=== PATIENT | male | born 1950 | race Caucasian/White ===

== ENCOUNTER 2020-03-23 15:43 | Inpatient (IN) | payer MEDICARE ==
[2020-03-23] MEDS ORDERED: DILTIAZEM DRIP BOLUS FROM BAG 1 MG SOLN IV ONE (16:07)
[2020-03-23] MEDS ORDERED: HEPARIN SODIUM,PORCINE 5,000 UNIT/ML 1 ML VIAL IV PRN (16:08)
[2020-03-23] MEDS ORDERED: HEPARIN SODIUM,PORCINE 5,000 UNIT/ML 1 ML VIAL IV ONE (16:08)
[2020-03-23] MEDS ORDERED: HEPARIN SOD,PORK IN 0.45% NACL 25,000 UNIT in 0.45% NACL 1 250ML.BAG IV SCH (16:15)
--- NOTE | 2020-03-23 16:15 | ED ---
General Adult HPI - General Chief complaint: Arrhythmia/Palpitations Stated complaint: Afib Time Seen by Provider: 03/23/20 15:49 Source: patient Mode of arrival: EMS Limitations: no limitations - History of Present Illness Initial comments: Dictation was produced using [employer] dictation software. please excuse any grammatical, word or spelling errors. This patient was cared for during a federal and state declared state of emergency secondary to Covid 19 Chief Complaint: 69-year-old malepast medical history presents with dysrhythmia. History of Present Illness: he is 69-year-old male he denies any past comorbidities. He was at his primary care physician's office for a routine annual checkup is found to have tachycardia. Patient at bedside denies any complaints at this time. He denies palpitations. He has no chest pain. P atient denies any history of A. fib or cardiac issues. Does not take any blood thinners. He denies any symptoms currently despite being very tachycardic. The ROS documented in this emergency department record has been reviewed and confirmed by me. Those systems with pertinent positive or negative responses have been documented in the HPI. All other systems are other negative and/or noncontributory. PHYSICAL EXAM: General Impression: Alert and oriented x3, not in acute distress HEENT: Normocephalic atraumatic, extra-ocular movements intact, pupils equal and reactive to light bilaterally, mucous membranes moist. Cardiovascular: Tachycardic, irregular Chest: Able to complete full sentences, no retractions, no tachypnea Abdomen: abdomen soft, non-tender, non-distended, no organomegaly Musculoskeletal: Pulses present and equal in all extremities, no peripheral edema Motor: no focal deficits noted Neurological: CN II-XII grossly intact, no focal motor or sensory deficits noted Skin: Intact with no visualized rashes Psych: Normal affect and mood ED course: 69-year-old male presents with dysrhythmia. Signs upon arrival shows heart rate of 135, rest of vital signs within acceptable limits. Patient's well-appearing at bedside. Monitor shows atrial fibrillation rapid ventricular rate. Sometimes his heart rate will go up into the 170s. EKG shows atrial fibrillation with RVR. Patient started on Cardizem and heparin.Laboratory evaluation obtained. CBC, coag panel unremarkable. Metabolic panel is within acceptable limits. No elevated troponin. Chest x-ray is nonacute. Patient reevaluated after being started on Cardizem and heparin. He is in stable medical condition. His heart rate is improved. Discussed patient case with . she does want to accept patients care. EKG interpretation: Ventricular rate 120, A. fib with RVR, QRS 92, QTC 475. No IA prolongation, no QTC prolongation, no ST or T-wave changes noted. s. Overall, this EKG is unremarkable - Related Data Home Medications Medication Instructions Recorded Confirmed Aspirin EC [Ecotrin Low Dose] 81 mg PO DAILY 03/23/20 03/23/20 Cholecalciferol [Vitamin D3 (25 2,000 unit PO DAILY 03/23/20 03/23/20 Mcg = 1000 Iu)] RX: Magnesium Oxide 400 mg PO DAILY 03/23/20 03/23/20 RX: Vitamin E 400 unit PO DAILY 03/23/20 03/23/20 Allergies Allergy/AdvReac Type Severity Reaction Status Date / Time No Known Allergies Allergy Unverified 03/23/20 16:42 Review of Systems ROS Statement: Those systems with pertinent positive or pertinent negative responses have been documented in the HPI. ROS Other: All systems not noted in ROS Statement are negative. 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 ] Respiratory 18 18 Rate Blood Pressure 145/114 105/84 Medical Decision Making - Lab Data Result diagrams: 03/23/20 16:00 03/23/20 16:00 Lab Results 03/23/20 03/23/20 03/23/20 Range/Units 16:00 16:00 16:00 WBC 8.7 (3.8-10.6) k/uL RBC 5.10 (4.30-5.90) m/uL Hgb 16.1 (13.0-17.5) gm/dL Hct 49.7 (39.0-53.0) % MCV 97.6 (80.0-100.0) fL MCH 31.6 (25.0-35.0) pg MCHC 32.4 (31.0-37.0) g/dL RDW 13.7 (11.5-15.5) % Plt Count 160 (150-450) k/uL Neutrophils % 70 % Lymphocytes % 17 % Monocytes % 8 % Eosinophils % 1 % Basophils % 1 % Neutrophils # 6.1 (1.3-7.7) k/uL Lymphocytes # 1.5 (1.0-4.8) k/uL Monocytes # 0.7 (0-1.0) k/uL Eosinophils # 0.1 (0-0.7) k/uL Basophils # 0.0 (0-0.2) k/uL PT 9.4 (9.0-12.0) sec INR 0.9 (<1.2) APTT 23.4 (22.0-30.0) sec Sodium 139 (137-145) mmol/L Potassium 4.5 (3.5-5.1) mmol/L Chloride 112 H (98-107) mmol/L Carbon Dioxide 21 L (22-30) mmol/L Anion Gap 6 mmol/L BUN 8 L (9-20) mg/dL Creatinine 0.68 (0.66-1.25) mg/dL Est GFR (CKD-EPI)AfAm >90 (>60 ml/min/1.73 sqM) Est GFR (CKD-EPI)NonAf >90 (>60 ml/min/1.73 sqM) Glucose 85 (74-99) mg/dL Calcium 9.1 (8.4-10.2) mg/dL Magnesium 2.0 (1.6-2.3) mg/dL Total Bilirubin 0.9 (0.2-1.3) mg/dL AST 42 (17-59) U/L ALT 23 (4-49) U/L Alkaline Phosphatase 58 (38-126) U/L Troponin I (0.000-0.034) ng/mL Total Protein 7.1 (6.3-8.2) g/dL Albumin 4.0 (3.5-5.0) g/dL TSH 1.990 (0.465-4.680) mIU/L 03/23/20 Range/Units 16:00 WBC (3.8-10.6) k/uL RBC (4.30-5.90) m/uL Hgb (13.0-17.5) gm/dL Hct (39.0-53.0) % MCV (80.0-100.0) fL MCH (25.0-35.0) pg MCHC (31.0-37.0) g/dL RDW (11.5-15.5) % Plt Count (150-450) k/uL Neutrophils % % Lymphocytes % % Monocytes % % Eosinophils % % Basophils % % Neutrophils # (1.3-7.7) k/uL Lymphocytes # (1.0-4.8) k/uL Monocytes # (0-1.0) k/uL Eosinophils # (0-0.7) k/uL Basophils # (0-0.2) k/uL PT (9.0-12.0) sec INR (<1.2) APTT (22.0-30.0) sec Sodium (137-145) mmol/L Potassium (3.5-5.1) mmol/L Chloride (98-107) mmol/L Carbon Dioxide (22-30) mmol/L Anion Gap mmol/L BUN (9-20) mg/dL Creatinine (0.66-1.25) mg/dL Est GFR (CKD-EPI)AfAm (>60 ml/min/1.73 sqM) Est GFR (CKD-EPI)NonAf (>60 ml/min/1.73 sqM) Glucose (74-99) mg/dL Calcium (8.4-10.2) mg/dL Magnesium (1.6-2.3) mg/dL Total Bilirubin (0.2-1.3) mg/dL AST (17-59) U/L ALT (4-49) U/L Alkaline Phosphatase (38-126) U/L Troponin I <0.012 (0.000-0.034) ng/mL Total Protein (6.3-8.2) g/dL Albumin (3.5-5.0) g/dL TSH (0.465-4.680) mIU/L Critical Care Time Critical Care Time: Yes Total Critical Care Time: 33 Disposition Clinical Impression: Atrial fibrillation Disposition: ADMITTED IP TO THIS HOSP Condition: Fair Referrals: Lyle Edward MD [Primary Care Provider] - 1-2 days Decision Time: 18:08
[2020-03-23 16:39] LABS: Basophils % (A) 1 %; Eosinophils # (A) 0.1 k/uL (0-0.7); Eosinophils % (A) 1 %; HCT 49.7 % (39.0-53.0); HGB 16.1 gm/dL (13.0-17.5); Lymphocytes # (A) 1.5 k/uL (1.0-4.8); Lymphocytes % (A) 17 %; MCH 31.6 pg (25.0-35.0); MCHC 32.4 g/dL (31.0-37.0); MCV 97.6 fL (80.0-100.0); Mean Platelet Volume 7.5; Monocytes # (A) 0.7 k/uL (0-1.0); Monocytes % (A) 8 %; Neutrophils # (A) 6.1 k/uL (1.3-7.7); Neutrophils % (A) 70 %; Platelet Count 160 k/uL (150-450); RDW 13.7 % (11.5-15.5); WBC 8.7 k/uL (3.8-10.6)
[2020-03-23 16:47] LABS: INR 0.9 (<1.2); Partial Thromboplastin Time 23.4 sec (22.0-30.0); Prothrombin Time 9.4 sec (9.0-12.0)
[2020-03-23] MEDS: DILTIAZEM 125 MG in SODIUM CHLORIDE 0.9% 100 ML IV SCH (16:58)
[2020-03-23 17:11] LABS: ALT 23 U/L (4-49); AST 42 U/L (17-59); African American GFR (CKD) >90 (>60 ml/min/1.73 sqM); Alkaline Phosphatase 58 U/L (38-126); Anion Gap 6 mmol/L; Blood Urea Nitrogen 8 mg/dL (9-20); Calcium 9.1 mg/dL (8.4-10.2); Carbon Dioxide 21 mmol/L (22-30); Chloride 112 mmol/L (98-107); Glucose 85 mg/dL (74-99); Non-African American GFR(CKD) >90 (>60 ml/min/1.73 sqM); Sodium 139 mmol/L (137-145); Total Bilirubin 0.9 mg/dL (0.2-1.3); Total Protein 7.1 g/dL (6.3-8.2)
[2020-03-23 17:19] LABS: Potassium 4.5 mmol/L (3.5-5.1)
--- NOTE | 2020-03-23 18:03 | XR ---
EXAMINATION TYPE: XR chest 1V portable DATE OF EXAM: 03/23/2020 COMPARISON: NONE HISTORY: Dysrhythmia TECHNIQUE: Single frontal view of the chest is obtained. FINDINGS: Heart appears borderline increased although rotation and technique may accentuate the appe arance. No evident airspace disease, pneumothorax, or pleural effusion. There are overlying cardiac l aldair. Bone mineralization is normal. There are prominent lung volumes. IMPRESSION: No acute process.
[2020-03-23] MEDS ORDERED: NALOXONE 0.4 MG/ML 1 ML VIAL IV PRN (18:08)
[2020-03-23] MEDS ORDERED: ACETAMINOPHEN TAB 325 MG TAB PO PRN (18:08)
[2020-03-23] MEDS ORDERED: ONDANSETRON 4 MG/2 ML VIAL IVP PRN (18:08)
[2020-03-23] MEDS ORDERED: SODIUM CHLORIDE 0.9% 1,000 ML IV SCH (18:15)
[2020-03-23 19:15] VITALS: RESP 16
[2020-03-24 00:27] VITALS: TEMP 98.4
[2020-03-24] MEDS: DILTIAZEM 125 MG in SODIUM CHLORIDE 0.9% 100 ML IV SCH (08:40)
[2020-03-24] MEDS ORDERED: CHOLECALCIFEROL 1,000 UNIT TAB PO SCH (09:00)
[2020-03-24] MEDS ORDERED: METOPROLOL TARTRATE 25 MG TAB PO SCH (09:00)
[2020-03-24] MEDS ORDERED: APIXABAN 5 MG TAB PO SCH (09:00)
[2020-03-24] MEDS ORDERED: ASPIRIN 81 MG PO SCH (09:00)
[2020-03-24] MEDS ORDERED: MAGNESIUM OXIDE 400 MG TAB PO SCH (09:00)
--- NOTE | 2020-03-24 11:24 | P.CRDCN ---
History of Present Illness Consult date: 03/24/20 Requesting physician: Kayce Johnson Consult reason: atrial fibrillation History of present illness: This is a pleasant 69-year-old gentleman with no prior documented history of hypertension, no diabetes, no hyperlipidemia, he is a smoker, also drinks at least 6 beers per day, drinks a significant amount of coffee, at least one pot of coffee in the morning. He states that he went to his primary care doctor's office for routine visit, was noticed there to have a rapid irregular heartbeat and was recommended to come to the emergency room for further evaluation and treatment. His EKG on arrival here showed atrial fibrillation with a rapid ventricular response, heart rate was 135, blood pressure at that time 145/114. Chest x-ray did not reveal any acute process. White blood cell count 8.7, hemoglobin 16.1, platelet count 160. Sodium 139, potassium 4.5, BUN 8, creatinine 0.6. Troponin 0.012. TSH level I.9. Patient was initiated on IV Cardizem on arrival here, this morning converted to normal sinus rhythm and remains in a normal sinus rhythm at this time. We will discontinue the IV Cardizem drip and start the patient on a beta una. We will also discontinue the IV heparin and initiate Eliquis. Patient has been educated regarding the importance of anticoagulation for stroke prevention. Past Medical History Past Medical History: No Reported History History of Any Multi-Drug Resistant Organisms: None Reported Past Surgical History: No Surgical Hx Reported Past Psychological History: No Psychological Hx Reported Smoking Status: Current every day smoker Past Alcohol Use History: None Reported Past Drug Use History: None Reported Medications and Allergies Home Medications Medication Instructions Recorded Confirmed Type Cholecalciferol [Vitamin D3 (25 2,000 unit PO DAILY 03/23/20 03/23/20 History Mcg = 1000 Iu)] Magnesium Oxide 400 mg PO DAILY 03/23/20 03/23/20 History Vitamin E 400 unit PO DAILY 03/23/20 03/23/20 History Apixaban [Eliquis] 5 mg PO BID #60 tab 03/24/20 Rx Metoprolol Tartrate [Lopressor] 25 mg PO BID #60 tab 03/24/20 Rx Allergies Allergy/AdvReac Type Severity Reaction Status Date / Time No Known Allergies Allergy Unverified 03/23/20 16:42 Physical Exam Vitals: Vital Signs Temp Pulse Pulse Resp BP BP Pulse Ox 03/24/20 08:00 98.4 F 73 16 113/73 97 03/24/20 04:00 98.4 F 97 16 127/87 95 03/24/20 00:00 98.4 F 91 16 114/77 99 03/23/20 20:10 97.9 F 107 H 16 149/65 97 03/23/20 20:00 97.9 F 107 H 16 149/65 97 03/23/20 19:14 98.2 F 128 H 16 123/90 97 03/23/20 19:13 128 H 16 123/90 03/23/20 19:00 128 H 123/90 03/23/20 18:30 79 103/47 03/23/20 18:00 109 H 122/78 03/23/20 17:39 130 H 03/23/20 17:30 89 39 H 105/84 03/23/20 17:00 120 H 32 H 105/84 03/23/20 16:54 105 H 18 105/84 03/23/20 16:30 106 H 20 145/114 03/23/20 16:00 147 H 14 145/114 03/23/20 15:50 98.2 F 135 H 18 145/114 03/23/20 15:48 142 H 15 Intake and Output 03/23/20 03/24/20 03/24/20 22:59 06:59 14:59 Intake Total 450 71.856 125 Balance 450 71.856 125 Intake: Intake, IV Titration 71.856 125 Amount Diltiazem 125 mg In 125 Sodium Chloride 0.9% 100 ml @ 10 MG/HR 10 mls/hr IV .[id number] [facility] Rx#: [id number] Heparin Sod,Pork in 0.45% 71.856 NaCl 25,000 unit In 0.45 % NaCl 1 250ml.bag @ 11.4 UNITS/KG/HR 9.98 mls/hr IV .Q24H [facility] Rx#: [id number] Oral 450 Other: Voiding Method Toilet Toilet # Voids 1 1 Weight 87.543 kg 86.6 kg PHYSICAL EXAMINATION: GENERAL: 69-year-old gentleman in no acute distress at the time of my examination HEENT: Head is atraumatic, normocephalic. Pupils equal, round. Sclera anicteric. Conjunctiva are clear. Mucous membranes of the mouth are moist. Neck is supple. There is no elevated jugular venous pressure. No carotid bruit is heard. HEART EXAMINATION: Heart S1, S2 normal. No murmur or gallop heard. CHEST EXAMINATION: Lungs reveal some rhonchi to the bases ABDOMEN: Soft, nontender. Bowel sounds are heard. No organomegaly noted. EXTREMITIES: 2+ peripheral pulses with trace evidence of peripheral edema and no calf tenderness noted. NEUROLOGIC patient is awake, alert and oriented 3 . . Results 03/23/20 16:00 03/23/20 16:00 Cardiac Enzymes 03/23/20 03/23/20 Range/Units 16:00 16:00 AST 42 (17-59) U/L Troponin I <0.012 (0.000-0.034) ng/mL Coagulation 03/23/20 03/23/20 03/24/20 Range/Units 16:00 23:52 06:23 PT 9.4 (9.0-12.0) sec APTT 23.4 35.7 H 40.6 H (22.0-30.0) sec CBC 03/23/20 Range/Units 16:00 WBC 8.7 (3.8-10.6) k/uL RBC 5.10 (4.30-5.90) m/uL Hgb 16.1 (13.0-17.5) gm/dL Hct 49.7 (39.0-53.0) % Plt Count 160 (150-450) k/uL Comprehensive Metabolic Panel 03/23/20 Range/Units 16:00 Sodium 139 (137-145) mmol/L Potassium 4.5 (3.5-5.1) mmol/L Chloride 112 H (98-107) mmol/L Carbon Dioxide 21 L (22-30) mmol/L BUN 8 L (9-20) mg/dL Creatinine 0.68 (0.66-1.25) mg/dL Glucose 85 (74-99) mg/dL Calcium 9.1 (8.4-10.2) mg/dL AST 42 (17-59) U/L ALT 23 (4-49) U/L Alkaline Phosphatase 58 (38-126) U/L Total Protein 7.1 (6.3-8.2) g/dL Albumin 4.0 (3.5-5.0) g/dL Current Medications Generic Name Dose Route Start Last Admin Trade Name Freq PRN Reason Stop Dose Admin Acetaminophen 650 mg 03/23/20 18:08 Tylenol Tab PO Q6HR PRN Mild Pain or Fever > 100.5 Apixaban 5 mg 03/24/20 09:00 03/24/20 08:38 Eliquis PO 5 mg BID [facility] Administration Cholecalciferol 2,000 unit 03/24/20 09:00 03/24/20 08:38 Vitamin D3 (25 Mcg = 1000 Iu) PO 2,000 unit DAILY [facility] Administration Sodium Chloride 1,000 mls @ 20 mls/hr 03/23/20 18:15 03/23/20 22:18 Saline 0.9% IV Not Given .Q24H [facility] Magnesium Oxide 400 mg 03/24/20 09:00 03/24/20 08:38 Mag-Ox PO 400 mg DAILY [facility] Administration Metoprolol Tartrate 25 mg 03/24/20 09:00 03/24/20 08:38 Lopressor PO 25 mg BID [facility] Administration Naloxone HCl 0.2 mg 03/23/20 18:08 Narcan IV Q2M PRN Opioid Reversal Ondansetron HCl 4 mg 03/23/20 18:08 Zofran IVP Q8HR PRN Nausea And Vomiting Intake and Output 03/23/20 03/24/20 03/24/20 22:59 06:59 14:59 Intake Total 450 71.856 125 Balance 450 71.856 125 Intake: Intake, IV Titration 71.856 125 Amount Diltiazem 125 mg In 125 Sodium Chloride 0.9% 100 ml @ 10 MG/HR 10 mls/hr IV .[id number] [facility] Rx#: [id number] Heparin Sod,Pork in 0.45% 71.856 NaCl 25,000 unit In 0.45 % NaCl 1 250ml.bag @ 11.4 UNITS/KG/HR 9.98 mls/hr IV .Q24H [facility] Rx#: [id number] Oral 450 Other: Voiding Method Toilet Toilet # Voids 1 1 Weight 87.543 kg 86.6 kg 03/23/20 16:00 03/23/20 16:00 EKG Interpretations (text) EKG on arrival here showed atrial fibrillation with a rapid ventricular response, this morning's EKG shows a normal sinus rhythm no acute changes. Assessment and Plan Plan: Assessment and plan #1 atrial fibrillation with rapid ventricular response, paroxysmal, patient currently in normal sinus rhythm #2 nicotine dependence #3 EtOH use, 6 beers per day #4 excessive caffeine intake Plan We will obtain an echocardiogram with Doppler study. Discontinue IV Cardizem and start the patient on a beta una. We will also discontinue the IV hepa rin and initiate Eliquis 5 mg one tablet by mouth twice a day. From cardiology's perspective, the patient may be able to be discharged home today after we review his echo, he can follow-up with Dr. Allen in the office 2 weeks post discharge. DNP note has been reviewed, I agree with a documented findings and plan of care. Patient was seen and examined.
--- NOTE | 2020-03-24 11:25 | P.HPIM ---
History of Present Illness patient is a pleasant 69-year-old admitted without any other significant problems was sent in from PCPs office as patient was tachycardic and patient follow found to be in atrial fibrillation patient was on Cardizem drip which is being weaned off at this time patient was started on metoprolol twice a day and patient is being started on Eliquis after echocardiogram patient will be discharged on Eliquis patient is presently sinus rhythm heart rate controlled. Patient denied any fever chills nausea vomiting patient doesn't have any signs of sepsis or dehydration, patient denied any chest pain, palpitations, lightheadedness. Review of Systems REVIEW OF SYSTEMS: CONSTITUTIONAL: No fever, no malaise, no fatigue. HEENT: No recent visual problems or hearing problems. Denied any sore throat. CARDIOVASCULAR: No chest pain, orthopnea, PND, no palpitations, no syncope. PULMONARY: No shortness of breath, no cough, no hemoptysis. GASTROINTESTINAL: No diarrhea, no nausea, no vomiting, no abdominal pain. NEUROLOGICAL: No headaches, no weakness, no numbness. HEMATOLOGICAL: Denies any bleeding or petechiae. GENITOURINARY: Denies any burning micturition, frequency, or urgency. MUSCULOSKELETAL/RHEUMATOLOGICAL: Denies any joint pain, swelling, or any muscle pain. ENDOCRINE: Denies any polyuria or polydipsia. The rest of the 14-point review of systems is negative. Past Medical History Past Medical History: No Reported History History of Any Multi-Drug Resistant Organisms: None Reported Past Surgical History: No Surgical Hx Reported Past Psychological History: No Psychological Hx Reported Smoking Status: Current every day smoker Past Alcohol Use History: None Reported Past Drug Use History: None Reported Medications and Allergies Home Medications Medication Instructions Recorded Confirmed Type Cholecalciferol [Vitamin D3 (25 2,000 unit PO DAILY 03/23/20 03/23/20 History Mcg = 1000 Iu)] Magnesium Oxide 400 mg PO DAILY 03/23/20 03/23/20 History Vitamin E 400 unit PO DAILY 03/23/20 03/23/20 History Apixaban [Eliquis] 5 mg PO BID #60 tab 03/24/20 Rx Metoprolol Tartrate [Lopressor] 25 mg PO BID #60 tab 03/24/20 Rx Allergies Allergy/AdvReac Type Severity Reaction Status Date / Time No Known Allergies Allergy Unverified 03/23/20 16:42 Physical Exam Vitals: Vital Signs Temp Pulse Pulse Resp BP BP Pulse Ox 03/24/20 08:00 98.4 F 73 16 113/73 97 03/24/20 04:00 98.4 F 97 16 127/87 95 03/24/20 00:00 98.4 F 91 16 114/77 99 03/23/20 20:10 97.9 F 107 H 16 149/65 97 03/23/20 20:00 97.9 F 107 H 16 149/65 97 03/23/20 19:14 98.2 F 128 H 16 123/90 97 03/23/20 19:13 128 H 16 123/90 03/23/20 19:00 128 H 123/90 03/23/20 18:30 79 103/47 03/23/20 18:00 109 H 122/78 03/23/20 17:39 130 H 03/23/20 17:30 89 39 H 105/84 03/23/20 17:00 120 H 32 H 105/84 03/23/20 16:54 105 H 18 105/84 03/23/20 16:30 106 H 20 145/114 03/23/20 16:00 147 H 14 145/114 03/23/20 15:50 98.2 F 135 H 18 145/114 03/23/20 15:48 142 H 15 Intake and Output 03/23/20 03/24/20 03/24/20 22:59 06:59 14:59 Intake Total 450 71.856 125 Balance 450 71.856 125 Intake: Intake, IV Titration 71.856 125 Amount Diltiazem 125 mg In 125 Sodium Chloride 0.9% 100 ml @ 10 MG/HR 10 mls/hr IV .[id number] [facility] Rx#: [id number] Heparin Sod,Pork in 0.45% 71.856 NaCl 25,000 unit In 0.45 % NaCl 1 250ml.bag @ 11.4 UNITS/KG/HR 9.98 mls/hr IV .Q24H [facility] Rx#: [id number] Oral 450 Other: Voiding Method Toilet Toilet # Voids 1 1 Weight 87.543 kg 86.6 kg PHYSICAL EXAMINATION: GENERAL: The patient is alert and oriented x3, not in any acute distress. Well developed, well nourished. HEENT: Pupils are round and equally reacting to light. EOMI. No scleral icterus. No conjunctival pallor. Normocephalic, atraumatic. No pharyngeal erythema. No thyromegaly. CARDIOVASCULAR: S1 and S2 present. No murmurs, rubs, or gallops. PULMONARY: Chest is clear to auscultation, no wheezing or crackles. ABDOMEN: Soft, nontender, nondistended, normoactive bowel sounds. No palpable organomegaly. MUSCULOSKELETAL: No joint swelling or deformity. EXTREMITIES: No cyanosis, clubbing, or pedal edema. NEUROLOGICAL: Gross neurological examination did not reveal any focal deficits. SKIN: No rashes. Results CBC & Chem 7: 03/23/20 16:00 03/23/20 16:00 Labs: Abnormal Lab Results - Last 24 Hours (Table) 03/23/20 03/23/20 03/24/20 Range/Units 16:00 23:52 06:23 APTT 35.7 H 40.6 H (22.0-30.0) sec Chloride 112 H (98-107) mmol/L Carbon Dioxide 21 L (22-30) mmol/L BUN 8 L (9-20) mg/dL Assessment and Plan Plan: -new-onset atrial flutter fibrillation with rapid and regular rate presently rate controlled sinus rhythm patient will be discharged on beta una and Eliquis and we're awaiting echocardiogram. -nicotine abuse: Counseling was provided
--- NOTE | 2020-03-24 11:26 | P.DS ---
Providers Date of admission: 03/23/20 18:08 Attending physician: Weston Frazier MD Consults: 03/23/20 16:08 Consult Physician Routine Consulting Provider: Gerard Allen Consult Reason/Comments: afib Do you want consulting provider notified?: Yes Primary care physician: Lyle Edward [facility] Course: please refer to my history of present illness for further details Patient Condition at Discharge: Fair Plan - Discharge Summary Discharge Rx Participant: Yes New Discharge Prescriptions: New Apixaban [Eliquis] 5 mg PO BID #60 tab Metoprolol Tartrate [Lopressor] 25 mg PO BID #60 tab Continue Vitamin E 400 unit PO DAILY Cholecalciferol [Vitamin D3 (25 Mcg = 1000 Iu)] 2,000 unit PO DAILY Magnesium Oxide 400 mg PO DAILY Discontinued Aspirin EC [Ecotrin Low Dose] 81 mg PO DAILY Discharge Medication List Cholecalciferol [Vitamin D3 (25 Mcg = 1000 Iu)] 2,000 unit PO DAILY 03/23/20 [History] Magnesium Oxide 400 mg PO DAILY 03/23/20 [History] Vitamin E 400 unit PO DAILY 03/23/20 [History] Apixaban [Eliquis] 5 mg PO BID #60 tab 03/24/20 [Rx] Metoprolol Tartrate [Lopressor] 25 mg PO BID #60 tab 03/24/20 [Rx] Follow up Appointment(s)/Referral(s): Gerard Allen MD [STAFF PHYSICIAN] - 04/08/20 10:30 am (Monday) Lyle Edward MD [Primary Care Provider] - 03/27/20 11:15 am (Monday) Patient Instructions/Handouts: A-fib (Atrial Fibrillation) (DC), Safe Use of Anticoagulants (DC) Activity/Diet/Wound Care/Special Instructions: Call [phone] to see if you qualify for patient assistance for Eliquis - may also get samples from cardiology office. Will get 30 days for free with coupon. Discharge Disposition: HOME SELF-CARE
[2020-03-24 13:18] VITALS: BP 128/75; PULSE 67
--- NOTE | 2020-03-25 10:32 | ECHOF ---
Referral Reason:afib MEASUREMENTS -------- HEIGHT: 180.3 cm WEIGHT: 86.2 kg BP: 127/87 RVIDd: 3.4 cm (< 3.3) IVSd: 1.5 cm (0.6 - 1.1) LVIDd: 5.2 cm (3.9 - 5.3) LVPWd: 1.1 cm (0.6 - 1.1) IVSs: 1.6 cm LVIDs: 4.1 cm LVPWs: 1.7 cm LAESV Index (A-L): 36.07 ml/m Ao Diam: 2.9 cm (2.0 - 3.7) AV Cusp: 2.3 cm (1.5 - 2.6) MV E Pipo: 0.70 m/s MV DecT: 142 ms MV A Pipo: 0.89 m/s MV E/A Ratio: 0.79 FINDINGS -------- Sinus rhythm. This was a technically adequate study. The left ventricular size is normal. There is mild concentric left ventricular hypertrophy. Overa ll left ventricular systolic function is mild-moderately impaired with, an EF between 40 - 45 %. Mi tral Doppler inflow pattern suggests diastolic filling abnormality 11.90. Mid anterior LV wall gemma on is hypokinetic. Apical anterior LV wall motion is hypokinetic. Apical septum LV wall motion is hypokinetic. The right ventricle is mildly enlarged. LA is moderately dilated 34-39 ml/m2 The right atrial size is normal. Interatrial and interventricular septum intact. There is no evidence of aortic regurgitation. There is no evidence of aortic stenosis. Mild mitral regurgitation is present. Mild tricuspid regurgitation present. There is no evidence of pulmonary hypertension. The right v entricular systolic pressure, as measured by Doppler, is {RVSP}. There is no pulmonic regurgitation present. The aortic root size is normal. Normal inferior vena cava with normal inspiratory collapse consistent with estimated right atrial pre ssure of 5 mmHg. There is no pericardial effusion. CONCLUSIONS -------- 1. Sinus rhythm. 2. This was a technically adequate study. 3. The left ventricular size is normal. 4. There is mild concentric left ventricular hypertrophy. 5. Overall left ventricular systolic function is mild-moderately impaired with, an EF between 40 - 45 %. 6. Mitral Doppler inflow pattern suggest diastolic filling abnormality 11.90. 7. Mid anterior LV wall motion is hypokinetic. 8. Apical anterior LV wall motion is hypokinetic. 9. Apical septum LV wall motion is hypokinetic. 10. The right ventricle is mildly enlarged. 11. LA is moderately dilated 34-39 ml/m2 12. The right atrial size is normal. 13. Interatrial and interventricular septum intact. 14. There is no evidence of aortic regurgitation. 15. There is no evidence of aortic stenosis. 16. Mild mitral regurgitation is present. 17. Mild tricuspid regurgitation present. 18. There is no evidence of pulmonary hypertension. 19. The right ventricular systolic pressure, as measured by Doppler, is {RVSP}. 20. There is no pulmonic regurgitation present. 21. The aortic root size is normal. 22. Normal inferior vena cava with normal inspiratory collapse consistent with estimated right atrial pressure of 5 mmHg. 23. There is no pericardial effusion. ELECTRICAL SYSTEMS DESIGNER: Maru Pierre RDCS
== END 2020-03-24 16:41 | disposition home or self-care (01) | DRG 309 ==
LOC: EC 15:43 → 3SCARD 18:08
PROVIDERS: ADMIT Internal Medicine; ATTEND Internal Medicine
DX: I48.0 Paroxysmal atrial fibrillation (principal); E87.2 Acidosis; I48.92 Unspecified atrial flutter; E87.8 Other disorders of electrolyte and fluid balance, not elsewhere classified; F17.200 Nicotine dependence, unspecified, uncomplicated; T50.3X5A Adverse effect of electrolytic, caloric and water-balance agents, initial encounter; Z72.89 Other problems related to lifestyle; F15.90 Other stimulant use, unspecified, uncomplicated; Z79.01 Long term (current) use of anticoagulants; Z79.82 Long term (current) use of aspirin; Z79.899 Other long term (current) drug therapy; Z11.59 Encounter for screening for other viral diseases
CPT/HCPCS: 36415; 71045; 80053; 83735; 84443; 84484; 85025; 85610; 85730; 93005; 93306; 96365; 96366; 96376; 99291

== ENCOUNTER 2021-01-28 10:20 | Day surgery (SDC) | payer MEDICARE ==
[2021-01-27 09:48] VITALS: BMI 27.9
[~2021-01-28 10:20] MED LIST: ALPRAZolam 0.25 MG TAB PO PRN; ALPRAZolam 0.5 MG TAB PO PRN; ASPIRIN 325 MG TAB PO STA; HEPARIN SODIUM,PORCINE 10,000 UNIT in SODIUM CHLORIDE 0.9% 1,000 ML IRRIGATION PRN; HEPARIN SODIUM,PORCINE 2,500 UNIT in SODIUM CHLORIDE 0.9% 250 ML IRRIGATION PRN; NITROGLYCERIN SL TABS 0.4 MG TAB SUBLINGUAL PRN; SODIUM CHLORIDE 0.9% 1,000 ML in EMPTY BAG 1 BAG IV ONE
[2021-01-28] MEDS ORDERED: SODIUM CHLORIDE 0.9% 1,000 ML IV ONE (10:26)
[2021-01-28 11:08] LABS: Basophils # (A) 0.1 k/uL (0-0.2); Basophils % (A) 1 %; Eosinophils # (A) 0.1 k/uL (0-0.7); Eosinophils % (A) 2 %; HCT 47.1 % (39.0-53.0); HGB 16.6 gm/dL (13.0-17.5); Lymphocytes # (A) 1.8 k/uL (1.0-4.8); Lymphocytes % (A) 22 %; MCH 32.1 pg (25.0-35.0); MCHC 35.2 g/dL (31.0-37.0); MCV 91.2 fL (80.0-100.0); Mean Platelet Volume 7.4; Monocytes # (A) 0.7 k/uL (0-1.0); Monocytes % (A) 8 %; Neutrophils # (A) 5.5 k/uL (1.3-7.7); Neutrophils % (A) 66 %; Platelet Count 207 k/uL (150-450); RBC 5.17 m/uL (4.30-5.90); RDW 12.9 % (11.5-15.5); WBC 8.3 k/uL (3.8-10.6)
[2021-01-28 11:50] LABS: African American GFR (CKD) >90 (>60 ml/min/1.73 sqM); Anion Gap 4 mmol/L; Blood Urea Nitrogen 15 mg/dL (9-20); Calcium 9.2 mg/dL (8.4-10.2); Carbon Dioxide 24 mmol/L (22-30); Chloride 109 mmol/L (98-107); Glucose 101 mg/dL (74-99); Non-African American GFR(CKD) 83 (>60 ml/min/1.73 sqM); Potassium 4.4 mmol/L (3.5-5.1); Sodium 137 mmol/L (137-145)
[2021-01-28] MEDS ORDERED: HEPARIN SODIUM 1,000 UN/ML (10ML VL) ONE (11:57)
[2021-01-28] MEDS ORDERED: LIDOCAINE 1% INJ 10MG/ML (20 ML MDV) ONE (11:57)
[2021-01-28] MEDS ORDERED: VERAPAMIL 2.5 MG/ML 2 ML AMP ONE (11:57)
[2021-01-28] MEDS ORDERED: fentaNYL (PF) 50 MCG/ML 2 ML AMP ONE (11:57)
[2021-01-28] MEDS ORDERED: fentaNYL (PF) 50 MCG/ML 2 ML AMP IV ONE (12:16)
[2021-01-28] MEDS ORDERED: LIDOCAINE 1% INJ 10MG/ML (20 ML MDV) SQ ONE (12:17)
[2021-01-28] MEDS ORDERED: VERAPAMIL SYRINGE (5 MG/10 ML) INTRAARTER ONE (12:19)
[2021-01-28] MEDS ORDERED: MIDAZOLAM 2 MG/2 ML VIAL IV ONE (12:19)
[2021-01-28] MEDS ORDERED: HEPARIN SODIUM 1,000 UN/ML (10ML VL) IV ONE (12:23)
[2021-01-28] MEDS ORDERED: IOPAMIDOL-370 125ML BTL INJ ONE (12:31)
[2021-01-28] MEDS ORDERED: RX INFO: IV CONTRAST WAS GIVEN 1 EACH MISC MISCELLANE PRN (12:46)
[2021-01-28] MEDS ORDERED: HEPARIN SODIUM 1,000 UN/ML (10ML VL) IV PRN (12:50)
[2021-01-28] MEDS ORDERED: SODIUM CHLORIDE 0.9% 1,000 ML IV SCH (13:00)
[2021-01-28] MEDS ORDERED: HEPARIN SOD,PORK IN 0.45% NACL 25,000 UNIT in 0.45% NACL 1 250ML.BAG IV SCH (15:00)
--- NOTE | 2021-01-28 15:00 | P.GSCN ---
History of Present Illness Consult date: 01/28/21 Reason for Consult: Coronary artery disease Requesting physician: Gerard Allen History of present illness: This is a 70-year-old gentleman who follows on an outpatient basis with nurse practitioner Aiyana Mckeon. He has a previous medical history of paroxysmal atrial fibrillation on Eliquis for anticoagulation, cardiomyopathy, tobacco and alcohol dependence, and family history of coronary artery disease. Apparently he has been experiencing exertional dyspnea and chest pain for the last couple of weeks. It is relieved with rest, and the patient denies any other symptomatology. He did have a Lexiscan stress test in May 2020 demonstrating EF 45%, dilation of the left ventricle with evidence of fixed apical and distal anterior wall defect of moderate size. He was evaluated by Dr. Allen and was recommended to undergo heart catheterization which was completed today and which demonstrated triple-vessel coronary artery disease with left main disease. Due to these findings consultation was placed to Dr. Allen from cardiothoracic surgery for surgical recommendations. Review of Systems Review of systems was completed and was negative except as noted - Cardiovascular Reports as per HPI, Reports chest pain, Reports dyspnea on exertion Past Medical History Past Medical History: Atrial Fibrillation, Coronary Artery Disease (CAD) Additional Past Medical History / Comment(s): back pain/knee pain. questionable heart attack vs. scar tissue about 20 years ago Last Myocardial Infarction Date:: approx 20 yrs ago History of Any Multi-Drug Resistant Organisms: None Reported Past Surgical History: No Surgical Hx Reported, Tonsillectomy Past Anesthesia/Blood Transfusion Reactions: No Reported Reaction Past Psychological History: No Psychological Hx Reported Smoking Status: Former smoker Past Alcohol Use History: None Reported Additional Past Alcohol Use History / Comment(s): Quit smoking 2 months ago; no alcohol since August 2020 Past Drug Use History: None Reported - Past Family History Father Family Medical History: Myocardial Infarction ([place]) Mother Family Medical History: Rheumatoid Arthritis ([place]) Brother(s) Family Medical History: CVA/TIA, Myocardial Infarction ([place]) Medications and Allergies Home Medications Medication Instructions Recorded Confirmed Type Apixaban [Eliquis] 5 mg PO BID #60 tab 03/24/20 01/28/21 Rx Metoprolol Tartrate [Lopressor] 25 mg PO TID 06/08/20 01/28/21 History Aspirin 81 mg PO ONCE 01/28/21 01/28/21 History Isosorbide Mononitrate ER [Imdur] 30 mg PO DAILY 01/28/21 01/28/21 History Allergies Allergy/AdvReac Type Severity Reaction Status Date / Time No Known Allergies Allergy Unverified 01/28/21 10:39 Surgical - Exam Vital Signs Temp Pulse Resp BP Pulse Ox 97.8 F 72 16 138/67 99 01/28/21 10:42 01/28/21 10:42 01/28/21 10:42 01/28/21 10:42 01/28/21 10:42 CONSTITUTIONAL: Awake and alert, appears comfortable, cooperative, well- developed, well-nourished, no pain, no acute distress EYES: Pupils equal, round, reactive to light, normal ocular movement ENT: Moist mucous membranes without oral lesions present NECK: No masses, no bruits, trachea midline RESPIRATORY: Lungs sounds diminished to auscultation bilaterally. Respirations even, nonlabored. Currently on room air with oxygen saturation 98%. Strong cou gh. No chest wall deformities. No clubbing or cyanosis present CARDIOVASCULAR: S1, S2 present. Regular rate and rhythm, sinus rhythm on telemetry. Palpable peripheral pulses bilaterally. No edema present. No calf pain or tenderness noted. No significant lower extremity varicosities noted. L eft radial José Manuel's test less than 8 seconds. Right radial heart catheterization site without redness or drainage, T band present GASTROINTESTINAL: Abdomen soft, nontender, nondistended without masses or organomegaly noted. There is no rebound or guarding present. Active bowel sounds present 4 quadrants. GENITOURINARY: Deferred INTEGUMENTARY: Skin is warm and dry. Toe nails appear to have onychomycosis NEUROLOGIC: Cranial nerves II through XII intact, normal coordination, no obvious motor or sensory deficits, speech is normal MUSKULOSKELETAL: Able to move all extremities, strength equal bilaterally, normal posture PSYCHIATRIC: Alert and oriented to person place and time, appropriate affect, intact judgment and insight Results - Labs 01/28/21 10:35 01/28/21 11:10 Abnormal Lab Results - Last 24 Hours (Table) 01/28/21 Range/Units 11:10 Chloride 109 H (98-107) mmol/L Glucose 101 H (74-99) mg/dL Diabetes panel 01/28/21 Range/Units 11:10 Sodium 137 (137-145) mmol/L Potassium 4.4 (3.5-5.1) mmol/L Chloride 109 H (98-107) mmol/L Carbon Dioxide 24 (22-30) mmol/L BUN 15 (9-20) mg/dL Creatinine 0.94 (0.66-1.25) mg/dL Glucose 101 H (74-99) mg/dL Calcium 9.2 (8.4-10.2) mg/dL Calcium panel 01/28/21 Range/Units 11:10 Calcium 9.2 (8.4-10.2) mg/dL Pituitary panel 01/28/21 Range/Units 11:10 Sodium 137 (137-145) mmol/L Potassium 4.4 (3.5-5.1) mmol/L Chloride 109 H (98-107) mmol/L Carbon Dioxide 24 (22-30) mmol/L BUN 15 (9-20) mg/dL Creatinine 0.94 (0.66-1.25) mg/dL Glucose 101 H (74-99) mg/dL Calcium 9.2 (8.4-10.2) mg/dL Adrenal panel 01/28/21 Range/Units 11:10 Sodium 137 (137-145) mmol/L Potassium 4.4 (3.5-5.1) mmol/L Chloride 109 H (98-107) mmol/L Carbon Dioxide 24 (22-30) mmol/L BUN 15 (9-20) mg/dL Creatinine 0.94 (0.66-1.25) mg/dL Glucose 101 H (74-99) mg/dL Calcium 9.2 (8.4-10.2) mg/dL - Imaging Additional studies: Heart catheterization films reviewed with Dr. Allen and Dr. Allen Assessment and Plan Assessment: 1. Triple-vessel coronary artery disease with left main disease 2. History of paroxysmal atrial fibrillation on Eliquis for anticoagulation, currently normal sinus rhythm, last dose Eliquis 01/25/2021 3. Previous tobacco dependence, FEV1 calculated to be 88% of predicted 4. Questionable history of prior myocardial infarction versus scar tissue over 20 years ago 5. Previous EtOH abuse 6. Family history of coronary artery disease Plan: The patient was seen and examined in the extended stay unit with Dr. Allen. Chart/diagnostics were reviewed. The usual perioperative course of coronary artery bypass surgery was discussed in detail with the patient and his , risks and benefits were reviewed, all questions were answered. The patient did consent to surgery. Preoperative testing has been initiated. Recommend continuing aspirin, statin, beta una therapy. Risk factor modification discussed, including continued smoking cessation. Will complete 5 m walk test. Once all testing has been completed will calculate STS risk score and discuss with the patient. Our plan is for coronary artery bypass surgery with left internal mammary artery, left radial artery and endoscopic vein harvest, pulmonary vein isolation and exclusion of the left atrial appendage 02/02/2021 assuming there are no major red flags in his preoperative testing. This is agreeable to the patient, his , and discussed with Dr. Allen. The patient expressed wishes to be able to go home and return next week for surgery, we will leave this decision to Dr. Allen. Thank you Dr. Allen for this consult. We look forward to working with you in the care of your patient. Time with Patient: Greater than 30
[2021-01-28 15:11] LABS: Basophils # (A) 0.1 k/uL (0-0.2); Basophils % (A) 1 %; Eosinophils # (A) 0.1 k/uL (0-0.7); Eosinophils % (A) 1 %; HCT 41.8 % (39.0-53.0); HGB 14.9 gm/dL (13.0-17.5); Lymphocytes # (A) 2.3 k/uL (1.0-4.8); Lymphocytes % (A) 31 %; MCH 32.6 pg (25.0-35.0); MCHC 35.6 g/dL (31.0-37.0); MCV 91.3 fL (80.0-100.0); Mean Platelet Volume 7.3; Monocytes # (A) 0.5 k/uL (0-1.0); Monocytes % (A) 7 %; Neutrophils # (A) 4.3 k/uL (1.3-7.7); Neutrophils % (A) 58 %; Platelet Count 183 k/uL (150-450); RBC 4.57 m/uL (4.30-5.90); RDW 13.5 % (11.5-15.5); WBC 7.3 k/uL (3.8-10.6)
[2021-01-28 15:27] LABS: INR 0.9 (<1.2); Partial Thromboplastin Time 29.5 sec (22.0-30.0); Prothrombin Time 10.2 sec (9.0-12.0)
--- NOTE | 2021-01-28 16:06 | XR ---
EXAMINATION TYPE: XR chest 2V DATE OF EXAM: 01/28/2021 COMPARISON: 03/23/20 HISTORY: Shortness of breath TECHNIQUE: Frontal and lateral views of the chest are obtained. FINDINGS: Scattered senescent parenchymal changes noted. Hyperinflation compatible with COPD. No evidence for infiltrate. No evidence for atelectasis. Heart size is stable. Mediastinal structures are stable and grossly unremarkable. No evidence for hilar prominence. Degenerative changes dorsal spine. IMPRESSION: 1. No evidence for acute pulmonary disease.
[2021-01-28] MEDS: METOPROLOL TARTRATE 25 MG TAB PO SCH ×2 (16:07→22:09)
[2021-01-28 16:17] LABS: Appearance,Urine Clear (Clear); Bilirubin,Urine Negative (Negative); Blood,Urine Negative (Negative); Color,Urine Yellow; Glucose,Urine (UA) Negative (Negative); Ketones,Urine Negative (Negative); Leukocyte Esterase,Urine Negative (Negative); Nitrite,Urine Negative (Negative); PH, Urine 6.5 (5.0-8.0); Protein,Urine Negative (Negative); Urobilinogen,Urine <2.0 mg/dL (<2.0)
[2021-01-28 16:26] LABS: Specific Gravity,Urine >1.050 (1.001-1.035)
--- NOTE | 2021-01-28 18:04 | CC ---
CARDIAC CATHETERIZATION REPORT Mr. Johnson is a 70-year-old male with a history of paroxysmal fibrillation, history of mild cardiomyopathy, who presented with symptoms of exertional chest discomfort, increasing in frequency recently. In view of that, recommendation was made regarding cardiac catheterization. The procedure as well as the risks and the complications were discussed with the patient who is in full understanding and agreement. PROCEDURE DETAILS: Patient was brought to the laborer/grade check in a fasting semi-sedated state after receiving fentanyl and Benadryl and achieving moderate conscious sedated state. Using Xylocaine anesthesia and a 6-[place] sheath was introduced in the right radial artery. Selective right and left coronary angiography performed using 5-[place] 3.5 bend, right and left Aleena catheter. Multiple views of the coronary artery including hemiaxial views were obtained. The right Aleena was used to cross the aortic valve. Left ventricular end- diastolic pressure was calculated. Following that, catheter and sheath were removed. Hemostasis was obtained with deployment of a TR band. There was no immediate complication. Patient is returned to his room in stable condition. FINDINGS: LEFT MAIN: This is a short size vessel, bifurcating into left circumflex, left anterior descending artery. The left main coronary artery has a 50% plaque distally. The rest of the vessel has no high-grade stenosis. LEFT ANTERIOR DESCENDING ARTERY: This is a large-sized vessel reaching toward the apex with a wraparound apex segment giving rise to a large diagonal branch proximally. The ostium of the left anterior descending artery has a 99% stenosis. The rest of the vessel has no high-grade stenosis. LEFT CIRCUMFLEX: This is a dominant vessel, large in caliber giving rise to a proximal large obtuse marginal branch. Following the takeoff of the obtuse marginal branch, there is a 99 eccentric plaque distally bifurcating into PDA and posterolateral segment and branches. The distal vessel has no evidence of high-grade stenosis. RIGHT CORONARY ARTERY: This is a small nondominant vessel that has no evidence of high- grade stenosis. LEFT VENTRICULOGRAM: Left ventriculogram was not performed. HEMODYNAMICS: There was no gradient across the aortic valve. The left ventricle end-diastolic pressure was 12-16 mmHg. CONCLUSION: 1. 50% distal left main disease. 2. Critical stenosis in the ostium of the LAD as well as the mid left circumflex. RECOMMENDATION: In view of findings and anatomy, I recommend proceeding with evaluation for coronary artery bypass grafting. The rationale behind that as well as the plans were discussed with the patient and his family who are in full understanding and agreement. Duration of sedation is 19 minutes. MMHEIKEL / PRAVINN: [id number] /
--- NOTE | 2021-01-28 21:29 | US ---
EXAMINATION TYPE: US carotid duplex BILAT DATE OF EXAM: 01/28/2021 COMPARISON: NONE CLINICAL HISTORY: preop cabg. EXAM MEASUREMENTS: RIGHT: Peak Systolic Velocity (PSV) cm/sec ----- Right CCA: 65.8 ----- Right ICA: 80.7 ----- Right ECA: 143.0 ICA/CCA ratio: 1.2 RIGHT: End Diastole cm/sec ----- Right CCA: 12.8 ----- Right ICA: 20.0 ----- Right ECA: 11.5 LEFT: Peak Systolic Velocity (PSV) cm/sec ----- Left CCA: 109.0 ----- Left ICA: 125.0 ----- Left ECA: 115.0 ICA/CCA ratio: 1.2 LEFT: End Diastole cm/sec ----- Left CCA: 25.8 ----- Left ICA: 37.0 ----- Left ECA: 0.0 VERTEBRALS (direction of flow): Right Vertebral: Antegrade Left Vertebral: Antegrade Rhythm: Normal Mild plaque bilateral bifurcations. No evidence of significant stenosis IMPRESSION: No evidence for hemodynamically significant stenosis. Criteria for Assigning % of Stenosis / Diameter reduction (Estimation based on the indirect measurements of the internal carotid artery velocities (ICA PSV). 1. Normal (no stenosis)=ICA PSV < 125 cm/s: ratio < 2.0: ICA EDV<40 cm/s. 2. Less than 50% stenosis=ICA PSV < 125 cm/s: ratio < 2.0: ICA EDV<40 cm/s. 3. 50 to 69% stenosis=ICA PSV of 125 to 230 cm/s: ration 2.0 ? 4.0: ICA EDV 40-100 cm/s. 4. Greater than 70% stenosis to near occlusion= ICA PSV > 230 cm/s: ratio > 4.0: ICA EDV > 100 cm/s. 5. Near occlusion= ICA PSV velocities may be low or undetectable: variable ratio and ICA EDV. 6. Total occlusion=unable to detect flow.
[2021-01-28] MEDS: MUPIROCIN 2% OINT 22 GM TUBE NASAL SCH (22:09)
[2021-01-29 05:57] LABS: Basophils # (A) 0.1 k/uL (0-0.2); Basophils % (A) 1 %; Eosinophils # (A) 0.2 k/uL (0-0.7); Eosinophils % (A) 3 %; HCT 42.7 % (39.0-53.0); HGB 14.6 gm/dL (13.0-17.5); Lymphocytes # (A) 2.3 k/uL (1.0-4.8); Lymphocytes % (A) 31 %; MCH 31.3 pg (25.0-35.0); MCHC 34.3 g/dL (31.0-37.0); MCV 91.3 fL (80.0-100.0); Mean Platelet Volume 7.3; Monocytes # (A) 0.5 k/uL (0-1.0); Monocytes % (A) 7 %; Neutrophils # (A) 4.4 k/uL (1.3-7.7); Neutrophils % (A) 57 %; Platelet Count 169 k/uL (150-450); RBC 4.68 m/uL (4.30-5.90); WBC 7.7 k/uL (3.8-10.6)
[2021-01-29 06:11] LABS: INR 0.9 (<1.2); Partial Thromboplastin Time 56.8 sec (22.0-30.0); Prothrombin Time 10.2 sec (9.0-12.0)
[2021-01-29 06:25] LABS: African American GFR (CKD) >90 (>60 ml/min/1.73 sqM); Anion Gap 6 mmol/L; Blood Urea Nitrogen 18 mg/dL (9-20); Calcium 8.9 mg/dL (8.4-10.2); Carbon Dioxide 22 mmol/L (22-30); Chloride 111 mmol/L (98-107); Glucose 91 mg/dL (74-99); Non-African American GFR(CKD) 86 (>60 ml/min/1.73 sqM); Potassium 3.9 mmol/L (3.5-5.1); Sodium 139 mmol/L (137-145)
--- NOTE | 2021-01-29 08:26 | PN ---
PROGRESS NOTE Mr. Johnson is a 70-year-old male who presented with symptoms of angina pectoris, underwent cardiac catheterization was found to have a 50% distal left main as well as ostial LAD and mid dominant circumflex severe disease. He was evaluated by Dr. Allen and scheduled to undergo surgical intervention on Monday. He is feeling well at this time. He is denying any chest pain. He denies any dizziness or palpitation. He denies any nausea. He continues to be on IV heparin. He continues to be at this time on aspirin once a day, Lipitor 40 mg daily, isosorbide mononitrate 30 mg daily, metoprolol tartrate 25 mg twice a day. PHYSICAL EXAMINATION: Blood pressure 140/60 with the heart rate in 70s. LUNGS: Clear. HEART: Regular rate and rhythm. S1, S2. No S3. No rub. ABDOMEN: Soft, nontender. EXTREMITIES: No edema. Right radial pulse intact. IMPRESSION: 1. Severe coronary artery disease, scheduled for surgical intervention. 2. Paroxysmal atrial fibrillation. 3. History of cardiomyopathy. 4. Hypertension. 5. Hyperlipidemia. 6. Prior history of smoking. RECOMMENDATION: I have discussed with the patient the findings. The patient would like to go home because of personal affairs that he needs to take care of. I have discussed with him the importance of avoiding heavy activity. He will be discharged home today and re- admitted on Monday to undergo surgical intervention. MMHEIKEL / PRAVINN: [id number] /
--- NOTE | 2021-01-29 08:54 | P.PN ---
Subjective Progress Note Date: 01/29/21 Principal diagnosis: Symptomatic coronary artery disease. Previous medical hiistory of paroxysmal atrial fibrillation on Eliquis for anticoagulation, previous tobacco dependence, questionable history of prior myocardial infarction versus scar tissue over 20 years ago, previous EtOH abuse, family history of coronary artery disease The patient is currently sitting up in bed in no acute distress on the cardiac step-down unit. He denies any chest pain or shortness of breath. Has been ambulatory without difficulty. Remains in sinus rhythm and hemodynamically stable. Preoperative testing has been completed, STS risk score calculated and discussed with the patient. 5 meter walk test completed, #1 4.53 sec, #2 4.42 sec, #3 4.57 sec. Preoperative teaching continues. All questions answered. Objective - Vital Signs Vital signs: Vital Signs Temp 98.0 F 01/29/21 08:04 Pulse 70 01/29/21 08:04 Resp 16 01/29/21 08:04 BP 140/63 01/29/21 08:04 Pulse Ox 96 01/29/21 04:00 Intake & Output 01/28/21 01/29/21 01/29/21 18:59 06:59 18:59 Intake Total 1110 173.953 Balance 1110 173.953 Weight 88.6 kg 87.5 kg Intake: IV 200 Intake, IV Titration 20 173.953 Amount Heparin Sod,Pork in 0.45% 20 173.953 NaCl 25,000 unit In 0.45 % NaCl 1 250ml.bag @ 11. 287 UNITS/KG/HR 10 mls/hr IV .Q24H OSEAS Rx#: [id number] Oral 890 Other: # Voids 1 - Exam CONSTITUTIONAL: Appears comfortable, cooperative, no acute distress RESPIRATORY: Lungs sounds diminished bilaterally. Respirations even, nonlabored. Currently on room air with oxygen saturation 96%. Able to achieve 2500 mL on incentive spirometry. Strong cough. CARDIOVASCULAR: S1, S2 present. Regular rate and rhythm, sinus rhythm on telemetry. Sternum stable. Palpable peripheral pulses bilaterally. No edema present. No calf pain or tenderness noted. GASTROINTESTINAL: Abdomen soft, nontender, nondistended. Active bowel sounds present 4 quadrants. Tolerating diet. GENITOURINARY: Continues to void clear, yellow urine INTEGUMENTARY: Skin is warm and dry with evidence of good perfusion. Right radial heart cath site well approximated without redness or drainage NEUROLOGIC: Cranial nerves II through XII intact MUSKULOSKELETAL: Able to move all extremities, strength equal bilaterally, gait normal PSYCHIATRIC: Alert and oriented to person place and time, appropriate affect, intact judgment and insight - Allied health notes Allied health notes reviewed: nursing - Labs CBC & Chem 7: 01/29/21 05:17 01/29/21 05:17 Labs: Abnormal Lab Results - Last 24 Hours (Table) 01/28/21 01/28/21 01/28/21 Range/Units 11:10 14:56 15:32 APTT (22.0-30.0) sec Chloride 109 H (98-107) mmol/L Glucose 101 H (74-99) mg/dL LDL Cholesterol, Calc 143 H (0-99) mg/dL HDL Cholesterol 35 L (40-60) mg/dL Ur Specific [place] >1.050 H (1.001-1.035) 01/28/21 01/29/21 01/29/21 Range/Units 21:21 05:17 05:17 APTT 35.2 H 56.8 H (22.0-30.0) sec Chloride 111 H (98-107) mmol/L Glucose (74-99) mg/dL LDL Cholesterol, Calc (0-99) mg/dL HDL Cholesterol (40-60) mg/dL Ur Specific [place] (1.001-1.035) Microbiology - Last 24 Hours (Table) 01/28/21 15:32 Nasal Screen MRSA/MSSA - Preliminary Nasal Swab - Imaging and Cardiology Chest x-ray: report reviewed, image reviewed All preoperative testing reviewed Assessment and Plan Assessment: 1. Symptomatic coronary artery disease 2. Hyperlipidemia, cholesterol 198, LDL 143 3. History of paroxysmal atrial fibrillation on Eliquis for anticoagulation, currently normal sinus rhythm, last dose Eliquis 01/25/2021 4. Previous tobacco dependence, FEV1 calculated to be 88% of predicted 5. Questionable history of prior myocardial infarction versus scar tissue over 20 years ago 6. Previous EtOH abuse 7. Not diabetic, hemoglobin A1c 5% 8. Family history of coronary artery disease Plan: 1. Continue aspirin, statin, beta una therapy. Continue to hold Eliquis 2. Continue preoperative teaching 3. Continue to reinforce smoking cessation 4. Our plan is for coronary artery bypass surgery with left internal mammary artery, left radial artery and endoscopic vein harvest, pulmonary vein isolation and exclusion of the left atrial appendage 02/02/2021 5. The patient may be discharged home from our standpoint to return as outpatient for elective surgery. The patient was counseled to continue his mupirocin, encouraged to continue incentive spirometry use. Our contact information was given to the patient should he have any questions between now and surgery Time with Patient: Greater than 30
[2021-01-29] MEDS ORDERED: METOPROLOL TARTRATE 50 MG TAB PO SCH (09:00)
[2021-01-29] MEDS ORDERED: ATORVASTATIN 40 MG TAB PO SCH (09:00)
[2021-01-29] MEDS ORDERED: ASPIRIN 81 MG PO SCH (09:00)
[2021-01-29] MEDS ORDERED: ISOSORBIDE MONONITRATE ER 30 MG TAB.ER.24H PO SCH (09:00)
--- NOTE | 2021-01-29 10:39 | ECHOF ---
Referral Reason:assess LV, valves MEASUREMENTS -------- HEIGHT: 180.3 cm WEIGHT: 88.5 kg BP: IVSd: 1.3 cm (0.6 - 1.1) LVIDd: 4.8 cm (3.9 - 5.3) LVPWd: 1.3 cm (0.6 - 1.1) IVSs: 1.5 cm LVIDs: 2.3 cm LVPWs: 1.8 cm LAESV Index (A-L): 26.90 ml/m Ao Diam: 3.3 cm (2.0 - 3.7) AV Cusp: 1.8 cm (1.5 - 2.6) LA Diam: 3.4 cm (2.7 - 3.8) MV EXCURSION: 22.560 mm (> 18.000) MV EF SLOPE: 84 mm/s (70 - 150) EPSS: 1.0 cm MV E Pipo: 0.64 m/s MV DecT: 217 ms MV A Pipo: 0.66 m/s MV E/A Ratio: 0.98 RAP: 5.00 mmHg RVSP: 15.39 mmHg FINDINGS -------- This was a technically difficult study with suboptimal views. The left ventricular size is normal. There is mild concentric left ventricular hypertrophy. Overa ll left ventricular systolic function is mildly impaired with, an EF between 45 - 50 %. CONCLUSIONS -------- 1. The left ventricular size is normal. 2. There is mild concentric left ventricular hypertrophy. 3. Overall left ventricular systolic function is mildly impaired with, an EF between 45 - 50 %. TRAVELING BUYER: Tete Darling RDCS
[2021-01-29] MEDS: MUPIROCIN 2% OINT 22 GM TUBE NASAL SCH (12:24)
[2021-01-29 12:35] VITALS: BP 127/66; PULSE 71; RESP 17; TEMP 97.9
[2021-01-29 13:21] LABS: Hepatitis A Antibody IgM Non-Reactive (Non-Reactive); Hepatitis B Core IgM Non-Reactive (Non-Reactive); Hepatitis B Surface Antigen Non-Reactive (Non-Reactive); Hepatitis C IgG Antibody Non-Reactive (Non-Reactive)
[2021-01-29 15:04] LABS: ALT 7 U/L (4-49); AST 21 U/L (17-59); Albumin 3.3 g/dL (3.5-5.0); Alkaline Phosphatase 69 U/L (38-126); Total Bilirubin 0.3 mg/dL (0.2-1.3)
--- NOTE | 2021-02-03 09:01 | P.ARTDOP ---
Arterial Doppler Bilateral radial artery ultrasound: Reason for study: Preop CABG Date of study: 01/28/2021 This is a limited study with only the dimensions under ultrasound. The right radial proximally is 4.6 x 3.6 mm, the mid 4.3 x 3.9 mm, the distal is 3.4 x 3.4 mm. The left radial is proximally 3.8 x 3.5 mm, mid 3.4 x 3 mm, distal 4 x 3.3 mm. Impression. The size of both radials are adequate for use as conduit. However, since no pressures or testing with radial artery compression is performed we can give no recommendations in regards to the adequacy of collateralization. Therefore, we cannot make a recommendation regarding the safety of utilizing either radial as a conduit. Clinical correlation recommended.
--- NOTE | 2021-02-03 09:35 | P.VSCSTY ---
Greater Saphenous Vein Mapping This is bilateral lower extremity greater saphenous vein mapping. Date of service: 01/28/2021 Vein quality and ultrasound appearance: We see no intraluminal thrombus or significant wall changes. Vein size groin right : 7.2 x 5.1 groin left: 6.6 x 6.4 High thigh right: 5.3 x 4.9 high thigh left: 4.9 x 5.0 Mid thigh right: 4.8 x 4.2 mid thigh left: 5.5 x 4.0 Above-knee right: 5.1 x 4.7 above-knee left: 5.1 x 3.2 Below knee right: 4.4 x 3.3 below-knee left: 4.7 x 3.0 Mid calf right: 4.1 x 2.9 mid calf left: 3.2 x 2.6 Ankle right: 44 4 x 2.6 ankle left: 4.3 x 2.8 Impression: Usable bilateral greater saphenous vein..
== END 2021-01-29 13:54 | disposition home or self-care (01) ==
LOC: CATHCVL 10:20 → 3SCARD 15:16 → CATHCVL 01-29 13:54
PROVIDERS: ATTEND Internal Medicine Interventional Cardiology
DX: I25.110 Atherosclerotic heart disease of native coronary artery with unstable angina pectoris (principal); I48.0 Paroxysmal atrial fibrillation; I42.9 Cardiomyopathy, unspecified; Z82.49 Family history of ischemic heart disease and other diseases of the circulatory system; Z79.899 Other long term (current) drug therapy; Z79.01 Long term (current) use of anticoagulants; Z87.891 Personal history of nicotine dependence
CPT/HCPCS: 94150; 93458; 80061; 80053; 80048; 80074; 84443; 83735; 85025 ×2; 85610 ×2; 85730 ×2; 81003; 87070; 83036; 87635; 71046; 93930; 93970; 93880; C8929; C1769; C1894; J2250; J2001; J3010; J1644 ×2; Q9950; Q9967; 93306

== ENCOUNTER 2021-02-02 05:28 | Inpatient (IN) | payer MEDICARE ==
[~2021-02-02 05:28] MED LIST changes: +ALBUMIN HUMAN 25% 50 ML IV ONE; +ALBUMIN HUMAN 5% 500 ML IVPB ONE; -ALPRAZolam 0.25 MG TAB PO PRN; -ALPRAZolam 0.5 MG TAB PO PRN; +ASPIRIN 325 MG TAB PO ONE; -ASPIRIN 325 MG TAB PO STA; +ATORVASTATIN 10 MG TAB PO ONE; +CALCIUM CHLORIDE 100 MG/ML 10 ML SYRINGE IV ONE; +CHLORHEXIDINE GLUCONATE 15 ML CUP MUCOUS MEM ONE; +CLEVIDIPINE BUTYRATE 25 MG in EMPTY BAG 1 BAG IV ONE; +DEXTROSE 5% IN WATER 1,000 ML with POTASSIUM CHLORIDE 110 MEQ, MAGNESIUM SULFATE 16 MEQ... IV ONE; +DEXTROSE 5% IN WATER 1,000 ML with POTASSIUM CHLORIDE 25 MEQ, SODIUM CHLORIDE 4MEQ/ML V... IRRIGATION ONE; +DILTIAZEM 125 MG in SODIUM CHLORIDE 0.9% 100 ML IV ONE; +HEPARIN SODIUM 1,000 UN/ML (10ML VL) IV ONE; -HEPARIN SODIUM,PORCINE 10,000 UNIT in SODIUM CHLORIDE 0.9% 1,000 ML IRRIGATION PRN; -HEPARIN SODIUM,PORCINE 2,500 UNIT in SODIUM CHLORIDE 0.9% 250 ML IRRIGATION PRN; +HEPARIN SODIUM,PORCINE 5,000 UNIT in SODIUM CHLORIDE 0.9% 500 ML 500 ML IV ONE; +INSULIN REGULAR 100 UNIT in SODIUM CHLORIDE 0.9% 100 ML IV ONE; +LACTATED RINGERS 1,000 ML IV ONE; +MAGNESIUM SULFATE MG 500 MG/ML IV ONE; +MANNITOL 25% 12.5 GM/50 ML VIAL IV ONE; +METOPROLOL TARTRATE 12.5 MG TAB PO ONE; +NITROGLYCERIN SL TABS 0.4 MG TAB SUBLINGUAL ONE; -NITROGLYCERIN SL TABS 0.4 MG TAB SUBLINGUAL PRN; +NITROGLYCERIN-D5W PMX 25 MG/250 ML BTL IV ONE; +NITROGLYCERIN-D5W PMX 50 MG in DEXTROSE/WATER 1 250ML.BAG IV ONE; +NOREPINEPHRINE 4 MG in SODIUM CHLORIDE 0.9% 250 ML IV ONE; +PAPAVERINE 360 MG in SODIUM CHLORIDE 0.9% 90 ML IV ONE; +PHENYLEPHRINE 10 MG/ML VIAL IV ONE; +PHENYLEPHRINE 40 MG in SODIUM CHLORIDE 0.9% 250 ML IV ONE; +PROTAMINE SULFATE 10 MG/ML 25 ML VIAL IV ONE; +PROTAMINE SULFATE 250 MG in EMPTY BAG 1 BAG IV ONE; +SODIUM BICARB 8.4% 50 ML SYR (1 MEQ/ML) IV ONE; +SODIUM CHLORIDE 0.9% 1,000 ML IV ONE; -SODIUM CHLORIDE 0.9% 1,000 ML in EMPTY BAG 1 BAG IV ONE; +TRANEXAMIC ACID 2,000 MG in SODIUM CHLORIDE 0.9% 80 ML IV ONE; +ceFAZolin 1,000 MG in SODIUM CHLORIDE 0.9% IRRIGATIO 1,000 ML IRRIGATION ONE; +propofoL 1,000 MG/100 ML VIAL IV ONE
[2021-02-02] MEDS ORDERED: LACTATED RINGERS 1,000 ML IV ONE (06:20)
[2021-02-02] MEDS ORDERED: SODIUM CHLORIDE 0.9% IRRIG 1,000 ML BTL IRRIGATION ONE (07:38)
[2021-02-02] MEDS ORDERED: ELECTROLYTE-R (PH 7.4) 1,000 ML IV.SOLN IV ONE (07:38)
[2021-02-02] MEDS ORDERED: fentaNYL (PF) 50 MCG/ML 50 ML VIAL ONE (07:48)
[2021-02-02] MEDS ORDERED: HEPARIN SODIUM,PORCINE 10,000 UNIT/ML 1 ML VIAL ONE (07:48)
[2021-02-02] MEDS ORDERED: LIDOCAINE 2% SYG (PF) 100 MG/5 ML ONE (07:48)
[2021-02-02] MEDS ORDERED: PROPOFOL 10 MG/ML 20 ML VIAL IV ONE (07:48)
[2021-02-02] MEDS ORDERED: VECURONIUM 10 MG VIAL IV ONE (07:48)
[2021-02-02] MEDS ORDERED: MAGNESIUM SULFATE 4 MEQ/ML 10ML VIAL ONE (07:48)
[2021-02-02] MEDS ORDERED: TRANEXAMIC ACID 1,000 MG/10 ML VIAL ONE (07:48)
[2021-02-02] MEDS ORDERED: PHENYLEPHRINE-0.9% NACL SYG 1,000 MCG/10 ML SYRINGE ONE (07:48)
[2021-02-02] MEDS ORDERED: ceFAZolin 1,000 MG VIAL ONE (07:48)
[2021-02-02] MEDS ORDERED: fentaNYL (PF) 50 MCG/ML 2 ML AMP ONE (07:48)
[2021-02-02] MEDS ORDERED: PROTAMINE SULFATE 10 MG/ML 25 ML VIAL IV ONE (07:48)
[2021-02-02] MEDS ORDERED: METOPROLOL TARTRATE 5 MG/5 ML VIAL IVP ONE (07:48)
[2021-02-02] MEDS ORDERED: SODIUM CHLORIDE 0.9% 100 ML BAG ONE ×2 (07:48)
[2021-02-02] MEDS ORDERED: MIDAZOLAM 2 MG/2 ML VIAL ONE (07:48)
[2021-02-02 08:18] LABS: Glucose,Whole Blood 107 mg/dL (75-99)
[2021-02-02 08:39] LABS: ABG Glucose Whole Blood 104 mg/dL (75-99); ABG HCO3 25 mmol/L (21-25); ABG Hematocrit 41 % (34.0-46.0); ABG Ionized Calcium 4.8 mg/dL (4.5-5.3); ABG Lactic Acid Whole Blood 0.8 mmol/L (0.5-1.6); ABG PCO2 44 mmHg (35-45); ABG PH 7.37 (7.35-7.45); ABG PO2 321 mmHg (83-108); ABG Potassium Whole Blood 4.1 mmol/L (3.4-4.5); ABG Sodium Whole Blood 142 mmol/L (135-146); ABG TCO2 27 mmol/L (19-24)
[2021-02-02 10:25] LABS: ABG Base Excess -1.6 mmol/L; ABG Glucose Whole Blood 137 mg/dL (75-99); ABG HCO3 25 mmol/L (21-25); ABG Hematocrit 40 % (34.0-46.0); ABG Ionized Calcium 4.8 mg/dL (4.5-5.3); ABG Lactic Acid Whole Blood 0.5 mmol/L (0.5-1.6); ABG Oxygen Saturation 99.4 % (94-97); ABG PCO2 48 mmHg (35-45); ABG PH 7.32 (7.35-7.45); ABG PO2 141 mmHg (83-108); ABG Potassium Whole Blood 4.2 mmol/L (3.4-4.5); ABG Sodium Whole Blood 142 mmol/L (135-146); ABG TCO2 26 mmol/L (19-24)
[2021-02-02] MEDS ORDERED: ceFAZolin 1,000 MG in SODIUM CHLORIDE 0.9% 1,000 ML IRRIGATION ONE (10:36)
[2021-02-02] MEDS ORDERED: PAPAVERINE 360 MG in SODIUM CHLORIDE 0.9% 90 ML IV ONE (10:36)
[2021-02-02] MEDS ORDERED: SODIUM CHLORIDE 0.9% 500 ML 500 ML with HEPARIN SODIUM,PORCINE 5,000 UNIT IV ONE ×2 (10:36)
[2021-02-02 11:14] LABS: ABG Base Excess -1.1 mmol/L; ABG Glucose Whole Blood 129 mg/dL (75-99); ABG HCO3 24 mmol/L (21-25); ABG Hematocrit 31 % (34.0-46.0); ABG Ionized Calcium 4.3 mg/dL (4.5-5.3); ABG Lactic Acid Whole Blood 0.5 mmol/L (0.5-1.6); ABG PCO2 40 mmHg (35-45); ABG PH 7.38 (7.35-7.45); ABG Potassium Whole Blood 4.2 mmol/L (3.4-4.5); ABG Sodium Whole Blood 137 mmol/L (135-146); ABG TCO2 25 mmol/L (19-24)
[2021-02-02 11:50] LABS: ABG Base Excess -1.2 mmol/L; ABG Glucose Whole Blood 192 mg/dL (75-99); ABG HCO3 24 mmol/L (21-25); ABG Hematocrit 30 % (34.0-46.0); ABG Ionized Calcium 4.4 mg/dL (4.5-5.3); ABG Lactic Acid Whole Blood 0.7 mmol/L (0.5-1.6); ABG PCO2 44 mmHg (35-45); ABG PH 7.35 (7.35-7.45); ABG PO2 273 mmHg (83-108); ABG Potassium Whole Blood 5.2 mmol/L (3.4-4.5); ABG Sodium Whole Blood 137 mmol/L (135-146); ABG TCO2 26 mmol/L (19-24)
[2021-02-02 12:19] LABS: ABG Base Excess -1.7 mmol/L; ABG Glucose Whole Blood 172 mg/dL (75-99); ABG HCO3 24 mmol/L (21-25); ABG Hematocrit 31 % (34.0-46.0); ABG Ionized Calcium 4.5 mg/dL (4.5-5.3); ABG PCO2 46 mmHg (35-45); ABG PH 7.33 (7.35-7.45); ABG PO2 371 mmHg (83-108); ABG Potassium Whole Blood 4.6 mmol/L (3.4-4.5); ABG Sodium Whole Blood 138 mmol/L (135-146); ABG TCO2 26 mmol/L (19-24)
--- NOTE | 2021-02-02 13:37 | P.ANPRN ---
Procedure Note - Anesthesia - Invasive Line Right Central Line Time Out Performed: Yes Date of Procedure: 02/02/21 Time of Procedure: 07:20 Location of Patient: Phase I Preparation: Sterile Prep, Sterile Dressing Ultrasound Used: Yes Purpose - Visualization and Identification of Vasculature: Yes Needle Guage: 18 Image Stored and Saved: Yes Narrative: Central line placement per sterile protocol utilized. Right Offerman Austyn Time Out Performed: Yes Date of Procedure: 02/02/21 Time of Procedure: 07:35 Location of Patient: Phase I Preparation: Sterile Prep, Sterile Dressing Narrative: Offerman placed with patient still prepped and draped. Secured at 43cm. Position confirmed on MAYLIN Right Arterial Line Time Out Performed: Yes Date of Procedure: 02/02/21 Location of Patient: Phase I Preparation: Sterile Prep, Sterile Dressing Arterial Line Location: Radial Ultrasound Used: No Needle Guage: 20 Narrative: placed by RENTAL AGENT under sterile conditions - MAYLIN Intraop Pre Bypass MAYLIN Intraop - Anesthesia Indication: CABG Date of Procedure: 02/02/21 Pre-operative Diagnosis: CAD Post-operative Diagnosis: Same Surgeon: Jay Allen Left Ventricle: EF 60 Ejection Fraction: Normal Regional Wall Motion Abnormalities: None Left Ventricle Hypertrophy: No R. Ventricle Function: Normal Anatomy: Trileaflet Aortic Stenosis: None Aortic Regurgitation: None Mitral Stenosis: None Mitral Regurgitation: None Tricuspid Stenosis: None Tricuspid Regurgitation: None Pulmonic Stenosis: None Pulmonic Regurgitation: None R. Atrial PFO: No Aortic Dissection: No Aortic Calcification: Moderate Plural Effusion: None - MAYLIN Intraop Post Bypass MAYLIN Intraop Post Bypass Procedure Performed: CABG Left Ventricle: 50 Ejection Fraction: Normal Regional Wall Motion Abnormalities: None R. Ventricle Function: Normal Aortic Valve: Unchanged Mitral Valve: Unchanged Tricuspid: Unchanged Pulmonic: Unchanged Aortic Dissection: No
[2021-02-02] MEDS ORDERED: Magnesium Replacement Protocol 1 EACH MISC MISCELLANE PRN (14:06)
[2021-02-02] MEDS ORDERED: ONDANSETRON 4 MG/2 ML VIAL IVP PRN (14:06)
[2021-02-02] MEDS ORDERED: BENZOCAINE/MENTHOL LOZENG 1 EACH LOZENGE MUCOUS MEM PRN (14:06)
[2021-02-02] MEDS ORDERED: Phosphorus Replacement Protoco 1 EACH MISC MISCELLANE PRN (14:06)
[2021-02-02] MEDS ORDERED: INSULIN REGULAR 100 UNIT in SODIUM CHLORIDE 0.9% 100 ML IV SCH (14:06)
[2021-02-02] MEDS ORDERED: CLEVIDIPINE BUTYRATE 25 MG in EMPTY BAG 1 BAG IV SCH (14:06)
[2021-02-02] MEDS ORDERED: AMIODARONE 360 MG in DEXTROSE 5% IN WATER 200 ML IV PRN ×2 (14:06)
[2021-02-02] MEDS ORDERED: DEXTROSE 5% IN WATER 100 ML with AMIODARONE 150 MG IV PRN (14:06)
[2021-02-02] MEDS ORDERED: MORPHINE SULFATE 2 MG/ML SYRINGE IVP PRN (14:06)
[2021-02-02] MEDS ORDERED: IPRATROPIUM-ALBUTEROL 3 ML NEB INHALATION PRN (14:06)
[2021-02-02] MEDS ORDERED: hydrALAZINE HCL 20 MG/ML 1 ML VIAL IVP PRN (14:06)
[2021-02-02] MEDS ORDERED: DEXMEDETOMIDINE/0.9% NACL(PMX) 400 MCG in EMPTY BAG 1 BAG IV SCH (14:06)
[2021-02-02] MEDS ORDERED: METOCLOPRAMIDE 5 MG/ML 2 ML VIAL IVP PRN (14:06)
[2021-02-02] MEDS ORDERED: NITROGLYCERIN-D5W PMX 50 MG in DEXTROSE/WATER 1 250ML.BAG IV SCH (14:06)
[2021-02-02] MEDS ORDERED: AMIODARONE 450 MG in DEXTROSE 5% IN WATER 250 ML IV PRN ×2 (14:06)
[2021-02-02] MEDS ORDERED: CALCIUM GLUCONATE 2 GM in SODIUM CHLORIDE 0.9% 100 ML IVPB PRN (14:06)
[2021-02-02] MEDS ORDERED: Potassium Replacement Protocol 1 EACH MISC MISCELLANE PRN (14:06)
[2021-02-02 14:16] LABS: ABG PO2 >420 mmHg (83-108)
[2021-02-02 14:29] LABS: Glucose,Whole Blood 109 mg/dL (75-99)
[2021-02-02] MEDS: SODIUM CHLORIDE 0.9% 1,000 ML IV SCH (14:46)
[2021-02-02 14:53] LABS: Ionized Calcium 5.3 mg/dL (4.5-5.3)
[2021-02-02 14:56] LABS: Basophils % (A) 0 %; Eosinophils # (A) 0.1 k/uL (0-0.7); Eosinophils % (A) 0 %; HCT 37.5 % (39.0-53.0); HGB 12.4 gm/dL (13.0-17.5); Lymphocytes # (A) 1.3 k/uL (1.0-4.8); Lymphocytes % (A) 12 %; MCH 30.5 pg (25.0-35.0); MCHC 33.1 g/dL (31.0-37.0); MCV 92.2 fL (80.0-100.0); Mean Platelet Volume 7.9; Monocytes # (A) 0.6 k/uL (0-1.0); Monocytes % (A) 6 %; Neutrophils # (A) 8.6 k/uL (1.3-7.7); Neutrophils % (A) 80 %; Platelet Count 120 k/uL (150-450); RBC 4.06 m/uL (4.30-5.90); RDW 13.6 % (11.5-15.5); WBC 10.8 k/uL (3.8-10.6)
[2021-02-02 15:02] LABS: Prothrombin Time 10.8 sec (9.0-12.0)
[2021-02-02 15:04] LABS: Glucose,Whole Blood 106 mg/dL (75-99)
--- NOTE | 2021-02-02 15:05 | XR ---
EXAMINATION TYPE: XR chest 1V portable DATE OF EXAM: 02/02/2021 HISTORY: Post Op CABG COMPARISON: 01/28/2021 TECHNIQUE: Single view of the chest is submitted. FINDINGS: Endotracheal tube, NG tube, SG catheter, mediastianal drains and chest tubes are appropriately placed . Post operative changes of CABG. No sizeable pneumothorax. Scattered Pleural-parenchymal opacities may reflect atelectasis. The heart is not enlarged. IMPRESSION: 1. Post operative changes of CABG.
--- NOTE | 2021-02-02 15:06 | P.CNPUL ---
History of Present Illness Consult date: 02/02/21 Requesting physician: Jay Allen Reason for consult: dyspnea Chief complaint: Exertinal dyspnea, chest pain History of present illness: This is a 60-year-old white male patient of JOSE JUAN Morillo, who had been complaining of exertional dyspnea and chest pain, patient underwent cardiac catheterization on 01/28/[address] Allen showed a 50% distal left main disease, critical stenosis in the ostium of the LAD in the mid left circumflex. LVEDP was in the order of 12-16 mmHg. Transthoracic echocardiogram showed EF between 45-50%. Past medical history is significant for paroxysmal A. fib on Eliquis, family history of coronary artery disease, ischemic cardiomyopathy, previous history of tobacco and alcohol dependence. Preop FEV1 was 2.91 over 88% of predicted. We are seeing the patient in the postoperative period after three-vessel coronary artery bypass grafting today on 02/02/[address] Allen. Patient had CHANEL to the LAD, SVG to the circumflex, and right radial graft to the PDA, Left atrial appendage exclusion. Patient is currently intubated on mechanical ventilator with the assist control mode of ventilation with a rate of 12, tidal M is 520, FiO2 of 100% and PEEP of 5, postoperative blood gases are pending. Patient is currently on 0.9 normal saline at a rate of 50 ML per hour, nitroglycerin at 5 mics per kilo per minute, and improving and is at 25 mics per kilo per minute. Insulin drip is off. Patient is in sinus mechanism with a first-degree AV block, PA pressures 20 overnight, CVP is 4, cardiac output is 4.6 and cardiac index is 2.2. Right, left knee still chest tubes in place with small amount of sanguinous output, postoperative blood work is pending. Hemodynamically patient is stable, not requiring any vasopressor support. Review of Systems All systems: negative Constitutional: Denies chills, Denies fever Eyes: denies blurred vision, denies pain Ears, nose, mouth and throat: Denies headache, Denies sore throat Cardiovascular: Reports chest pain, Reports dyspnea on exertion, Denies shortness of breath Respiratory: Reports dyspnea, Denies cough Gastrointestinal: Denies abdominal pain, Denies diarrhea, Denies nausea, Denies vomiting Musculoskeletal: Denies myalgias Integumentary: Denies pruritus, Denies rash Neurological: Denies numbness, Denies weakness Psychiatric: Denies anxiety, Denies depression Endocrine: Denies fatigue, Denies weight change Past Medical History Past Medical History: Atrial Fibrillation, Coronary Artery Disease (CAD), Musculoskeletal Disorder Additional Past Medical History / Comment(s): back pain/knee pain, fully vaccinated for covid,. questionable heart attack vs. scar tissue about 20 years ago Last Myocardial Infarction Date:: approx 20 yrs ago History of Any Multi-Drug Resistant Organisms: None Reported Past Surgical History: Adenoidectomy, Heart Catheterization, Tonsillectomy Additional Past Surgical History / Comment(s): recent cardiac cath. Past Anesthesia/Blood Transfusion Reactions: No Reported Reaction Past Psychological History: No Psychological Hx Reported Smoking Status: Former smoker Past Alcohol Use History: None Reported Additional Past Alcohol Use History / Comment(s): Quit smoking 2 months ago; smoked on & off since age of 26, <ppd, no alcohol since August 2020 Past Drug Use History: None Reported - Past Family History Father Family Medical History: Myocardial Infarction ([place]) Mother Family Medical History: Rheumatoid Arthritis ([place]) Brother(s) Family Medical History: CVA/TIA, Myocardial Infarction ([place]) Medications and Allergies Home Medications Medication Instructions Recorded Confirmed Type Isosorbide Mononitrate ER [Imdur] 30 mg PO DAILY 01/28/21 02/01/21 History Atorvastatin [Lipitor] 40 mg PO DAILY #90 tab 01/29/21 02/01/21 Rx Apixaban [Eliquis] 5 mg PO BID 02/01/21 02/01/21 History Metoprolol Tartrate [Lopressor] 25 mg PO TID 02/01/21 02/01/21 History Mupirocin 2% Oint [Bactroban 2% 1 applic NASAL BID 02/01/21 02/01/21 History Oint] Aspirin [Children's Aspirin] 4 tab PO DIRECTED 02/02/21 02/02/21 History Allergies Allergy/AdvReac Type Severity Reaction Status Date / Time No Known Allergies Allergy Unverified 01/28/21 10:39 Physical Exam Vitals: Vital Signs Temp Pulse Resp BP BP Pulse Ox 02/02/21 06:07 97 F L 76 20 141/71 136/69 98 Intake and Output 02/01/21 02/02/21 02/02/21 22:59 06:59 14:59 Intake Total 100 7 Output Total 1999 Balance Intake: IV 100 7 Output: Urine 500 Estimated Blood Loss 1500 Other: Weight 88 kg GENERAL EXAM: Sedated, intubated, 70-year-old white male, on assist control mode of ventilation, with FiO2 of 100% and PEEP of 5, comfortable in no apparent distress. HEAD: Normocephalic/atraumatic. EYES: Normal reaction of pupils, equal size. Conjunctiva pink, sclera white. NOSE: Clear with pink turbinates. THROAT: No erythema or exudates. NECK: No masses, no JVD, no thyroid enlargement, no adenopathy. CHEST: No chest wall deformity. Symmetrical expansion. Midsternal incision clean dry and intact, right left and mediastinal chest tubes in place connected to Pleur-evac's, to wall suction, with small to moderate amount of sanguinous output, no air leak noted LUNGS: Equal air entry with no crackles, wheeze, rhonchi or dullness. CVS: Regular rate and rhythm, normal S1 and S2, no gallops, no murmurs, no rubs ABDOMEN: Soft, nontender. No hepatosplenomegaly, normal bowel sounds, no guarding or rigidity. EXTREMITIES: No clubbing, no edema, no cyanosis, 2+ pulses and upper and lower extremities. Left radial graft site is Sanjeev wrap, left lower extremity is Sanjeev wrapped, SCDs on both lower extremities MUSCULOSKELETAL: Muscle strength and tone normal. SPINE: No scoliosis or deformity SKIN: No rashes CENTRAL NERVOUS SYSTEM: intubated, sedated No focal deficits, tone is normal in all 4 extremities. Results - Laboratory Findings ABG ABG pH 7.33 (7.35-7.45) L 02/02/21 12:20 ABG pCO2 46 mmHg (35-45) H 02/02/21 12:20 ABG pO2 371 mmHg (83-108) H 02/02/21 12:20 ABG O2 Saturation 100.0 % (94-97) H 02/02/21 12:20 Abnormal lab findings: Abnormal Labs 01/29/21 02/02/21 02/02/21 09:13 06:22 08:41 ABG pH ABG pCO2 ABG pO2 321 H ABG Total CO2 27 H ABG O2 Saturation 100.0 H ABG Hematocrit ABG Potassium ABG Ionized Calcium ABG Glucose 104 H Hemoglobin POC Glucose (mg/dL) 107 H Arterial Blood Potassium Arterial Blood Glucose 104 H Crossmatch See Detail 02/02/21 02/02/21 02/02/21 10:26 11:15 11:51 ABG pH 7.32 L ABG pCO2 48 H ABG pO2 141 H >420 H 273 H ABG Total CO2 26 H 25 H 26 H ABG O2 Saturation 99.4 H 100.0 H 100.0 H ABG Hematocrit 31 L 30 L ABG Potassium 5.2 H ABG Ionized Calcium 4.3 L 4.4 L ABG Glucose 137 H 129 H 192 H Hemoglobin 10.1 L 9.9 L POC Glucose (mg/dL) Arterial Blood Potassium 5.2 H Arterial Blood Glucose 137 H 129 H 192 H Crossmatch 02/02/21 02/02/21 12:20 14:28 ABG pH 7.33 L ABG pCO2 46 H ABG pO2 371 H ABG Total CO2 26 H ABG O2 Saturation 100.0 H ABG Hematocrit 31 L ABG Potassium 4.6 H ABG Ionized Calcium ABG Glucose 172 H Hemoglobin 10.2 L POC Glucose (mg/dL) 109 H Arterial Blood Potassium 4.6 H Arterial Blood Glucose 172 H Crossmatch - Diagnostic Findings Chest x-ray: report reviewed, image reviewed Assessment and Plan Plan: Assessment: #1. Coronary artery disease, symptomatic, status post three-vessel coronary artery bypass grafting with CHANEL to the LAD, SVG to the circumflex, and left radial artery graft to the PDA, and left atrial appendage exclusion, postoperative day #0 #2. Postoperative ventilator management #4. History of ischemic cardiomyopathy #5. Paroxysmal atrial fibrillation on Eliquis which is currently on hold for surgery #6. History of coronary artery disease #7. Family history of coronary artery disease #8. Former smoker Plan: Postoperative blood gases pending Postoperative labs reviewed Chest x-ray reviewed Hemodynamically stable We'll proceed with sedation interruption and spontaneous breathing trials once the patient is awake Breathing treatments every 4 hours while intubated, 2 4 times a day was extubated Incentive spirometer to the bedside GI and DVT prophylaxis per CT surgery Daily chest x-ray follow-up lab work I performed a history & physical examination of the patient and discussed their management with my nurse practitioner, Kim Stern. I reviewed the nurse practitioner's note and agree with the documented findings and plan of care. Lung sounds are positive for diminished breath sounds. The findings and the impression was discussed with the patient. I attest to the documentation by the nurse practitioner. Time with Patient: Greater than 30
[2021-02-02 15:07] LABS: ALT 10 U/L (4-49); AST 43 U/L (17-59); African American GFR (CKD) >90 (>60 ml/min/1.73 sqM); Albumin 2.5 g/dL (3.5-5.0); Alkaline Phosphatase 41 U/L (38-126); Anion Gap 2 mmol/L; Blood Urea Nitrogen 13 mg/dL (9-20); Calcium 8.4 mg/dL (8.4-10.2); Carbon Dioxide 24 mmol/L (22-30); Chloride 112 mmol/L (98-107); Glucose 105 mg/dL (74-99); Magnesium 2.6 mg/dL (1.6-2.3); Non-African American GFR(CKD) >90 (>60 ml/min/1.73 sqM); Sodium 138 mmol/L (137-145); Total Bilirubin 0.6 mg/dL (0.2-1.3); Total Protein 4.8 g/dL (6.3-8.2)
[2021-02-02 15:08] LABS: Potassium 4.2 mmol/L (3.5-5.1)
[2021-02-02 15:16] LABS: ABG Base Excess -1.3 mmol/L; ABG HCO3 24 mmol/L (21-25); ABG Oxygen Saturation 99.3 % (94-97); ABG PCO2 40 mmHg (35-45); ABG PH 7.38 (7.35-7.45); ABG PO2 150 mmHg (83-108); ABG TCO2 25 mmol/L (19-24); Allen Test Performed? Yes
[2021-02-02] MEDS ORDERED: IPRATROPIUM-ALBUTEROL 3 ML NEB INHALATION SCH (16:00)
[2021-02-02 16:02] LABS: Glucose,Whole Blood 124 mg/dL (75-99)
[2021-02-02] MEDS: HEPARIN SODIUM,PORCINE/PF 5,000 UNIT/0.5 ML SYRINGE SQ SCH ×2 (17:01→23:53)
[2021-02-02 17:05] LABS: Glucose,Whole Blood 137 mg/dL (75-99)
[2021-02-02] MEDS: KETOROLAC 15 MG/ML 1 ML VIAL IVP SCH ×2 (17:13→23:53)
[2021-02-02] MEDS: ALBUMIN HUMAN 5% 250 ML in EMPTY BAG 1 BAG IVPB PRN ×3 (17:16→18:48)
[2021-02-02 17:55] LABS: Basophils % (A) 0 %; Eosinophils % (A) 0 %; HCT 38.2 % (39.0-53.0); HGB 13.6 gm/dL (13.0-17.5); Lymphocytes # (A) 0.8 k/uL (1.0-4.8); Lymphocytes % (A) 7 %; MCH 32.4 pg (25.0-35.0); MCHC 35.5 g/dL (31.0-37.0); MCV 91.3 fL (80.0-100.0); Mean Platelet Volume 7.7; Monocytes # (A) 0.8 k/uL (0-1.0); Monocytes % (A) 7 %; Neutrophils # (A) 9.9 k/uL (1.3-7.7); Neutrophils % (A) 85 %; Platelet Count 126 k/uL (150-450); RBC 4.18 m/uL (4.30-5.90); RDW 13.1 % (11.5-15.5); WBC 11.6 k/uL (3.8-10.6)
[2021-02-02] MEDS: ACETAMINOPHEN IV (For NPO) 1,000 MG in EMPTY BAG 1 BAG IVPB SCH ×2 (17:58→23:54)
[2021-02-02 18:09] LABS: Glucose,Whole Blood 125 mg/dL (75-99)
[2021-02-02 18:58] LABS: ABG Base Excess -1.7 mmol/L; ABG HCO3 23 mmol/L (21-25); ABG Oxygen Saturation 98.9 % (94-97); ABG PCO2 38 mmHg (35-45); ABG PO2 121 mmHg (83-108); ABG TCO2 24 mmol/L (19-24); Allen Test Performed? Yes
[2021-02-02 19:00] LABS: Glucose,Whole Blood 114 mg/dL (75-99)
[2021-02-02] MEDS: IPRATROPIUM-ALBUTEROL 3 ML NEB INHALATION SCH (19:17)
[2021-02-02] MEDS ORDERED: MUPIROCIN 2% OINT 22 GM TUBE NASAL ONE (19:45)
[2021-02-02 19:49] LABS: Glucose,Whole Blood 124 mg/dL (75-99)
[2021-02-02] MEDS: ASPIRIN 325 MG TAB PO SCH (20:12)
[2021-02-02] MEDS: CLOPIDOGREL 75 MG TAB PO SCH (20:13)
[2021-02-02 20:26] LABS: Basophils % (A) 0 %; Eosinophils % (A) 0 %; HCT 32.6 % (39.0-53.0); HGB 11.6 gm/dL (13.0-17.5); Lymphocytes # (A) 0.5 k/uL (1.0-4.8); Lymphocytes % (A) 6 %; MCH 32.1 pg (25.0-35.0); MCHC 35.6 g/dL (31.0-37.0); MCV 90.4 fL (80.0-100.0); Monocytes # (A) 0.6 k/uL (0-1.0); Monocytes % (A) 8 %; Neutrophils % (A) 85 %; Platelet Count 115 k/uL (150-450); RBC 3.61 m/uL (4.30-5.90); WBC 8.2 k/uL (3.8-10.6)
[2021-02-02] MEDS ORDERED: METOPROLOL TARTRATE 12.5 MG TAB PO SCH (21:00)
[2021-02-02 21:04] LABS: Glucose,Whole Blood 132 mg/dL (75-99)
[2021-02-02 22:37] LABS: Glucose,Whole Blood 130 mg/dL (75-99)
--- NOTE | 2021-02-02 23:18 | OP ---
OPERATIVE REPORT DATE OF SURGERY: 02/02/2021. SURGEON: Dr. Jay Allen. ASSISTANTS: 1. Jolie Brown. 2. CORNELIA Wayne. 3. CORNELIA Still. PREOPERATIVE DIAGNOSES: 1. Triple-vessel coronary artery disease. 2. Moderate left ventricular dysfunction. 3. Hypertension. 4. Hyperlipidemia. 5. Tobacco abuse. 6. Remote alcohol abuse. 7. Paroxysmal atrial fibrillation, on anticoagulation. POSTOPERATIVE DIAGNOSES: 1. Triple-vessel coronary artery disease. 2. Moderate left ventricular dysfunction. 3. Hypertension. 4. Hyperlipidemia. 5. Tobacco abuse. 6. Remote alcohol abuse. 7. Paroxysmal atrial fibrillation, on anticoagulation. PROCEDURES: 1. Triple-vessel coronary artery bypass grafting using the left internal mammary artery to the left anterior descending artery, the left radial artery from the aorta to the posterior descending artery coming from the circumflex artery, reverse saphenous vein graft from the aorta to the obtuse marginal artery. 2. Bilateral pulmonary vein isolation using bipolar radiofrequency clamp from [employer]. 3. Exclusion of the left atrial appendage using a 35 mm AtriClip. 4. Endoscopic harvesting of the left radial artery. 5. Endoscopic harvesting of the left greater saphenous vein. 6. Intraoperative graft flow measurements using the [employer] system. 7. Intraoperative transesophageal echocardiogram and epiaortic scanning. INDICATION FOR SURGERY: The patient is a 70-year-old gentleman with complaints of epigastric pain. He had a stress test that showed what seemed to be a fixed defect in the distal anteroapical wall. Cardiac catheterization followed, and that showed evidence of left main disease with left dominance. Ejection fraction was estimated at around 45%. The patient was brought in today for elective coronary artery bypass grafting. The STS risk was discussed with him and his . The patient has a history of paroxysmal atrial fibrillation and is on Eliquis. We will be performing bilateral pulmonary vein isolation in the same setting as well as excluding his left atrial appendage. DESCRIPTION OF THE PROCEDURE: With the patient in supine position in the preoperative holding area, a right internal jugular Alleene-Austyn catheter and a right radial arterial line were placed. His cardiac index was 4.6 and his PA pressure was 29/15. Subsequently he was brought to the operating room, where general endotracheal anesthesia was induced uneventfully. Guzman catheter was inserted. The patient received 2 grams of cefazolin intravenously. The chest, abdomen, both lower extremities and the left upper extremity were prepped and draped using ChloraPrep. Ioban was used to cover the skin. Transesophageal echocardiogram confirmed the appropriate finding of mild to moderate left ventricular dysfunction. It was kind of global, with no significant valvular abnormalities. Median sternotomy was performed and the bone was mildly osteoporotic. The left hemisternum was elevated. The left internal mammary artery was harvested in a somewhat skeletonized fashion. The left pleura was intentionally opened in this process and was drained with a 19-Australian Jamal drain. I made a small breach in the right pleura intentionally at the end to decompress the pneumothorax and the right pleura was not drained. The patient was given 5000 units of heparin and the mammary artery was clipped distally before it bifurcated and had an excellent pulsatile flow in it and was around 1.7 mm in diameter. In the same setting, the left radial artery was initially exposed at the wrist, and a clamping trial revealed preserved signal in the left index saturation probe. The rest of the harvesting proceeded endoscopically without using a tourniquet. Forearm incision was closed over a drain. The radial artery was prepared by incising the fascia all along its volar aspect and clipping all the branches. It was of excellent quality, around 3 mm in diameter. Also in the same setting, the left greater saphenous vein was harvested endoscopically. The leg incisions were closed over a drain. The vein was prepared and the thigh part was around 4 mm in diameter and the below-knee part was very small. The patient was given 2500 units of heparin before the vein branches were addressed. Mediastinal fat was transected between 2 ties and epiaortic scanning revealed some posterior wall disease, but no protruding atheroma in the mid ascending aorta. Pericardium was opened in an inverted T-fashion and a pericardial cradle was created. Findings included a short aorta and a normal-sized heart. After systemic heparinization and after placement of respective pledgeted pursestrings, aortic cannulation in the proximal arch with a 21-Australian soft flow cannula and venous cannulation via the right atrial appendage with a 3-stage 29-Australian cannula were performed. Antegrade as well as retrograde cardioplegia catheters were placed. Cardiopulmonary bypass was initiated, and with the heart empty and beating and warm, we initially proceeded at encircling the right-sided pulmonary vein. Then subsequently a radiofrequency bipolar clamp from [employer]ri[employer] was passed around them and we proceeded with 3 ablations in the antrum of the veins. On the left side the ligament of Seferino was incised with cautery and the same maneuver was done. The left-sided pulmonary veins were encircled with a red rubber that was used to guide a bipolar radiofrequency clamp on the level of the antrum of the left-sided pulmonary vein that were ablated 3 times. Subsequently the left atrial appendage was excluded using a 35 mm AtriClip deployed at its base. Subsequently aorta was clamped and myocardial protection was achieved with initial dose of 1 L of antegrade cold blood cardioplegia, and the plan was to also give retrograde cardioplegia. However, the catheter had dislodged and we had difficulty inserting it initially, so we decided to stick to antegrade cardioplegia protection. All subsequent doses were given antegrade at 15-minute intervals. The first distal anastomosis was between a segment of vein and the first obtuse marginal artery. That artery did not have severe disease proximal to it, and we were feeling competitive flow and had to use the radial artery for it. So a vein was used and the artery was opened. It was around 1.75 mm in diameter and the anastomosis was completed using Prolene 7-0 in continuous fashion. The second distal anastomosis was between the proximal aspect of the posterior descending artery that emanated from the circumflex system and the radial artery. The posterior descending artery was around 1.5 mm in diameter and thin-walled, and the anastomosis was completed using Prolene 7-0 in continuous fashion. The radial artery would just reach the aorta without tension. The third and last distal anastomosis was between the left internal mammary artery that passed in a deep groove in the left pleuropericardial fat and anastomosed to the mid LAD which was around 1.5 mm in diameter and thin-walled using Prolene 7-0 in continuous fashion. The mammary veins were affixed to the epicardium on either side of the artery using Prolene 6-0 sutures. Rewarming was started at this point, as we punched out 2 buttons of the ascending aorta and performed the proximal anastomosis of the radial artery and the vein separately using running Prolene. The patient was given lidocaine and magnesium. De- airing maneuvers were done before unclamping the aorta. The patient required one single defibrillation to regain spontaneous sinus rhythm. Preliminary graft flow measurements revealed excellent signals. After around 15 minutes of reperfusion, we were able to wean off cardiopulmonary bypass without the need of any inotropic or vasopressor support. MAYLIN showed excellent heart function, much improved. At this point, we proceeded with graft flow measurements using a 4 mm probe. The flow into the radial artery to the posterior descending artery was 64 mL/minute, pulsatility index of 1.5, diastolic filling of 60%, showing excellent functioning graft. The flow into the vein to the obtuse marginal artery was 32 mL/minute, pulsatility index of 1.5, diastolic filling of 58%, showing excellent functioning graft. The flow into the CHANEL to the LAD was 55 mL/minute, pulsatility index of 2.5, diastolic filling of 61% with mild competitive flow using an excellent functioning graft. With that, all pump suckers were stopped than test-dose and full-dose protamine were given. Decannulation followed. The aortic cannulation site required reinforcement with a pledgeted Prolene 3-0. Two monopolar atrial pacing wires were affixed to the respective pursestrings of the right atrium. No bipolar ventricular pacing wire was placed. Two 19-Australian Jamal drains were left substernally. Pericardial fat was loosely approximated over the aorta and the heart. After ensuring adequate hemostasis and hemodynamics and after correct sponge, instrument and needle count, the sternum was closed using 5 [id number] pineal cables after interposing Fibrillar between the sternal edges. Thorough irrigation with cefazolin followed. The rest of the closure proceeded in layers. Skin glue was applied. Patient did not receive any blood bank product but received 500 mL of Cell [employer]ver blood. He was transferred to the ICU with excellent hemodynamics on low-dose nitroglycerin. MMODL / IJN: [id number] / RAHUL
[2021-02-02 23:53] LABS: Glucose,Whole Blood 125 mg/dL (75-99)
[2021-02-03 00:56] LABS: Glucose,Whole Blood 124 mg/dL (75-99)
[2021-02-03] MEDS ORDERED: HYDROcodone/APAP 5-325MG 1 EACH TAB PO PRN (01:27)
[2021-02-03] MEDS: HYDROcodone/APAP 5-325MG 1 EACH TAB PO PRN ×3 (02:10→22:25)
[2021-02-03 02:16] LABS: Glucose,Whole Blood 117 mg/dL (75-99)
[2021-02-03 04:02] LABS: Glucose,Whole Blood 122 mg/dL (75-99)
[2021-02-03 04:39] LABS: Basophils % (A) 0 %; Eosinophils % (A) 0 %; HCT 32.9 % (39.0-53.0); HGB 11.6 gm/dL (13.0-17.5); Lymphocytes # (A) 0.7 k/uL (1.0-4.8); Lymphocytes % (A) 8 %; MCH 31.7 pg (25.0-35.0); MCHC 35.2 g/dL (31.0-37.0); MCV 90.3 fL (80.0-100.0); Mean Platelet Volume 7.9; Monocytes # (A) 0.6 k/uL (0-1.0); Monocytes % (A) 6 %; Neutrophils # (A) 8.3 k/uL (1.3-7.7); Neutrophils % (A) 85 %; Platelet Count 115 k/uL (150-450); RBC 3.64 m/uL (4.30-5.90); RDW 13.1 % (11.5-15.5); WBC 9.7 k/uL (3.8-10.6)
[2021-02-03 04:58] LABS: Ionized Calcium 4.6 mg/dL (4.5-5.3)
[2021-02-03 05:12] LABS: ALT 9 U/L (4-49); AST 44 U/L (17-59); African American GFR (CKD) >90 (>60 ml/min/1.73 sqM); Albumin 2.8 g/dL (3.5-5.0); Alkaline Phosphatase 44 U/L (38-126); Anion Gap 4 mmol/L; Blood Urea Nitrogen 14 mg/dL (9-20); Calcium 8.1 mg/dL (8.4-10.2); Carbon Dioxide 24 mmol/L (22-30); Chloride 109 mmol/L (98-107); Glucose 112 mg/dL (74-99); Magnesium 1.9 mg/dL (1.6-2.3); Non-African American GFR(CKD) >90 (>60 ml/min/1.73 sqM); Potassium 4.2 mmol/L (3.5-5.1); Sodium 137 mmol/L (137-145); Total Bilirubin 0.8 mg/dL (0.2-1.3); Total Protein 4.9 g/dL (6.3-8.2)
[2021-02-03 05:56] LABS: Glucose,Whole Blood 121 mg/dL (75-99)
[2021-02-03] MEDS: KETOROLAC 15 MG/ML 1 ML VIAL IVP SCH ×4 (06:14→23:44)
[2021-02-03] MEDS: MAGNESIUM SULFATE-D5W PMX 1 GM in DEXTROSE/WATER 1 100ML.BAG IVPB SCH ×2 (06:16→09:47)
[2021-02-03] MEDS ORDERED: ACETAMINOPHEN TAB 325 MG TAB PO PRN (06:44)
[2021-02-03] MEDS: ALBUMIN HUMAN 5% 250 ML in EMPTY BAG 1 BAG IVPB PRN (06:45)
[2021-02-03] MEDS: DILTIAZEM ORAL 30 MG TAB PO SCH ×4 (06:49→23:44)
[2021-02-03] MEDS ORDERED: AMIODARONE 200 MG TAB PO STA (06:57)
[2021-02-03 07:01] LABS: Glucose,Whole Blood 139 mg/dL (75-99)
--- NOTE | 2021-02-03 07:32 | XR ---
"EXAMINATION TYPE: XR chest 1V portable DATE OF EXAM: 02/03/2021 CLINICAL HISTORY: Difficulty breathing progress study. Postopen cardiac surgery. TECHNIQUE: Single AP portable semiupright view of the chest is obtained. COMPARISON: Chest x-ray from yesterday. FINDINGS: Interval extubation with removal of endotracheal and orogastric tubes. Stable right paralegal internship al jugular Lynwood-Austyn catheter. There are 2 mediastinal drainage catheters redemonstrated. There is le ft basilar chest tube redemonstrated.Post-CABG changes with mediastinal clips and sternal wire along with left atrial appendage are all redemonstrated. Overlying left-sided subcutaneous emphysema redemonstrated. Background chronic emphysematous change. Stable cardiomegaly with bilateral hilar prominence suggesting underlying pulmonary artery hypertensi on. New Small to moderate size right pneumothorax estimated near 30% with lateral component. New righ t basilar opacity consistent with atelectasis and/or developing infiltrate. Prominent left basilar op acity noted. Underlying scoliotic curvature or positioning noted. IMPRESSION: 1. Interval extubation. 2. New small to moderate right-sided pneumothorax estimated near 30%. There is associated right basil ar atelectasis and/or pleural thickening infiltrate. 3. Background chronic emphysematous change and cardiomegaly with worsening left basilar atelectasis a nd/or developing acute infiltrate. No left-sided pneumothorax with left basilar chest tube in place. Results of new right-sided pneumothorax called to patient's ICU nurse via telephone at time of dictat ion. A Document Only message has been documented for Tete Erickson in the [employer] | Critical Result s ystem on 02/03/2021 7:29 AM, Message ID [id number]."
[2021-02-03] MEDS: IPRATROPIUM-ALBUTEROL 3 ML NEB INHALATION SCH ×4 (07:43→20:46)
--- NOTE | 2021-02-03 07:45 | P.PN ---
Subjective Progress Note Date: 02/03/21 Principal diagnosis: Triple-vessel coronary artery disease, moderate left ventricular dysfunction with EF 45%. Previous medical history of hypertension, hyperlipidemia, paroxysmal atrial fibrillation on Eliquis for anticoagulation, ischemic cardiomyopathy, former chronic tobacco dependence with preoperative FEV1 88% of predicted, remote alcohol abuse. POD #1 triple vessel coronary artery bypass grafting using the left internal mammary artery to the left anterior descending artery, left radial artery from the aorta to the posterior descending artery coming from the circumflex artery, reverse saphenous vein graft from the aorta to the obtuse marginal artery, bilateral pulmonary vein isolation using bipolar radiofrequency clamp from [employer], exclusion of the left atrial appendage using a 35 mm AtriClip, endoscopic harvesting of the left radial artery, endoscopic harvesting of the left greater saphenous vein, intraoperative graft flow measurements using the [employer]-Change system, intraoperative transesophageal echocardiogram and epi-aortic scanning. Postoperative acute blood loss anemia and thrombocytopenia, expected given cardiopulmonary bypass pump and hemodilution Patient's currently sitting up in a recliner in the intensive care unit in no acute distress. He was successfully extubated last night at 19:02 pm and he had an uneventful night. He does complain of some post surgical pain which is controlled on current medication regimen, denies shortness of breath. Remains in sinus rhythm to sinus tach, hemodynamically stable on no inotropes or pressors. Mediastinal/left pleural chest tubes, right internal jugular Bowman/Cordis, right radial arterial line all present. No other new concerns. Objective - Vital Signs Vital signs: Vital Signs Temp 99.7 F H 02/03/21 04:00 Pulse 93 02/03/21 07:00 Resp 20 02/03/21 07:00 BP 101/59 02/03/21 06:30 Pulse Ox 93 L 02/03/21 07:00 Intake & Output 02/02/21 02/03/21 02/03/21 18:59 06:59 18:59 Intake Total 6235.203 9043.134 24.45 Output Total 3175 967 Balance -2163.422 395.134 24.45 Weight 90.9 kg Intake: IV 7 1058 300 mmhg pressure saline 108 Albumin Human 5% 250 ml 250 In Empty Bag 1 bag @ 250 mls/hr IVPB Q1HR PRN Rx#: [id number] Magnesium Sulfate-D5w Pmx 100 1 gm In Dextrose/Water 1 100ml.bag @ 100 mls/hr IVPB Q1H [facility] Rx#: [id number] Sodium Chloride 0.9% 1, 600 000 ml @ 20 mls/hr IV . Q24H [facility] Rx#:[id number] Intake, IV Titration 1004.578 304.134 24.45 Amount ACETAMINOPHEN IV (For NPO 100 ) 1,000 mg In Empty Bag 1 bag @ 400 mls/hr IVPB Q6HR [facility] Rx#:[id number] Albumin Human 25% 50 ml @ 500 250 Per Protocol IV ONCE ONE Rx#:[id number] Clevidipine Butyrate 25 20.834 mg In Empty Bag 1 bag @ 1 MG/HR 2 mls/hr IV .Q24H [facility] Rx#:[id number] Dexmedetomidine/0.9% NaCl 27.500 (Pmx) 400 mcg In Empty Bag 1 bag @ Titrate IV . Q0M [facility] Rx#:[id number] Insulin Regular 100 unit 2.764 2.634 0 In Sodium Chloride 0.9% 100 ml @ Per Protocol IV .Q0M [facility] Rx#:[id number] Nitroglycerin-D5w Pmx 50 7.5 1.5 24.45 mg In Dextrose/Water 1 250ml.bag @ 5 MCG/MIN 1.5 mls/hr IV .Q24H [facility] Rx#: [id number] Sodium Chloride 0.9% 1, 250 50 000 ml @ 20 mls/hr IV . Q24H [facility] Rx#:[id number] ceFAZolin 2 gm In Sodium 50 Chloride 0.9% 50 ml @ 100 mls/hr IVPB Q8HR [facility] Rx# :[id number] propofoL 1,000 mg In 45.980 Empty Bag 1 bag @ Titrate IV .Q0M [facility] Rx#: [id number] Output: Chest Tube Drainage 390 510 Chest Tube Mediastinal 170 290 Lt pleural 220 220 Urine 1285 457 Estimated Blood Loss 1500 Other: Voiding Method Indwelling Catheter Indwelling Catheter ABP, PAP, CO, CI - Last Documented Arterial Blood Pressure 117/46 Pulmonary Artery Pressure 22/7 Cardiac Output 7.2 Cardiac Index 3.5 - Exam CONSTITUTIONAL: Appears comfortable, cooperative, no acute distress RESPIRATORY: Lungs sounds diminished bilaterally. Respirations even, nonlabored. Currently on 5 liters nasal cannula with oxygen saturation 94%. Able to achieve 1000 mL on incentive spirometry. Strong productive cough. CARDIOVASCULAR: S1, S2 present. Regular rate and rhythm, sinus rhythm to sinus tach on telemetry with heart rate in the high 90s to 100s. Sternum stable. Palpable peripheral pulses bilaterally. No edema present. No calf pain or tenderness noted. Heart hugger in place with patient demonstrating appropriate use. Antiembolism stockings, SCDs present. GASTROINTESTINAL: Abdomen soft, nontender, nondistended. Hypoactive bowel sounds present 4 quadrants. Tolerating clear liquid diet. Negative flatus GENITOURINARY: Guzman present draining clear, yellow urine. Output overnight 30-40 mL per hour, 1742 mL in the last 24 hours INTEGUMENTARY: Skin is warm and dry with evidence of good perfusion. Anterior chest incision well approximated and covered with dry intact dressing. EVH site well approximated without redness or drainage. Left radial artery harvest site well approximated with PAM drain present, minimal drainage, patient able to wiggle all fingers in curer acid drum appropriately, good cap refill NEUROLOGIC: Cranial nerves II through XII intact MUSKULOSKELETAL: Able to move all extremities, strength equal bilaterally PSYCHIATRIC: Alert and oriented to person place and time, appropriate affect, intact judgment and insight INVASIVE LINES AND TUBES: Mediastinal/left pleural chest tubes present and connected to wall suction, positive air leak in the mediastinal chest tube, no air leak in the left pleural chest tube present. Mediastinal tube with 190 mL serosanguineous drainage overnight, 450 mL since surgery. Left pleural chest tube with 110 mL serosanguineous drainage overnight, 400 mL since surgery. Atrial epicardial pacemaker wire present, connected to generator, AAI mode with backup rate 50 bpm. Right internal jugular Bowman/Cordis, right radial arterial line present. Last CO/CI 7.2/3.5, PA 29/05, CVP 3. - Allied health notes Allied health notes reviewed: nursing - Labs CBC & Chem 7: 02/03/21 04:00 02/03/21 04:00 Labs: Abnormal Lab Results - Last 24 Hours (Table) 01/29/21 02/02/21 02/02/21 Range/Units 09:13 06:22 08:41 WBC (3.8-10.6) k/uL RBC (4.30-5.90) m/uL Hgb (13.0-17.5) gm/dL Hct (39.0-53.0) % Plt Count (150-450) k/uL Neutrophils # (1.3-7.7) k/uL Lymphocytes # (1.0-4.8) k/uL ABG pH (7.35-7.45) ABG pCO2 (35-45) mmHg ABG pO2 321 H (83-108) mmHg ABG Total CO2 27 H (19-24) mmol/L ABG O2 Saturation 100.0 H (94-97) % ABG Hematocrit (34.0-46.0) % ABG Potassium (3.4-4.5) mmol/L ABG Ionized Calcium (4.5-5.3) mg/dL ABG Glucose 104 H (75-99) mg/dL Hemoglobin (13.0-17.5) gm/dL Chloride (98-107) mmol/L Glucose (74-99) mg/dL POC Glucose (mg/dL) 107 H (75-99) mg/dL Calcium (8.4-10.2) mg/dL Magnesium (1.6-2.3) mg/dL Total Protein (6.3-8.2) g/dL Albumin (3.5-5.0) g/dL Arterial Blood Potassium (3.4-4.5) mmol/L Arterial Blood Glucose 104 H (75-99) mg/dL Crossmatch See Detail 02/02/21 02/02/21 02/02/21 Range/Units 10:26 11:15 11:51 WBC (3.8-10.6) k/uL RBC (4.30-5.90) m/uL Hgb (13.0-17.5) gm/dL Hct (39.0-53.0) % Plt Count (150-450) k/uL Neutrophils # (1.3-7.7) k/uL Lymphocytes # (1.0-4.8) k/uL ABG pH 7.32 L (7.35-7.45) ABG pCO2 48 H (35-45) mmHg ABG pO2 141 H >420 H 273 H (83-108) mmHg ABG Total CO2 26 H 25 H 26 H (19-24) mmol/L ABG O2 Saturation 99.4 H 100.0 H 100.0 H (94-97) % ABG Hematocrit 31 L 30 L (34.0-46.0) % ABG Potassium 5.2 H (3.4-4.5) mmol/L ABG Ionized Calcium 4.3 L 4.4 L (4.5-5.3) mg/dL ABG Glucose 137 H 129 H 192 H (75-99) mg/dL Hemoglobin 10.1 L 9.9 L (13.0-17.5) gm/dL Chloride (98-107) mmol/L Glucose (74-99) mg/dL POC Glucose (mg/dL) (75-99) mg/dL Calcium (8.4-10.2) mg/dL Magnesium (1.6-2.3) mg/dL Total Protein (6.3-8.2) g/dL Albumin (3.5-5.0) g/dL Arterial Blood Potassium 5.2 H (3.4-4.5) mmol/L Arterial Blood Glucose 137 H 129 H 192 H (75-99) mg/dL Crossmatch 02/02/21 02/02/21 02/02/21 Range/Units 12:20 14:28 14:30 WBC 10.8 H (3.8-10.6) k/uL RBC 4.06 L (4.30-5.90) m/uL Hgb 12.4 L (13.0-17.5) gm/dL Hct 37.5 L (39.0-53.0) % Plt Count 120 L (150-450) k/uL Neutrophils # 8.6 H (1.3-7.7) k/uL Lymphocytes # (1.0-4.8) k/uL ABG pH 7.33 L (7.35-7.45) ABG pCO2 46 H (35-45) mmHg ABG pO2 371 H (83-108) mmHg ABG Total CO2 26 H (19-24) mmol/L ABG O2 Saturation 100.0 H (94-97) % ABG Hematocrit 31 L (34.0-46.0) % ABG Potassium 4.6 H (3.4-4.5) mmol/L ABG Ionized Calcium (4.5-5.3) mg/dL ABG Glucose 172 H (75-99) mg/dL Hemoglobin 10.2 L (13.0-17.5) gm/dL Chloride (98-107) mmol/L Glucose (74-99) mg/dL POC Glucose (mg/dL) 109 H (75-99) mg/dL Calcium (8.4-10.2) mg/dL Magnesium (1.6-2.3) mg/dL Total Protein (6.3-8.2) g/dL Albumin (3.5-5.0) g/dL Arterial Blood Potassium 4.6 H (3.4-4.5) mmol/L Arterial Blood Glucose 172 H (75-99) mg/dL Crossmatch 02/02/21 02/02/21 02/02/21 Range/Units 14:30 15:02 15:12 WBC (3.8-10.6) k/uL RBC (4.30-5.90) m/uL Hgb (13.0-17.5) gm/dL Hct (39.0-53.0) % Plt Count (150-450) k/uL Neutrophils # (1.3-7.7) k/uL Lymphocytes # (1.0-4.8) k/uL ABG pH (7.35-7.45) ABG pCO2 (35-45) mmHg ABG pO2 150 H (83-108) mmHg ABG Total CO2 25 H (19-24) mmol/L ABG O2 Saturation 99.3 H (94-97) % ABG Hematocrit (34.0-46.0) % ABG Potassium (3.4-4.5) mmol/L ABG Ionized Calcium (4.5-5.3) mg/dL ABG Glucose (75-99) mg/dL Hemoglobin (13.0-17.5) gm/dL Chloride 112 H (98-107) mmol/L Glucose 105 H (74-99) mg/dL POC Glucose (mg/dL) 106 H (75-99) mg/dL Calcium (8.4-10.2) mg/dL Magnesium 2.6 H (1.6-2.3) mg/dL Total Protein 4.8 L (6.3-8.2) g/dL Albumin 2.5 L (3.5-5.0) g/dL Arterial Blood Potassium (3.4-4.5) mmol/L Arterial Blood Glucose (75-99) mg/dL Crossmatch 02/02/21 02/02/21 02/02/21 Range/Units 16:01 17:03 17:52 WBC 11.6 H (3.8-10.6) k/uL RBC 4.18 L (4.30-5.90) m/uL Hgb (13.0-17.5) gm/dL Hct 38.2 L (39.0-53.0) % Plt Count 126 L (150-450) k/uL Neutrophils # 9.9 H (1.3-7.7) k/uL Lymphocytes # 0.8 L (1.0-4.8) k/uL ABG pH (7.35-7.45) ABG pCO2 (35-45) mmHg ABG pO2 (83-108) mmHg ABG Total CO2 (19-24) mmol/L ABG O2 Saturation (94-97) % ABG Hematocrit (34.0-46.0) % ABG Potassium (3.4-4.5) mmol/L ABG Ionized Calcium (4.5-5.3) mg/dL ABG Glucose (75-99) mg/dL Hemoglobin (13.0-17.5) gm/dL Chloride (98-107) mmol/L Glucose (74-99) mg/dL POC Glucose (mg/dL) 124 H 137 H (75-99) mg/dL Calcium (8.4-10.2) mg/dL Magnesium (1.6-2.3) mg/dL Total Protein (6.3-8.2) g/dL Albumin (3.5-5.0) g/dL Arterial Blood Potassium (3.4-4.5) mmol/L Arterial Blood Glucose (75-99) mg/dL Crossmatch 02/02/21 02/02/21 02/02/21 Range/Units 18:08 18:54 18:58 WBC (3.8-10.6) k/uL RBC (4.30-5.90) m/uL Hgb (13.0-17.5) gm/dL Hct (39.0-53.0) % Plt Count (150-450) k/uL Neutrophils # (1.3-7.7) k/uL Lymphocytes # (1.0-4.8) k/uL ABG pH (7.35-7.45) ABG pCO2 (35-45) mmHg ABG pO2 121 H (83-108) mmHg ABG Total CO2 (19-24) mmol/L ABG O2 Saturation 98.9 H (94-97) % ABG Hematocrit (34.0-46.0) % ABG Potassium (3.4-4.5) mmol/L ABG Ionized Calcium (4.5-5.3) mg/dL ABG Glucose (75-99) mg/dL Hemoglobin (13.0-17.5) gm/dL Chloride (98-107) mmol/L Glucose (74-99) mg/dL POC Glucose (mg/dL) 125 H 114 H (75-99) mg/dL Calcium (8.4-10.2) mg/dL Magnesium (1.6-2.3) mg/dL Total Protein (6.3-8.2) g/dL Albumin (3.5-5.0) g/dL Arterial Blood Potassium (3.4-4.5) mmol/L Arterial Blood Glucose (75-99) mg/dL Crossmatch 02/02/21 02/02/21 02/02/21 Range/Units 19:48 19:50 21:03 WBC (3.8-10.6) k/uL RBC 3.61 L (4.30-5.90) m/uL Hgb 11.6 L (13.0-17.5) gm/dL Hct 32.6 L (39.0-53.0) % Plt Count 115 L (150-450) k/uL Neutrophils # (1.3-7.7) k/uL Lymphocytes # 0.5 L (1.0-4.8) k/uL ABG pH (7.35-7.45) ABG pCO2 (35-45) mmHg ABG pO2 (83-108) mmHg ABG Total CO2 (19-24) mmol/L ABG O2 Saturation (94-97) % ABG Hematocrit (34.0-46.0) % ABG Potassium (3.4-4.5) mmol/L ABG Ionized Calcium (4.5-5.3) mg/dL ABG Glucose (75-99) mg/dL Hemoglobin (13.0-17.5) gm/dL Chloride (98-107) mmol/L Glucose (74-99) mg/dL POC Glucose (mg/dL) 124 H 132 H (75-99) mg/dL Calcium (8.4-10.2) mg/dL Magnesium (1.6-2.3) mg/dL Total Protein (6.3-8.2) g/dL Albumin (3.5-5.0) g/dL Arterial Blood Potassium (3.4-4.5) mmol/L Arterial Blood Glucose (75-99) mg/dL Crossmatch 02/02/21 02/02/21 02/03/21 Range/Units 22:36 23:52 00:54 WBC (3.8-10.6) k/uL RBC (4.30-5.90) m/uL Hgb (13.0-17.5) gm/dL Hct (39.0-53.0) % Plt Count (150-450) k/uL Neutrophils # (1.3-7.7) k/uL Lymphocytes # (1.0-4.8) k/uL ABG pH (7.35-7.45) ABG pCO2 (35-45) mmHg ABG pO2 (83-108) mmHg ABG Total CO2 (19-24) mmol/L ABG O2 Saturation (94-97) % ABG Hematocrit (34.0-46.0) % ABG Potassium (3.4-4.5) mmol/L ABG Ionized Calcium (4.5-5.3) mg/dL ABG Glucose (75-99) mg/dL Hemoglobin (13.0-17.5) gm/dL Chloride (98-107) mmol/L Glucose (74-99) mg/dL POC Glucose (mg/dL) 130 H 125 H 124 H (75-99) mg/dL Calcium (8.4-10.2) mg/dL Magnesium (1.6-2.3) mg/dL Total Protein (6.3-8.2) g/dL Albumin (3.5-5.0) g/dL Arterial Blood Potassium (3.4-4.5) mmol/L Arterial Blood Glucose (75-99) mg/dL Crossmatch 02/03/21 02/03/21 02/03/21 Range/Units 02:14 03:59 04:00 WBC (3.8-10.6) k/uL RBC 3.64 L (4.30-5.90) m/uL Hgb 11.6 L (13.0-17.5) gm/dL Hct 32.9 L (39.0-53.0) % Plt Count 115 L (150-450) k/uL Neutrophils # 8.3 H (1.3-7.7) k/uL Lymphocytes # 0.7 L (1.0-4.8) k/uL ABG pH (7.35-7.45) ABG pCO2 (35-45) mmHg ABG pO2 (83-108) mmHg ABG Total CO2 (19-24) mmol/L ABG O2 Saturation (94-97) % ABG Hematocrit (34.0-46.0) % ABG Potassium (3.4-4.5) mmol/L ABG Ionized Calcium (4.5-5.3) mg/dL ABG Glucose (75-99) mg/dL Hemoglobin (13.0-17.5) gm/dL Chloride (98-107) mmol/L Glucose (74-99) mg/dL POC Glucose (mg/dL) 117 H 122 H (75-99) mg/dL Calcium (8.4-10.2) mg/dL Magnesium (1.6-2.3) mg/dL Total Protein (6.3-8.2) g/dL Albumin (3.5-5.0) g/dL Arterial Blood Potassium (3.4-4.5) mmol/L Arterial Blood Glucose (75-99) mg/dL Crossmatch 02/03/21 02/03/21 02/03/21 Range/Units 04:00 05:54 07:00 WBC (3.8-10.6) k/uL RBC (4.30-5.90) m/uL Hgb (13.0-17.5) gm/dL Hct (39.0-53.0) % Plt Count (150-450) k/uL Neutrophils # (1.3-7.7) k/uL Lymphocytes # (1.0-4.8) k/uL ABG pH (7.35-7.45) ABG pCO2 (35-45) mmHg ABG pO2 (83-108) mmHg ABG Total CO2 (19-24) mmol/L ABG O2 Saturation (94-97) % ABG Hematocrit (34.0-46.0) % ABG Potassium (3.4-4.5) mmol/L ABG Ionized Calcium (4.5-5.3) mg/dL ABG Glucose (75-99) mg/dL Hemoglobin (13.0-17.5) gm/dL Chloride 109 H (98-107) mmol/L Glucose 112 H (74-99) mg/dL POC Glucose (mg/dL) 121 H 139 H (75-99) mg/dL Calcium 8.1 L (8.4-10.2) mg/dL Magnesium (1.6-2.3) mg/dL Total Protein 4.9 L (6.3-8.2) g/dL Albumin 2.8 L (3.5-5.0) g/dL Arterial Blood Potassium (3.4-4.5) mmol/L Arterial Blood Glucose (75-99) mg/dL Crossmatch - Imaging and Cardiology Chest x-ray: image reviewed Assessment and Plan Assessment: 1. Triple-vessel coronary artery disease, status post three-vessel CABG 2. Moderate left ventricular dysfunction with EF 45% and history of ischemic cardiomyopathy 3. Hypertension 4. Hyperlipidemia, cholesterol 198, LDL 143 5. Paroxysmal atrial fibrillation on Eliquis for anticoagulation, currently sinus rhythm, status post pulmonary vein isolation and exclusion of the left atrial appendage 6. Former chronic tobacco dependence with preoperative FEV1 88% of predicted 7. Remote alcohol abuse 8. Family history of coronary artery disease 9. Postoperative acute blood loss anemia and thrombocytopenia, expected Plan: 1. Continue aspirin, statin, Plavix, beta una therapy. Will increase beta una as tolerated, increased to 25 mg twice a day today 2. Discontinue IV nitro, start oral Cardizem for radial artery spasm prophylaxis. Do not discontinue CCB without discussing with cardiac surgery 3. Will start prophylactic oral amiodarone for prevention of atrial fibrillation. Will restart oral anticoagulation prior to discharge 4. Wean O2 as tolerated. Encourage incentive spirometry use 10 times every hour while awake. Bronchodilators per pulmonology 5. Will monitor daily labs and x-rays. Electrolyte replacement per protocol. 6. GI/DVT prophylaxis 7. Insulin management per internal medicine service. Patient is not diabetic, preoperative hemoglobin A1c 5% 8. Pain control with current medication regimen. 9. Discontinue Bowman. Connect Cordis to continuous CVP monitoring 10. Discontinue PAM drain. Keep mediastinal, left pleural chest tubes for another 24 hours 11. Keep Guzman catheter for another 24 hours for strict accurate intake and output. Daily weights with standup scale 12. Encourage continued smoking cessation 13. More recommendations to follow based on patient's progress Time with Patient: Greater than 30
[2021-02-03 08:26] LABS: Glucose,Whole Blood 216 mg/dL (75-99)
[2021-02-03] MEDS ORDERED: PANTOPRAZOLE 40 MG/10 ML VIAL IVP SCH (09:00)
[2021-02-03] MEDS ORDERED: bisacodyL 10 MG SUPP RECTAL PRN (09:00)
[2021-02-03] MEDS ORDERED: MAGNESIUM HYDROXIDE 2,400 MG/10 ML CUP PO PRN (09:00)
[2021-02-03] MEDS ORDERED: METOPROLOL TARTRATE 12.5 MG TAB PO SCH (09:00)
[2021-02-03] MEDS ORDERED: CLOPIDOGREL 75 MG TAB PO SCH (09:00)
[2021-02-03] MEDS ORDERED: ASPIRIN 325 MG TAB PO SCH (09:00)
[2021-02-03] MEDS ORDERED: METOPROLOL TARTRATE 25 MG TAB PO SCH (09:00)
[2021-02-03 09:38] LABS: Glucose,Whole Blood 170 mg/dL (75-99)
[2021-02-03] MEDS: SODIUM CHLORIDE 0.9% 1,000 ML IV SCH (09:47)
[2021-02-03] MEDS: HEPARIN SODIUM,PORCINE/PF 5,000 UNIT/0.5 ML SYRINGE SQ SCH ×3 (09:48→23:44)
[2021-02-03] MEDS: ASPIRIN 325 MG TAB PO SCH (09:48)
[2021-02-03] MEDS: ATORVASTATIN 40 MG TAB PO SCH (09:48)
[2021-02-03] MEDS: CLOPIDOGREL 75 MG TAB PO SCH (09:48)
--- NOTE | 2021-02-03 09:48 | P.PN ---
Subjective Progress Note Date: 02/03/21 Principal diagnosis: Symptomatic coronary artery disease, status post three-vessel coronary artery bypass grafting This is a 60-year-old white male patient of JOSE JUAN Morillo, who had been complaining of exertional dyspnea and chest pain, patient underwent cardiac catheterization on 01/28/[address] Allen showed a 50% distal left main disease, critical stenosis in the ostium of the LAD in the mid left circumflex. LVEDP was in the order of 12-16 mmHg. Transthoracic echocardiogram showed EF between 45-50%. Past medical history is significant for paroxysmal A. fib on E liquis, family history of coronary artery disease, ischemic cardiomyopathy, previous history of tobacco and alcohol dependence. Preop FEV1 was 2.91 over 88% of predicted. We are seeing the patient in the postoperative period after three-vessel coronary artery bypass grafting today on 02/02/[address] Allen. Patient had CHANEL to the LAD, SVG to the circumflex, and right radial graft to the PDA, Left atrial appendage exclusion. Patient is currently intubated on mechanical ventilator with the assist control mode of ventilation with a rate of 12, tidal M is 520, FiO2 of 100% and PEEP of 5, postoperative blood gases are pending. Patient is currently on 0.9 normal saline at a rate of 50 ML per hour, nitroglycerin at 5 mics per kilo per minute, and improving and is at 25 mics per kilo per minute. Insulin drip is off. Patient is in sinus mechanism with a first-degree AV block, PA pressures 20 overnight, CVP is 4, cardiac output is 4.6 and cardiac index is 2.2. Right, left knee still chest tubes in place with small amount of sanguinous output, postoperative blood work is pending. Hemodynamically patient is stable, not requiring any vasopressor support. On 01/26/2021 patient seen in follow-up in the intensive care unit, he was successfully weaned and extubated last night, tolerating extubation well, his chronic hepatitis liters of oxygen pulse ox is 90-93%, he is having low-grade fevers with a temp of 99.9F, hemodynamically patient is stable. No vasoactive drips, he is just some 0.9 normal saline at 50 ML per hour, insulin is on hold, nitroglycerin drip glycerin has been discontinued. Sitting up in a chair, breathing comfortably, is working on his incentive spirometer, lung sounds are positive for a few scattered rhonchi, diminished breath sounds, today's chest x- ray has been reviewed showing new small to moderate right-sided pneumothorax estimated to be near 30% associated with right basilar atelectasis. There is background of chronic emphysematous changes and cardiomegaly with worsening left basilar atelectasis. Patient is sinus mechanism, and the rate is controlled. Today's blood work has been reviewed showing white blood cell count of 9.7, hemoglobin of 11.6, sodium of 137, potassium is 4.2, chloride is 109, BUN 14 creatinine 0.75, LFTs are within normal limits. he had [address], left pleural and 2 mediastinal chest tubes, there has been 210 mL of servicing this output out of the mediastinal chest tubes, and left pleural handout 190 of serosanguineous thin output in the last 24 hours, Guzman catheter is in place patient is producing 30-65 ML of urine output. Objective - Vital Signs Vital signs: Vital Signs Temp 99.9 F H 02/03/21 08:00 Pulse 111 H 02/03/21 08:00 Resp 19 02/03/21 08:00 BP 101/59 02/03/21 08:00 Pulse Ox 90 L 02/03/21 08:00 Intake & Output 02/02/21 02/03/21 02/03/21 18:59 06:59 18:59 Intake Total 3563.705 0363.134 83.45 Output Total 3175 967 55 Balance -2163.422 395.134 28.45 Weight 90.9 kg Intake: IV 7 1058 59 300 mmhg pressure saline 108 9 Albumin Human 5% 250 ml 250 In Empty Bag 1 bag @ 250 mls/hr IVPB Q1HR PRN Rx#: [id number] Magnesium Sulfate-D5w Pmx 100 1 gm In Dextrose/Water 1 100ml.bag @ 100 mls/hr IVPB Q1H [facility] Rx#: [id number] Sodium Chloride 0.9% 1, 600 50 000 ml @ 20 mls/hr IV . Q24H [facility] Rx#:[id number] Intake, IV Titration 1004.578 304.134 24.45 Amount ACETAMINOPHEN IV (For NPO 100 ) 1,000 mg In Empty Bag 1 bag @ 400 mls/hr IVPB Q6HR [facility] Rx#:[id number] Albumin Human 25% 50 ml @ 500 250 Per Protocol IV ONCE ONE Rx#:[id number] Clevidipine Butyrate 25 20.834 mg In Empty Bag 1 bag @ 1 MG/HR 2 mls/hr IV .Q24H [facility] Rx#:[id number] Dexmedetomidine/0.9% NaCl 27.500 (Pmx) 400 mcg In Empty Bag 1 bag @ Titrate IV . Q0M [facility] Rx#:[id number] Insulin Regular 100 unit 2.764 2.634 0 In Sodium Chloride 0.9% 100 ml @ Per Protocol IV .Q0M [facility] Rx#:[id number] Nitroglycerin-D5w Pmx 50 7.5 1.5 24.45 mg In Dextrose/Water 1 250ml.bag @ 5 MCG/MIN 1.5 mls/hr IV .Q24H [facility] Rx#: [id number] Sodium Chloride 0.9% 1, 250 50 000 ml @ 20 mls/hr IV . Q24H [facility] Rx#:[id number] ceFAZolin 2 gm In Sodium 50 Chloride 0.9% 50 ml @ 100 mls/hr IVPB Q8HR [facility] Rx# :[id number] propofoL 1,000 mg In 45.980 Empty Bag 1 bag @ Titrate IV .Q0M [facility] Rx#: [id number] Output: Chest Tube Drainage 390 510 20 Chest Tube Mediastinal 170 290 10 Lt pleural 220 220 10 Urine 1285 457 35 Estimated Blood Loss 1500 Other: Voiding Method Indwelling Catheter Indwelling Catheter ABP, PAP, CO, CI - Last Documented Arterial Blood Pressure 116/51 Pulmonary Artery Pressure 29/8 Cardiac Output 7.5 Cardiac Index 3.6 - Exam GENERAL EXAM: Awake and alert, very pleasant 70-year-old white male, 5 L of oxygen with a pulse ox of 90-93% comfortable in no apparent distress. HEAD: Normocephalic/atraumatic. EYES: Normal reaction of pupils, equal size. Conjunctiva pink, sclera white. NOSE: Clear with pink turbinates. THROAT: No erythema or exudates. NECK: No masses, no JVD, no thyroid enlargement, no adenopathy. CHEST: No chest wall deformity. Symmetrical expansion. Midsternal incision clean dry and intact,left and 2 mediastinal chest tubes in place connected to Pleur-evac's, to wall suction, with small to moderate amount of sanguinous output, occasional air leak in the mediastinal chest tube Pleur-evac LUNGS: Equal air entry with no crackles, wheeze, rhonchi or dullness. CVS: Regular rate and rhythm, normal S1 and S2, no gallops, no murmurs, no rubs ABDOMEN: Soft, nontender. No hepatosplenomegaly, normal bowel sounds, no guarding or rigidity. EXTREMITIES: No clubbing, no edema, no cyanosis, 2+ pulses and upper and lower extremities. Left radial graft site is Sanjeev wrap, left lower extremity is Sanjeev wrapped, SCDs on both lower extremities MUSCULOSKELETAL: Muscle strength and tone normal. SPINE: No scoliosis or deformity SKIN: No rashes CENTRAL NERVOUS SYSTEM: Awake and alert, 70-year-old white male with no focal deficits, tone is normal in all 4 extremities. - Labs CBC & Chem 7: 02/03/21 04:00 02/03/21 04:00 Labs: Abnormal Lab Results - Last 24 Hours (Table) 01/29/21 02/02/21 02/02/21 Range/Units 09:13 08:41 10:26 WBC (3.8-10.6) k/uL RBC (4.30-5.90) m/uL Hgb (13.0-17.5) gm/dL Hct (39.0-53.0) % Plt Count (150-450) k/uL Neutrophils # (1.3-7.7) k/uL Lymphocytes # (1.0-4.8) k/uL ABG pH 7.32 L (7.35-7.45) ABG pCO2 48 H (35-45) mmHg ABG pO2 321 H 141 H (83-108) mmHg ABG Total CO2 27 H 26 H (19-24) mmol/L ABG O2 Saturation 100.0 H 99.4 H (94-97) % ABG Hematocrit (34.0-46.0) % ABG Potassium (3.4-4.5) mmol/L ABG Ionized Calcium (4.5-5.3) mg/dL ABG Glucose 104 H 137 H (75-99) mg/dL Hemoglobin (13.0-17.5) gm/dL Chloride (98-107) mmol/L Glucose (74-99) mg/dL POC Glucose (mg/dL) (75-99) mg/dL Calcium (8.4-10.2) mg/dL Magnesium (1.6-2.3) mg/dL Total Protein (6.3-8.2) g/dL Albumin (3.5-5.0) g/dL Arterial Blood Potassium (3.4-4.5) mmol/L Arterial Blood Glucose 104 H 137 H (75-99) mg/dL Crossmatch See Detail 02/02/21 02/02/21 02/02/21 Range/Units 11:15 11:51 12:20 WBC (3.8-10.6) k/uL RBC (4.30-5.90) m/uL Hgb (13.0-17.5) gm/dL Hct (39.0-53.0) % Plt Count (150-450) k/uL Neutrophils # (1.3-7.7) k/uL Lymphocytes # (1.0-4.8) k/uL ABG pH 7.33 L (7.35-7.45) ABG pCO2 46 H (35-45) mmHg ABG pO2 >420 H 273 H 371 H (83-108) mmHg ABG Total CO2 25 H 26 H 26 H (19-24) mmol/L ABG O2 Saturation 100.0 H 100.0 H 100.0 H (94-97) % ABG Hematocrit 31 L 30 L 31 L (34.0-46.0) % ABG Potassium 5.2 H 4.6 H (3.4-4.5) mmol/L ABG Ionized Calcium 4.3 L 4.4 L (4.5-5.3) mg/dL ABG Glucose 129 H 192 H 172 H (75-99) mg/dL Hemoglobin 10.1 L 9.9 L 10.2 L (13.0-17.5) gm/dL Chloride (98-107) mmol/L Glucose (74-99) mg/dL POC Glucose (mg/dL) (75-99) mg/dL Calcium (8.4-10.2) mg/dL Magnesium (1.6-2.3) mg/dL Total Protein (6.3-8.2) g/dL Albumin (3.5-5.0) g/dL Arterial Blood Potassium 5.2 H 4.6 H (3.4-4.5) mmol/L Arterial Blood Glucose 129 H 192 H 172 H (75-99) mg/dL Crossmatch 02/02/21 02/02/21 02/02/21 Range/Units 14:28 14:30 14:30 WBC 10.8 H (3.8-10.6) k/uL RBC 4.06 L (4.30-5.90) m/uL Hgb 12.4 L (13.0-17.5) gm/dL Hct 37.5 L (39.0-53.0) % Plt Count 120 L (150-450) k/uL Neutrophils # 8.6 H (1.3-7.7) k/uL Lymphocytes # (1.0-4.8) k/uL ABG pH (7.35-7.45) ABG pCO2 (35-45) mmHg ABG pO2 (83-108) mmHg ABG Total CO2 (19-24) mmol/L ABG O2 Saturation (94-97) % ABG Hematocrit (34.0-46.0) % ABG Potassium (3.4-4.5) mmol/L ABG Ionized Calcium (4.5-5.3) mg/dL ABG Glucose (75-99) mg/dL Hemoglobin (13.0-17.5) gm/dL Chloride 112 H (98-107) mmol/L Glucose 105 H (74-99) mg/dL POC Glucose (mg/dL) 109 H (75-99) mg/dL Calcium (8.4-10.2) mg/dL Magnesium 2.6 H (1.6-2.3) mg/dL Total Protein 4.8 L (6.3-8.2) g/dL Albumin 2.5 L (3.5-5.0) g/dL Arterial Blood Potassium (3.4-4.5) mmol/L Arterial Blood Glucose (75-99) mg/dL Crossmatch 02/02/21 02/02/21 02/02/21 Range/Units 15:02 15:12 16:01 WBC (3.8-10.6) k/uL RBC (4.30-5.90) m/uL Hgb (13.0-17.5) gm/dL Hct (39.0-53.0) % Plt Count (150-450) k/uL Neutrophils # (1.3-7.7) k/uL Lymphocytes # (1.0-4.8) k/uL ABG pH (7.35-7.45) ABG pCO2 (35-45) mmHg ABG pO2 150 H (83-108) mmHg ABG Total CO2 25 H (19-24) mmol/L ABG O2 Saturation 99.3 H (94-97) % ABG Hematocrit (34.0-46.0) % ABG Potassium (3.4-4.5) mmol/L ABG Ionized Calcium (4.5-5.3) mg/dL ABG Glucose (75-99) mg/dL Hemoglobin (13.0-17.5) gm/dL Chloride (98-107) mmol/L Glucose (74-99) mg/dL POC Glucose (mg/dL) 106 H 124 H (75-99) mg/dL Calcium (8.4-10.2) mg/dL Magnesium (1.6-2.3) mg/dL Total Protein (6.3-8.2) g/dL Albumin (3.5-5.0) g/dL Arterial Blood Potassium (3.4-4.5) mmol/L Arterial Blood Glucose (75-99) mg/dL Crossmatch 02/02/21 02/02/21 02/02/21 Range/Units 17:03 17:52 18:08 WBC 11.6 H (3.8-10.6) k/uL RBC 4.18 L (4.30-5.90) m/uL Hgb (13.0-17.5) gm/dL Hct 38.2 L (39.0-53.0) % Plt Count 126 L (150-450) k/uL Neutrophils # 9.9 H (1.3-7.7) k/uL Lymphocytes # 0.8 L (1.0-4.8) k/uL ABG pH (7.35-7.45) ABG pCO2 (35-45) mmHg ABG pO2 (83-108) mmHg ABG Total CO2 (19-24) mmol/L ABG O2 Saturation (94-97) % ABG Hematocrit (34.0-46.0) % ABG Potassium (3.4-4.5) mmol/L ABG Ionized Calcium (4.5-5.3) mg/dL ABG Glucose (75-99) mg/dL Hemoglobin (13.0-17.5) gm/dL Chloride (98-107) mmol/L Glucose (74-99) mg/dL POC Glucose (mg/dL) 137 H 125 H (75-99) mg/dL Calcium (8.4-10.2) mg/dL Magnesium (1.6-2.3) mg/dL Total Protein (6.3-8.2) g/dL Albumin (3.5-5.0) g/dL Arterial Blood Potassium (3.4-4.5) mmol/L Arterial Blood Glucose (75-99) mg/dL Crossmatch 02/02/21 02/02/21 02/02/21 Range/Units 18:54 18:58 19:48 WBC (3.8-10.6) k/uL RBC (4.30-5.90) m/uL Hgb (13.0-17.5) gm/dL Hct (39.0-53.0) % Plt Count (150-450) k/uL Neutrophils # (1.3-7.7) k/uL Lymphocytes # (1.0-4.8) k/uL ABG pH (7.35-7.45) ABG pCO2 (35-45) mmHg ABG pO2 121 H (83-108) mmHg ABG Total CO2 (19-24) mmol/L ABG O2 Saturation 98.9 H (94-97) % ABG Hematocrit (34.0-46.0) % ABG Potassium (3.4-4.5) mmol/L ABG Ionized Calcium (4.5-5.3) mg/dL ABG Glucose (75-99) mg/dL Hemoglobin (13.0-17.5) gm/dL Chloride (98-107) mmol/L Glucose (74-99) mg/dL POC Glucose (mg/dL) 114 H 124 H (75-99) mg/dL Calcium (8.4-10.2) mg/dL Magnesium (1.6-2.3) mg/dL Total Protein (6.3-8.2) g/dL Albumin (3.5-5.0) g/dL Arterial Blood Potassium (3.4-4.5) mmol/L Arterial Blood Glucose (75-99) mg/dL Crossmatch 02/02/21 02/02/21 02/02/21 Range/Units 19:50 21:03 22:36 WBC (3.8-10.6) k/uL RBC 3.61 L (4.30-5.90) m/uL Hgb 11.6 L (13.0-17.5) gm/dL Hct 32.6 L (39.0-53.0) % Plt Count 115 L (150-450) k/uL Neutrophils # (1.3-7.7) k/uL Lymphocytes # 0.5 L (1.0-4.8) k/uL ABG pH (7.35-7.45) ABG pCO2 (35-45) mmHg ABG pO2 (83-108) mmHg ABG Total CO2 (19-24) mmol/L ABG O2 Saturation (94-97) % ABG Hematocrit (34.0-46.0) % ABG Potassium (3.4-4.5) mmol/L ABG Ionized Calcium (4.5-5.3) mg/dL ABG Glucose (75-99) mg/dL Hemoglobin (13.0-17.5) gm/dL Chloride (98-107) mmol/L Glucose (74-99) mg/dL POC Glucose (mg/dL) 132 H 130 H (75-99) mg/dL Calcium (8.4-10.2) mg/dL Magnesium (1.6-2.3) mg/dL Total Protein (6.3-8.2) g/dL Albumin (3.5-5.0) g/dL Arterial Blood Potassium (3.4-4.5) mmol/L Arterial Blood Glucose (75-99) mg/dL Crossmatch 02/02/21 02/03/21 02/03/21 Range/Units 23:52 00:54 02:14 WBC (3.8-10.6) k/uL RBC (4.30-5.90) m/uL Hgb (13.0-17.5) gm/dL Hct (39.0-53.0) % Plt Count (150-450) k/uL Neutrophils # (1.3-7.7) k/uL Lymphocytes # (1.0-4.8) k/uL ABG pH (7.35-7.45) ABG pCO2 (35-45) mmHg ABG pO2 (83-108) mmHg ABG Total CO2 (19-24) mmol/L ABG O2 Saturation (94-97) % ABG Hematocrit (34.0-46.0) % ABG Potassium (3.4-4.5) mmol/L ABG Ionized Calcium (4.5-5.3) mg/dL ABG Glucose (75-99) mg/dL Hemoglobin (13.0-17.5) gm/dL Chloride (98-107) mmol/L Glucose (74-99) mg/dL POC Glucose (mg/dL) 125 H 124 H 117 H (75-99) mg/dL Calcium (8.4-10.2) mg/dL Magnesium (1.6-2.3) mg/dL Total Protein (6.3-8.2) g/dL Albumin (3.5-5.0) g/dL Arterial Blood Potassium (3.4-4.5) mmol/L Arterial Blood Glucose (75-99) mg/dL Crossmatch 02/03/21 02/03/21 02/03/21 Range/Units 03:59 04:00 04:00 WBC (3.8-10.6) k/uL RBC 3.64 L (4.30-5.90) m/uL Hgb 11.6 L (13.0-17.5) gm/dL Hct 32.9 L (39.0-53.0) % Plt Count 115 L (150-450) k/uL Neutrophils # 8.3 H (1.3-7.7) k/uL Lymphocytes # 0.7 L (1.0-4.8) k/uL ABG pH (7.35-7.45) ABG pCO2 (35-45) mmHg ABG pO2 (83-108) mmHg ABG Total CO2 (19-24) mmol/L ABG O2 Saturation (94-97) % ABG Hematocrit (34.0-46.0) % ABG Potassium (3.4-4.5) mmol/L ABG Ionized Calcium (4.5-5.3) mg/dL ABG Glucose (75-99) mg/dL Hemoglobin (13.0-17.5) gm/dL Chloride 109 H (98-107) mmol/L Glucose 112 H (74-99) mg/dL POC Glucose (mg/dL) 122 H (75-99) mg/dL Calcium 8.1 L (8.4-10.2) mg/dL Magnesium (1.6-2.3) mg/dL Total Protein 4.9 L (6.3-8.2) g/dL Albumin 2.8 L (3.5-5.0) g/dL Arterial Blood Potassium (3.4-4.5) mmol/L Arterial Blood Glucose (75-99) mg/dL Crossmatch 02/03/21 02/03/21 02/03/21 Range/Units 05:54 07:00 08:24 WBC (3.8-10.6) k/uL RBC (4.30-5.90) m/uL Hgb (13.0-17.5) gm/dL Hct (39.0-53.0) % Plt Count (150-450) k/uL Neutrophils # (1.3-7.7) k/uL Lymphocytes # (1.0-4.8) k/uL ABG pH (7.35-7.45) ABG pCO2 (35-45) mmHg ABG pO2 (83-108) mmHg ABG Total CO2 (19-24) mmol/L ABG O2 Saturation (94-97) % ABG Hematocrit (34.0-46.0) % ABG Potassium (3.4-4.5) mmol/L ABG Ionized Calcium (4.5-5.3) mg/dL ABG Glucose (75-99) mg/dL Hemoglobin (13.0-17.5) gm/dL Chloride (98-107) mmol/L Glucose (74-99) mg/dL POC Glucose (mg/dL) 121 H 139 H 216 H (75-99) mg/dL Calcium (8.4-10.2) mg/dL Magnesium (1.6-2.3) mg/dL Total Protein (6.3-8.2) g/dL Albumin (3.5-5.0) g/dL Arterial Blood Potassium (3.4-4.5) mmol/L Arterial Blood Glucose (75-99) mg/dL Crossmatch Assessment and Plan Plan: Assessment: #1. Coronary artery disease, symptomatic, status post three-vessel coronary artery bypass grafting with CHANEL to the LAD, SVG to the circumflex, and left radial artery graft to the PDA, and left atrial appendage exclusion, postoperative day #1 #2. Postoperative ventilator management, patient extubated on postop day #0 on 02/02/2021 #3. Small to moderate right-sided pneumothorax estimated at 30%, cardiothoracic surgery is following #4. History of ischemic cardiomyopathy #5. Paroxysmal atrial fibrillation on Eliquis which is currently on hold for surgery #6. History of coronary artery disease #7. Family history of coronary artery disease #8. Former smoker Plan: Patient is tolerating extubation well, Chest x-ray reviewed showing new small to moderate right-sided pneumothorax estimated at 30%, CT surgery will comment Hemodynamically stable Continue pain control Incentive spirometer use Breathing treatments 4 times daily Daily chest x-rays Follow-up labs Increase activity and ambulation GI and DVT prophylaxis per CT surgery I performed a history & physical examination of the patient and discussed their management with my nurse practitioner, Kim Stern. I reviewed the nurse practitioner's note and agree with the documented findings and plan of care. Lung sounds are positive for diminished breath sounds. The findings and the im pression was discussed with the patient. I attest to the documentation by the nurse practitioner. Time with Patient: Greater than 30
[2021-02-03 10:12] LABS: Glucose,Whole Blood 133 mg/dL (75-99)
[2021-02-03 10:29] VITALS: BMI 28.7
[2021-02-03 11:28] LABS: Glucose,Whole Blood 137 mg/dL (75-99)
[2021-02-03] MEDS ORDERED: FUROSEMIDE 10 MG/ML 2 ML VIAL IV ONE ×2 (11:50→14:39)
[2021-02-03 12:10] LABS: Glucose,Whole Blood 135 mg/dL (75-99)
[2021-02-03 12:55] LABS: Glucose,Whole Blood 137 mg/dL (75-99)
[2021-02-03] MEDS ORDERED: METOPROLOL TARTRATE 25 MG TAB PO STA (14:39)
[2021-02-03 14:40] LABS: Glucose,Whole Blood 182 mg/dL (75-99)
[2021-02-03 15:19] LABS: Glucose,Whole Blood 170 mg/dL (75-99)
[2021-02-03 16:15] LABS: Glucose,Whole Blood 109 mg/dL (75-99)
[2021-02-03 17:06] LABS: Glucose,Whole Blood 102 mg/dL (75-99)
--- NOTE | 2021-02-03 17:27 | P.CONS ---
History of Present Illness - Reason for Consult Consult date: 02/03/21 Medical management Requesting physician: Jay Allen - Chief Complaint CABG - History of Present Illness Consultation: This is a 70-year-old patient, who had been complaining of shortness of breath with exertion and chest pain and underwent cardiac catheterization on . Patient is found to have left main disease 50% distal critical stenosis in the ostium of the LAD and mid left circumflex. 2-D echocardiogram showed EF of 45-50%. Patient's eliquis for a prior history of atrial fibrillation. Patient underwent coronary bypass on January [address] Mcdonald. Today patient sitting up on a chair. is visiting. Some shortness of breath. Chest tubes in place. Has a Guzman catheter. Some pain at the operative site. Review of systems: GEN.: Tired EYES: None HEENT: None NECK: None RESPIRATORY: Short of breath CARDIOVASCULAR: Pain at the operative site GASTROINTESTINAL: None GENITOURINARY: Guzman catheter MUSCULOSKELETAL: None LYMPHATICS: None HEMATOLOGICAL: None PSYCHIATRY: None NEUROLOGICAL: None Past medical history to include: Atrial fibrillation, coronary artery disease, osteoarthritis, Social history: Patient smoked on and off for close to 45 years no alcohol since August 2020. Physical examination: VITAL SIGNS: 99.9, 103, 18, 101/59, 93% on nasal cannula GENERAL: BMI 28.8, sitting up in a chair, awake. EYES: Pupils equal. Conjunctiva normal. HEENT: External appearance of nose and ears normal, oral cavity grossly normal. NECK: JVD not raised; masses not palpable. HEART: First and second heart sounds are normal; no edema. LUNGS: Respiratory rate increased; decreased breath sounds or wheezing. ABDOMEN: Soft, nontender, liver spleen not palpable, no masses palpable. PSYCH: Alert and oriented x3; mood and affect normal. MUSCULAR skeletal: Evidence of OA NEUROLOGICAL: Cranial nerves grossly intact; no facial asymmetry, power and sensation grossly intact. LYMPHATICS: No lymph nodes palpable in the axilla and neck INVESTIGATIONS, reviewed in the clinical context: WBC 9.7 hemoglobin 11.6 platelets 115 potassium 4.2 creatinine 0.75 albumin 2.8 Chest x-ray film personally reviewed by [id number] pneumothorax about 30% reported. Emphysema changes. Previous testing: Labs from: 01/29/2021 Hemoglobin 14.6 platelets 169 TSH 1.5 LDL 143 Assessment and plan: -Coronary bypass, 3 vessel done on February 02 -Coronary artery disease. Currently on aspirin, Lipitor, Plavix, Lopressor -Essential hypertension. Continue Lopressor -Acute postprocedure blood loss anemia as expected from surgery. Follow H&H -Acute COPD exacerbation, and a previous smoker. DuoNeb. Add inhaled steroids -Hyperlipidemia. On Lipitor -Primary osteoarthritis. Use Tylenol when necessary -Hypoalbuminemia. Acute phase reactant -Right-sided pneumothorax. Chest tube per cardiothoracic surgery -Thrombocytopenia, acute. Dilutional. Follow labs Care was discussed with the patient and at the bedside. Patient is also on insulin drip. Follow Accu-Cheks. Patient use incentive spirometry. Advance diet as tolerated. To use incentive spirometry. Continue current medications Thank you Dr. Allen Past Medical History Past Medical History: Atrial Fibrillation, Coronary Artery Disease (CAD), Musculoskeletal Disorder Additional Past Medical History / Comment(s): back pain/knee pain, fully vaccinated for covid,. questionable heart attack vs. scar tissue about 20 years ago Last Myocardial Infarction Date:: approx 20 yrs ago History of Any Multi-Drug Resistant Organisms: None Reported Past Surgical History: Adenoidectomy, Heart Catheterization, Tonsillectomy Additional Past Surgical History / Comment(s): recent cardiac cath. Past Anesthesia/Blood Transfusion Reactions: No Reported Reaction Past Psychological History: No Psychological Hx Reported Smoking Status: Former smoker Past Alcohol Use History: None Reported Additional Past Alcohol Use History / Comment(s): Quit smoking 2 months ago; smoked on & off since age of 26, <ppd, no alcohol since August 2020 Past Drug Use History: None Reported - Past Family History Father Family Medical History: Myocardial Infarction ([place]) Mother Family Medical History: Rheumatoid Arthritis ([place]) Brother(s) Family Medical History: CVA/TIA, Myocardial Infarction ([place]) Medications and Allergies Home Medications Medication Instructions Recorded Confirmed Type Isosorbide Mononitrate ER [Imdur] 30 mg PO DAILY 01/28/21 02/01/21 History Atorvastatin [Lipitor] 40 mg PO DAILY #90 tab 01/29/21 02/01/21 Rx Apixaban [Eliquis] 5 mg PO BID 02/01/21 02/01/21 History Metoprolol Tartrate [Lopressor] 25 mg PO TID 02/01/21 02/01/21 History Mupirocin 2% Oint [Bactroban 2% 1 applic NASAL BID 02/01/21 02/01/21 History Oint] Aspirin [Children's Aspirin] 4 tab PO DIRECTED 02/02/21 02/02/21 History Allergies Allergy/AdvReac Type Severity Reaction Status Date / Time No Known Allergies Allergy Unverified 01/28/21 10:39 Physical Exam Vitals: Vital Signs Temp Pulse Pulse Resp BP Pulse Ox 02/03/21 08:00 99.9 F H 111 H 19 101/59 90 L 02/03/21 07:58 99 02/03/21 07:44 89 02/03/21 07:00 93 20 93 L 02/03/21 06:30 98 16 101/59 93 L 02/03/21 06:00 98 26 H 91 L 02/03/21 05:30 105 H 35 H 92 L 02/03/21 05:00 98 27 H 92 L 02/03/21 04:30 90 21 93 L 02/03/21 04:00 99.7 F H 93 92 17 93 L 02/03/21 03:30 90 18 93 L 02/03/21 03:00 97 25 H 93 L 02/03/21 02:30 88 14 93 L 02/03/21 02:00 93 19 93 L 02/03/21 01:30 96 14 94 L 02/03/21 01:00 96 16 94 L 02/03/21 00:45 94 16 94 L 02/03/21 00:30 93 14 94 L 02/03/21 00:15 92 15 94 L 02/03/21 00:06 93 19 94 L 02/03/21 00:00 99.7 F H 94 88 19 94 L 02/02/21 23:45 96 17 95 02/02/21 23:30 94 17 95 02/02/21 23:15 96 16 95 02/02/21 23:00 94 14 95 02/02/21 22:45 92 17 95 02/02/21 22:30 96 19 94 L 02/02/21 22:15 90 13 102/60 94 L 02/02/21 22:00 92 16 95 02/02/21 21:45 94 14 95 02/02/21 21:30 90 10 L 94 L 02/02/21 21:15 92 14 107/61 94 L 02/02/21 21:00 90 13 100/65 94 L 02/02/21 20:45 89 14 93 L 02/02/21 20:30 89 14 94 L 02/02/21 20:15 94 28 H 92/68 92 L 02/02/21 20:00 98.6 F 90 90 13 94 L 02/02/21 19:45 91 12 93 L 02/02/21 19:34 94 95 02/02/21 19:30 89 13 96 02/02/21 19:18 89 02/02/21 19:00 91 12 98 02/02/21 18:45 92 14 93/58 99 02/02/21 18:30 91 13 02/02/21 18:15 92 15 98 02/02/21 18:00 95 15 100/60 97 02/02/21 17:45 95 16 99 02/02/21 17:30 92 20 98 02/02/21 17:15 92 19 98 02/02/21 17:00 98.2 F 90 22 106/71 96 02/02/21 16:45 92 22 98 02/02/21 16:30 93 21 98 02/02/21 16:15 93 22 99 02/02/21 16:00 97.5 F L 88 22 121/69 100 02/02/21 15:45 88 20 99 02/02/21 15:30 93 20 99 02/02/21 15:26 89 02/02/21 15:15 87 21 100 02/02/21 15:00 87 20 100 02/02/21 14:45 84 18 100 02/02/21 14:30 99 25 H 100 02/02/21 14:15 97.3 F L 89 18 100 Intake and Output 02/02/21 02/03/21 02/03/21 22:59 06:59 14:59 Intake Total 1428.307 883.634 83.45 Output Total 1095 687 55 Balance 333.307 196.634 28.45 Intake: IV 177 881 59 300 mmhg pressure saline 27 81 9 Albumin Human 5% 250 ml 250 In Empty Bag 1 bag @ 250 mls/hr IVPB Q1HR PRN Rx#: [id number] Magnesium Sulfate-D5w Pmx 100 1 gm In Dextrose/Water 1 100ml.bag @ 100 mls/hr IVPB Q1H [facility] Rx#: [id number] Sodium Chloride 0.9% 1, 150 450 50 000 ml @ 20 mls/hr IV . Q24H [facility] Rx#:[id number] Intake, IV Titration 1251.307 2.634 24.45 Amount ACETAMINOPHEN IV (For NPO 100 ) 1,000 mg In Empty Bag 1 bag @ 400 mls/hr IVPB Q6HR [facility] Rx#:[id number] Albumin Human 25% 50 ml @ 750 Per Protocol IV ONCE ONE Rx#:[id number] Clevidipine Butyrate 25 20.467 mg In Empty Bag 1 bag @ 1 MG/HR 2 mls/hr IV .Q24H [facility] Rx#:[id number] Dexmedetomidine/0.9% NaCl 27.500 (Pmx) 400 mcg In Empty Bag 1 bag @ Titrate IV . Q0M [facility] Rx#:[id number] Insulin Regular 100 unit 2.764 2.634 0 In Sodium Chloride 0.9% 100 ml @ Per Protocol IV .Q0M [facility] Rx#:[id number] Nitroglycerin-D5w Pmx 50 7.5 24.45 mg In Dextrose/Water 1 250ml.bag @ 5 MCG/MIN 1.5 mls/hr IV .Q24H [facility] Rx#: [id number] Sodium Chloride 0.9% 1, 250 000 ml @ 20 mls/hr IV . Q24H [facility] Rx#:[id number] ceFAZolin 2 gm In Sodium 50 Chloride 0.9% 50 ml @ 100 mls/hr IVPB Q8HR [facility] Rx# :[id number] propofoL 1,000 mg In 43.076 Empty Bag 1 bag @ Titrate IV .Q0M [facility] Rx#: [id number] Output: Chest Tube Drainage 260 400 20 Chest Tube Mediastinal 170 210 10 Lt pleural 90 190 10 Urine 835 287 35 Other: Voiding Method Indwelling Catheter Indwelling Catheter Weight 90.9 kg ABP, PAP, CO, CI - Last 8 Hours Arterial Blood Pressure 116/51 Arterial Blood Pressure 117/46 Arterial Blood Pressure 121/47 Arterial Blood Pressure 122/50 Arterial Blood Pressure 145/57 Arterial Blood Pressure 130/52 Arterial Blood Pressure 124/50 Arterial Blood Pressure 123/49 Arterial Blood Pressure 129/51 Arterial Blood Pressure 133/52 Arterial Blood Pressure 122/48 Arterial Blood Pressure 125/49 Arterial Blood Pressure 129/50 Pulmonary Artery Pressure 29/8 Pulmonary Artery Pressure 22/7 Pulmonary Artery Pressure 25/3 Pulmonary Artery Pressure 21/6 Pulmonary Artery Pressure 41/19 Pulmonary Artery Pressure 30/14 Pulmonary Artery Pressure 30/11 Pulmonary Artery Pressure 31/11 Pulmonary Artery Pressure 30/14 Pulmonary Artery Pressure 29/16 Pulmonary Artery Pressure 29/12 Pulmonary Artery Pressure 27/16 Pulmonary Artery Pressure 29/10 Cardiac Output 7.5 Cardiac Output 7.2 Cardiac Output 6.2 Cardiac Index 3.6 Cardiac Index 3.5 Cardiac Index 3 Results CBC & Chem 7: 02/03/21 04:00 02/03/21 04:00 Labs: Abnormal Lab Results - Last 24 Hours (Table) 01/29/21 02/02/21 02/02/21 Range/Units 09:13 08:41 10:26 WBC (3.8-10.6) k/uL RBC (4.30-5.90) m/uL Hgb (13.0-17.5) gm/dL Hct (39.0-53.0) % Plt Count (150-450) k/uL Neutrophils # (1.3-7.7) k/uL Lymphocytes # (1.0-4.8) k/uL ABG pH 7.32 L (7.35-7.45) ABG pCO2 48 H (35-45) mmHg ABG pO2 321 H 141 H (83-108) mmHg ABG Total CO2 27 H 26 H (19-24) mmol/L ABG O2 Saturation 100.0 H 99.4 H (94-97) % ABG Hematocrit (34.0-46.0) % ABG Potassium (3.4-4.5) mmol/L ABG Ionized Calcium (4.5-5.3) mg/dL ABG Glucose 104 H 137 H (75-99) mg/dL Hemoglobin (13.0-17.5) gm/dL Chloride (98-107) mmol/L Glucose (74-99) mg/dL POC Glucose (mg/dL) (75-99) mg/dL Calcium (8.4-10.2) mg/dL Magnesium (1.6-2.3) mg/dL Total Protein (6.3-8.2) g/dL Albumin (3.5-5.0) g/dL Arterial Blood Potassium (3.4-4.5) mmol/L Arterial Blood Glucose 104 H 137 H (75-99) mg/dL Crossmatch See Detail 02/02/21 02/02/21 02/02/21 Range/Units 11:15 11:51 12:20 WBC (3.8-10.6) k/uL RBC (4.30-5.90) m/uL Hgb (13.0-17.5) gm/dL Hct (39.0-53.0) % Plt Count (150-450) k/uL Neutrophils # (1.3-7.7) k/uL Lymphocytes # (1.0-4.8) k/uL ABG pH 7.33 L (7.35-7.45) ABG pCO2 46 H (35-45) mmHg ABG pO2 >420 H 273 H 371 H (83-108) mmHg ABG Total CO2 25 H 26 H 26 H (19-24) mmol/L ABG O2 Saturation 100.0 H 100.0 H 100.0 H (94-97) % ABG Hematocrit 31 L 30 L 31 L (34.0-46.0) % ABG Potassium 5.2 H 4.6 H (3.4-4.5) mmol/L ABG Ionized Calcium 4.3 L 4.4 L (4.5-5.3) mg/dL ABG Glucose 129 H 192 H 172 H (75-99) mg/dL Hemoglobin 10.1 L 9.9 L 10.2 L (13.0-17.5) gm/dL Chloride (98-107) mmol/L Glucose (74-99) mg/dL POC Glucose (mg/dL) (75-99) mg/dL Calcium (8.4-10.2) mg/dL Magnesium (1.6-2.3) mg/dL Total Protein (6.3-8.2) g/dL Albumin (3.5-5.0) g/dL Arterial Blood Potassium 5.2 H 4.6 H (3.4-4.5) mmol/L Arterial Blood Glucose 129 H 192 H 172 H (75-99) mg/dL Crossmatch 02/02/21 02/02/21 02/02/21 Range/Units 14:28 14:30 14:30 WBC 10.8 H (3.8-10.6) k/uL RBC 4.06 L (4.30-5.90) m/uL Hgb 12.4 L (13.0-17.5) gm/dL Hct 37.5 L (39.0-53.0) % Plt Count 120 L (150-450) k/uL Neutrophils # 8.6 H (1.3-7.7) k/uL Lymphocytes # (1.0-4.8) k/uL ABG pH (7.35-7.45) ABG pCO2 (35-45) mmHg ABG pO2 (83-108) mmHg ABG Total CO2 (19-24) mmol/L ABG O2 Saturation (94-97) % ABG Hematocrit (34.0-46.0) % ABG Potassium (3.4-4.5) mmol/L ABG Ionized Calcium (4.5-5.3) mg/dL ABG Glucose (75-99) mg/dL Hemoglobin (13.0-17.5) gm/dL Chloride 112 H (98-107) mmol/L Glucose 105 H (74-99) mg/dL POC Glucose (mg/dL) 109 H (75-99) mg/dL Calcium (8.4-10.2) mg/dL Magnesium 2.6 H (1.6-2.3) mg/dL Total Protein 4.8 L (6.3-8.2) g/dL Albumin 2.5 L (3.5-5.0) g/dL Arterial Blood Potassium (3.4-4.5) mmol/L Arterial Blood Glucose (75-99) mg/dL Crossmatch 02/02/21 02/02/21 02/02/21 Range/Units 15:02 15:12 16:01 WBC (3.8-10.6) k/uL RBC (4.30-5.90) m/uL Hgb (13.0-17.5) gm/dL Hct (39.0-53.0) % Plt Count (150-450) k/uL Neutrophils # (1.3-7.7) k/uL Lymphocytes # (1.0-4.8) k/uL ABG pH (7.35-7.45) ABG pCO2 (35-45) mmHg ABG pO2 150 H (83-108) mmHg ABG Total CO2 25 H (19-24) mmol/L ABG O2 Saturation 99.3 H (94-97) % ABG Hematocrit (34.0-46.0) % ABG Potassium (3.4-4.5) mmol/L ABG Ionized Calcium (4.5-5.3) mg/dL ABG Glucose (75-99) mg/dL Hemoglobin (13.0-17.5) gm/dL Chloride (98-107) mmol/L Glucose (74-99) mg/dL POC Glucose (mg/dL) 106 H 124 H (75-99) mg/dL Calcium (8.4-10.2) mg/dL Magnesium (1.6-2.3) mg/dL Total Protein (6.3-8.2) g/dL Albumin (3.5-5.0) g/dL Arterial Blood Potassium (3.4-4.5) mmol/L Arterial Blood Glucose (75-99) mg/dL Crossmatch 02/02/21 02/02/21 02/02/21 Range/Units 17:03 17:52 18:08 WBC 11.6 H (3.8-10.6) k/uL RBC 4.18 L (4.30-5.90) m/uL Hgb (13.0-17.5) gm/dL Hct 38.2 L (39.0-53.0) % Plt Count 126 L (150-450) k/uL Neutrophils # 9.9 H (1.3-7.7) k/uL Lymphocytes # 0.8 L (1.0-4.8) k/uL ABG pH (7.35-7.45) ABG pCO2 (35-45) mmHg ABG pO2 (83-108) mmHg ABG Total CO2 (19-24) mmol/L ABG O2 Saturation (94-97) % ABG Hematocrit (34.0-46.0) % ABG Potassium (3.4-4.5) mmol/L ABG Ionized Calcium (4.5-5.3) mg/dL ABG Glucose (75-99) mg/dL Hemoglobin (13.0-17.5) gm/dL Chloride (98-107) mmol/L Glucose (74-99) mg/dL POC Glucose (mg/dL) 137 H 125 H (75-99) mg/dL Calcium (8.4-10.2) mg/dL Magnesium (1.6-2.3) mg/dL Total Protein (6.3-8.2) g/dL Albumin (3.5-5.0) g/dL Arterial Blood Potassium (3.4-4.5) mmol/L Arterial Blood Glucose (75-99) mg/dL Crossmatch 02/02/21 02/02/21 02/02/21 Range/Units 18:54 18:58 19:48 WBC (3.8-10.6) k/uL RBC (4.30-5.90) m/uL Hgb (13.0-17.5) gm/dL Hct (39.0-53.0) % Plt Count (150-450) k/uL Neutrophils # (1.3-7.7) k/uL Lymphocytes # (1.0-4.8) k/uL ABG pH (7.35-7.45) ABG pCO2 (35-45) mmHg ABG pO2 121 H (83-108) mmHg ABG Total CO2 (19-24) mmol/L ABG O2 Saturation 98.9 H (94-97) % ABG Hematocrit (34.0-46.0) % ABG Potassium (3.4-4.5) mmol/L ABG Ionized Calcium (4.5-5.3) mg/dL ABG Glucose (75-99) mg/dL Hemoglobin (13.0-17.5) gm/dL Chloride (98-107) mmol/L Glucose (74-99) mg/dL POC Glucose (mg/dL) 114 H 124 H (75-99) mg/dL Calcium (8.4-10.2) mg/dL Magnesium (1.6-2.3) mg/dL Total Protein (6.3-8.2) g/dL Albumin (3.5-5.0) g/dL Arterial Blood Potassium (3.4-4.5) mmol/L Arterial Blood Glucose (75-99) mg/dL Crossmatch 02/02/21 02/02/21 02/02/21 Range/Units 19:50 21:03 22:36 WBC (3.8-10.6) k/uL RBC 3.61 L (4.30-5.90) m/uL Hgb 11.6 L (13.0-17.5) gm/dL Hct 32.6 L (39.0-53.0) % Plt Count 115 L (150-450) k/uL Neutrophils # (1.3-7.7) k/uL Lymphocytes # 0.5 L (1.0-4.8) k/uL ABG pH (7.35-7.45) ABG pCO2 (35-45) mmHg ABG pO2 (83-108) mmHg ABG Total CO2 (19-24) mmol/L ABG O2 Saturation (94-97) % ABG Hematocrit (34.0-46.0) % ABG Potassium (3.4-4.5) mmol/L ABG Ionized Calcium (4.5-5.3) mg/dL ABG Glucose (75-99) mg/dL Hemoglobin (13.0-17.5) gm/dL Chloride (98-107) mmol/L Glucose (74-99) mg/dL POC Glucose (mg/dL) 132 H 130 H (75-99) mg/dL Calcium (8.4-10.2) mg/dL Magnesium (1.6-2.3) mg/dL Total Protein (6.3-8.2) g/dL Albumin (3.5-5.0) g/dL Arterial Blood Potassium (3.4-4.5) mmol/L Arterial Blood Glucose (75-99) mg/dL Crossmatch 02/02/21 02/03/21 02/03/21 Range/Units 23:52 00:54 02:14 WBC (3.8-10.6) k/uL RBC (4.30-5.90) m/uL Hgb (13.0-17.5) gm/dL Hct (39.0-53.0) % Plt Count (150-450) k/uL Neutrophils # (1.3-7.7) k/uL Lymphocytes # (1.0-4.8) k/uL ABG pH (7.35-7.45) ABG pCO2 (35-45) mmHg ABG pO2 (83-108) mmHg ABG Total CO2 (19-24) mmol/L ABG O2 Saturation (94-97) % ABG Hematocrit (34.0-46.0) % ABG Potassium (3.4-4.5) mmol/L ABG Ionized Calcium (4.5-5.3) mg/dL ABG Glucose (75-99) mg/dL Hemoglobin (13.0-17.5) gm/dL Chloride (98-107) mmol/L Glucose (74-99) mg/dL POC Glucose (mg/dL) 125 H 124 H 117 H (75-99) mg/dL Calcium (8.4-10.2) mg/dL Magnesium (1.6-2.3) mg/dL Total Protein (6.3-8.2) g/dL Albumin (3.5-5.0) g/dL Arterial Blood Potassium (3.4-4.5) mmol/L Arterial Blood Glucose (75-99) mg/dL Crossmatch 02/03/21 02/03/21 02/03/21 Range/Units 03:59 04:00 04:00 WBC (3.8-10.6) k/uL RBC 3.64 L (4.30-5.90) m/uL Hgb 11.6 L (13.0-17.5) gm/dL Hct 32.9 L (39.0-53.0) % Plt Count 115 L (150-450) k/uL Neutrophils # 8.3 H (1.3-7.7) k/uL Lymphocytes # 0.7 L (1.0-4.8) k/uL ABG pH (7.35-7.45) ABG pCO2 (35-45) mmHg ABG pO2 (83-108) mmHg ABG Total CO2 (19-24) mmol/L ABG O2 Saturation (94-97) % ABG Hematocrit (34.0-46.0) % ABG Potassium (3.4-4.5) mmol/L ABG Ionized Calcium (4.5-5.3) mg/dL ABG Glucose (75-99) mg/dL Hemoglobin (13.0-17.5) gm/dL Chloride 109 H (98-107) mmol/L Glucose 112 H (74-99) mg/dL POC Glucose (mg/dL) 122 H (75-99) mg/dL Calcium 8.1 L (8.4-10.2) mg/dL Magnesium (1.6-2.3) mg/dL Total Protein 4.9 L (6.3-8.2) g/dL Albumin 2.8 L (3.5-5.0) g/dL Arterial Blood Potassium (3.4-4.5) mmol/L Arterial Blood Glucose (75-99) mg/dL Crossmatch 02/03/21 02/03/21 02/03/21 Range/Units 05:54 07:00 08:24 WBC (3.8-10.6) k/uL RBC (4.30-5.90) m/uL Hgb (13.0-17.5) gm/dL Hct (39.0-53.0) % Plt Count (150-450) k/uL Neutrophils # (1.3-7.7) k/uL Lymphocytes # (1.0-4.8) k/uL ABG pH (7.35-7.45) ABG pCO2 (35-45) mmHg ABG pO2 (83-108) mmHg ABG Total CO2 (19-24) mmol/L ABG O2 Saturation (94-97) % ABG Hematocrit (34.0-46.0) % ABG Potassium (3.4-4.5) mmol/L ABG Ionized Calcium (4.5-5.3) mg/dL ABG Glucose (75-99) mg/dL Hemoglobin (13.0-17.5) gm/dL Chloride (98-107) mmol/L Glucose (74-99) mg/dL POC Glucose (mg/dL) 121 H 139 H 216 H (75-99) mg/dL Calcium (8.4-10.2) mg/dL Magnesium (1.6-2.3) mg/dL Total Protein (6.3-8.2) g/dL Albumin (3.5-5.0) g/dL Arterial Blood Potassium (3.4-4.5) mmol/L Arterial Blood Glucose (75-99) mg/dL Crossmatch
[2021-02-03 18:06] LABS: Glucose,Whole Blood 200 mg/dL (75-99)
[2021-02-03] MEDS ORDERED: Potassium Replacement Protocol 1 EACH MISC MISCELLANE PRN (18:45)
[2021-02-03] MEDS ORDERED: POTASSIUM CHLORIDE ER 20 MEQ TAB.ER PO SCH ×2 (19:00→23:30)
[2021-02-03 19:03] LABS: Glucose,Whole Blood 153 mg/dL (75-99)
[2021-02-03 20:10] LABS: Glucose,Whole Blood 147 mg/dL (75-99)
[2021-02-03 20:18] LABS: Glucose,Whole Blood 163 mg/dL (75-99)
[2021-02-03 20:53] LABS: Glucose,Whole Blood 116 mg/dL (75-99)
[2021-02-03] MEDS: SENNOSIDES-DOCUSATE SODIUM 1 EACH TAB PO SCH (21:02)
[2021-02-03] MEDS: METOPROLOL TARTRATE 25 MG TAB PO SCH (21:02)
[2021-02-03] MEDS: AMIODARONE 200 MG TAB PO SCH (21:02)
[2021-02-03 21:55] LABS: Glucose,Whole Blood 109 mg/dL (75-99)
[2021-02-03 22:46] LABS: African American GFR (CKD) >90 (>60 ml/min/1.73 sqM); Anion Gap 3 mmol/L; Blood Urea Nitrogen 16 mg/dL (9-20); Calcium 8.3 mg/dL (8.4-10.2); Carbon Dioxide 24 mmol/L (22-30); Chloride 106 mmol/L (98-107); Glucose 101 mg/dL (74-99); Magnesium 2.2 mg/dL (1.6-2.3); Non-African American GFR(CKD) >90 (>60 ml/min/1.73 sqM); Potassium 3.8 mmol/L (3.5-5.1); Sodium 133 mmol/L (137-145)
[2021-02-03 23:51] LABS: Glucose,Whole Blood 119 mg/dL (75-99)
[2021-02-04 01:55] LABS: Glucose,Whole Blood 118 mg/dL (75-99)
[2021-02-04 04:35] LABS: Glucose,Whole Blood 108 mg/dL (75-99)
[2021-02-04 04:58] LABS: Basophils % (A) 0 %; Eosinophils % (A) 0 %; HCT 32.8 % (39.0-53.0); HGB 11.1 gm/dL (13.0-17.5); Lymphocytes # (A) 1.4 k/uL (1.0-4.8); Lymphocytes % (A) 14 %; MCH 30.7 pg (25.0-35.0); MCHC 33.8 g/dL (31.0-37.0); MCV 90.7 fL (80.0-100.0); Mean Platelet Volume 8.4; Monocytes # (A) 0.5 k/uL (0-1.0); Monocytes % (A) 4 %; Neutrophils # (A) 8.5 k/uL (1.3-7.7); Neutrophils % (A) 80 %; Platelet Count 101 k/uL (150-450); RBC 3.62 m/uL (4.30-5.90); RDW 13.7 % (11.5-15.5); WBC 10.6 k/uL (3.8-10.6)
[2021-02-04] MEDS: HYDROcodone/APAP 5-325MG 1 EACH TAB PO PRN ×2 (05:15→20:25)
[2021-02-04 05:18] LABS: Ionized Calcium 4.9 mg/dL (4.5-5.3)
[2021-02-04 05:32] LABS: ALT 8 U/L (4-49); AST 32 U/L (17-59); African American GFR (CKD) >90 (>60 ml/min/1.73 sqM); Albumin 2.8 g/dL (3.5-5.0); Alkaline Phosphatase 53 U/L (38-126); Anion Gap 4 mmol/L; Blood Urea Nitrogen 16 mg/dL (9-20); Calcium 8.2 mg/dL (8.4-10.2); Carbon Dioxide 25 mmol/L (22-30); Chloride 105 mmol/L (98-107); Glucose 100 mg/dL (74-99); Non-African American GFR(CKD) >90 (>60 ml/min/1.73 sqM); Potassium 4.1 mmol/L (3.5-5.1); Sodium 134 mmol/L (137-145); Total Bilirubin 0.6 mg/dL (0.2-1.3); Total Protein 4.9 g/dL (6.3-8.2)
[2021-02-04] MEDS: DILTIAZEM ORAL 30 MG TAB PO SCH ×3 (05:46→18:24)
[2021-02-04] MEDS: METOPROLOL TARTRATE 25 MG TAB PO SCH ×2 (05:47→16:53)
[2021-02-04] MEDS: KETOROLAC 15 MG/ML 1 ML VIAL IVP SCH ×3 (05:47→18:24)
[2021-02-04 06:36] LABS: Glucose,Whole Blood 114 mg/dL (75-99)
[2021-02-04] MEDS ORDERED: LIDOCAINE 1% INJ 10MG/ML (20 ML MDV) SQ ONE (07:05)
--- NOTE | 2021-02-04 07:10 | XR ---
EXAMINATION TYPE: XR chest 1V portable DATE OF EXAM: 02/04/2021 CLINICAL HISTORY: Difficulty breathing progress study. Postoperative cardiac surgery. TECHNIQUE: Single AP portable semiupright view of the chest is obtained. COMPARISON: Chest x-ray from one day earlier and older studies FINDINGS: Interval removal of right internal jugular Kinnear-Austyn catheter. A Cordis sheath at this lev el is now present. There are 2 mediastinal drainage catheters redemonstrated. There is left sided molly st tube redemonstrated.Post-CABG changes with mediastinal clips and sternal wire along with left atri al appendage are all redemonstrated. Overlying left-sided subcutaneous emphysema and is nearly completely resolved. Background chronic emp hysematous change. Persistent cardiomegaly with bilateral hilar prominence suggesting underlying pulm onary artery hypertension. Moderate to borderline large size right pneumothorax estimated approaching 50% with increased right basilar lateral component. More dense right basilar opacity consistent with significant atelectatic change noted. Persistent left lower lung opacity . Underlying scoliotic curv ature or positioning noted. No new mediastinal shift. IMPRESSION: 1. Moderate to borderline large right-sided pneumothorax estimated approaching 50%, increased in size from one day earlier. There is worsening right basilar atelectasis change or lobar collapse. 2. Background chronic emphysematous change and cardiomegaly with persistent left basilar atelectasis and/or infiltrate. No left-sided pneumothorax with left basilar chest tube in place. A Yellow level critical message alert has been initiated for Tete Erickson via the [employer] tical Results System on 02/04/2021 7:07 AM. This message alert has been sent to Tete Erickson via the pr eferences provided by the clinician for the receipt of Radiology Critical Findings. Message ID [id number].
[2021-02-04] MEDS: IPRATROPIUM-ALBUTEROL 3 ML NEB INHALATION SCH ×4 (07:25→20:28)
[2021-02-04] MEDS: HEPARIN SODIUM,PORCINE/PF 5,000 UNIT/0.5 ML SYRINGE SQ SCH ×2 (08:31→16:54)
[2021-02-04] MEDS: ASPIRIN 325 MG TAB PO SCH (08:31)
[2021-02-04] MEDS: PANTOPRAZOLE 40 MG TABLET PO SCH (08:31)
[2021-02-04] MEDS: CLOPIDOGREL 75 MG TAB PO SCH (08:31)
[2021-02-04] MEDS: ATORVASTATIN 40 MG TAB PO SCH (08:31)
[2021-02-04] MEDS: AMIODARONE 200 MG TAB PO SCH ×2 (08:33→21:15)
--- NOTE | 2021-02-04 08:33 | P.CRDCN ---
History of Present Illness Consult date: 02/03/21 History of present illness: This is a 60-year-old gentleman who underwent cardiac catheterization by Dr. Allen on January 28. This showed 50% left main disease and critical lesion of the ostium of the LAD and also in the midcircumflex. Echo Cardigan showed an ejection fraction of about 45-50%. In addition, patient had a history of paroxysmal atrial fibrillation, history of smoking and alcohol dependence. Patient underwent I to coronary bypass surgery on 02/02/2021 with the CHANEL graft to the LAD, vein graft to circumflex and radial radial graft to the PDA. Left atrial appendage exclusion was also performed. Patient is sitting in the chair at the time of my examination. Complaining of mild chest discomfort. Doesn't appear to be in acute respiratory distress. Patient is maintaining what looks like sinus rhythm. His cardiac indices have been satisfactory. Overall patient critical status seemed to be stable. In fact, patient was able to walk with assistance . Complains of being tired. No arrhythmias noted Review of Systems As per the chart Past Medical History Past Medical History: Atrial Fibrillation, Coronary Artery Disease (CAD), Musculoskeletal Disorder Additional Past Medical History / Comment(s): back pain/knee pain, fully vaccinated for covid,. questionable heart attack vs. scar tissue about 20 years ago Last Myocardial Infarction Date:: approx 20 yrs ago History of Any Multi-Drug Resistant Organisms: None Reported Past Surgical History: Adenoidectomy, Heart Catheterization, Tonsillectomy Additional Past Surgical History / Comment(s): recent cardiac cath. Past Anesthesia/Blood Transfusion Reactions: No Reported Reaction Past Psychological History: No Psychological Hx Reported Smoking Status: Former smoker Past Alcohol Use History: None Reported Additional Past Alcohol Use History / Comment(s): Quit smoking 2 months ago; smoked on & off since age of 26, <ppd, no alcohol since August 2020 Past Drug Use History: None Reported - Past Family History Father Family Medical History: Myocardial Infarction (AR) Mother Family Medical History: Rheumatoid Arthritis (RA) Brother(s) Family Medical History: CVA/TIA, Myocardial Infarction (AR) Medications and Allergies Home Medications Medication Instructions Recorded Confirmed Type Isosorbide Mononitrate ER [Imdur] 30 mg PO DAILY 01/28/21 02/01/21 History Atorvastatin [Lipitor] 40 mg PO DAILY #90 tab 01/29/21 02/01/21 Rx Apixaban [Eliquis] 5 mg PO BID 02/01/21 02/01/21 History Metoprolol Tartrate [Lopressor] 25 mg PO TID 02/01/21 02/01/21 History Mupirocin 2% Oint [Bactroban 2% 1 applic NASAL BID 02/01/21 02/01/21 History Oint] Aspirin [Children's Aspirin] 4 tab PO DIRECTED 02/02/21 02/02/21 History Allergies Allergy/AdvReac Type Severity Reaction Status Date / Time No Known Allergies Allergy Unverified 01/28/21 10:39 Physical Exam Vitals: Vital Signs Temp Pulse Pulse Resp BP Pulse Ox 02/04/21 07:35 84 02/04/21 07:25 82 99 02/04/21 07:00 103 H 27 H 02/04/21 06:00 82 20 91 L 02/04/21 05:00 95 26 H 92 L 02/04/21 04:00 98.1 F 96 92 18 92 L 02/04/21 03:00 86 23 92 L 02/04/21 02:00 81 15 91 L 02/04/21 01:00 87 19 92 L 02/04/21 00:00 98.3 F 89 92 22 90 L 02/03/21 23:12 91 02/03/21 23:06 96 02/03/21 23:00 93 29 H 91 L 02/03/21 22:00 105 H 21 87 L 02/03/21 21:04 115 H 02/03/21 21:00 92 28 H 87 L 02/03/21 20:48 97 90 L 02/03/21 20:00 98.3 F 91 92 20 90 L 02/03/21 19:00 97 20 91 L 02/03/21 18:00 96 18 90 L 02/03/21 17:00 87 19 90 L 02/03/21 16:00 98.7 F 93 92 18 90 L 02/03/21 15:00 92 19 90 L 02/03/21 14:00 96 19 91 L 02/03/21 13:00 99 19 92 L 02/03/21 12:00 99 92 23 91 L 02/03/21 11:35 103 H 90 L 02/03/21 11:25 100 02/03/21 11:00 104 H 22 88 L 02/03/21 10:00 86 18 92 L 02/03/21 09:00 103 H 18 101/59 93 L Intake and Output 02/03/21 02/04/21 02/04/21 22:59 06:59 14:59 Intake Total 161.033 111 23 Output Total 1095 425 150 Balance -933.967 -314 -127 Intake: IV 156 111 23 300 mmhg pressure saline 36 21 3 Albumin Human 5% 250 ml 20 In Empty Bag 1 bag @ 250 mls/hr IVPB Q1HR PRN Rx#: [id number] Sodium Chloride 0.9% 1, 120 70 20 000 ml @ 20 mls/hr IV . Q24H [facility] Rx#:[id number] Intake, IV Titration 5.033 Amount Insulin Regular 100 unit 5.033 In Sodium Chloride 0.9% 100 ml @ Per Protocol IV .Q0M [facility] Rx#:[id number] Output: Chest Tube Drainage 115 170 110 Chest Tube Mediastinal 45 50 20 Lt pleural 70 120 90 Urine 980 255 40 Other: Voiding Method Indwelling Catheter Indwelling Catheter Weight 90.7 kg ABP, PAP, CO, CI - Last 8 Hours Arterial Blood Pressure 101/55 Arterial Blood Pressure 139/56 Arterial Blood Pressure 131/54 Arterial Blood Pressure 136/56 Arterial Blood Pressure 125/52 Arterial Blood Pressure 119/49 Arterial Blood Pressure 114/48 GENERAL EXAM: Patient is alert and oriented and doesn't appear to be in any acute distress HEENT: Normocephalic. Normal reaction of pupils, equal size, normal range of extraocular motion. No erythema or exudates in the throat. NECK: No masses, no nuchal rigidity. CHEST: No chest wall deformity. LUNGS: Diminished breath sounds at bases HEART: S1 and S2 normal with no audible mumurs or gallops. Regular rhythm, ABDOMEN: No hepatosplenomegaly, normal bowel sounds, no guarding or rigidity. SKIN: No rashes CENTRAL NERVOUS SYSTEM: No focal deficits. EXTREMITIES: No cyanosis, clubbing or edema. Results 02/04/21 04:30 02/04/21 04:30 Cardiac Enzymes 02/04/21 Range/Units 04:30 AST 32 (17-59) U/L CBC 02/04/21 Range/Units 04:30 WBC 10.6 (3.8-10.6) k/uL RBC 3.62 L (4.30-5.90) m/uL Hgb 11.1 L (13.0-17.5) gm/dL Hct 32.8 L (39.0-53.0) % Plt Count 101 L (150-450) k/uL Comprehensive Metabolic Panel 02/03/21 02/03/21 02/04/21 Range/Units 18:00 21:53 04:30 Sodium 133 L 134 L (137-145) mmol/L Potassium 3.8 3.8 4.1 (3.5-5.1) mmol/L Chloride 106 105 (98-107) mmol/L Carbon Dioxide 24 25 (22-30) mmol/L BUN 16 16 (9-20) mg/dL Creatinine 0.74 0.68 (0.66-1.25) mg/dL Glucose 101 H 100 H (74-99) mg/dL Calcium 8.3 L 8.2 L (8.4-10.2) mg/dL AST 32 (17-59) U/L ALT 8 (4-49) U/L Alkaline Phosphatase 53 (38-126) U/L Total Protein 4.9 L (6.3-8.2) g/dL Albumin 2.8 L (3.5-5.0) g/dL Current Medications Generic Name Dose Route Start Last Admin Trade Name Freq PRN Reason Stop Dose Admin Acetaminophen 650 mg 02/03/21 06:44 Acetaminophen Tab 325 Mg Tab PO Q4HR PRN Fever and/ or Pain Hydrocodone Bitart/Acetaminophen 2 each 02/03/21 01:26 02/04/21 05:15 Hydrocodone/Apap 5-325mg 1 Each Tab PO 2 each Q4HR PRN Administration Severe Pain Hydrocodone Bitart/Acetaminophen 1 each 02/03/21 01:27 Hydrocodone/Apap 5-325mg 1 Each Tab PO Q4HR PRN Moderate Pain Albuterol/Ipratropium 3 ml 02/02/21 14:06 02/03/21 23:05 Ipratropium-Albuterol 3 Ml Neb INHALATION 3 ml RT-Q2H PRN Administration Shortness Of Breath Or Wheezing Albuterol/Ipratropium 3 ml 02/02/21 20:00 02/04/21 07:25 Ipratropium-Albuterol 3 Ml Neb INHALATION 3 ml RT-QID [facility] Administration Amiodarone HCl 200 mg 02/03/21 21:00 02/03/21 21:02 Amiodarone 200 Mg Tab PO 200 mg BID OSEAS Administration Aspirin 325 mg 02/02/21 21:00 02/03/21 09:48 Aspirin 325 Mg Tab PO 325 mg DAILY OSEAS Administration Atorvastatin Calcium 40 mg 02/03/21 09:00 02/03/21 09:48 Atorvastatin 40 Mg Tab PO 40 mg DAILY OSEAS Administration Benzocaine/Menthol 1 each 02/02/21 14:06 Benzocaine/Menthol Lozeng 1 Each Lozenge MUCOUS MEM Q2H PRN Sore Throat Bisacodyl 10 mg 02/03/21 09:00 Bisacodyl 10 Mg Supp RECTAL DAILY PRN Constipation Clopidogrel Bisulfate 75 mg 02/02/21 21:00 02/03/21 09:48 Clopidogrel 75 Mg Tab PO 75 mg DAILY OSE[facility] Administration Diltiazem HCl 30 mg 02/03/21 06:45 02/04/21 05:46 Diltiazem Oral 30 Mg Tab PO 30 mg Q6HR [facility]SE[facility] Administration Heparin Sodium (Porcine) 5,000 unit 02/02/21 16:00 02/03/21 23:44 Heparin Sodium,Porcine/Pf 5,000 Unit/0.5 Ml Syringe SQ 5,000 unit Q8HR [facility]SE[facility] Administration Albumin Human 250 ml/ IV 250 mls @ 250 mls/hr 02/02/21 14:06 02/03/21 06:45 Solution IVPB 02/04/21 14:07 250 mls/hr Q1HR PRN Administration For Volume Insulin Human Regular 100 unit 101 mls @ 0 mls/hr 02/02/21 14:06 02/03/21 20:58 / Sodium Chloride IV 0 unit/hr .Q0M [facility] 0 mls/hr Titration Protocol Per Protocol Sodium Chloride 1,000 mls @ 20 mls/hr 02/02/21 14:06 02/03/21 09:47 Saline 0.9% IV Not Given .Q24H [facility] Ketorolac Tromethamine 15 mg 02/02/21 18:00 02/04/21 05:47 Ketorolac 15 Mg/Ml 1 Ml Vial IVP 02/05/21 15:28 15 mg Q6HR OSE[facility] Administration Magnesium Hydroxide 2,400 mg 02/03/21 09:00 Magnesium Hydroxide 2,400 Mg/10 Ml Cup PO BID PRN Constipation Metoclopramide HCl 10 mg 02/02/21 14:06 Metoclopramide 5 Mg/Ml 2 Ml Vial IVP Q4H PRN Nausea And Vomiting Metoprolol Tartrate 25 mg 02/03/21 22:00 02/04/21 05:47 Metoprolol Tartrate 25 Mg Tab PO 25 mg Q8H OSE[facility] Administration Miscellaneous Information 1 each 02/02/21 14:06 Magnesium Replacement Protocol 1 Each [facility] [place] DAILY PRN Per Protocol Protocol Miscellaneous Information 1 each 02/02/21 14:06 Phosphorus Replacement Protoco 1 Each [facility] [place] DAILY PRN Per Protocol Protocol Miscellaneous Information 1 each 02/03/21 18:45 Potassium Replacement Protocol 1 Each [facility] [place] DAILY PRN Per Protocol Protocol Ondansetron HCl 4 mg 02/02/21 14:06 Ondansetron 4 Mg/2 Ml Vial IVP Q6HR PRN Nausea And Vomiting Pantoprazole Sodium 40 mg 02/04/21 07:30 Pantoprazole 40 Mg Tablet PO AC-[id number] [facility]SE[facility] Senna/Docusate Sodium 2 each 02/03/21 21:00 02/03/21 21:02 Sennosides-Docusate Sodium 1 Each Tab PO 2 each HS OSEAS Administration Sodium Chloride 10 ml 02/02/21 21:00 02/03/21 21:03 Sodium Chloride 0.9% Flush 10 Ml Syringe IV 10 ml BID OSEAS Administration Intake and Output 02/03/21 02/04/21 02/04/21 22:59 06:59 14:59 Intake Total 161.033 111 23 Output Total 1095 425 150 Balance -933.967 -314 -127 Intake: IV 156 111 23 300 mmhg pressure saline 36 21 3 Albumin Human 5% 250 ml 20 In Empty Bag 1 bag @ 250 mls/hr IVPB Q1HR PRN Rx#: [id number] Sodium Chloride 0.9% 1, 120 70 20 000 ml @ 20 mls/hr IV . Q24H [facility] Rx#:[id number] Intake, IV Titration 5.033 Amount Insulin Regular 100 unit 5.033 In Sodium Chloride 0.9% 100 ml @ Per Protocol IV .Q0M [facility] Rx#:[id number] Output: Chest Tube Drainage 115 170 110 Chest Tube Mediastinal 45 50 20 Lt pleural 70 120 90 Urine 980 255 40 Other: Voiding Method Indwelling Catheter Indwelling Catheter Weight 90.7 kg 02/04/21 04:30 02/04/21 04:30 Assessment and Plan (1) CAD (coronary artery disease) Current Visit: Yes Status: Acute Code(s): I25.10 - ATHSCL HEART DISEASE OF [place] CORONARY ARTERY W/O ANG PCTRS SNOMED Code(s): 08331640 (2) CAD (coronary artery disease) of artery bypass graft Current Visit: Yes Status: Acute Code(s): I25.810 - ATHEROSCLEROSIS OF CABG W/O ANGINA PECTORIS SNOMED Code(s): 739625703 (3) Cardiomyopathy Current Visit: Yes Status: Acute Code(s): I42.9 - CARDIOMYOPATHY, UNSPECIFIED SNOMED Code(s): 87972711 Plan: Continue current management. Patient is also initiated on anti-cognition therapy. Continue with lipid-lowering agent and beta blockers along with KAREL inhibitor. Increase activity as tolerated. We will follow
--- NOTE | 2021-02-04 09:18 | P.PN ---
Subjective Progress Note Date: 02/04/21 Principal diagnosis: Triple-vessel coronary artery disease, moderate left ventricular dysfunction with EF 45%. Past medical history significant for hypertension, hyperlipidemia, paroxysmal atrial fibrillation on Eliquis for anticoagulation, ischemic cardiomyopathy, former chronic tobacco dependence with preoperative FEV1 88% of predicted, remote alcohol abuse. POD #2 triple vessel coronary artery bypass grafting using the left internal mammary artery to the left anterior descending coronary artery, left radial artery from the aorta to the posterior descending coronary artery coming from the circumflex artery, a reverse greater saphenous vein graft from the aorta to the obtuse marginal coronary artery, bilateral pulmonary vein isolation using bipolar radiofrequency clamp from [employer], exclusion of the left atrial appendage using a 35 mm AtriClip, endoscopic harvesting of the left radial artery, endoscopic harvesting of the left greater saphenous vein, intraoperative graft flow measurements using the [employer]weet[employer] system, intraoperative transesophageal echocardiogram and epi-aortic scanning. Postoperative acute blood loss anemia and thrombocytopenia, expected given cardiopulmonary bypass pump and hemodilution. Right-sided pneumothorax, related to surgery. Patient is currently sitting up to the bedside chair in the intensive care unit. He is awake, alert and oriented 3. He is in no acute distress. Oxygen saturations are 91% on 15 L high flow nasal cannula. He is achieving 1000 mL on his incentive spirometry. Chest x-ray this morning demonstrates a moderate to borderline large right-sided pneumothorax estimated approaching 50%, increased in size from one day earlier. Remains hemodynamically stable and is currently on no inotropic or pressor support. The patient denies any complaints of pain and states that he gets somewhat short of breath with activity. He states that he feels better today than he did yesterday. Mediastinal and left pleural chest tubes remain in place to low continuous wall suction -20 cm H2O. No air leak is present. Draining thin serosanguineous drainage with his mediastinal chest tubes draining 50 mL output in the last 8 hours and 215 mL output in the last 24 hours. Left pleural chest tube draining 120 mL output in the last 8 hours and 280 mL output in the last 24 hours. Bedside telemetry showing normal sinus rhythm heart rate 85 BPM. Right IJ cordis remains in place with continuous CVP monitoring, current CVP pressure 11 mmHg. Objective - Vital Signs Vital signs: Vital Signs Temp 98.1 F 02/04/21 04:00 Pulse 84 02/04/21 07:35 Resp 20 02/04/21 06:00 BP 101/59 02/03/21 09:00 Pulse Ox 99 02/04/21 07:25 Intake & Output 02/03/21 02/04/21 02/04/21 18:59 06:59 18:59 Intake Total 500.730 165.222 Output Total 1870 665 Balance -1369.270 -499.778 Weight 90.9 kg 90.7 kg Intake: IV 319 163 300 mmhg pressure saline 69 33 Albumin Human 5% 250 ml 20 In Empty Bag 1 bag @ 250 mls/hr IVPB Q1HR PRN Rx#: [id number] Sodium Chloride 0.9% 1, 250 110 000 ml @ 20 mls/hr IV . Q24H [facility] Rx#:[id number] Intake, IV Titration 181.730 2.222 Amount Insulin Regular 100 unit 7.280 2.222 In Sodium Chloride 0.9% 100 ml @ Per Protocol IV .Q0M [facility] Rx#:[id number] Magnesium Sulfate-D5w Pmx 100 1 gm In Dextrose/Water 1 100ml.bag @ 100 mls/hr IVPB Q1H [facility] Rx#: [id number] Nitroglycerin-D5w Pmx 50 24.45 mg In Dextrose/Water 1 250ml.bag @ 5 MCG/MIN 1.5 mls/hr IV .Q24H [facility] Rx#: [id number] ceFAZolin 2 gm In Sodium 50 Chloride 0.9% 50 ml @ 100 mls/hr IVPB Q8HR [facility] Rx# :[id number] propofoL 1,000 mg In 0 Empty Bag 1 bag @ Titrate IV .Q0M O[facility] Rx#: [id number] Output: Chest Tube Drainage 265 230 Chest Tube Mediastinal 145 70 Lt pleural 120 160 Urine 1605 435 Other: Voiding Method Indwelling Catheter Indwelling Catheter ABP, PAP, CO, CI - Last Documented Arterial Blood Pressure 139/56 Pulmonary Artery Pressure 29/8 Cardiac Output 7.5 Cardiac Index 3.6 - Constitutional General appearance: Present: cooperative, no acute distress, obese - EENT Eyes: Present: normal appearance. Absent: scleral icterus ENT: Present: hearing grossly normal - Neck Details: Neck is supple, no JVD. - Respiratory Details: Lungs with scattered expiratory wheezes, diminished to his bilateral bases right greater than left. No crackles or rhonchi. Respirations are symmetrical and nonlabored. Oxygen saturation are 91% on 15 L high flow nasal cannula. Achieving 1000 mL on his incentive spirometry. Mediastinal and left pleural molly st tubes in place to low continuous wall suction -20 cm H2O. No air leak is present. Draining thin serosanguineous drainage. - Cardiovascular Details: Regular rhythm and rate. S1 and S2 present, negative for S3, gallop or murmur. Sternum is stable. Bedside telemetry showing normal sinus rhythm heart rate 85 BPM. No edema present. Heart hugger is in place and he is demonstrating appropriate use. Knee-high ROSA ELENA hose and sequential compression devices in place to his bilateral lower extremities. Right IJ Cordis in place with continuous CVP monitoring. - Gastrointestinal Gastrointestinal Comment(s): Abdomen soft, nontender and nondistended. Active bowel sounds present all 4 abdominal quadrants. No guarding or rigidity. Tolerating oral intake. Passing flatus. - Genitourinary Genitourinary Comment(s): Guzman catheter for accurate I&O. Draining clear yellow urine with 255 mL output in the last 8 hours. - Integumentary Integumentary Comment(s): Skin is warm and dry. No clubbing or cyanosis is present. Midline sternal incision is clean, dry and approximated. No drainage or redness is present. Left lower extremity EVH site is clean, dry and approximated. No drainage or redness is present. Left arm radial artery harvest site clean, dry and approximated. No drainage or redness is present. - Neurologic Neurologic: Present: CNII-XII intact. Absent: focal deficits - Musculoskeletal Musculoskeletal: Present: gait normal, generalized weakness, strength equal bilaterally - Psychiatric Psychiatric: Present: A&O x's 3, appropriate affect, intact judgment & insight - Allied health notes Allied health notes reviewed: nursing - Labs CBC & Chem 7: 02/04/21 04:30 02/04/21 04:30 Labs: Abnormal Lab Results - Last 24 Hours (Table) 02/03/21 02/03/21 02/03/21 Range/Units 08:24 09:36 10:11 RBC (4.30-5.90) m/uL Hgb (13.0-17.5) gm/dL Hct (39.0-53.0) % Plt Count (150-450) k/uL Neutrophils # (1.3-7.7) k/uL Sodium (137-145) mmol/L Glucose (74-99) mg/dL POC Glucose (mg/dL) 216 H 170 H 133 H (75-99) mg/dL Calcium (8.4-10.2) mg/dL Total Protein (6.3-8.2) g/dL Albumin (3.5-5.0) g/dL 02/03/21 02/03/21 02/03/21 Range/Units 11:23 12:08 12:53 RBC (4.30-5.90) m/uL Hgb (13.0-17.5) gm/dL Hct (39.0-53.0) % Plt Count (150-450) k/uL Neutrophils # (1.3-7.7) k/uL Sodium (137-145) mmol/L Glucose (74-99) mg/dL POC Glucose (mg/dL) 137 H 135 H 137 H (75-99) mg/dL Calcium (8.4-10.2) mg/dL Total Protein (6.3-8.2) g/dL Albumin (3.5-5.0) g/dL 02/03/21 02/03/21 02/03/21 Range/Units 14:39 15:17 16:14 RBC (4.30-5.90) m/uL Hgb (13.0-17.5) gm/dL Hct (39.0-53.0) % Plt Count (150-450) k/uL Neutrophils # (1.3-7.7) k/uL Sodium (137-145) mmol/L Glucose (74-99) mg/dL POC Glucose (mg/dL) 182 H 170 H 109 H (75-99) mg/dL Calcium (8.4-10.2) mg/dL Total Protein (6.3-8.2) g/dL Albumin (3.5-5.0) g/dL 02/03/21 02/03/21 02/03/21 Range/Units 17:05 18:02 19:01 RBC (4.30-5.90) m/uL Hgb (13.0-17.5) gm/dL Hct (39.0-53.0) % Plt Count (150-450) k/uL Neutrophils # (1.3-7.7) k/uL Sodium (137-145) mmol/L Glucose (74-99) mg/dL POC Glucose (mg/dL) 102 H 200 H 153 H (75-99) mg/dL Calcium (8.4-10.2) mg/dL Total Protein (6.3-8.2) g/dL Albumin (3.5-5.0) g/dL 02/03/21 02/03/21 02/03/21 Range/Units 19:58 20:15 20:51 RBC (4.30-5.90) m/uL Hgb (13.0-17.5) gm/dL Hct (39.0-53.0) % Plt Count (150-450) k/uL Neutrophils # (1.3-7.7) k/uL Sodium (137-145) mmol/L Glucose (74-99) mg/dL POC Glucose (mg/dL) 147 H 163 H 116 H (75-99) mg/dL Calcium (8.4-10.2) mg/dL Total Protein (6.3-8.2) g/dL Albumin (3.5-5.0) g/dL 02/03/21 02/03/21 02/03/21 Range/Units 21:53 21:53 23:49 RBC (4.30-5.90) m/uL Hgb (13.0-17.5) gm/dL Hct (39.0-53.0) % Plt Count (150-450) k/uL Neutrophils # (1.3-7.7) k/uL Sodium 133 L (137-145) mmol/L Glucose 101 H (74-99) mg/dL POC Glucose (mg/dL) 109 H 119 H (75-99) mg/dL Calcium 8.3 L (8.4-10.2) mg/dL Total Protein (6.3-8.2) g/dL Albumin (3.5-5.0) g/dL 02/04/21 02/04/21 02/04/21 Range/Units 01:53 04:30 04:30 RBC 3.62 L (4.30-5.90) m/uL Hgb 11.1 L (13.0-17.5) gm/dL Hct 32.8 L (39.0-53.0) % Plt Count 101 L (150-450) k/uL Neutrophils # 8.5 H (1.3-7.7) k/uL Sodium 134 L (137-145) mmol/L Glucose 100 H (74-99) mg/dL POC Glucose (mg/dL) 118 H (75-99) mg/dL Calcium 8.2 L (8.4-10.2) mg/dL Total Protein 4.9 L (6.3-8.2) g/dL Albumin 2.8 L (3.5-5.0) g/dL 02/04/21 02/04/21 Range/Units 04:32 06:33 RBC (4.30-5.90) m/uL Hgb (13.0-17.5) gm/dL Hct (39.0-53.0) % Plt Count (150-450) k/uL Neutrophils # (1.3-7.7) k/uL Sodium (137-145) mmol/L Glucose (74-99) mg/dL POC Glucose (mg/dL) 108 H 114 H (75-99) mg/dL Calcium (8.4-10.2) mg/dL Total Protein (6.3-8.2) g/dL Albumin (3.5-5.0) g/dL - Imaging and Cardiology Chest x-ray: report reviewed, image reviewed Assessment and Plan Assessment: 1. Triple-vessel coronary artery disease, status post three-vessel CABG 2. Moderate left ventricular dysfunction with EF 45% and history of ischemic cardiomyopathy 3. Hypertension 4. Hyperlipidemia, cholesterol 198, LDL 143 5. Paroxysmal atrial fibrillation on Eliquis for anticoagulationon an outpatient, currently sinus rhythm, status post pulmonary vein isolation and exclusion of the left atrial appendage 6. Former chronic tobacco dependence with preoperative FEV1 88% of predicted 7. Remote history of alcohol abuse 8. Family history of coronary artery disease 9. Postoperative acute blood loss anemia and thrombocytopenia, expected Plan: 1. Continue aspirin, statin, Plavix, beta una. Will increase beta una as tolerated, increase metoprolol tartrate to 50 mg by mouth twice a day. 2. Continue Cardizem for radial artery spasm prophylaxis. Do not discontinue Cardizem without discussing with cardiac surgery please. 3. Continue oral amiodarone for prevention of atrial fibrillation. Will restart oral anticoagulation prior to discharge. 4. Wean O2 as tolerated. Encourage incentive spirometry use 10 times every hour while awake. Bronchodilators per pulmonology. 5. Will monitor daily labs and chest x-rays. Electrolyte replacement per protocol. 6. GI/DVT prophylaxis. 7. Insulin management per internal medicine service. Patient is not diabetic, preoperative hemoglobin A1c 5%. 8. Pain control with current medication regimen. 9. Discontinue right IJ Cordis. 10. Discontinue mediastinal chest tubes, and keep left pleural chest tubes for another 24 hours total low continuous wall suction -20 cm H2O. 11. Discontinue Guzman catheter, continue to record strict accurate intake and output. Daily weights with standup scale. 12. Discussed the importance of risk modification with the patient including discussion on continued smoking cessation. 13. Dr. Allen will place a right chest Thoravent due to the right-sided pneumothorax. 14. Lasix 20 mg IV 1 now. 15. Mucomyst inhalation 200 mg 3 times a day. 16. Send sputum for Gram stain and culture. 17. More recommendations to follow based on patient's clinical course. Time with Patient: Greater than 30
[2021-02-04] MEDS ORDERED: FUROSEMIDE 10 MG/ML 2 ML VIAL IV ONE (09:30)
--- NOTE | 2021-02-04 09:31 | XR ---
EXAMINATION TYPE: XR chest 1V portable DATE OF EXAM: 02/04/2021 COMPARISON: 02/04/2021 HISTORY: Chest tube placement TECHNIQUE: Single frontal view of the chest is obtained. FINDINGS: Right-sided chest tube is seen and there is near complete resolution of right-sided pneumo thorax. Postoperative changes are seen. There is a changes suggestive COPD with cardiomegaly and bila teral infiltrate and small left effusion. Mild central venous congestion not excluded. Suggestion of a left-sided chest tube. Suggestion of mediastinal drain. IMPRESSION: 1. Chest tube placement with near complete resolution of right-sided pneumothorax. 2. Bilateral infiltrate stable.
--- NOTE | 2021-02-04 10:30 | P.PN ---
Subjective Progress Note Date: 02/04/21 Principal diagnosis: Symptomatic coronary artery disease, status post three-vessel coronary artery bypass grafting This is a 60-year-old white male patient of JOSE JUAN Morillo, who had been complaining of exertional dyspnea and chest pain, patient underwent cardiac catheterization on 01/28/[address] Allen showed a 50% distal left main disease, critical stenosis in the ostium of the LAD in the mid left circumflex. LVEDP was in the order of 12-16 mmHg. Transthoracic echocardiogram showed EF between 45-50%. Past medical history is significant for paroxysmal A. fib on E liquis, family history of coronary artery disease, ischemic cardiomyopathy, previous history of tobacco and alcohol dependence. Preop FEV1 was 2.91 over 88% of predicted. We are seeing the patient in the postoperative period after three-vessel coronary artery bypass grafting today on 02/02/[address] Allen. Patient had CHANEL to the LAD, SVG to the circumflex, and right radial graft to the PDA, Left atrial appendage exclusion. Patient is currently intubated on mechanical ventilator with the assist control mode of ventilation with a rate of 12, tidal M is 520, FiO2 of 100% and PEEP of 5, postoperative blood gases are pending. Patient is currently on 0.9 normal saline at a rate of 50 ML per hour, nitroglycerin at 5 mics per kilo per minute, and improving and is at 25 mics per kilo per minute. Insulin drip is off. Patient is in sinus mechanism with a first-degree AV block, PA pressures 20 overnight, CVP is 4, cardiac output is 4.6 and cardiac index is 2.2. Right, left knee still chest tubes in place with small amount of sanguinous output, postoperative blood work is pending. Hemodynamically patient is stable, not requiring any vasopressor support. On 02/03/2021 patient seen in follow-up in the intensive care unit, he was successfully weaned and extubated last night, tolerating extubation well, his chronic hepatitis liters of oxygen pulse ox is 90-93%, he is having low-grade fevers with a temp of 99.9F, hemodynamically patient is stable. No vasoactive drips, he is just some 0.9 normal saline at 50 ML per hour, insulin is on hold, nitroglycerin drip glycerin has been discontinued. Sitting up in a chair, breathing comfortably, is working on his incentive spirometer, lung sounds are positive for a few scattered rhonchi, diminished breath sounds, today's chest x- ray has been reviewed showing new small to moderate right-sided pneumothorax estimated to be near 30% associated with right basilar atelectasis. There is background of chronic emphysematous changes and cardiomegaly with worsening left basilar atelectasis. Patient is sinus mechanism, and the rate is controlled. Today's blood work has been reviewed showing white blood cell count of 9.7, hemoglobin of 11.6, sodium of 137, potassium is 4.2, chloride is 109, BUN 14 creatinine 0.75, LFTs are within normal limits. he had [address], left pleural and 2 mediastinal chest tubes, there has been 210 mL of servicing this output out of the mediastinal chest tubes, and left pleural handout 190 of serosanguineous thin output in the last 24 hours, Guzman catheter is in place patient is producing 30-65 ML of urine output. On 02/04/2021 patient seen in follow-up in the intensive care unit, today is postoperative day #2, status post three-vessel coronary artery bypass grafting. His oriented 3, she is resting in bed, FiO2 currently at 10 L per high flow nasal cannula his pulse ox is 92-94%, today's chest x-ray shows moderate to borderline large right-sided pneumothorax estimated approaching 50%, increased in size from one day earlier, and there is worsening right basilar atelectasis or lobar collapse. Thora-Vent was placed in his right upper chest, and follow- up chest x-ray showed chest tube placement with near complete resolution of the right-sided pneumothorax. Hemodynamically patient has been stable, he is just some 0.9 normal saline at a rate of 10 ML per hour, his [place]-Austyn catheter has been discontinued, he is in sinus mechanism, he still has one mediastinal and left pleural chest tube in place., Left pleural chest tube put out 180 mL over last 24 hours, and mediastinal chest tube put out 40 ML of thin serosanguineous output. Patient also got a dose of Lasix yesterday 2, he is in -1.8 L over the last 24 hours. His labs have been reviewed, showing white blood cell count of 10.6, hemoglobin of 11.1, sodium is 134, MRSA electrolytes and renal profile were unremarkable, LFTs were within normal limits. He sounds congested on today's exam, with diffuse rhonchi, his incentive spirometer effort is a 750. He has a congested loose cough, but not bringing up much sputum. No fever or chills, his incisions are clean dry and intact. Is tolerating oral intake. Objective - Vital Signs Vital signs: Vital Signs Temp 98.9 F 02/04/21 08:00 Pulse 97 02/04/21 10:00 Resp 25 H 02/04/21 10:00 BP 122/76 02/04/21 10:00 Pulse Ox 85 L 02/04/21 10:00 Intake & Output 02/03/21 02/04/21 02/04/21 18:59 06:59 18:59 Intake Total 500.730 165.222 92 Output Total 1870 665 290 Balance -1369.270 -499.778 -198 Weight 90.9 kg 90.7 kg Intake: IV 319 163 92 300 mmhg pressure saline 69 33 12 Albumin Human 5% 250 ml 20 In Empty Bag 1 bag @ 250 mls/hr IVPB Q1HR PRN Rx#: [id number] Sodium Chloride 0.9% 1, 250 110 80 000 ml @ 20 mls/hr IV . Q24H [facility] Rx#:[id number] Intake, IV Titration 181.730 2.222 Amount Insulin Regular 100 unit 7.280 2.222 In Sodium Chloride 0.9% 100 ml @ Per Protocol IV .Q0M [facility] Rx#:[id number] Magnesium Sulfate-D5w Pmx 100 1 gm In Dextrose/Water 1 100ml.bag @ 100 mls/hr IVPB Q1H [facility] Rx#: [id number] Nitroglycerin-D5w Pmx 50 24.45 mg In Dextrose/Water 1 250ml.bag @ 5 MCG/MIN 1.5 mls/hr IV .Q24H [facility] Rx#: [id number] ceFAZolin 2 gm In Sodium 50 Chloride 0.9% 50 ml @ 100 mls/hr IVPB Q8HR [facility] Rx# :[id number] propofoL 1,000 mg In 0 Empty Bag 1 bag @ Titrate IV .Q0M [facility] Rx#: [id number] Output: Chest Tube Drainage 265 230 220 Chest Tube Mediastinal 145 70 40 Lt pleural 120 160 180 Urine 1605 435 70 Other: Voiding Method Indwelling Catheter Indwelling Catheter Indwelling Catheter ABP, PAP, CO, CI - Last Documented Arterial Blood Pressure 130/56 Pulmonary Artery Pressure 29/8 Cardiac Output 7.5 Cardiac Index 3.6 - Exam GENERAL EXAM: Awake and alert, very pleasant 70-year-old white male, 10 L of oxygen with a pulse ox of 94% comfortable in no apparent distress. HEAD: Normocephalic/atraumatic. EYES: Normal reaction of pupils, equal size. Conjunctiva pink, sclera white. NOSE: Clear with pink turbinates. THROAT: No erythema or exudates. NECK: No masses, no JVD, no thyroid enlargement, no adenopathy. CHEST: No chest wall deformity. Symmetrical expansion. Midsternal incision clean dry and intact,left and 1 mediastinal chest tubes in place connected to Pleur-evac's, to wall suction, with small to moderate amount of sanguinous output, occasional air leak in the mediastinal chest tube Pleur-evac LUNGS: Equal air entry with diffuse rhonchi CVS: Regular rate and rhythm, normal S1 and S2, no gallops, no murmurs, no rubs ABDOMEN: Soft, nontender. No hepatosplenomegaly, normal bowel sounds, no guard ing or rigidity. EXTREMITIES: No clubbing, no edema, no cyanosis, 2+ pulses and upper and lower extremities. Left radial graft site is Sanjeev wrap, left lower extremity is Sanjeev wrapped, SCDs on both lower extremities MUSCULOSKELETAL: Muscle strength and tone normal. SPINE: No scoliosis or deformity SKIN: No rashes CENTRAL NERVOUS SYSTEM: Awake and alert, 70-year-old white male with no focal deficits, tone is normal in all 4 extremities. - Labs CBC & Chem 7: 02/04/21 04:30 02/04/21 04:30 Labs: Abnormal Lab Results - Last 24 Hours (Table) 02/03/21 02/03/21 02/03/21 Range/Units 11:23 12:08 12:53 RBC (4.30-5.90) m/uL Hgb (13.0-17.5) gm/dL Hct (39.0-53.0) % Plt Count (150-450) k/uL Neutrophils # (1.3-7.7) k/uL Sodium (137-145) mmol/L Glucose (74-99) mg/dL POC Glucose (mg/dL) 137 H 135 H 137 H (75-99) mg/dL Calcium (8.4-10.2) mg/dL Total Protein (6.3-8.2) g/dL Albumin (3.5-5.0) g/dL 02/03/21 02/03/21 02/03/21 Range/Units 14:39 15:17 16:14 RBC (4.30-5.90) m/uL Hgb (13.0-17.5) gm/dL Hct (39.0-53.0) % Plt Count (150-450) k/uL Neutrophils # (1.3-7.7) k/uL Sodium (137-145) mmol/L Glucose (74-99) mg/dL POC Glucose (mg/dL) 182 H 170 H 109 H (75-99) mg/dL Calcium (8.4-10.2) mg/dL Total Protein (6.3-8.2) g/dL Albumin (3.5-5.0) g/dL 02/03/21 02/03/21 02/03/21 Range/Units 17:05 18:02 19:01 RBC (4.30-5.90) m/uL Hgb (13.0-17.5) gm/dL Hct (39.0-53.0) % Plt Count (150-450) k/uL Neutrophils # (1.3-7.7) k/uL Sodium (137-145) mmol/L Glucose (74-99) mg/dL POC Glucose (mg/dL) 102 H 200 H 153 H (75-99) mg/dL Calcium (8.4-10.2) mg/dL Total Protein (6.3-8.2) g/dL Albumin (3.5-5.0) g/dL 02/03/21 02/03/21 02/03/21 Range/Units 19:58 20:15 20:51 RBC (4.30-5.90) m/uL Hgb (13.0-17.5) gm/dL Hct (39.0-53.0) % Plt Count (150-450) k/uL Neutrophils # (1.3-7.7) k/uL Sodium (137-145) mmol/L Glucose (74-99) mg/dL POC Glucose (mg/dL) 147 H 163 H 116 H (75-99) mg/dL Calcium (8.4-10.2) mg/dL Total Protein (6.3-8.2) g/dL Albumin (3.5-5.0) g/dL 02/03/21 02/03/21 02/03/21 Range/Units 21:53 21:53 23:49 RBC (4.30-5.90) m/uL Hgb (13.0-17.5) gm/dL Hct (39.0-53.0) % Plt Count (150-450) k/uL Neutrophils # (1.3-7.7) k/uL Sodium 133 L (137-145) mmol/L Glucose 101 H (74-99) mg/dL POC Glucose (mg/dL) 109 H 119 H (75-99) mg/dL Calcium 8.3 L (8.4-10.2) mg/dL Total Protein (6.3-8.2) g/dL Albumin (3.5-5.0) g/dL 02/04/21 02/04/21 02/04/21 Range/Units 01:53 04:30 04:30 RBC 3.62 L (4.30-5.90) m/uL Hgb 11.1 L (13.0-17.5) gm/dL Hct 32.8 L (39.0-53.0) % Plt Count 101 L (150-450) k/uL Neutrophils # 8.5 H (1.3-7.7) k/uL Sodium 134 L (137-145) mmol/L Glucose 100 H (74-99) mg/dL POC Glucose (mg/dL) 118 H (75-99) mg/dL Calcium 8.2 L (8.4-10.2) mg/dL Total Protein 4.9 L (6.3-8.2) g/dL Albumin 2.8 L (3.5-5.0) g/dL 02/04/21 02/04/21 Range/Units 04:32 06:33 RBC (4.30-5.90) m/uL Hgb (13.0-17.5) gm/dL Hct (39.0-53.0) % Plt Count (150-450) k/uL Neutrophils # (1.3-7.7) k/uL Sodium (137-145) mmol/L Glucose (74-99) mg/dL POC Glucose (mg/dL) 108 H 114 H (75-99) mg/dL Calcium (8.4-10.2) mg/dL Total Protein (6.3-8.2) g/dL Albumin (3.5-5.0) g/dL Assessment and Plan Plan: Assessment: #1. Coronary artery disease, symptomatic, status post three-vessel coronary artery bypass grafting with CHANEL to the LAD, SVG to the circumflex, and left radial artery graft to the PDA, and left atrial appendage exclusion, postoperative day #2 #2. Postoperative ventilator management, patient extubated on postop day #0 on 02/02/2021 #3. Right-sided pneumothorax estimated to be approaching 50% on today's chest x-ray, status post Thoravent placement #4. History of ischemic cardiomyopathy #5. Paroxysmal atrial fibrillation on Eliquis which is currently on hold for surgery #6. History of coronary artery disease #7. Family history of coronary artery disease #8. Former smoker Plan: Right Thoravent has been placed by CT surgery for increasing right-sided pneumothorax, follow-up chest x-ray reviewed showing near complete resolution of right-sided pneumothorax Encourage deep breathing and coughing Continue nebulized treatments 4 times a day and when necessary Incentive spirometry use Maintain pain control Increase ambulation Today's labs have been reviewed Patient will receive another dose of Lasix today per CT surgery GI and DVT prophylaxis per CT surgery We'll continue monitoring the intensive care unit Follow-up chest x-ray and labs in the morning I performed a history & physical examination of the patient and discussed their management with my nurse practitioner, Kim Stern. I reviewed the nurse pr actitioner's note and agree with the documented findings and plan of care. Lung sounds are positive for diminished breath sounds. The findings and the impression was discussed with the patient. I attest to the documentation by the nurse practitioner. Time with Patient: Greater than 30
[2021-02-04] MEDS: SODIUM CHLORIDE 0.9% 1,000 ML IV SCH (11:08)
--- NOTE | 2021-02-04 11:53 | P.PN ---
Subjective Progress Note Date: 02/04/21 This is a 70-year-old gentleman status post bypass surgery with CHANEL to the LAD, vein graft. Circumflex and is free radial graft to PDA. Today's x-ray showed evidence of pneumothorax on the right side which increased in size compared to yesterday. Patient had chest tube placed with full expansion of the lung. Patient seemed to be feeling okay. And, denies any significant chest pain. Patient has been nothing by mouth because of the procedure. Still maintaining sinus rhythm. No arrhythmias noted. Patient still has chest tubes. We'll continue current management. We'll follow Objective - Vital Signs Vital signs: Vital Signs Temp 98.9 F 02/04/21 08:00 Pulse 100 02/04/21 11:13 Resp 22 02/04/21 11:00 BP 115/67 02/04/21 11:00 Pulse Ox 94 L 02/04/21 11:00 Intake & Output 02/03/21 02/04/21 02/04/21 18:59 06:59 18:59 Intake Total 500.730 165.222 115 Output Total 1870 665 425 Balance -1369.270 -499.778 -310 Weight 90.9 kg 90.7 kg Intake: IV 319 163 115 300 mmhg pressure saline 69 33 15 Albumin Human 5% 250 ml 20 In Empty Bag 1 bag @ 250 mls/hr IVPB Q1HR PRN Rx#: [id number] Sodium Chloride 0.9% 1, 250 110 100 000 ml @ 20 mls/hr IV . Q24H [facility] Rx#:[id number] Intake, IV Titration 181.730 2.222 Amount Insulin Regular 100 unit 7.280 2.222 In Sodium Chloride 0.9% 100 ml @ Per Protocol IV .Q0M [facility] Rx#:[id number] Magnesium Sulfate-D5w Pmx 100 1 gm In Dextrose/Water 1 100ml.bag @ 100 mls/hr IVPB Q1H [facility] Rx#: [id number] Nitroglycerin-D5w Pmx 50 24.45 mg In Dextrose/Water 1 250ml.bag @ 5 MCG/MIN 1.5 mls/hr IV .Q24H [facility] Rx#: [id number] ceFAZolin 2 gm In Sodium 50 Chloride 0.9% 50 ml @ 100 mls/hr IVPB Q8HR [facility] Rx# :[id number] propofoL 1,000 mg In 0 Empty Bag 1 bag @ Titrate IV .Q0M [facility] Rx#: [id number] Output: Chest Tube Drainage 265 230 330 Chest Tube Mediastinal 145 70 60 Lt pleural 120 160 270 Urine 1605 435 95 Other: Voiding Method Indwelling Catheter Indwelling Catheter Indwelling Catheter ABP, PAP, CO, CI - Last Documented Arterial Blood Pressure 135/49 Pulmonary Artery Pressure 29/8 Cardiac Output 7.5 Cardiac Index 3.6 - Exam GENERAL EXAM: Patient is alert and oriented and doesn't appear to be in any acute distress HEENT: Normocephalic. Normal reaction of pupils, equal size, normal range of extraocular motion. No erythema or exudates in the throat. NECK: No masses, no nuchal rigidity. CHEST: No chest wall deformity. LUNGS: Mild diffuse rhonchi and wheezing HEART: S1 and S2 normal ABDOMEN: No hepatosplenomegaly, normal bowel sounds, no guarding or rigidity. SKIN: No rashes CENTRAL NERVOUS SYSTEM: No focal deficits. EXTREMITIES: No cyanosis, clubbing or edema. - Labs CBC & Chem 7: 02/04/21 04:30 02/04/21 04:30 Labs: Abnormal Lab Results - Last 24 Hours (Table) 02/03/21 02/03/21 02/03/21 Range/Units 12:08 12:53 14:39 RBC (4.30-5.90) m/uL Hgb (13.0-17.5) gm/dL Hct (39.0-53.0) % Plt Count (150-450) k/uL Neutrophils # (1.3-7.7) k/uL Sodium (137-145) mmol/L Glucose (74-99) mg/dL POC Glucose (mg/dL) 135 H 137 H 182 H (75-99) mg/dL Calcium (8.4-10.2) mg/dL Total Protein (6.3-8.2) g/dL Albumin (3.5-5.0) g/dL 02/03/21 02/03/21 02/03/21 Range/Units 15:17 16:14 17:05 RBC (4.30-5.90) m/uL Hgb (13.0-17.5) gm/dL Hct (39.0-53.0) % Plt Count (150-450) k/uL Neutrophils # (1.3-7.7) k/uL Sodium (137-145) mmol/L Glucose (74-99) mg/dL POC Glucose (mg/dL) 170 H 109 H 102 H (75-99) mg/dL Calcium (8.4-10.2) mg/dL Total Protein (6.3-8.2) g/dL Albumin (3.5-5.0) g/dL 02/03/21 02/03/21 02/03/21 Range/Units 18:02 19:01 19:58 RBC (4.30-5.90) m/uL Hgb (13.0-17.5) gm/dL Hct (39.0-53.0) % Plt Count (150-450) k/uL Neutrophils # (1.3-7.7) k/uL Sodium (137-145) mmol/L Glucose (74-99) mg/dL POC Glucose (mg/dL) 200 H 153 H 147 H (75-99) mg/dL Calcium (8.4-10.2) mg/dL Total Protein (6.3-8.2) g/dL Albumin (3.5-5.0) g/dL 02/03/21 02/03/21 02/03/21 Range/Units 20:15 20:51 21:53 RBC (4.30-5.90) m/uL Hgb (13.0-17.5) gm/dL Hct (39.0-53.0) % Plt Count (150-450) k/uL Neutrophils # (1.3-7.7) k/uL Sodium 133 L (137-145) mmol/L Glucose 101 H (74-99) mg/dL POC Glucose (mg/dL) 163 H 116 H (75-99) mg/dL Calcium 8.3 L (8.4-10.2) mg/dL Total Protein (6.3-8.2) g/dL Albumin (3.5-5.0) g/dL 02/03/21 02/03/21 02/04/21 Range/Units 21:53 23:49 01:53 RBC (4.30-5.90) m/uL Hgb (13.0-17.5) gm/dL Hct (39.0-53.0) % Plt Count (150-450) k/uL Neutrophils # (1.3-7.7) k/uL Sodium (137-145) mmol/L Glucose (74-99) mg/dL POC Glucose (mg/dL) 109 H 119 H 118 H (75-99) mg/dL Calcium (8.4-10.2) mg/dL Total Protein (6.3-8.2) g/dL Albumin (3.5-5.0) g/dL 02/04/21 02/04/21 02/04/21 Range/Units 04:30 04:30 04:32 RBC 3.62 L (4.30-5.90) m/uL Hgb 11.1 L (13.0-17.5) gm/dL Hct 32.8 L (39.0-53.0) % Plt Count 101 L (150-450) k/uL Neutrophils # 8.5 H (1.3-7.7) k/uL Sodium 134 L (137-145) mmol/L Glucose 100 H (74-99) mg/dL POC Glucose (mg/dL) 108 H (75-99) mg/dL Calcium 8.2 L (8.4-10.2) mg/dL Total Protein 4.9 L (6.3-8.2) g/dL Albumin 2.8 L (3.5-5.0) g/dL 02/04/21 Range/Units 06:33 RBC (4.30-5.90) m/uL Hgb (13.0-17.5) gm/dL Hct (39.0-53.0) % Plt Count (150-450) k/uL Neutrophils # (1.3-7.7) k/uL Sodium (137-145) mmol/L Glucose (74-99) mg/dL POC Glucose (mg/dL) 114 H (75-99) mg/dL Calcium (8.4-10.2) mg/dL Total Protein (6.3-8.2) g/dL Albumin (3.5-5.0) g/dL Assessment and Plan (1) CAD (coronary artery disease) Current Visit: Yes Status: Acute Code(s): I25.10 - ATHSCL HEART DISEASE OF [place] CORONARY ARTERY W/O ANG PCTRS SNOMED Code(s): 30151461 (2) CAD (coronary artery disease) of artery bypass graft Current Visit: Yes Status: Acute Code(s): I25.810 - ATHEROSCLEROSIS OF CABG W/O ANGINA PECTORIS SNOMED Code(s): 858780328 (3) Cardiomyopathy Current Visit: Yes Status: Acute Code(s): I42.9 - CARDIOMYOPATHY, UNSPECIFIED SNOMED Code(s): 27876157 (4) Pneumothorax Current Visit: Yes Status: Acute Code(s): J93.9 - PNEUMOTHORAX, UNSPECIFIED SNOMED Code(s): 24498270 Plan: Status post chest tube placement for pneumothorax on the right side. Otherwise seemed to be hemodynamically stable. Has some wheezing in the lungs . continue current management. No arrhythmias noted. We'll follow
[2021-02-04 12:01] LABS: Glucose,Whole Blood 102 mg/dL (75-99)
[2021-02-04] MEDS ORDERED: DEXTROSE 5% IN WATER 100 ML with AMIODARONE 150 MG IV ONE ×2 (12:30→15:40)
[2021-02-04] MEDS: ACETYLCYSTEINE 800 MG/4 ML VIAL INHALATION SCH ×2 (15:22→20:29)
--- NOTE | 2021-02-04 16:15 | P.PN ---
Progress Note - Text Progress Note Date: 02/04/21 - Chief Complaint CABG - History of Present Illness Consultation: This is a 70-year-old patient, who had been complaining of shortness of breath with exertion and chest pain and underwent cardiac catheterization on 01/28/2021. Patient is found to have left main disease 50% distal critical stenosis in the ostium of the LAD and mid left circumflex. 2-D echocardiogram showed EF of 45-50%. Patient's eliquis for a prior history of atrial fibr illation. Patient underwent coronary bypass on January [address] Mcdonald. Also developed a pneumothorax. Today: Reclining in bed. Breathing slightly better. Oral intake fair. Has about a 50% pneumothorax. Chest tubes remain in place. Review of systems: Was done for constitutional, cardiovascular, GI, pulmonary. relevant finding as above Active Medications Acetaminophen (Acetaminophen Tab 325 Mg Tab) 650 mg PO Q4HR PRN PRN Reason: Fever and/ or Pain Hydrocodone Bitart/Acetaminophen (Hydrocodone/Apap 5-325mg 1 Each Tab) 2 each PO Q4HR PRN PRN Reason: Severe Pain Last Admin: 02/04/21 05:15 Dose: 2 each Documented by: Hydrocodone Bitart/Acetaminophen (Hydrocodone/Apap 5-325mg 1 Each Tab) 1 each PO Q4HR PRN PRN Reason: Moderate Pain Acetylcysteine (Acetylcysteine 800 Mg/4 Ml Vial) 200 mg INHALATION RT-TID [facility] Last Admin: 02/04/21 15:22 Dose: 200 mg Documented by: Albuterol/Ipratropium (Ipratropium-Albuterol 3 Ml Neb) 3 ml INHALATION RT-Q2H PRN PRN Reason: Shortness Of Breath Or Wheezing Last Admin: 02/03/21 23:05 Dose: 3 ml Documented by: Albuterol/Ipratropium (Ipratropium-Albuterol 3 Ml Neb) 3 ml INHALATION RT-QID [facility] Last Admin: 02/04/21 15:22 Dose: 3 ml Documented by: Amiodarone HCl (Amiodarone 200 Mg Tab) 200 mg PO BID [facility] Last Admin: 02/04/21 08:33 Dose: 200 mg Documented by: Aspirin (Aspirin 325 Mg Tab) 325 mg PO DAILY [facility] Last Admin: 02/04/21 08:31 Dose: 325 mg Documented by: Atorvastatin Calcium (Atorvastatin 40 Mg Tab) 40 mg PO DAILY [facility] Last Admin: 02/04/21 08:31 Dose: 40 mg Documented by: Benzocaine/Menthol (Benzocaine/Menthol Lozeng 1 Each Lozenge) 1 each MUCOUS MEM Q2H PRN PRN Reason: Sore Throat Bisacodyl (Bisacodyl 10 Mg Supp) 10 mg RECTAL DAILY PRN PRN Reason: Constipation Clopidogrel Bisulfate (Clopidogrel 75 Mg Tab) 75 mg PO DAILY [facility] Last Admin: 02/04/21 08:31 Dose: 75 mg Documented by: Diltiazem HCl (Diltiazem Oral 30 Mg Tab) 30 mg PO Q6HR [facility] Last Admin: 02/04/21 12:27 Dose: 30 mg Documented by: Heparin Sodium (Porcine) (Heparin Sodium,Porcine/Pf 5,000 Unit/0.5 Ml Syringe) 5,000 unit SQ Q8HR [facility] Last Admin: 02/04/21 08:31 Dose: 5,000 unit Documented by: Insulin Human Regular 100 unit (/ Sodium Chloride) 101 mls @ 0 mls/hr IV .Q0M [facility]; Protocol Last Titration: 02/03/21 20:58 Dose: 0 unit/hr, 0 mls/hr Documented by: Sodium Chloride (Saline 0.9%) 1,000 mls @ 20 mls/hr IV .Q24H [facility] Last Admin: 02/04/21 11:08 Dose: Not Given Documented by: Ketorolac Tromethamine (Ketorolac 15 Mg/Ml 1 Ml Vial) 15 mg IVP Q6HR [facility] Stop: 02/05/21 15:28 Last Admin: 02/04/21 12:26 Dose: 15 mg Documented by: Magnesium Hydroxide (Magnesium Hydroxide 2,400 Mg/10 Ml Cup) 2,400 mg PO BID PRN PRN Reason: Constipation Metoclopramide HCl (Metoclopramide 5 Mg/Ml 2 Ml Vial) 10 mg IVP Q4H PRN PRN Reason: Nausea And Vomiting Last Admin: 02/04/21 10:17 Dose: 10 mg Documented by: Metoprolol Tartrate (Metoprolol Tartrate 25 Mg Tab) 25 mg PO Q8H [facility] Last Admin: 02/04/21 05:47 Dose: 25 mg Documented by: Miscellaneous Information (Magnesium Replacement Protocol 1 Each Misc) 1 each MISCELLANE DAILY PRN; Protocol PRN Reason: Per Protocol Miscellaneous Information (Phosphorus Replacement Protoco 1 Each Misc) 1 each MISCELLANE DAILY PRN; Protocol PRN Reason: Per Protocol Miscellaneous Information (Potassium Replacement Protocol 1 Each Misc) 1 each MISCELLANE DAILY PRN; Protocol PRN Reason: Per Protocol Ondansetron HCl (Ondansetron 4 Mg/2 Ml Vial) 4 mg IVP Q6HR PRN PRN Reason: Nausea And Vomiting Pantoprazole Sodium (Pantoprazole 40 Mg Tablet) 40 mg PO AC-BRKFST [facility] Last Admin: 02/04/21 08:31 Dose: 40 mg Documented by: Senna/Docusate Sodium (Sennosides-Docusate Sodium 1 Each Tab) 2 each PO HS [facility] Last Admin: 02/03/21 21:02 Dose: 2 each Documented by: Sodium Chloride (Sodium Chloride 0.9% Flush 10 Ml Syringe) 10 ml IV BID [facility] Last Admin: 02/04/21 08:31 Dose: 10 ml Documented by: Past medical history to include: Atrial fibrillation, coronary artery disease, osteoarthritis, Social history: Patient smoked on and off for close to 45 years no alcohol since August 2020. Physical examination: VITAL SIGNS: 98.4, 120, 21, 1 20 x 56, 93% on 2 L GENERAL: Reclining in bed, some shortness of breath EYES: Pupils equal. Conjunctiva normal. HEENT: External appearance of nose and ears normal, oral cavity grossly normal. NECK: JVD not raised; masses not palpable. HEART: First and second heart sounds are normal; no edema. LUNGS: Respiratory rate increased; decreased breath sounds or wheezing. Chest tubes in place ABDOMEN: Soft, nontender, liver spleen not palpable, no masses palpable. PSYCH: Alert and oriented x3; mood and affect normal. MUSCULAR skeletal: Evidence of OA INVESTIGATIONS, reviewed in the clinical context: Able to relate: Obese id. hemoglobin 11.1 and platelets 101 potassium 4.1 creatinine 0.68 WBC 9.7 hemoglobin 11.6 platelets 115 potassium 4.2 creatinine 0.75 albumin 2.8 Chest x-ray film personally reviewed by [id number] pneumothorax about 30% reported. Emphysema changes. Previous testing: Labs from: 01/29/2021 Hemoglobin 14.6 platelets 169 TSH 1.5 LDL 143 Assessment and plan: -Coronary bypass, 3 vessel done on February 02 -Coronary artery disease. Currently on aspirin, Lipitor, Plavix, Lopressor -Essential hypertension. Continue Lopressor -Acute postprocedure blood loss anemia as expected from surgery. Follow H&H -Acute COPD exacerbation, and a previous smoker. DuoNeb. Add inhaled steroids -Hyperlipidemia. On Lipitor -Primary osteoarthritis. Use Tylenol when necessary -Hypoalbuminemia. Acute phase reactant -Right-sided pneumothorax/. Chest tube per cardiothoracic surgery -Thrombocytopenia, acute. Dilutional. Follow labs Continue current medication treatment plan. Follow Thank you Dr. Allen
[2021-02-04 16:59] LABS: Glucose,Whole Blood 127 mg/dL (75-99)
[2021-02-04] MEDS ORDERED: ALBUMIN HUMAN 5% 250 ML in EMPTY BAG 1 BAG IVPB ONE (19:53)
[2021-02-04] MEDS: SENNOSIDES-DOCUSATE SODIUM 1 EACH TAB PO SCH (21:15)
[2021-02-04] MEDS: ALBUMIN HUMAN 5% 250 ML in EMPTY BAG 1 BAG IVPB PRN (21:32)
[2021-02-04 21:44] LABS: Glucose,Whole Blood 146 mg/dL (75-99)
[2021-02-04] MEDS: INSULIN ASPART (NovoLOG) 100 UNIT/ML VIAL SQ SCH (21:59)
[2021-02-04] MEDS: METOPROLOL TARTRATE 50 MG TAB PO SCH (22:25)
[2021-02-05] MEDS: KETOROLAC 15 MG/ML 1 ML VIAL IVP SCH ×3 (00:44→12:49)
[2021-02-05] MEDS: DILTIAZEM ORAL 30 MG TAB PO SCH ×4 (00:45→18:22)
[2021-02-05] MEDS: HEPARIN SODIUM,PORCINE/PF 5,000 UNIT/0.5 ML SYRINGE SQ SCH ×3 (00:45→18:15)
[2021-02-05 05:46] LABS: Basophils % (A) 0 %; Eosinophils # (A) 0.1 k/uL (0-0.7); Eosinophils % (A) 1 %; HCT 30.6 % (39.0-53.0); HGB 10.6 gm/dL (13.0-17.5); Lymphocytes % (A) 9 %; MCH 31.3 pg (25.0-35.0); MCHC 34.7 g/dL (31.0-37.0); Mean Platelet Volume 8.4; Monocytes # (A) 0.5 k/uL (0-1.0); Monocytes % (A) 5 %; Neutrophils # (A) 8.5 k/uL (1.3-7.7); Neutrophils % (A) 84 %; Platelet Count 107 k/uL (150-450); RDW 12.9 % (11.5-15.5); WBC 10.1 k/uL (3.8-10.6)
[2021-02-05 05:56] LABS: ALT 6 U/L (4-49); AST 24 U/L (17-59); African American GFR (CKD) >90 (>60 ml/min/1.73 sqM); Albumin 2.7 g/dL (3.5-5.0); Alkaline Phosphatase 50 U/L (38-126); Anion Gap 4 mmol/L; Blood Urea Nitrogen 27 mg/dL (9-20); Calcium 8.3 mg/dL (8.4-10.2); Carbon Dioxide 23 mmol/L (22-30); Chloride 105 mmol/L (98-107); Glucose 97 mg/dL (74-99); Non-African American GFR(CKD) 82 (>60 ml/min/1.73 sqM); Potassium 3.7 mmol/L (3.5-5.1); Sodium 132 mmol/L (137-145); Total Protein 4.8 g/dL (6.3-8.2)
[2021-02-05] MEDS: PANTOPRAZOLE 40 MG TABLET PO SCH (06:42)
[2021-02-05] MEDS ORDERED: POTASSIUM CHLORIDE ER 20 MEQ TAB.ER PO SCH (07:00)
[2021-02-05 07:02] LABS: Glucose,Whole Blood 105 mg/dL (75-99)
[2021-02-05] MEDS: INSULIN ASPART (NovoLOG) 100 UNIT/ML VIAL SQ SCH ×4 (07:04→20:46)
[2021-02-05] MEDS: ATORVASTATIN 40 MG TAB PO SCH (08:15)
[2021-02-05] MEDS: ASPIRIN 325 MG TAB PO SCH (08:15)
[2021-02-05] MEDS: METOPROLOL TARTRATE 50 MG TAB PO SCH ×2 (08:15→22:07)
[2021-02-05] MEDS: CLOPIDOGREL 75 MG TAB PO SCH (08:15)
[2021-02-05] MEDS: AMIODARONE 200 MG TAB PO SCH ×3 (08:15→22:07)
--- NOTE | 2021-02-05 08:58 | XR ---
EXAMINATION TYPE: XR chest 1V portable DATE OF EXAM: 02/05/2021 COMPARISON: 02/04/2021 HISTORY: Chest tube TECHNIQUE: Single frontal view of the chest is obtained. FINDINGS: Right-sided chest tube is seen and there is no evidence of pneumothorax. Postoperative clovis nges are seen. There is a changes suggestive COPD with cardiomegaly and bilateral infiltrate and smal l left effusion. Mild central venous congestion not excluded. Suggestion of a left- sided chest tube. IMPRESSION: 1. Bilateral airspace disease with mild progression on the right. No sizable pneumothorax. Correlate for pneumonia versus pulmonary edema. 2. Small bilateral effusions.
[2021-02-05] MEDS: IPRATROPIUM-ALBUTEROL 3 ML NEB INHALATION SCH ×4 (09:15→20:36)
[2021-02-05] MEDS: ACETYLCYSTEINE 800 MG/4 ML VIAL INHALATION SCH ×3 (09:15→20:35)
--- NOTE | 2021-02-05 09:21 | P.PN ---
Subjective Progress Note Date: 02/05/21 Principal diagnosis: Triple-vessel coronary artery disease, moderate left ventricular dysfunction with EF 45%. Past medical history significant for hypertension, hyperlipidemia, paroxysmal atrial fibrillation on Eliquis for anticoagulation, ischemic cardiomyopathy, former chronic tobacco dependence with preoperative FEV1 88% of predicted, remote alcohol abuse. POD #3 triple vessel coronary artery bypass grafting using the left internal mammary artery to the left anterior descending coronary artery, left radial artery from the aorta to the posterior descending coronary artery coming from the circumflex artery, a reverse greater saphenous vein graft from the aorta to the obtuse marginal coronary artery, bilateral pulmonary vein isolation using bipolar radiofrequency clamp from [employer]ri[employer], exclusion of the left atrial appendage using a 35 mm AtriClip, endoscopic harvesting of the left radial artery, endoscopic harvesting of the left greater saphenous vein, intraoperative graft flow measurements using the [employer] system, intraoperative transesophageal echocardiogram and epi-aortic scanning. Postoperative acute blood loss anemia and thrombocytopenia, expected given cardiopulmonary bypass pump and hemodilution. Right-sided pneumothorax, related to surgery, status post day #1 right Thoravent chest tube placement. The patient is seen in follow-up today 02/05/2021 at his bedside in the intensive care unit. Currently he is sitting up to the bedside chair, is awake, alert and oriented 3 and is in no acute apparent distress. Denies any complaints of pain or shortness of breath at this time. Bedside telemetry is showing atrial fibrillation/atrial flutter heart rate 97 BPM. He continues on metoprolol 50 mg by mouth twice a day, amiodarone 200 mg by mouth twice a day and Cardizem 30 mg by mouth every 6 hours. He remains hemodynamically stable and is currently on no inotropic pressor support. Oxygen saturation are 96% on 2 L nasal cannula. Achieving 1000 mL on his incentive spirometry. Left pleural chest tube remains in place to low continuous wall suction -20 cm H2O. No air leak is present. Draining thin serosanguineous drainage with 90 mL output in the last 8 hours and 210 mL output in the last 24 hours. Right Thoravent was placed yesterday by Dr. Allen for a right-sided pneumothorax. No air leak is present. Thoravent remains to low continuous wall suction -20 cm H2O. No drainage noted. Chest x-ray this morning shows no sizable pneumothorax. Laboratory results show a WBC count 10.1, hemoglobin 10.6, hematocrit 30.6, platelets 107, sodium 132, potassium 3.7, BUN 27, and creatinine 0.95. The patient remained afebrile in the last 24 hours. Sputum culture pending. Objective - Vital Signs Vital signs: Vital Signs Temp 98.8 F 02/05/21 04:00 Pulse 99 02/05/21 07:00 Resp 32 H 02/05/21 07:00 BP 104/72 02/05/21 07:00 Pulse Ox 97 02/05/21 07:00 Intake & Output 02/04/21 02/05/21 02/05/21 18:59 06:59 18:59 Intake Total 273 873 23 Output Total 1485 540 Balance -1212 333 23 Weight 90.1 kg Intake: IV 273 633 23 300 mmhg pressure saline 33 33 3 Albumin Human 5% 250 ml 500 In Empty Bag 1 bag @ 250 mls/hr IVPB Q1HR PRN Rx#: [id number] Sodium Chloride 0.9% 1, 240 100 20 000 ml @ 20 mls/hr IV . Q24H [facility] Rx#:[id number] Oral 240 Output: Chest Tube Drainage 330 190 Chest Tube Mediastinal 60 Lt pleural 270 190 Thora-Vent Right Upper 0 Urine 1155 350 Other: Voiding Method Indwelling Catheter Urinal # Voids 0 0 ABP, PAP, CO, CI - Last Documented Arterial Blood Pressure 90/37 Pulmonary Artery Pressure 29/8 Cardiac Output 7.5 Cardiac Index 3.6 - Exam CONSTITUTIONAL: Appears comfortable, cooperative, no acute distress sitting up to the bedside chair. RESPIRATORY: Lungs sounds diminished bilaterally. Respirations are symmetrical and nonlabored. Currently on room 2 L nasal cannula with oxygen saturation 96%. Able to achieve 1000 mL on incentive spirometry. Strong cough. CARDIOVASCULAR: S1, S2 present, negative for S3, gallop or murmur. Controlled rate and irregular rhythm, atrial fibrillation/atrial flutter per bedside telemetry heart rate 96 BPM. Sternum stable. Palpable peripheral pulses bilaterally. No edema present. No calf pain or tenderness noted. Heart hugger in place with patient demonstrating appropriate use. Antiembolism stockings, SCDs present. GASTROINTESTINAL: Abdomen soft, nontender, nondistended. Active bowel sounds present 4 quadrants. Tolerating diet. Positive flatus. GENITOURINARY: Continues to void, 250 mL output of urine in the last 8 hours. INTEGUMENTARY: Skin is warm and dry with evidence of good perfusion. Midline sternal incision clean, dry and well approximated and covered with dry intact dressing. Left lower extremity EVH site well approximated without redness or drainage. Left arm radial artery harvest site clean, dry and intact. NEUROLOGIC: Cranial nerves II through XII intact. MUSKULOSKELETAL: Able to move all extremities, strength equal bilaterally, gait normal. PSYCHIATRIC: Alert and oriented to person place and time, appropriate affect, intact judgment and insight. INVASIVE LINES AND TUBES: Left pleural chest tube present and connected to low continuous wall suction, no air leaks present. Left pleural chest tube with 90 mL serosanguineous drainage in the last 8 hours, 210 mL in the last 24 hours. Right chest Thoravent tube with connected to Pleur-evac and to low continuous wall suction -20 cm H2O. No air leak is present. No drainage in the last 24 hours. Atrial epicardial pacemaker wires in place and grounded. Right radial arterial line in place and functioning. - Labs CBC & Chem 7: 02/05/21 04:35 02/05/21 04:35 Labs: Abnormal Lab Results - Last 24 Hours (Table) 02/04/21 02/04/21 02/04/21 Range/Units 12:00 16:57 21:42 RBC (4.30-5.90) m/uL Hgb (13.0-17.5) gm/dL Hct (39.0-53.0) % Plt Count (150-450) k/uL Neutrophils # (1.3-7.7) k/uL Sodium (137-145) mmol/L BUN (9-20) mg/dL POC Glucose (mg/dL) 102 H 127 H 146 H (75-99) mg/dL Calcium (8.4-10.2) mg/dL Total Protein (6.3-8.2) g/dL Albumin (3.5-5.0) g/dL 02/05/21 02/05/21 02/05/21 Range/Units 04:35 04:35 07:00 RBC 3.40 L (4.30-5.90) m/uL Hgb 10.6 L (13.0-17.5) gm/dL Hct 30.6 L (39.0-53.0) % Plt Count 107 L (150-450) k/uL Neutrophils # 8.5 H (1.3-7.7) k/uL Sodium 132 L (137-145) mmol/L BUN 27 H (9-20) mg/dL POC Glucose (mg/dL) 105 H (75-99) mg/dL Calcium 8.3 L (8.4-10.2) mg/dL Total Protein 4.8 L (6.3-8.2) g/dL Albumin 2.7 L (3.5-5.0) g/dL Assessment and Plan Assessment: 1. Triple-vessel coronary artery disease, status post three-vessel CABG 2. Moderate left ventricular dysfunction with EF 45% and history of ischemic cardiomyopathy 3. Hypertension 4. Hyperlipidemia, cholesterol 198, LDL 143 5. Paroxysmal atrial fibrillation on Eliquis for anticoagulationon an outpatient, currently sinus rhythm, status post pulmonary vein isolation and exclusion of the left atrial appendage 6. Former chronic tobacco dependence with preoperative FEV1 88% of predicted 7. Remote history of alcohol abuse 8. Family history of coronary artery disease 9. Postoperative acute blood loss anemia and thrombocytopenia, expected 10. Right sided pneumothorax, status post placement of right Thoravent Plan: 1. Continue aspirin, statin, Plavix, beta una. Will increase beta una as tolerated, metoprolol tartrate currently at 50 mg by mouth twice a day. 2. Continue Cardizem for radial artery spasm prophylaxis. Please do not discontinue Cardizem without discussing with cardiac surgery. 3. Continue oral amiodarone for prevention of atrial fibrillation. Increase amiodarone to 400 mg by mouth twice a day. Will restart oral anticoagulation tomorrow 02/06/2021. 4. Wean O2 as tolerated. Encourage incentive spirometry use 10 times every hour while awake. Bronchodilators per pulmonology. 5. Will monitor daily labs and chest x-rays. Electrolyte replacement per protocol. Potassium replaced per protocol this morning. 6. GI/DVT prophylaxis. 7. Insulin management per internal medicine service. Patient is not diabetic, preoperative hemoglobin A1c 5%. 8. Pain control with current medication regimen. 9. Discontinue right radial arterial line. 10. Keep left pleural chest tube for another 24 hours to low continuous wall s uction -20 cm H2O. Clamp right chest Thoravent. 11. Continue to record strict accurate intake and output. Daily weights with standup scale. 12. Discussed the importance of risk modification with the patient including discussion on continued smoking cessation. 13. Send sputum for Gram stain and culture. Uncollected at this time. 14. Remove atrial epicardial pacemaker wires. Bed rest for 1 hour post pacemaker wire removal. 15. Continue Mucomyst inhalation 200 mg 3 times a day. 16. More recommendations to follow based on patient's clinical course.
--- NOTE | 2021-02-05 09:57 | P.PN ---
Subjective Progress Note Date: 02/05/21 Principal diagnosis: Symptomatic coronary artery disease, status post three-vessel coronary artery bypass grafting This is a 60-year-old white male patient of JOSE JUAN Morillo, who had been complaining of exertional dyspnea and chest pain, patient underwent cardiac catheterization on 01/28/[address] Allen showed a 50% distal left main disease, critical stenosis in the ostium of the LAD in the mid left circumflex. LVEDP was in the order of 12-16 mmHg. Transthoracic echocardiogram showed EF between 45-50%. Past medical history is significant for paroxysmal A. fib on E liquis, family history of coronary artery disease, ischemic cardiomyopathy, previous history of tobacco and alcohol dependence. Preop FEV1 was 2.91 over 88% of predicted. We are seeing the patient in the postoperative period after three-vessel coronary artery bypass grafting today on 02/02/[address] Allen. Patient had CHANEL to the LAD, SVG to the circumflex, and right radial graft to the PDA, Left atrial appendage exclusion. Patient is currently intubated on mechanical ventilator with the assist control mode of ventilation with a rate of 12, tidal M is 520, FiO2 of 100% and PEEP of 5, postoperative blood gases are pending. Patient is currently on 0.9 normal saline at a rate of 50 ML per hour, nitroglycerin at 5 mics per kilo per minute, and improving and is at 25 mics per kilo per minute. Insulin drip is off. Patient is in sinus mechanism with a first-degree AV block, PA pressures 20 overnight, CVP is 4, cardiac output is 4.6 and cardiac index is 2.2. Right, left knee still chest tubes in place with small amount of sanguinous output, postoperative blood work is pending. Hemodynamically patient is stable, not requiring any vasopressor support. On 02/03/2021 patient seen in follow-up in the intensive care unit, he was successfully weaned and extubated last night, tolerating extubation well, his chronic hepatitis liters of oxygen pulse ox is 90-93%, he is having low-grade fevers with a temp of 99.9F, hemodynamically patient is stable. No vasoactive drips, he is just some 0.9 normal saline at 50 ML per hour, insulin is on hold, nitroglycerin drip glycerin has been discontinued. Sitting up in a chair, breathing comfortably, is working on his incentive spirometer, lung sounds are positive for a few scattered rhonchi, diminished breath sounds, today's chest x- ray has been reviewed showing new small to moderate right-sided pneumothorax estimated to be near 30% associated with right basilar atelectasis. There is background of chronic emphysematous changes and cardiomegaly with worsening left basilar atelectasis. Patient is sinus mechanism, and the rate is controlled. Today's blood work has been reviewed showing white blood cell count of 9.7, hemoglobin of 11.6, sodium of 137, potassium is 4.2, chloride is 109, BUN 14 creatinine 0.75, LFTs are within normal limits. he had [address], left pleural and 2 mediastinal chest tubes, there has been 210 mL of servicing this output out of the mediastinal chest tubes, and left pleural handout 190 of serosanguineous thin output in the last 24 hours, Guzman catheter is in place patient is producing 30-65 ML of urine output. On 02/04/2021 patient seen in follow-up in the intensive care unit, today is postoperative day #2, status post three-vessel coronary artery bypass grafting. His oriented 3, she is resting in bed, FiO2 currently at 10 L per high flow nasal cannula his pulse ox is 92-94%, today's chest x-ray shows moderate to borderline large right-sided pneumothorax estimated approaching 50%, increased in size from one day earlier, and there is worsening right basilar atelectasis or lobar collapse. Thora-Vent was placed in his right upper chest, and follow- up chest x-ray showed chest tube placement with near complete resolution of the right-sided pneumothorax. Hemodynamically patient has been stable, he is just some 0.9 normal saline at a rate of 10 ML per hour, his [place] catheter has been discontinued, he is in sinus mechanism, he still has one mediastinal and left pleural chest tube in place., Left pleural chest tube put out 180 mL over last 24 hours, and mediastinal chest tube put out 40 ML of thin serosanguineous output. Patient also got a dose of Lasix yesterday 2, he is in -1.8 L over the last 24 hours. His labs have been reviewed, showing white blood cell count of 10.6, hemoglobin of 11.1, sodium is 134, MRSA electrolytes and renal profile were unremarkable, LFTs were within normal limits. He sounds congested on today's exam, with diffuse rhonchi, his incentive spirometer effort is a 750. He has a congested loose cough, but not bringing up much sputum. No fever or chills, his incisions are clean dry and intact. Is tolerating oral intake. On 02/05/2021 patient seen in follow-up in the intensive care unit, today's postoperative day #3, status post three-vessel coronary artery bypass grafting, patient is awake and alert, oriented 3, he is sitting up in the recliner, looks comfortable, breathing comfortably, he is currently on 4 L of oxygen and his pulse ox is 97%, early this morning patient had a run of atrial flutter, he received amiodarone IV boluses, and he is currently on oral amiodarone per CT surgery, he is back in sinus mechanism, sinus tach with a rate of 101 BPM with a first-degree AV block. He is on 0.9 normal saline at a rate of 20 ML per hour, no other drips. Afebrile. Today's chest x-ray shows bilateral airspace disease with mild progression on the right, no sizable pneumothorax, right-sided thoravent in place, small bilateral effusions. Today's labs have been reviewed, white blood cell count of 10.1, hemoglobin of 10.6, serum sodium was 132, Afua S are within normal limits, BUN is 27, creatinine 0.95, LFTs are within normal limits. Mediastinal and left pleural chest tubes remain in place, there is no evidence of sizable pneumothorax on the chest x-ray, and there is no air leak. There is 60 ML of thin serosanguineous output out of the mediastinal chest tube in the last 24 hours, and for 60 out of the left pleural. Patient is working on incentive spirometer, he is achieving 1 L on the today, he is been ambulating, tolerating activity well. He has had no other acute events overnight, overall he is doing well, tolerating oral intake Objective - Vital Signs Vital signs: Vital Signs Temp 98.8 F 02/05/21 04:00 Pulse 99 02/05/21 07:00 Resp 32 H 02/05/21 07:00 BP 104/72 02/05/21 07:00 Pulse Ox 97 02/05/21 07:00 Intake & Output 02/04/21 02/05/21 02/05/21 18:59 06:59 18:59 Intake Total 273 873 23 Output Total 1485 540 Balance -1212 333 23 Weight 90.1 kg Intake: IV 273 633 23 300 mmhg pressure saline 33 33 3 Albumin Human 5% 250 ml 500 In Empty Bag 1 bag @ 250 mls/hr IVPB Q1HR PRN Rx#: [id number] Sodium Chloride 0.9% 1, 240 100 20 000 ml @ 20 mls/hr IV . Q24H OSEAS Rx#:[id number] Oral 240 Output: Chest Tube Drainage 330 190 Chest Tube Mediastinal 60 Lt pleural 270 190 Thora-Vent Right Upper 0 Urine 1155 350 Other: Voiding Method Indwelling Catheter Urinal # Voids 0 0 ABP, PAP, CO, CI - Last Documented Arterial Blood Pressure 90/37 Pulmonary Artery Pressure 29/8 Cardiac Output 7.5 Cardiac Index 3.6 - Exam GENERAL EXAM: Awake and alert, very pleasant 70-year-old white male, 4 L of o xygen with a pulse ox of 97% comfortable in no apparent distress. HEAD: Normocephalic/atraumatic. EYES: Normal reaction of pupils, equal size. Conjunctiva pink, sclera white. NOSE: Clear with pink turbinates. THROAT: No erythema or exudates. NECK: No masses, no JVD, no thyroid enlargement, no adenopathy. CHEST: No chest wall deformity. Symmetrical expansion. Midsternal incision clean dry and intact,left and 1 mediastinal chest tubes in place connected to Pleur-evac's, to wall suction, with small to moderate amount of sanguinous output, occasional air leak in the mediastinal chest tube Pleur-evac. Right upper chest Thoravent in place LUNGS: Equal air entry with diffuse rhonchi CVS: Regular rate and rhythm, normal S1 and S2, no gallops, no murmurs, no rubs ABDOMEN: Soft, nontender. No hepatosplenomegaly, normal bowel sounds, no guarding or rigidity. EXTREMITIES: No clubbing, no edema, no cyanosis, 2+ pulses and upper and lower extremities. Left radial graft site is Sanjeev wrap, left lower extremity is Sanjeev wrapped, SCDs on both lower extremities MUSCULOSKELETAL: Muscle strength and tone normal. SPINE: No scoliosis or deformity SKIN: No rashes CENTRAL NERVOUS SYSTEM: Awake and alert, 70-year-old white male with no focal deficits, tone is normal in all 4 extremities. - Labs CBC & Chem 7: 02/05/21 04:35 02/05/21 04:35 Labs: Abnormal Lab Results - Last 24 Hours (Table) 02/04/21 02/04/21 02/04/21 Range/Units 12:00 16:57 21:42 RBC (4.30-5.90) m/uL Hgb (13.0-17.5) gm/dL Hct (39.0-53.0) % Plt Count (150-450) k/uL Neutrophils # (1.3-7.7) k/uL Sodium (137-145) mmol/L BUN (9-20) mg/dL POC Glucose (mg/dL) 102 H 127 H 146 H (75-99) mg/dL Calcium (8.4-10.2) mg/dL Total Protein (6.3-8.2) g/dL Albumin (3.5-5.0) g/dL 02/05/21 02/05/21 02/05/21 Range/Units 04:35 04:35 07:00 RBC 3.40 L (4.30-5.90) m/uL Hgb 10.6 L (13.0-17.5) gm/dL Hct 30.6 L (39.0-53.0) % Plt Count 107 L (150-450) k/uL Neutrophils # 8.5 H (1.3-7.7) k/uL Sodium 132 L (137-145) mmol/L BUN 27 H (9-20) mg/dL POC Glucose (mg/dL) 105 H (75-99) mg/dL Calcium 8.3 L (8.4-10.2) mg/dL Total Protein 4.8 L (6.3-8.2) g/dL Albumin 2.7 L (3.5-5.0) g/dL Assessment and Plan Plan: Assessment: #1. Coronary artery disease, symptomatic, status post three-vessel coronary artery bypass grafting with CHANEL to the LAD, SVG to the circumflex, and left radial artery graft to the PDA, and left atrial appendage exclusion, postoperative day #3 #2. Postoperative ventilator management, patient extubated on postop day #0 on 02/02/2021 #3. Right-sided pneumothorax estimated to be approaching 50% on today's chest x-ray, status post Thoravent placement #4. Postoperative atrial flutter, status post amiodarone loading, currently back in sinus rhythm #5. History of ischemic cardiomyopathy #6. Paroxysmal atrial fibrillation on Eliquis which is currently on hold for surgery #7. History of coronary artery disease #8. Family history of coronary artery disease #9. Former smoker Plan: Continue weaning FiO2 to keep O2 sats at or above 90% Encourage deep breathing and coughing Continue nebulized treatments 4 times a day and when necessary Incentive spirometry use Maintain pain control Increase ambulation Today's labs have been reviewed Today's chest x-ray has been reviewed showing no sizable pneumothorax, likely increased atelectatic changes on the right GI and DVT prophylaxis per CT surgery We'll continue monitoring the intensive care unit I performed a history & physical examination of the patient and discussed their management with my nurse practitioner, Kim Stern. I reviewed the nurse practitioner's note and agree with the documented findings and plan of care. Lung sounds are positive for diminished breath sounds. The findings and the impression was discussed with the patient. I attest to the documentation by the nurse practitioner. Time with Patient: Greater than 30
[2021-02-05] MEDS ORDERED: AMIODARONE 200 MG TAB PO STA (10:20)
[2021-02-05] MEDS: SODIUM CHLORIDE 0.9% 1,000 ML IV SCH (12:29)
--- NOTE | 2021-02-05 14:12 | CDI ---
Documentation Clarification Form Date: 02/05/2021 01:45:43 PM From: Sonya Chun RN CCDS Admit Date: 02/02/2021 05:28:00 AM Patient Name: Alo Johnson Visit Number: [id number] Discharge Date: ATTENTION: The Clinical Documentation Specialists (CDI) and [facility] Coding Staff appreciate your assistance in clarifying documentation. Please respond to the clarification below the line at the bottom and electronically sign. The CDI & [facility] Coding staff will review the response and follow-up if needed. Please note: Queries are made part of the Legal Health Record. If you have any questions, please contact the author of this message via ITS. Dr. Jay Allen, Right-sided pneumothorax related to surgery is documented 02/05 Cardio Thoracic Surgery and patient had Triple-vessel coronary artery bypass grafting 02/02. Additional clarification is requested regarding the relationship, if any, that exists between the diagnosis and the procedure. Patients Admitting Diagnosis: Triple vessel coronary artery disease. Post-Operative Diagnosis: Triple vessel coronary artery disease. Procedure performed: Triple vessel coronary artery bypass grafting using the left internal mammary artery to the left anterior descending artery, the left radial artery from the aorta to the posterior descending artery coming from the circumflex artery, reverse saphenous vein graft from the aorta to the obtuse marginal artery. History/Risk Factors: 70-year-old male presents to [facility] for an elective Three vessel CABG. Medical History: Atrial fibrillation, CAD, Cardiomyopathy, Tobacco and Alcohol dependence. Clinical Indicators: CXR 02/03: New small to moderate right sided pneumothorax estimated near 30%. CXR 02/04: Moderate to borderline large right sided pneumothorax estimated approaching 50%, increased in size from one day earlier. 02/04 Cardio Thoracic progress note: Dr Allen will place a right chest Thora vent due to the right sided pneumothorax. Treatment: 02/04 Right chest Thora vent due to right sided pneumothorax to wall suction. 02/05 Thora-vent clamped. What relationship, if any, exists between the diagnosis of pneumothorax and the procedure: [ ] pneumothorax is a complication of surgical procedure [ ] pneumothorax is an expected outcome of the surgical procedure [ ] Other please specify ____ [ x ] Unable to determine (Template Last Revised: December 2020) RAHUL
--- NOTE | 2021-02-05 14:26 | CDI ---
Documentation Clarification Form Date: 02/05/2021 02:13:17 PM From: Sonya Chun Admit Date: 02/02/2021 05:28:00 AM Patient Name: Alo Johnson Visit Number: [id number] Discharge Date: ATTENTION: The Clinical Documentation Specialists (CDI) and [facility] Coding Staff appreciate your assistance in clarifying documentation. Please respond to the clarification below the line at the bottom and electronically sign. The CDI & [facility] Coding staff will review the response and follow-up if needed. Please note: Queries are made part of the Legal Health Record. If you have any questions, please contact the author of this message via ITS. Dr. Jay Allen, Postoperative atrial flutter is documented 02/05 Inspector Technician progress note and patient had Triple-vessel coronary artery bypass grafting 02/02. Additional clarification is requested regarding the relationship, if any, that exists between the diagnosis and the procedure. Patients Admitting Diagnosis: Triple vessel coronary artery disease. Post-Operative Diagnosis: Triple vessel coronary artery disease. Procedure performed: Triple vessel coronary artery bypass grafting using the left internal mammary artery to the left anterior descending artery, the left radial artery from the aorta to the posterior descending artery coming from the circumflex artery, reverse saphenous vein graft from the aorta to the obtuse marginal artery. History/Risk Factors: 70-year-old male presents to [facility] for an elective Three vessel CABG. Medical History: Atrial fibrillation, CAD, Cardiomyopathy, Tobacco and Alcohol dependence. Clinical Indicators: Cardio Thoracic Sx: Bedside telemetry is showing atrial fibrillation / atrial flutter heart rate 97bpm. Inspector Technician 02/05: early this morning patient had a run of atrial flutter. Inspector Technician 02/05. Postoperative atrial flutter, Status post amiodarone loading, currently back in sinus rhythm. Treatment: 02/03 Amiodarone 400mg PO x1; 02/03 Amiodarone 200mg PO BID; 200mg PO x1. What relationship, if any, exists between the diagnosis of Atrial Flutter and the procedure: [ ] Atrial Flutter is a complication of surgical procedure [ x ] Atrial Flutter is an expected outcome of the surgical procedure [ ] Other please specify ____ [ ] Unable to determine (Template Last Revised: December 2020) MTDD
--- NOTE | 2021-02-05 16:03 | P.PN ---
Subjective Progress Note Date: 02/05/21 This is a 70-year-old gentleman status post bypass surgery with CHANEL to the LAD, vein graft. Circumflex and is free radial graft to PDA. Today's x-ray showed evidence of pneumothorax on the right side which increased in size compared to yesterday. Patient had chest tube placed with full expansion of the lung. Patient seemed to be feeling okay. And, denies any significant chest pain. Patient has been nothing by mouth because of the procedure. Still maintaining sinus rhythm. No arrhythmias noted. Patient still has chest tubes. We'll continue current management. We'll follow. 02/05/2021: This is the third postoperative day. Patient is status post right coronary bypass surgery. Patient is still in intensive care unit, alert and oriented. Patient went back into atrial flutter fibrillation and was initiated on IV amiodarone. He is already on anticoagulation. Recent is on by mouth ami odarone now. Left-sided chest tube is still present. Mediastinal chest tube is also present. Right-sided thoravent is still present. Blood pressure about 110/70. Heart rate is in the 70s and 80s. It appears to be regular. Lungs show diminished air exchange. We'll continue his current medical therapy including by mouth amiodarone. We'll follow Objective - Vital Signs Vital signs: Vital Signs Temp 98.4 F 02/05/21 08:00 Pulse 88 02/05/21 15:16 Resp 32 H 02/05/21 11:00 BP 114/67 02/05/21 11:00 Pulse Ox 95 02/05/21 11:00 Intake & Output 02/04/21 02/05/21 02/05/21 18:59 06:59 18:59 Intake Total 273 873 115 Output Total 1485 540 Balance -1212 333 115 Weight 90.1 kg Intake: IV 273 633 115 300 mmhg pressure saline 33 33 15 Albumin Human 5% 250 ml 500 In Empty Bag 1 bag @ 250 mls/hr IVPB Q1HR PRN Rx#: [id number] Sodium Chloride 0.9% 1, 240 100 100 000 ml @ 20 mls/hr IV . Q24H OSEAS Rx#:[id number] Oral 240 Output: Chest Tube Drainage 330 190 Chest Tube Mediastinal 60 Lt pleural 270 190 Thora-Vent Right Upper 0 Urine 1155 350 Other: Voiding Method Indwelling Catheter Urinal Urinal # Voids 0 0 ABP, PAP, CO, CI - Last Documented Arterial Blood Pressure 107/56 Pulmonary Artery Pressure 29/8 Cardiac Output 7.5 Cardiac Index 3.6 - Exam GENERAL EXAM: Patient is alert and oriented and doesn't appear to be in any acute distress HEENT: Normocephalic. Normal reaction of pupils, equal size, normal range of extraocular motion. No erythema or exudates in the throat. NECK: No masses, no nuchal rigidity. CHEST: No chest wall deformity. LUNGS: Mild diffuse rhonchi and wheezing HEART: S1 and S2 normal ABDOMEN: No hepatosplenomegaly, normal bowel sounds, no guarding or rigidity. SKIN: No rashes CENTRAL NERVOUS SYSTEM: No focal deficits. EXTREMITIES: No cyanosis, clubbing or edema. - Labs CBC & Chem 7: 02/05/21 04:35 02/05/21 04:35 Labs: Abnormal Lab Results - Last 24 Hours (Table) 02/04/21 02/04/21 02/05/21 Range/Units 16:57 21:42 04:35 RBC 3.40 L (4.30-5.90) m/uL Hgb 10.6 L (13.0-17.5) gm/dL Hct 30.6 L (39.0-53.0) % Plt Count 107 L (150-450) k/uL Neutrophils # 8.5 H (1.3-7.7) k/uL Sodium (137-145) mmol/L BUN (9-20) mg/dL POC Glucose (mg/dL) 127 H 146 H (75-99) mg/dL Calcium (8.4-10.2) mg/dL Total Protein (6.3-8.2) g/dL Albumin (3.5-5.0) g/dL 02/05/21 02/05/21 Range/Units 04:35 07:00 RBC (4.30-5.90) m/uL Hgb (13.0-17.5) gm/dL Hct (39.0-53.0) % Plt Count (150-450) k/uL Neutrophils # (1.3-7.7) k/uL Sodium 132 L (137-145) mmol/L BUN 27 H (9-20) mg/dL POC Glucose (mg/dL) 105 H (75-99) mg/dL Calcium 8.3 L (8.4-10.2) mg/dL Total Protein 4.8 L (6.3-8.2) g/dL Albumin 2.7 L (3.5-5.0) g/dL Microbiology - Last 24 Hours (Table) 02/05/21 11:15 Sputum Culture - Preliminary Sputum Assessment and Plan (1) CAD (coronary artery disease) Current Visit: Yes Status: Acute Code(s): I25.10 - ATHSCL HEART DISEASE OF [place] CORONARY ARTERY W/O ANG PCTRS SNOMED Code(s): 98732738 (2) CAD (coronary artery disease) of artery bypass graft Current Visit: Yes Status: Acute Code(s): I25.810 - ATHEROSCLEROSIS OF CABG W/O ANGINA PECTORIS SNOMED Code(s): 730019311 (3) Cardiomyopathy Current Visit: Yes Status: Acute Code(s): I42.9 - CARDIOMYOPATHY, UNSPECIFIED SNOMED Code(s): 03719511 (4) Pneumothorax Current Visit: Yes Status: Acute Code(s): J93.9 - PNEUMOTHORAX, UNSPECIFIED SNOMED Code(s): 72222952 Plan: Patient went into atrial fibrillation. Currently on by mouth amiodarone. Heart rate is controlled. Patient is on anti-cognition therapy. Chest tubes and mediastinal structures still present. Continue with incentive spirometry. Increase activity as tolerated. We'll follow
--- NOTE | 2021-02-05 16:50 | P.PN ---
Progress Note - Text Progress Note Date: 02/05/21 - Chief Complaint CABG Consultation: This is a 70-year-old patient, who had been complaining of shortness of breath with exertion and chest pain and underwent cardiac catheterization on 01/28/2021. Patient is found to have left main disease 50% distal critical stenosis in the ostium of the LAD and mid left circumflex. 2-D echocardiogram showed EF of 45-50%. Patient's eliquis for a prior history of atrial fibrillation. Patient underwent coronary bypass on January [address] Mcdonald. Also developed a pneumothorax. Today: Oral intake fair. Making good urine. Breathing better. Left pleural chest tube in place. Awake. Sinus rhythm Review of systems: Was done for constitutional, cardiovascular, GI, pulmonary. relevant finding as above Active Medications Acetaminophen (Acetaminophen Tab 500 Mg Tab) 1,000 mg PO Q6HR PRN PRN Reason: Fever and/ or Pain Acetylcysteine (Acetylcysteine 800 Mg/4 Ml Vial) 200 mg INHALATION RT-TID [facility] Last Admin: 02/05/21 11:00 Dose: Not Given Documented by: Albuterol/Ipratropium (Ipratropium-Albuterol 3 Ml Neb) 3 ml INHALATION RT-Q2H PRN PRN Reason: Shortness Of Breath Or Wheezing Last Admin: 02/03/21 23:05 Dose: 3 ml Documented by: Albuterol/Ipratropium (Ipratropium-Albuterol 3 Ml Neb) 3 ml INHALATION RT-QID [facility] Last Admin: 02/05/21 14:59 Dose: 3 ml Documented by: Amiodarone HCl (Amiodarone 200 Mg Tab) 400 mg PO BID [facility] Last Admin: 02/05/21 10:19 Dose: Not Given Documented by: Aspirin (Aspirin 325 Mg Tab) 325 mg PO DAILY [facility] Last Admin: 02/05/21 08:15 Dose: 325 mg Documented by: Atorvastatin Calcium (Atorvastatin 40 Mg Tab) 40 mg PO DAILY [facility] Last Admin: 02/05/21 08:15 Dose: 40 mg Documented by: Benzocaine/Menthol (Benzocaine/Menthol Lozeng 1 Each Lozenge) 1 each MUCOUS MEM Q2H PRN PRN Reason: Sore Throat Bisacodyl (Bisacodyl 10 Mg Supp) 10 mg RECTAL DAILY PRN PRN Reason: Constipation Last Admin: 02/05/21 12:50 Dose: 10 mg Documented by: Clopidogrel Bisulfate (Clopidogrel 75 Mg Tab) 75 mg PO DAILY [facility] Last Admin: 02/05/21 08:15 Dose: 75 mg Documented by: Diltiazem HCl (Diltiazem Oral 30 Mg Tab) 30 mg PO Q6HR [facility] Last Admin: 02/05/21 12:47 Dose: 30 mg Documented by: Heparin Sodium (Porcine) (Heparin Sodium,Porcine/Pf 5,000 Unit/0.5 Ml Syringe) 5,000 unit SQ Q8HR [facility] Last Admin: 02/05/21 08:15 Dose: 5,000 unit Documented by: Insulin Human Regular 100 unit (/ Sodium Chloride) 101 mls @ 0 mls/hr IV .Q0M [facility]; Protocol Last Titration: 02/03/21 20:58 Dose: 0 unit/hr, 0 mls/hr Documented by: Sodium Chloride (Saline 0.9%) 1,000 mls @ 20 mls/hr IV .Q24H [facility] Last Admin: 02/05/21 12:29 Dose: Not Given Documented by: Insulin Aspart (Insulin Aspart (Novolog) 100 Unit/Ml Vial) 0 unit SQ ACHS [facility]; Protocol Last Admin: 02/05/21 12:50 Dose: Not Given Documented by: Magnesium Hydroxide (Magnesium Hydroxide 2,400 Mg/10 Ml Cup) 2,400 mg PO BID PRN PRN Reason: Constipation Metoclopramide HCl (Metoclopramide 5 Mg/Ml 2 Ml Vial) 10 mg IVP Q4H PRN PRN Reason: Nausea And Vomiting Last Admin: 02/04/21 10:17 Dose: 10 mg Documented by: Metoprolol Tartrate (Metoprolol Tartrate 50 Mg Tab) 50 mg PO BID [facility] Last Admin: 02/05/21 08:15 Dose: 50 mg Documented by: Miscellaneous Information (Magnesium Replacement Protocol 1 Each Misc) 1 each MISCELLANE DAILY PRN; Protocol PRN Reason: Per Protocol Miscellaneous Information (Phosphorus Replacement Protoco 1 Each Misc) 1 each MISCELLANE DAILY PRN; Protocol PRN Reason: Per Protocol Miscellaneous Information (Potassium Replacement Protocol 1 Each Misc) 1 each MISCELLANE DAILY PRN; Protocol PRN Reason: Per Protocol Ondansetron HCl (Ondansetron 4 Mg/2 Ml Vial) 4 mg IVP Q6HR PRN PRN Reason: Nausea And Vomiting Pantoprazole Sodium (Pantoprazole 40 Mg Tablet) 40 mg PO AC-BRKFST [facility] Last Admin: 02/05/21 06:42 Dose: 40 mg Documented by: Senna/Docusate Sodium (Sennosides-Docusate Sodium 1 Each Tab) 2 each PO HS [facility] Last Admin: 02/04/21 21:15 Dose: 2 each Documented by: Sodium Chloride (Sodium Chloride 0.9% Flush 10 Ml Syringe) 10 ml IV BID [facility] Last Admin: 02/05/21 08:15 Dose: 10 ml Documented by: Past medical history to include: Atrial fibrillation, coronary artery disease, osteoarthritis, Social history: Patient smoked on and off for close to 45 years no alcohol since August 2020. Physical examination: VITAL SIGNS: 98.4, 104, 26, 95/59, 81% on 4 L GENERAL: Reclining in bed, some shortness of breath EYES: Pupils equal. Conjunctiva normal. HEENT: External appearance of nose and ears normal, oral cavity grossly normal. NECK: JVD not raised; masses not palpable. HEART: First and second heart sounds are normal; no edema. LUNGS: Respiratory rate increased; decreased breath sounds or wheezing. Left chest tube in place ABDOMEN: Soft, nontender, liver spleen not palpable, no masses palpable. PSYCH: Alert and oriented x3; mood and affect normal. MUSCULAR skeletal: Evidence of OA INVESTIGATIONS, reviewed in the clinical context: February 05: WBC 10.1 hemoglobin 10.6 platelets 107 potassium 3.7 creatinine 0.95 WBC 9.7 hemoglobin 11.6 platelets 115 potassium 4.2 creatinine 0.75 albumin 2.8 Chest x-ray film personally reviewed by [id number] pneumothorax about 30% reported. Emphysema changes. Previous testing: Labs from: 01/29/2021 Hemoglobin 14.6 platelets 169 TSH 1.5 LDL 143 Assessment and plan: -Coronary bypass, 3 vessel done on February 02 -Coronary artery disease. on aspirin, Lipitor, Plavix, Lopressor -Essential hypertension. Continue Lopressor -Acute postprocedure blood loss anemia as expected from surgery. Follow H&H -Acute COPD exacerbation, in a previous smoker. DuoNeb. inhaled steroids -Hyperlipidemia. On Lipitor -Primary osteoarthritis. Use Tylenol when necessary -Hypoalbuminemia. Acute phase reactant -Right-sided pneumothorax/. Chest tube per cardiothoracic surgery -Thrombocytopenia, acute. Dilutional. Follow labs Discussed with the patient. Continue current medication treatment plan. Thank you Dr. Allen
[2021-02-05 16:57] LABS: Glucose,Whole Blood 108 mg/dL (75-99)
[2021-02-05 20:38] LABS: Glucose,Whole Blood 122 mg/dL (75-99)
[2021-02-05] MEDS: ACETAMINOPHEN TAB 500 MG TAB PO PRN (22:06)
[2021-02-05] MEDS: SENNOSIDES-DOCUSATE SODIUM 1 EACH TAB PO SCH (22:07)
[2021-02-06] MEDS: HEPARIN SODIUM,PORCINE/PF 5,000 UNIT/0.5 ML SYRINGE SQ SCH ×3 (01:16→23:07)
[2021-02-06] MEDS: DILTIAZEM ORAL 30 MG TAB PO SCH ×5 (01:16→23:07)
[2021-02-06 04:26] LABS: Basophils % (A) 0 %; Eosinophils # (A) 0.2 k/uL (0-0.7); Eosinophils % (A) 2 %; HCT 32.9 % (39.0-53.0); HGB 10.8 gm/dL (13.0-17.5); Lymphocytes # (A) 1.1 k/uL (1.0-4.8); Lymphocytes % (A) 14 %; MCH 30.2 pg (25.0-35.0); MCHC 32.9 g/dL (31.0-37.0); MCV 91.8 fL (80.0-100.0); Monocytes # (A) 0.5 k/uL (0-1.0); Monocytes % (A) 6 %; Neutrophils # (A) 6.2 k/uL (1.3-7.7); Neutrophils % (A) 77 %; Platelet Count 152 k/uL (150-450); RBC 3.58 m/uL (4.30-5.90); RDW 13.7 % (11.5-15.5); WBC 8.1 k/uL (3.8-10.6)
[2021-02-06 04:53] LABS: ALT 8 U/L (4-49); AST 24 U/L (17-59); African American GFR (CKD) >90 (>60 ml/min/1.73 sqM); Albumin 2.7 g/dL (3.5-5.0); Alkaline Phosphatase 60 U/L (38-126); Anion Gap 7 mmol/L; Blood Urea Nitrogen 25 mg/dL (9-20); Calcium 8.2 mg/dL (8.4-10.2); Carbon Dioxide 22 mmol/L (22-30); Chloride 106 mmol/L (98-107); Glucose 98 mg/dL (74-99); Non-African American GFR(CKD) 89 (>60 ml/min/1.73 sqM); Sodium 135 mmol/L (137-145); Total Bilirubin 0.8 mg/dL (0.2-1.3); Total Protein 4.8 g/dL (6.3-8.2)
[2021-02-06] MEDS: ACETAMINOPHEN TAB 500 MG TAB PO PRN ×2 (05:31→16:24)
[2021-02-06] MEDS: PANTOPRAZOLE 40 MG TABLET PO SCH (05:53)
--- NOTE | 2021-02-06 06:52 | XR ---
EXAMINATION TYPE: XR chest 1V portable DATE OF EXAM: 02/06/2021 COMPARISON: 02/05/2021 HISTORY: Post CABG TECHNIQUE: Single frontal view of the chest is obtained. FINDINGS: There are persistent scattered interstitial and partially consolidative opacities in both lungs right greater than left which may be slightly improved in the interval. There are postsurgical changes consistent with CABG surgery. There is no pleural effusion or pneumothorax. There is a left-sided chest tube unchanged in position. Heart size is normal. IMPRESSION: Bilateral lung infiltrates right greater than left slightly improved in the interval. No change in the position of the left chest tube. No pneumothorax.
[2021-02-06 07:24] LABS: Glucose,Whole Blood 107 mg/dL (75-99)
[2021-02-06] MEDS: INSULIN ASPART (NovoLOG) 100 UNIT/ML VIAL SQ SCH ×4 (07:32→20:42)
--- NOTE | 2021-02-06 08:09 | P.PN ---
Subjective Progress Note Date: 02/06/21 Principal diagnosis: Triple-vessel coronary artery disease, moderate left ventricular dysfunction with EF 45%. Past medical history significant for hypertension, hyperlipidemia, paroxysmal atrial fibrillation on Eliquis for anticoagulation, ischemic cardiomyopathy, former chronic tobacco dependence with preoperative FEV1 88% of predicted, remote alcohol abuse. POD #4 triple vessel coronary artery bypass grafting using the left internal mammary artery to the left anterior descending coronary artery, left radial artery from the aorta to the posterior descending coronary artery coming from the circumflex artery, a reverse greater saphenous vein graft from the aorta to the obtuse marginal coronary artery, bilateral pulmonary vein isolation using bipolar radiofrequency clamp from [employer]ri[employer], exclusion of the left atrial appendage using a 35 mm AtriClip, endoscopic harvesting of the left radial artery, endoscopic harvesting of the left greater saphenous vein, intraoperative graft flow measurements using the [employer] system, intraoperative transesophageal echocardiogram and epi-aortic scanning. Postoperative acute blood loss anemia and thrombocytopenia, expected given cardiopulmonary bypass pump and hemodilution. Right-sided pneumothorax, related to surgery, status post day #1 right Thoravent chest tube placement. The patient is seen in follow-up today 02/06/2021 at his bedside in the intensive care unit. Currently he is sitting up to the bedside chair, is awake, alert and oriented 3 and is in no acute distress. He denies any complaints of pain or shortness of breath at this time. He does report that he did have some pain to his chest tube insertion site last night which was relieved by some acetaminophen. Oxygen saturations are 92% on room air and he is achieving 1000 mL on his incentive spirometry with encouragement. Left pleural chest tube rem ains in place to low continuous wall suction -20 cm H2O. No air leak is present. Draining thin serosanguineous drainage with 30 mL output in the last 8 hours and 170 mL output in the last 24 hours. His right chest Thoravent was discontinued yesterday without incident. A repeat chest x-ray was completed this morning and they report shows bilateral lung infiltrates right greater than left which is slightly improved and no sizable pneumothorax seen. Atrial epicardial pacemaker wires were removed yesterday without incident. He remains hemodynamically stable and is currently on no inotropic or pressor support. Sputum culture Gram stain shows rare polymorphonuclear leukocytes, few epithelia l cells, many gram-positive cocci, many gram-positive bacilli, moderate gram- negative bacilli and few budding yeast. He remains afebrile the last 24 hours. Lab results this morning show a WBC count of 8.1, hemoglobin 10.8, hematocrit 32.9, platelets 152, BUN 25 and creatinine 0.84. He reports he ambulated 3 times in the intensive care unit all way yesterday with minimal assistance from nursing and physical/occupational therapy staff and he tolerated it well. Objective - Vital Signs Vital signs: Vital Signs Temp 97.6 F 02/06/21 04:00 Pulse 92 02/06/21 07:00 Resp 27 H 02/06/21 07:00 BP 93/74 02/06/21 07:00 Pulse Ox 90 L 02/06/21 07:00 Intake & Output 02/05/21 02/06/21 02/06/21 18:59 06:59 18:59 Intake Total 267 260 Output Total 1160 0 Balance 267 -900 0 Weight 89.7 kg Intake: IV 267 20 300 mmhg pressure saline 27 Sodium Chloride 0.9% 1, 240 20 000 ml @ 20 mls/hr IV . Q24H [facility] Rx#:[id number] Oral 240 Output: Chest Tube Drainage 160 Lt pleural 160 Urine 1000 0 Other: Voiding Method Urinal Urinal # Voids 0 # Bowel Movements 1 ABP, PAP, CO, CI - Last Documented Arterial Blood Pressure 100/52 Pulmonary Artery Pressure 29/8 Cardiac Output 7.5 Cardiac Index 3.6 - Exam CONSTITUTIONAL: Appears comfortable, cooperative, no acute distress sitting up to the bedside chair. RESPIRATORY: Lungs sounds diminished bilaterally, with few scattered rhonchi throughout. Respirations are symmetrical and nonlabored. Currently on room air with oxygen saturation 92%. Able to achieve 1000 mL on incentive spirometry. Strong cough. CARDIOVASCULAR: S1, S2 present, negative for S3, gallop or murmur. Regular rate and regular rhythm, normal sinus rhythm with occasional PACs per bedside telemetry heart rate 96 BPM. Sternum stable. Palpable peripheral pulses bilaterally. Trace edema to his bilateral lower extremities. No calf pain or tenderness noted. Heart hugger in place with patient demonstrating appropriate use. Antiembolism stockings, SCDs present. GASTROINTESTINAL: Abdomen soft, nontender, nondistended. Active bowel sounds present 4 quadrants. Tolerating diet. Bowel movement yesterday 02/05/2021. GENITOURINARY: Continues to void, 300 mL output of urine in the last 8 hours. INTEGUMENTARY: Skin is warm and dry with evidence of good perfusion. Midline sternal incision clean, dry and well approximated and covered with dry intact dressing. Left lower extremity EVH site well approximated without redness or drainage. Left arm radial artery harvest site clean, dry and intact. NEUROLOGIC: Cranial nerves II through XII intact. No focal deficits. MUSKULOSKELETAL: Able to move all extremities, strength equal bilaterally, gait normal. PSYCHIATRIC: Alert and oriented to person place and time, appropriate affect, intact judgment and insight. INVASIVE LINES AND TUBES: Left pleural chest tube present and connected to low continuous wall suction, no air leaks present. Left pleural chest tube with 30 mL serosanguineous drainage in the last 8 hours, 170 mL in the last 24 hours. - Labs CBC & Chem 7: 02/06/21 04:13 02/06/21 04:13 Labs: Abnormal Lab Results - Last 24 Hours (Table) 02/05/21 02/05/21 02/06/21 Range/Units 16:55 20:37 04:13 RBC 3.58 L (4.30-5.90) m/uL Hgb 10.8 L (13.0-17.5) gm/dL Hct 32.9 L (39.0-53.0) % Sodium (137-145) mmol/L BUN (9-20) mg/dL POC Glucose (mg/dL) 108 H 122 H (75-99) mg/dL Calcium (8.4-10.2) mg/dL Total Protein (6.3-8.2) g/dL Albumin (3.5-5.0) g/dL 02/06/21 02/06/21 Range/Units 04:13 07:23 RBC (4.30-5.90) m/uL Hgb (13.0-17.5) gm/dL Hct (39.0-53.0) % Sodium 135 L (137-145) mmol/L BUN 25 H (9-20) mg/dL POC Glucose (mg/dL) 107 H (75-99) mg/dL Calcium 8.2 L (8.4-10.2) mg/dL Total Protein 4.8 L (6.3-8.2) g/dL Albumin 2.7 L (3.5-5.0) g/dL Microbiology - Last 24 Hours (Table) 02/05/21 11:15 Gram Stain - Preliminary Sputum Sputum Culture - Preliminary Assessment and Plan Assessment: 1. Triple-vessel coronary artery disease, status post three-vessel CABG 2. Moderate left ventricular dysfunction with EF 45% and history of ischemic cardiomyopathy 3. Hypertension 4. Hyperlipidemia, cholesterol 198, LDL 143 5. Paroxysmal atrial fibrillation on Eliquis for anticoagulationon an outpatient, currently sinus rhythm, status post pulmonary vein isolation and exclusion of the left atrial appendage 6. Former chronic tobacco dependence with preoperative FEV1 88% of predicted 7. Remote history of alcohol abuse 8. Family history of coronary artery disease 9. Postoperative acute blood loss anemia and thrombocytopenia, expected 10. Right sided pneumothorax, status post placement of right Thoravent, resolved Plan: 1. Continue aspirin, statin, Plavix, beta una. Will increase beta una as tolerated, metoprolol tartrate currently at 50 mg by mouth twice a day. 2. Continue Cardizem for radial artery spasm prophylaxis. Please do not discontinue Cardizem without discussing with cardiac surgery. 3. Continue oral amiodarone for prevention of atrial fibrillation. 4. Encourage incentive spirometry use 10 times every hour while awake. Bronchodilators per pulmonology. 5. Will monitor daily labs and chest x-rays. Electrolyte replacement per protocol. Potassium replaced per protocol this morning. 6. GI/DVT prophylaxis. 7. Insulin management per internal medicine service. Patient is not diabetic, preoperative hemoglobin A1c 5%. 8. Pain control with current medication regimen. Randolph has been discontinued. 9. We will remove his left pleural chest tube today. 10. We will change his aspirin to 81 mg by mouth daily starting tomorrow 02/07/2021. Discontinue his Plavix after today's dose. Discontinue the heparin subcu after today's 2 doses. We will start him back on his home dose of Eliquis 5 mg by mouth twice a day starting tomorrow 02/07/2021. 11. Continue to record strict accurate intake and output. Daily weights with standup scale. 12. Discussed the importance of risk modification with the patient including discussion on continued smoking cessation. 13. Continue to follow sputum culture results. He remains afebrile and his WBC count is trending down. 14. We will place transfer orders to the cardiac stepdown unit today. 15. Discharge planning is in place, anticipate discharge home with home health care in the next 48 hours. 16. More recommendations to follow based on patient's clinical course. Time with Patient: Greater than 30
[2021-02-06] MEDS ORDERED: CLOPIDOGREL 75 MG TAB PO ONE (09:00)
[2021-02-06] MEDS ORDERED: ASPIRIN 325 MG TAB PO ONE (09:00)
[2021-02-06] MEDS: AMIODARONE 200 MG TAB PO SCH ×2 (09:34→19:41)
[2021-02-06] MEDS: METOPROLOL TARTRATE 50 MG TAB PO SCH ×2 (09:34→19:41)
[2021-02-06] MEDS: ATORVASTATIN 40 MG TAB PO SCH (09:35)
[2021-02-06] MEDS: ACETYLCYSTEINE 800 MG/4 ML VIAL INHALATION SCH ×3 (10:10→20:55)
[2021-02-06] MEDS: IPRATROPIUM-ALBUTEROL 3 ML NEB INHALATION SCH ×4 (10:11→20:55)
--- NOTE | 2021-02-06 10:12 | P.PN ---
Subjective Progress Note Date: 02/06/21 Principal diagnosis: Symptomatic coronary artery disease, status post three-vessel coronary artery bypass grafting This is a 60-year-old white male patient of JOSE JUAN Morillo, who had been complaining of exertional dyspnea and chest pain, patient underwent cardiac catheterization on 01/28/[address] Allen showed a 50% distal left main disease, critical stenosis in the ostium of the LAD in the mid left circumflex. LVEDP was in the order of 12-16 mmHg. Transthoracic echocardiogram showed EF between 45-50%. Past medical history is significant for paroxysmal A. fib on E liquis, family history of coronary artery disease, ischemic cardiomyopathy, previous history of tobacco and alcohol dependence. Preop FEV1 was 2.91 over 88% of predicted. We are seeing the patient in the postoperative period after three-vessel coronary artery bypass grafting today on 02/02/[address] Allen. Patient had CHANEL to the LAD, SVG to the circumflex, and right radial graft to the PDA, Left atrial appendage exclusion. Patient is currently intubated on mechanical ventilator with the assist control mode of ventilation with a rate of 12, tidal M is 520, FiO2 of 100% and PEEP of 5, postoperative blood gases are pending. Patient is currently on 0.9 normal saline at a rate of 50 ML per hour, nitroglycerin at 5 mics per kilo per minute, and improving and is at 25 mics per kilo per minute. Insulin drip is off. Patient is in sinus mechanism with a first-degree AV block, PA pressures 20 overnight, CVP is 4, cardiac output is 4.6 and cardiac index is 2.2. Right, left knee still chest tubes in place with small amount of sanguinous output, postoperative blood work is pending. Hemodynamically patient is stable, not requiring any vasopressor support. On 02/03/2021 patient seen in follow-up in the intensive care unit, he was successfully weaned and extubated last night, tolerating extubation well, his chronic hepatitis liters of oxygen pulse ox is 90-93%, he is having low-grade fevers with a temp of 99.9F, hemodynamically patient is stable. No vasoactive drips, he is just some 0.9 normal saline at 50 ML per hour, insulin is on hold, nitroglycerin drip glycerin has been discontinued. Sitting up in a chair, breathing comfortably, is working on his incentive spirometer, lung sounds are positive for a few scattered rhonchi, diminished breath sounds, today's chest x- ray has been reviewed showing new small to moderate right-sided pneumothorax estimated to be near 30% associated with right basilar atelectasis. There is background of chronic emphysematous changes and cardiomegaly with worsening left basilar atelectasis. Patient is sinus mechanism, and the rate is controlled. Today's blood work has been reviewed showing white blood cell count of 9.7, hemoglobin of 11.6, sodium of 137, potassium is 4.2, chloride is 109, BUN 14 creatinine 0.75, LFTs are within normal limits. he had [address], left pleural and 2 mediastinal chest tubes, there has been 210 mL of servicing this output out of the mediastinal chest tubes, and left pleural handout 190 of serosanguineous thin output in the last 24 hours, Guzman catheter is in place patient is producing 30-65 ML of urine output. On 02/04/2021 patient seen in follow-up in the intensive care unit, today is postoperative day #2, status post three-vessel coronary artery bypass grafting. His oriented 3, she is resting in bed, FiO2 currently at 10 L per high flow nasal cannula his pulse ox is 92-94%, today's chest x-ray shows moderate to borderline large right-sided pneumothorax estimated approaching 50%, increased in size from one day earlier, and there is worsening right basilar atelectasis or lobar collapse. Thora-Vent was placed in his right upper chest, and follow- up chest x-ray showed chest tube placement with near complete resolution of the right-sided pneumothorax. Hemodynamically patient has been stable, he is just some 0.9 normal saline at a rate of 10 ML per hour, his [place] catheter has been discontinued, he is in sinus mechanism, he still has one mediastinal and left pleural chest tube in place., Left pleural chest tube put out 180 mL over last 24 hours, and mediastinal chest tube put out 40 ML of thin serosanguineous output. Patient also got a dose of Lasix yesterday 2, he is in -1.8 L over the last 24 hours. His labs have been reviewed, showing white blood cell count of 10.6, hemoglobin of 11.1, sodium is 134, MRSA electrolytes and renal profile were unremarkable, LFTs were within normal limits. He sounds congested on today's exam, with diffuse rhonchi, his incentive spirometer effort is a 750. He has a congested loose cough, but not bringing up much sputum. No fever or chills, his incisions are clean dry and intact. Is tolerating oral intake. On 02/05/2021 patient seen in follow-up in the intensive care unit, today's postoperative day #3, status post three-vessel coronary artery bypass grafting, patient is awake and alert, oriented 3, he is sitting up in the recliner, looks comfortable, breathing comfortably, he is currently on 4 L of oxygen and his pulse ox is 97%, early this morning patient had a run of atrial flutter, he received amiodarone IV boluses, and he is currently on oral amiodarone per CT surgery, he is back in sinus mechanism, sinus tach with a rate of 101 BPM with a first-degree AV block. He is on 0.9 normal saline at a rate of 20 ML per hour, no other drips. Afebrile. Today's chest x-ray shows bilateral airspace disease with mild progression on the right, no sizable pneumothorax, right-sided thoravent in place, small bilateral effusions. Today's labs have been reviewed, white blood cell count of 10.1, hemoglobin of 10.6, serum sodium was 132, Afua S are within normal limits, BUN is 27, creatinine 0.95, LFTs are within normal limits. Mediastinal and left pleural chest tubes remain in place, there is no evidence of sizable pneumothorax on the chest x-ray, and there is no air leak. There is 60 ML of thin serosanguineous output out of the mediastinal chest tube in the last 24 hours, and for 60 out of the left pleural. Patient is working on incentive spirometer, he is achieving 1 L on the today, he is been ambulating, tolerating activity well. He has had no other acute events overnight, overall he is doing well, tolerating oral intake On 02/06/2021 patient seen in follow-up in the intensive care unit, he is awake and alert, oriented 3, he is currently off oxygen, his room air pulse ox is 93%, he is afebrile, hemodynamically he is stable, sounds less congested on today's exam, some minimal crackles at bilateral bases, no complaints of worsening dyspnea, cough or congestion, all of his chest tubes have been removed, and his IVs have been hep-locked, he is achieving 2000 on his incentive spirometer today, today's chest x-ray shows bilateral lung infiltrates right greater than left slightly improved in the interval. No evidence of pneumothorax. Today's labs have been reviewed, white blood cell count is 8.1, hemoglobin is 10.8, sodium is 135, the rest of the electrolytes were unremarkable, B1 is 25, creatinine 0.84, LFTs were within normal limits. Patient has had no further episodes of arrhythmias, or A. fib, remains on oral amiodarone at 400 mg twice daily, Eliquis will be started tomorrow per CT surgery, in addition he is also on oral Cardizem 30 mg every 6 hours, he is on subcutaneous heparin 5000 units every 8 hours for DVT prophylaxis. He has had no acute events overnight, tolerating ambulation, tolerating oral intake, no nausea vomiting or diarrhea. Objective - Vital Signs Vital signs: Vital Signs Temp 98.2 F 02/06/21 08:00 Pulse 87 02/06/21 09:00 Resp 18 02/06/21 09:00 BP 99/66 02/06/21 09:00 Pulse Ox 93 L 02/06/21 09:00 Intake & Output 02/05/21 02/06/21 02/06/21 18:59 06:59 18:59 Intake Total 267 260 100 Output Total 1160 0 Balance 267 -900 100 Weight 89.7 kg Intake: IV 267 20 300 mmhg pressure saline 27 Sodium Chloride 0.9% 1, 240 20 000 ml @ 20 mls/hr IV . Q24H [facility] Rx#:[id number] Oral 240 100 Output: Chest Tube Drainage 160 Lt pleural 160 Urine 1000 0 Other: Voiding Method Urinal Urinal # Voids 0 # Bowel Movements 1 ABP, PAP, CO, CI - Last Documented Arterial Blood Pressure 100/52 Pulmonary Artery Pressure 29/8 Cardiac Output 7.5 Cardiac Index 3.6 - Exam GENERAL EXAM: Awake and alert, very pleasant 70-year-old white male, room air pulse ox is 93%, comfortable in no apparent distress. HEAD: Normocephalic/atraumatic. EYES: Normal reaction of pupils, equal size. Conjunctiva pink, sclera white. NOSE: Clear with pink turbinates. THROAT: No erythema or exudates. NECK: No masses, no JVD, no thyroid enlargement, no adenopathy. CHEST: No chest wall deformity. Symmetrical expansion. Midsternal incision clean dry and intact, 2 mediastinal and left pleural chest tubes have been removed LUNGS: Equal air entry with diffuse rhonchi CVS: Regular rate and rhythm, normal S1 and S2, no gallops, no murmurs, no rubs ABDOMEN: Soft, nontender. No hepatosplenomegaly, normal bowel sounds, no guarding or rigidity. EXTREMITIES: No clubbing, no edema, no cyanosis, 2+ pulses and upper and lower extremities. Left radial graft site is Sanjeev wrap, left lower extremity is Sanjeev wrapped, SCDs on both lower extremities MUSCULOSKELETAL: Muscle strength and tone normal. SPINE: No scoliosis or deformity SKIN: No rashes CENTRAL NERVOUS SYSTEM: Awake and alert, 70-year-old white male with no focal deficits, tone is normal in all 4 extremities. - Labs CBC & Chem 7: 02/06/21 04:13 02/06/21 04:13 Labs: Abnormal Lab Results - Last 24 Hours (Table) 02/05/21 02/05/21 02/06/21 Range/Units 16:55 20:37 04:13 RBC 3.58 L (4.30-5.90) m/uL Hgb 10.8 L (13.0-17.5) gm/dL Hct 32.9 L (39.0-53.0) % Sodium (137-145) mmol/L BUN (9-20) mg/dL POC Glucose (mg/dL) 108 H 122 H (75-99) mg/dL Calcium (8.4-10.2) mg/dL Total Protein (6.3-8.2) g/dL Albumin (3.5-5.0) g/dL 02/06/21 02/06/21 Range/Units 04:13 07:23 RBC (4.30-5.90) m/uL Hgb (13.0-17.5) gm/dL Hct (39.0-53.0) % Sodium 135 L (137-145) mmol/L BUN 25 H (9-20) mg/dL POC Glucose (mg/dL) 107 H (75-99) mg/dL Calcium 8.2 L (8.4-10.2) mg/dL Total Protein 4.8 L (6.3-8.2) g/dL Albumin 2.7 L (3.5-5.0) g/dL Microbiology - Last 24 Hours (Table) 02/05/21 11:15 Gram Stain - Preliminary Sputum Sputum Culture - Preliminary Assessment and Plan Plan: Assessment: #1. Coronary artery disease, symptomatic, status post three-vessel coronary artery bypass grafting with CHANEL to the LAD, SVG to the circumflex, and left radial artery graft to the PDA, and left atrial appendage exclusion, postoperative day #4 #2. Postoperative ventilator management, patient extubated on postop day #0 on 02/02/2021 #3. Right-sided pneumothorax estimated to be approaching 50% on today's chest x-ray, status post Thoravent placement, and subsequently Thoravent was removed #4. Postoperative atrial flutter, status post amiodarone loading, currently back in sinus rhythm #5. History of ischemic cardiomyopathy #6. Paroxysmal atrial fibrillation on Eliquis which is currently on hold for s bryanna, patient is currently in sinus rhythm and Eliquis will be restarted tomorrow on 02/07/2021 #7. History of coronary artery disease #8. Family history of coronary artery disease #9. Former smoker Plan: Continue encouraging deep breathing and coughing Patient is on room air, doing well All chest tubes including thoravent are out No arrhythmias overnight currently in sinus mechanism Anticoagulation per CT surgery, Eliquis will be restarted tomorrow Transfer orders are in for transfer to a stepdown unit today I performed a history & physical examination of the patient and discussed their management with my nurse practitioner, Kim Stern. I reviewed the nurse practitioner's note and agree with the documented findings and plan of care. Lung sounds are positive for diminished breath sounds. The findings and the impression was discussed with the patient. I attest to the documentation by the nurse practitioner. Time with Patient: Less than 30
[2021-02-06 11:14] LABS: Glucose,Whole Blood 82 mg/dL (75-99)
--- NOTE | 2021-02-06 15:26 | P.PN ---
Subjective Progress Note Date: 02/06/21 This is a 70-year-old gentleman status post bypass surgery with CHANEL to the LAD, vein graft. Circumflex and is free radial graft to PDA. Today's x-ray showed evidence of pneumothorax on the right side which increased in size compared to yesterday. Patient had chest tube placed with full expansion of the lung. Patient seemed to be feeling okay. And, denies any significant chest pain. Patient has been nothing by mouth because of the procedure. Still maintaining sinus rhythm. No arrhythmias noted. Patient still has chest tubes. We'll continue current management. We'll follow. 02/05/2021: This is the third postoperative day. Patient is status post right coronary bypass surgery. Patient is still in intensive care unit, alert and oriented. Patient went back into atrial flutter fibrillation and was initiated on IV amiodarone. He is already on anticoagulation. Recent is on by mouth ami odarone now. Left-sided chest tube is still present. Mediastinal chest tube is also present. Right-sided thoravent is still present. Blood pressure about 110/70. Heart rate is in the 70s and 80s. It appears to be regular. Lungs show diminished air exchange. We'll continue his current medical therapy including by mouth amiodarone. We'll follow 02/06/2021: This patient appears to be much more stable. His back in sinus rhythm. All the chest tubes are removed. Is not having any pain. Apparently has low-grade fever. Otherwise hemodynamically stable. Chest x-ray showed small to moderate right-sided pneumothorax. His hemoglobin is 9.7. So overall patient critical status is much more stable. He is being transferred to telemetry unit. Patient continue current medical therapy including incentive spirometry Objective - Vital Signs Vital signs: Vital Signs Temp 98.3 F 02/06/21 12:55 Pulse 85 02/06/21 12:55 Resp 20 02/06/21 12:55 BP 105/54 02/06/21 12:55 Pulse Ox 96 02/06/21 12:55 Intake & Output 02/05/21 02/06/21 02/06/21 18:59 06:59 18:59 Intake Total 267 260 100 Output Total 1160 350 Balance 267 -900 -250 Weight 89.7 kg Intake: IV 267 20 300 mmhg pressure saline 27 Sodium Chloride 0.9% 1, 240 20 000 ml @ 20 mls/hr IV . Q24H [facility] Rx#:[id number] Oral 240 100 Output: Chest Tube Drainage 160 Lt pleural 160 Urine 1000 350 Other: Voiding Method Urinal Urinal Urinal # Voids 0 1 # Bowel Movements 1 ABP, PAP, CO, CI - Last Documented Arterial Blood Pressure 100/52 Pulmonary Artery Pressure 29/8 Cardiac Output 7.5 Cardiac Index 3.6 - Exam GENERAL EXAM: Patient is alert and oriented and doesn't appear to be in any acute distress HEENT: Normocephalic. Normal reaction of pupils, equal size, normal range of extraocular motion. No erythema or exudates in the throat. NECK: No masses, no nuchal rigidity. CHEST: No chest wall deformity. LUNGS: Mild diffuse rhonchi and wheezing HEART: S1 and S2 normal ABDOMEN: No hepatosplenomegaly, normal bowel sounds, no guarding or rigidity. SKIN: No rashes CENTRAL NERVOUS SYSTEM: No focal deficits. EXTREMITIES: No cyanosis, clubbing or edema. - Labs CBC & Chem 7: 02/06/21 04:13 02/06/21 04:13 Labs: Abnormal Lab Results - Last 24 Hours (Table) 02/05/21 02/05/21 02/06/21 Range/Units 16:55 20:37 04:13 RBC 3.58 L (4.30-5.90) m/uL Hgb 10.8 L (13.0-17.5) gm/dL Hct 32.9 L (39.0-53.0) % Sodium (137-145) mmol/L BUN (9-20) mg/dL POC Glucose (mg/dL) 108 H 122 H (75-99) mg/dL Calcium (8.4-10.2) mg/dL Total Protein (6.3-8.2) g/dL Albumin (3.5-5.0) g/dL 02/06/21 02/06/21 Range/Units 04:13 07:23 RBC (4.30-5.90) m/uL Hgb (13.0-17.5) gm/dL Hct (39.0-53.0) % Sodium 135 L (137-145) mmol/L BUN 25 H (9-20) mg/dL POC Glucose (mg/dL) 107 H (75-99) mg/dL Calcium 8.2 L (8.4-10.2) mg/dL Total Protein 4.8 L (6.3-8.2) g/dL Albumin 2.7 L (3.5-5.0) g/dL Microbiology - Last 24 Hours (Table) 02/05/21 11:15 Gram Stain - Preliminary Sputum Sputum Culture - Preliminary Assessment and Plan (1) CAD (coronary artery disease) Current Visit: Yes Status: Acute Code(s): I25.10 - ATHSCL HEART DISEASE OF [place] CORONARY ARTERY W/O ANG PCTRS SNOMED Code(s): 72966421 (2) CAD (coronary artery disease) of artery bypass graft Current Visit: Yes Status: Acute Code(s): I25.810 - ATHEROSCLEROSIS OF CABG W/O ANGINA PECTORIS SNOMED Code(s): 709051311 (3) Cardiomyopathy Current Visit: Yes Status: Acute Code(s): I42.9 - CARDIOMYOPATHY, UNSPECIFIED SNOMED Code(s): 99332603 (4) Pneumothorax Current Visit: Yes Status: Acute Code(s): J93.9 - PNEUMOTHORAX, UNSPECIFIED SNOMED Code(s): 48083902 Plan: Stable. Maintaining sinus rhythm. Chest x-ray shows small to moderate pneumothorax. Patient is being transferred to telemetry unit. Increase activity as tolerated
--- NOTE | 2021-02-06 15:47 | P.PN ---
Progress Note - Text Progress Note Date: 02/06/21 - Chief Complaint CABG Consultation: This is a 70-year-old patient, who had been complaining of shortness of breath with exertion and chest pain and underwent cardiac catheterization on 01/28/2021. Patient is found to have left main disease 50% distal critical stenosis in the ostium of the LAD and mid left circumflex. 2-D echocardiogram showed EF of 45-50%. Patient's eliquis for a prior history of atrial fibrillation. Patient underwent coronary bypass on January [address] Mcdonald. Also developed a pneumothorax. Had paroxysmal atrial fibrillation. Back in sinus rhythm. Today: Patient will go to the medical floor. Oral intake is good. Some shortness of breath and wheezing. Otherwise feeling better. Remaining chest tube came out this morning. Review of systems: Was done for constitutional, cardiovascular, GI, pulmonary. relevant finding as above Active Medications Acetaminophen (Acetaminophen Tab 500 Mg Tab) 1,000 mg PO Q6HR PRN PRN Reason: Fever and/ or Pain Last Admin: 02/06/21 05:31 Dose: 1,000 mg Documented by: Acetylcysteine (Acetylcysteine 800 Mg/4 Ml Vial) 200 mg INHALATION RT-TID [facility] Last Admin: 02/06/21 10:16 Dose: Not Given Documented by: Albuterol/Ipratropium (Ipratropium-Albuterol 3 Ml Neb) 3 ml INHALATION RT-Q2H PRN PRN Reason: Shortness Of Breath Or Wheezing Last Admin: 02/03/21 23:05 Dose: 3 ml Documented by: Albuterol/Ipratropium (Ipratropium-Albuterol 3 Ml Neb) 3 ml INHALATION RT-QID [facility] Last Admin: 02/06/21 10:16 Dose: Not Given Documented by: Amiodarone HCl (Amiodarone 200 Mg Tab) 400 mg PO BID [facility] Last Admin: 02/06/21 09:34 Dose: 400 mg Documented by: Apixaban (Apixaban 5 Mg Tab) 5 mg PO BID [facility] Aspirin (Aspirin 81 Mg) 81 mg PO DAILY [facility] Atorvastatin Calcium (Atorvastatin 40 Mg Tab) 40 mg PO DAILY [facility] Last Admin: 02/06/21 09:35 Dose: 40 mg Documented by: Bisacodyl (Bisacodyl 10 Mg Supp) 10 mg RECTAL DAILY PRN PRN Reason: Constipation Last Admin: 02/05/21 12:50 Dose: 10 mg Documented by: Diltiazem HCl (Diltiazem Oral 30 Mg Tab) 30 mg PO Q6HR [facility] Last Admin: 02/06/21 12:11 Dose: 30 mg Documented by: Heparin Sodium (Porcine) (Heparin Sodium,Porcine/Pf 5,000 Unit/0.5 Ml Syringe) 5,000 unit SQ Q8HR [facility] Stop: 02/07/21 00:01 Insulin Aspart (Insulin Aspart (Novolog) 100 Unit/Ml Vial) 0 unit SQ [facility]; Protocol Last Admin: 02/06/21 12:09 Dose: Not Given Documented by: Magnesium Hydroxide (Magnesium Hydroxide 2,400 Mg/10 Ml Cup) 2,400 mg PO BID PRN PRN Reason: Constipation Metoclopramide HCl (Metoclopramide 5 Mg/Ml 2 Ml Vial) 10 mg IVP Q4H PRN PRN Reason: Nausea And Vomiting Last Admin: 02/04/21 10:17 Dose: 10 mg Documented by: Metoprolol Tartrate (Metoprolol Tartrate 50 Mg Tab) 50 mg PO BID [facility] Last Admin: 02/06/21 09:34 Dose: 50 mg Documented by: Miscellaneous Information (Magnesium Replacement Protocol 1 Each Misc) 1 each MISCELLANE DAILY PRN; Protocol PRN Reason: Per Protocol Miscellaneous Information (Phosphorus Replacement Protoco 1 Each Misc) 1 each MISCELLANE DAILY PRN; Protocol PRN Reason: Per Protocol Miscellaneous Information (Potassium Replacement Protocol 1 Each Misc) 1 each MISCELLANE DAILY PRN; Protocol PRN Reason: Per Protocol Ondansetron HCl (Ondansetron 4 Mg/2 Ml Vial) 4 mg IVP Q6HR PRN PRN Reason: Nausea And Vomiting Pantoprazole Sodium (Pantoprazole 40 Mg Tablet) 40 mg PO AC-BRKFST [facility] Last Admin: 02/06/21 05:53 Dose: 40 mg Documented by: Senna/Docusate Sodium (Sennosides-Docusate Sodium 1 Each Tab) 2 each PO HS [facility] Last Admin: 02/05/21 22:07 Dose: Not Given Documented by: Sodium Chloride (Sodium Chloride 0.9% Flush 10 Ml Syringe) 10 ml IV BID [facility] Last Admin: 02/06/21 09:35 Dose: Not Given Documented by: Past medical history to include: Atrial fibrillation, coronary artery disease, osteoarthritis, Social history: Patient smoked on and off for close to 45 years no alcohol since August 2020. Physical examination: VITAL SIGNS: 98.3, 85, 20, 105 x 54, 96% room air GENERAL: Sitting up in a chair awake EYES: Pupils equal. Conjunctiva normal. NECK: JVD not raised; masses not palpable. HEART: First and second heart sounds are normal; no edema. LUNGS: Respiratory rate increased; decreased breath sounds , mild wheezing. ABDOMEN: Soft, nontender, liver spleen not palpable, no masses palpable. PSYCH: Alert and oriented x3; mood and affect normal. MUSCULAR skeletal: Evidence of OA INVESTIGATIONS, reviewed in the clinical context: February 06: WBC 8.1 hemoglobin 10.8 potassium 4 creatinine 0.84 February 05: WBC 10.1 hemoglobin 10.6 platelets 107 potassium 3.7 creatinine 0.95 WBC 9.7 hemoglobin 11.6 platelets 115 potassium 4.2 creatinine 0.75 albumin 2.8 Chest x-ray film personally reviewed by [id number] pneumothorax about 30% reported. Emphysema changes. Previous testing: Labs from: 01/29/2021 Hemoglobin 14.6 platelets 169 TSH 1.5 LDL 143 Assessment and plan: -Coronary bypass, 3 vessel done on February 02 -Coronary artery disease. on aspirin, Lipitor, Plavix, Lopressor -Essential hypertension. Continue Lopressor -Acute postprocedure blood loss anemia as expected from surgery. Follow H&H -Acute COPD exacerbation, in a previous smoker. DuoNeb. inhaled steroids -Hyperlipidemia. On Lipitor -Primary osteoarthritis. Use Tylenol when necessary -Hypoalbuminemia. Acute phase reactant -Paroxysmal atrial fibrillation. Received amiodarone. IV followed by by mouth. On eliquis. Cardizem. Lopressor -Right-sided pneumothorax/. Chest tube per cardiothoracic surgery-removed. Improved -Thrombocytopenia, acute. Dilutional. Follow labs Discussed with the patient. Continue current treatment plan Thank you Dr. Allen
[2021-02-06 16:55] LABS: Glucose,Whole Blood 107 mg/dL (75-99)
[2021-02-06] MEDS: SENNOSIDES-DOCUSATE SODIUM 1 EACH TAB PO SCH (19:41)
[2021-02-06 20:37] LABS: Glucose,Whole Blood 109 mg/dL (75-99)
[2021-02-06] MEDS: BUDESONIDE 1 MG/2 ML NEBU INHALATION SCH (20:55)
[2021-02-07] MEDS: PANTOPRAZOLE 40 MG TABLET PO SCH (06:12)
[2021-02-07] MEDS: DILTIAZEM ORAL 30 MG TAB PO SCH ×4 (06:12→23:08)
[2021-02-07 06:25] LABS: Glucose,Whole Blood 98 mg/dL (75-99)
[2021-02-07] MEDS: INSULIN ASPART (NovoLOG) 100 UNIT/ML VIAL SQ SCH ×2 (06:50→12:24)
--- NOTE | 2021-02-07 07:18 | XR ---
EXAMINATION TYPE: XR chest 2V DATE OF EXAM: 02/07/2021 COMPARISON: 02/07/2020 TECHNIQUE: PA and lateral views submitted. HISTORY: Postoperative FINDINGS: Chest tube is been removed. No sizable pneumothorax. Heart enlarged and is postsurgical changes. Tiny bilateral pleural effusion suspected there is a diffuse interstitial pattern. Degenerative changes o f the spine. Question mediastinal drain. IMPRESSION: 1. COPD with postoperative change and findings most typical of CHF.
[2021-02-07 07:36] LABS: HCT 34.4 % (39.0-53.0); HGB 11.3 gm/dL (13.0-17.5); MCH 30.3 pg (25.0-35.0); MCHC 32.9 g/dL (31.0-37.0); Mean Platelet Volume 8.4; Platelet Count 162 k/uL (150-450); RBC 3.73 m/uL (4.30-5.90); RDW 13.4 % (11.5-15.5); WBC 8.2 k/uL (3.8-10.6)
[2021-02-07 07:45] LABS: African American GFR (CKD) >90 (>60 ml/min/1.73 sqM); Anion Gap 8 mmol/L; Blood Urea Nitrogen 20 mg/dL (9-20); Calcium 8.2 mg/dL (8.4-10.2); Carbon Dioxide 20 mmol/L (22-30); Chloride 108 mmol/L (98-107); Glucose 95 mg/dL (74-99); Non-African American GFR(CKD) >90 (>60 ml/min/1.73 sqM); Potassium 3.8 mmol/L (3.5-5.1); Sodium 136 mmol/L (137-145)
[2021-02-07] MEDS ORDERED: POTASSIUM CHLORIDE ER 20 MEQ TAB.ER PO SCH (08:00)
[2021-02-07] MEDS: ATORVASTATIN 40 MG TAB PO SCH (08:05)
[2021-02-07] MEDS: METOPROLOL TARTRATE 50 MG TAB PO SCH ×2 (08:05→20:29)
[2021-02-07] MEDS: APIXABAN 5 MG TAB PO SCH ×2 (08:05→20:29)
[2021-02-07] MEDS: ASPIRIN 81 MG PO SCH (08:06)
[2021-02-07] MEDS: AMIODARONE 200 MG TAB PO SCH ×2 (08:06→20:29)
[2021-02-07] MEDS: ACETYLCYSTEINE 800 MG/4 ML VIAL INHALATION SCH ×3 (09:33→16:14)
[2021-02-07] MEDS: IPRATROPIUM-ALBUTEROL 3 ML NEB INHALATION SCH ×4 (09:33→19:57)
[2021-02-07] MEDS: BUDESONIDE 1 MG/2 ML NEBU INHALATION SCH ×2 (09:33→19:57)
--- NOTE | 2021-02-07 09:34 | P.PN ---
Subjective Progress Note Date: 02/07/21 Principal diagnosis: Triple-vessel coronary artery disease, moderate left ventricular dysfunction with EF 45%. Past medical history significant for hypertension, hyperlipidemia, paroxysmal atrial fibrillation on Eliquis for anticoagulation, ischemic cardiomyopathy, former chronic tobacco dependence with preoperative FEV1 88% of predicted, remote alcohol abuse. POD #5 triple vessel coronary artery bypass grafting using the left internal mammary artery to the left anterior descending coronary artery, left radial artery from the aorta to the posterior descending coronary artery coming from the circumflex artery, a reverse greater saphenous vein graft from the aorta to the obtuse marginal coronary artery, bilateral pulmonary vein isolation using bipolar radiofrequency clamp from [employer], exclusion of the left atrial appendage using a 35 mm AtriClip, endoscopic harvesting of the left radial artery, endoscopic harvesting of the left greater saphenous vein, intraoperative graft flow measurements using the [employer] system, intraoperative transesophageal echocardiogram and epi-aortic scanning. Postoperative acute blood loss anemia and thrombocytopenia, expected given cardiopulmonary bypass pump and hemodilution. Right-sided pneumothorax, related to surgery, status post day #1 right Thoravent chest tube placement. The patient was seen in follow-up today 02/07/2021 at his bedside on the cardiac stepdown unit. He is sitting up to the bedside chair, is awake, alert and oriented 3 and is in no acute distress. Denies any complaints of pain or shortness of breath at this time. His left pleural chest tube was discontinued yesterday without incident. Oxygen saturations are 95% on room air and he is achieving 1000 mL on his incentive spirometry. He remains hemodynamically stable and is currently on no inotropic pressor support. He reports he was ambulating in the intensive care unit all way yesterday with minimal assistance from nursing/physical and occupational therapy staff. Sputum culture report remains pending. T-max temperature in the last 24 hours 99.4F. Objective - Vital Signs Vital signs: Vital Signs Temp 97.6 F 02/07/21 03:25 Pulse 93 02/07/21 03:25 Resp 18 02/07/21 03:25 BP 113/62 02/07/21 03:25 Pulse Ox 95 02/07/21 03:25 Intake & Output 02/06/21 02/07/21 02/07/21 18:59 06:59 18:59 Intake Total 100 240 Output Total 350 600 Balance -250 -360 Weight 90 kg Intake: Oral 100 240 Output: Urine 350 600 Other: Voiding Method Urinal Urinal # Voids 1 1 ABP, PAP, CO, CI - Last Documented Arterial Blood Pressure 100/52 Pulmonary Artery Pressure 29/8 Cardiac Output 7.5 Cardiac Index 3.6 - Exam CONSTITUTIONAL: Appears comfortable, cooperative, no acute distress sitting up to the bedside chair. RESPIRATORY: Lungs sounds diminished bilaterally, with few scattered rhonchi throughout. Respirations are symmetrical and nonlabored. Currently on room air with oxygen saturation 95%. Able to achieve 1000 mL on incentive spirometry. Strong cough. CARDIOVASCULAR: S1, S2 present, negative for S3, gallop or murmur. Regular rate and regular rhythm, normal sinus rhythm with occasional PACs per bedside telemetry heart rate 93 BPM. Sternum stable. Palpable peripheral pulses bilaterally. Trace edema to his bilateral lower extremities. No calf pain or tenderness noted. Heart hugger in place with patient demonstrating appropriate use. Antiembolism stockings, SCDs present. GASTROINTESTINAL: Abdomen soft, nontender, nondistended. Active bowel sounds present 4 quadrants. Tolerating diet. Bowel movement today 02/10/2021. GENITOURINARY: Continues to void, 300 mL output of urine in the last 8 hours. INTEGUMENTARY: Skin is warm and dry with evidence of good perfusion. Midline sternal incision clean, dry and well approximated and covered with dry intact dressing. Left lower extremity EVH site well approximated without redness or drainage. Left arm radial artery harvest site clean, dry and intact. NEUROLOGIC: Cranial nerves II through XII intact. No focal deficits. MUSKULOSKELETAL: Able to move all extremities, strength equal bilaterally, gait normal. PSYCHIATRIC: Alert and oriented to person place and time, appropriate affect, intact judgment and insight. - Labs CBC & Chem 7: 02/07/21 06:44 02/07/21 06:44 Labs: Abnormal Lab Results - Last 24 Hours (Table) 02/06/21 02/06/21 02/07/21 Range/Units 16:53 20:29 06:44 RBC 3.73 L (4.30-5.90) m/uL Hgb 11.3 L (13.0-17.5) gm/dL Hct 34.4 L (39.0-53.0) % Sodium (137-145) mmol/L Chloride (98-107) mmol/L Carbon Dioxide (22-30) mmol/L POC Glucose (mg/dL) 107 H 109 H (75-99) mg/dL Calcium (8.4-10.2) mg/dL 02/07/21 Range/Units 06:44 RBC (4.30-5.90) m/uL Hgb (13.0-17.5) gm/dL Hct (39.0-53.0) % Sodium 136 L (137-145) mmol/L Chloride 108 H (98-107) mmol/L Carbon Dioxide 20 L (22-30) mmol/L POC Glucose (mg/dL) (75-99) mg/dL Calcium 8.2 L (8.4-10.2) mg/dL Assessment and Plan Assessment: 1. Triple-vessel coronary artery disease, status post three-vessel CABG 2. Moderate left ventricular dysfunction with EF 45% and history of ischemic cardiomyopathy 3. Hypertension 4. Hyperlipidemia, cholesterol 198, LDL 143 5. Paroxysmal atrial fibrillation on Eliquis for anticoagulationon an outpatient, currently sinus rhythm, status post pulmonary vein isolation and exclusion of the left atrial appendage 6. Former chronic tobacco dependence with preoperative FEV1 88% of predicted 7. Remote history of alcohol abuse 8. Family history of coronary artery disease 9. Postoperative acute blood loss anemia and thrombocytopenia, expected 10. Right sided pneumothorax, status post placement of right Thoravent, resolved Plan: 1. Continue low-dose aspirin, statin, and beta una. Will increase beta una as tolerated, metoprolol tartrate currently at 50 mg by mouth twice a day. 2. Continue Cardizem for radial artery spasm prophylaxis. Please do not discontinue Cardizem without discussing with cardiac surgery. 3. Continue oral amiodarone for atrial fibrillation prophylaxis. 4. Encourage incentive spirometry use 10 times every hour while awake. Bronchodilators per pulmonology. 5. Will monitor daily labs and chest x-rays. Electrolyte replacement per protocol. Potassium replaced per protocol this morning. 6. GI/DVT prophylaxis. 7. Insulin management per internal medicine service. Patient is not diabetic, preoperative hemoglobin A1c 5%. Discontinue Accu-Cheks. 8. Pain control with current medication regimen. 9. Continue to record strict accurate intake and output. Daily weights with standup scale. 10. Eliquis 5 mg by mouth twice a day started this morning 02/07/2021. 11. Continue to follow sputum culture results. He remains afebrile. 12. Discussed the importance of risk modification with the patient including discussion on continued smoking cessation. 13. First postoperative shower today. 14. Discharge planning is in place, anticipate discharge home with home health care in the next 24 hours. 15. More recommendations to follow based on patient's clinical course. Time with Patient: Greater than 30
--- NOTE | 2021-02-07 14:09 | P.PN ---
Progress Note - Text Progress Note Date: 02/07/21 - Chief Complaint CABG Consultation: This is a 70-year-old patient, who had been complaining of shortness of breath with exertion and chest pain and underwent cardiac catheterization on 01/28/2021. Patient is found to have left main disease 50% distal critical stenosis in the ostium of the LAD and mid left circumflex. 2-D echocardiogram showed EF of 45-50%. Patient's eliquis for a prior history of atrial fibrillation. Patient underwent coronary bypass on January [address] Mcdonald. Also developed a pneumothorax. Had paroxysmal atrial fibrillation. Back in sinus rhythm. Today: Sitting up in a chair. Does not like hospital food. Selective about the food.. Wheezing is better. Review of systems: Was done for constitutional, cardiovascular, GI, pulmonary. relevant finding as above Active Medications Acetaminophen (Acetaminophen Tab 500 Mg Tab) 1,000 mg PO Q6HR PRN PRN Reason: Fever and/ or Pain Last Admin: 02/06/21 16:24 Dose: 1,000 mg Documented by: Acetylcysteine (Acetylcysteine 800 Mg/4 Ml Vial) 200 mg INHALATION RT-TID [facility] Last Admin: 02/07/21 12:27 Dose: Not Given Documented by: Albuterol/Ipratropium (Ipratropium-Albuterol 3 Ml Neb) 3 ml INHALATION RT-Q2H PRN PRN Reason: Shortness Of Breath Or Wheezing Last Admin: 02/03/21 23:05 Dose: 3 ml Documented by: Albuterol/Ipratropium (Ipratropium-Albuterol 3 Ml Neb) 3 ml INHALATION RT-QID [facility] Last Admin: 02/07/21 12:26 Dose: 3 ml Documented by: Amiodarone HCl (Amiodarone 200 Mg Tab) 400 mg PO BID [facility] Last Admin: 02/07/21 08:06 Dose: 400 mg Documented by: Apixaban (Apixaban 5 Mg Tab) 5 mg PO BID [facility] Last Admin: 02/07/21 08:05 Dose: 5 mg Documented by: Aspirin (Aspirin 81 Mg) 81 mg PO DAILY [facility] Last Admin: 02/07/21 08:06 Dose: 81 mg Documented by: Atorvastatin Calcium (Atorvastatin 40 Mg Tab) 40 mg PO DAILY [facility] Last Admin: 02/07/21 08:05 Dose: 40 mg Documented by: Bisacodyl (Bisacodyl 10 Mg Supp) 10 mg RECTAL DAILY PRN PRN Reason: Constipation Last Admin: 02/05/21 12:50 Dose: 10 mg Documented by: Budesonide (Budesonide 1 Mg/2 Ml Nebu) 1 mg INHALATION RT-BID [facility] Last Admin: 02/07/21 09:33 Dose: 1 mg Documented by: Diltiazem HCl (Diltiazem Oral 30 Mg Tab) 30 mg PO Q6HR [facility] Last Admin: 02/07/21 12:25 Dose: 30 mg Documented by: Magnesium Hydroxide (Magnesium Hydroxide 2,400 Mg/10 Ml Cup) 2,400 mg PO BID PRN PRN Reason: Constipation Metoclopramide HCl (Metoclopramide 5 Mg/Ml 2 Ml Vial) 10 mg IVP Q4H PRN PRN Reason: Nausea And Vomiting Last Admin: 02/04/21 10:17 Dose: 10 mg Documented by: Metoprolol Tartrate (Metoprolol Tartrate 50 Mg Tab) 50 mg PO BID [facility] Last Admin: 02/07/21 08:05 Dose: 50 mg Documented by: Miscellaneous Information (Magnesium Replacement Protocol 1 Each Misc) 1 each MISCELLANE DAILY PRN; Protocol PRN Reason: Per Protocol Miscellaneous Information (Phosphorus Replacement Protoco 1 Each Misc) 1 each MISCELLANE DAILY PRN; Protocol PRN Reason: Per Protocol Miscellaneous Information (Potassium Replacement Protocol 1 Each Misc) 1 each MISCELLANE DAILY PRN; Protocol PRN Reason: Per Protocol Ondansetron HCl (Ondansetron 4 Mg/2 Ml Vial) 4 mg IVP Q6HR PRN PRN Reason: Nausea And Vomiting Pantoprazole Sodium (Pantoprazole 40 Mg Tablet) 40 mg PO AC-BRKFST [facility] Last Admin: 02/07/21 06:12 Dose: 40 mg Documented by: Senna/Docusate Sodium (Sennosides-Docusate Sodium 1 Each Tab) 2 each PO HS [facility] Last Admin: 02/06/21 19:41 Dose: 2 each Documented by: Sodium Chloride (Sodium Chloride 0.9% Flush 10 Ml Syringe) 10 ml IV BID [facility] Last Admin: 02/06/21 19:42 Dose: 10 ml Documented by: Past medical history to include: Atrial fibrillation, coronary artery disease, osteoarthritis, Social history: Patient smoked on and off for close to 45 years no alcohol since August 2020. Physical examination: VITAL SIGNS: 97.2, 68, 20, 109/59, 98% room air GENERAL: Sitting up in a chair awake EYES: Pupils equal. Conjunctiva normal. NECK: JVD not raised; masses not palpable. HEART: First and second heart sounds are normal; no edema. LUNGS: Respiratory rate increased; decreased breath sounds , mild wheezing. ABDOMEN: Soft, nontender, liver spleen not palpable, no masses palpable. PSYCH: Alert and oriented x3; mood and affect normal. MUSCULAR skeletal: Evidence of OA INVESTIGATIONS, reviewed in the clinical context: February 07: Hemoglobin 11.3 platelets 162 potassium 3.8 creatinine 0.75 February 06: WBC 8.1 hemoglobin 10.8 potassium 4 creatinine 0.84 February 05: WBC 10.1 hemoglobin 10.6 platelets 107 potassium 3.7 creatinine 0.95 WBC 9.7 hemoglobin 11.6 platelets 115 potassium 4.2 creatinine 0.75 albumin 2.8 Chest x-ray film personally reviewed by [id number] pneumothorax about 30% reported. Emphysema changes. Previous testing: Labs from: 01/29/2021 Hemoglobin 14.6 platelets 169 TSH 1.5 LDL 143 Assessment and plan: -Coronary bypass, 3 vessel done on February 02 -Coronary artery disease. on aspirin, Lipitor, Plavix, Lopressor -Essential hypertension. Continue Lopressor -Acute postprocedure blood loss anemia as expected from surgery. Follow H&H -Acute COPD exacerbation, in a previous smoker. DuoNeb. inhaled steroids -Hyperlipidemia. On Lipitor -Primary osteoarthritis. Use Tylenol when necessary -Hypoalbuminemia. Acute phase reactant -Paroxysmal atrial fibrillation. Received amiodarone. IV followed by by mouth. On eliquis. Cardizem. Lo pressor -Right-sided pneumothorax/. Chest tube per cardiothoracic surgery-removed. Improved -Thrombocytopenia, acute. Dilutional.-Improving Discussed with the patient. Continue current treatment plan Thank you Dr. Allen
--- NOTE | 2021-02-07 16:14 | P.PN ---
Subjective Progress Note Date: 02/07/21 Principal diagnosis: Symptomatic coronary artery disease, status post three-vessel coronary artery bypass grafting This is a 60-year-old white male patient of JOSE JUAN Morillo, who had been complaining of exertional dyspnea and chest pain, patient underwent cardiac catheterization on 01/28/[address] Allen showed a 50% distal left main disease, critical stenosis in the ostium of the LAD in the mid left circumflex. LVEDP was in the order of 12-16 mmHg. Transthoracic echocardiogram showed EF between 45-50%. Past medical history is significant for paroxysmal A. fib on E liquis, family history of coronary artery disease, ischemic cardiomyopathy, previous history of tobacco and alcohol dependence. Preop FEV1 was 2.91 over 88% of predicted. We are seeing the patient in the postoperative period after three-vessel coronary artery bypass grafting today on 02/02/[address] Allen. Patient had CHANEL to the LAD, SVG to the circumflex, and right radial graft to the PDA, Left atrial appendage exclusion. Patient is currently intubated on mechanical ventilator with the assist control mode of ventilation with a rate of 12, tidal M is 520, FiO2 of 100% and PEEP of 5, postoperative blood gases are pending. Patient is currently on 0.9 normal saline at a rate of 50 ML per hour, nitroglycerin at 5 mics per kilo per minute, and improving and is at 25 mics per kilo per minute. Insulin drip is off. Patient is in sinus mechanism with a first-degree AV block, PA pressures 20 overnight, CVP is 4, cardiac output is 4.6 and cardiac index is 2.2. Right, left knee still chest tubes in place with small amount of sanguinous output, postoperative blood work is pending. Hemodynamically patient is stable, not requiring any vasopressor support. On 02/03/2021 patient seen in follow-up in the intensive care unit, he was successfully weaned and extubated last night, tolerating extubation well, his chronic hepatitis liters of oxygen pulse ox is 90-93%, he is having low-grade fevers with a temp of 99.9F, hemodynamically patient is stable. No vasoactive drips, he is just some 0.9 normal saline at 50 ML per hour, insulin is on hold, nitroglycerin drip glycerin has been discontinued. Sitting up in a chair, breathing comfortably, is working on his incentive spirometer, lung sounds are positive for a few scattered rhonchi, diminished breath sounds, today's chest x- ray has been reviewed showing new small to moderate right-sided pneumothorax estimated to be near 30% associated with right basilar atelectasis. There is background of chronic emphysematous changes and cardiomegaly with worsening left basilar atelectasis. Patient is sinus mechanism, and the rate is controlled. Today's blood work has been reviewed showing white blood cell count of 9.7, hemoglobin of 11.6, sodium of 137, potassium is 4.2, chloride is 109, BUN 14 creatinine 0.75, LFTs are within normal limits. he had [address], left pleural and 2 mediastinal chest tubes, there has been 210 mL of servicing this output out of the mediastinal chest tubes, and left pleural handout 190 of serosanguineous thin output in the last 24 hours, Guzman catheter is in place patient is producing 30-65 ML of urine output. On 02/04/2021 patient seen in follow-up in the intensive care unit, today is postoperative day #2, status post three-vessel coronary artery bypass grafting. His oriented 3, she is resting in bed, FiO2 currently at 10 L per high flow nasal cannula his pulse ox is 92-94%, today's chest x-ray shows moderate to borderline large right-sided pneumothorax estimated approaching 50%, increased in size from one day earlier, and there is worsening right basilar atelectasis or lobar collapse. Thora-Vent was placed in his right upper chest, and follow- up chest x-ray showed chest tube placement with near complete resolution of the right-sided pneumothorax. Hemodynamically patient has been stable, he is just some 0.9 normal saline at a rate of 10 ML per hour, his Hartley-Austyn catheter has been discontinued, he is in sinus mechanism, he still has one mediastinal and left pleural chest tube in place., Left pleural chest tube put out 180 mL over last 24 hours, and mediastinal chest tube put out 40 ML of thin serosanguineous output. Patient also got a dose of Lasix yesterday 2, he is in -1.8 L over the last 24 hours. His labs have been reviewed, showing white blood cell count of 10.6, hemoglobin of 11.1, sodium is 134, MRSA electrolytes and renal profile were unremarkable, LFTs were within normal limits. He sounds congested on today's exam, with diffuse rhonchi, his incentive spirometer effort is a 750. He has a congested loose cough, but not bringing up much sputum. No fever or chills, his incisions are clean dry and intact. Is tolerating oral intake. On 02/05/2021 patient seen in follow-up in the intensive care unit, today's postoperative day #3, status post three-vessel coronary artery bypass grafting, patient is awake and alert, oriented 3, he is sitting up in the recliner, looks comfortable, breathing comfortably, he is currently on 4 L of oxygen and his pulse ox is 97%, early this morning patient had a run of atrial flutter, he received amiodarone IV boluses, and he is currently on oral amiodarone per CT surgery, he is back in sinus mechanism, sinus tach with a rate of 101 BPM with a first-degree AV block. He is on 0.9 normal saline at a rate of 20 ML per hour, no other drips. Afebrile. Today's chest x-ray shows bilateral airspace disease with mild progression on the right, no sizable pneumothorax, right-sided thoravent in place, small bilateral effusions. Today's labs have been reviewed, white blood cell count of 10.1, hemoglobin of 10.6, serum sodium was 132, Afua S are within normal limits, BUN is 27, creatinine 0.95, LFTs are within normal limits. Mediastinal and left pleural chest tubes remain in place, there is no evidence of sizable pneumothorax on the chest x-ray, and there is no air leak. There is 60 ML of thin serosanguineous output out of the mediastinal chest tube in the last 24 hours, and for 60 out of the left pleural. Patient is working on incentive spirometer, he is achieving 1 L on the today, he is been ambulating, tolerating activity well. He has had no other acute events overnight, overall he is doing well, tolerating oral intake On 02/06/2021 patient seen in follow-up in the intensive care unit, he is awake and alert, oriented 3, he is currently off oxygen, his room air pulse ox is 93%, he is afebrile, hemodynamically he is stable, sounds less congested on today's exam, some minimal crackles at bilateral bases, no complaints of worsening dyspnea, cough or congestion, all of his chest tubes have been removed, and his IVs have been hep-locked, he is achieving 2000 on his incentive spirometer today, today's chest x-ray shows bilateral lung infiltrates right greater than left slightly improved in the interval. No evidence of pneumothorax. Today's labs have been reviewed, white blood cell count is 8.1, hemoglobin is 10.8, sodium is 135, the rest of the electrolytes were unremarkable, B1 is 25, creatinine 0.84, LFTs were within normal limits. Patient has had no further episodes of arrhythmias, or A. fib, remains on oral amiodarone at 400 mg twice daily, Eliquis will be started tomorrow per CT surgery, in addition he is also on oral Cardizem 30 mg every 6 hours, he is on subcutaneous heparin 5000 units every 8 hours for DVT prophylaxis. He has had no acute events overnight, tolerating ambulation, tolerating oral intake, no nausea vomiting or diarrhea. On 02/07/2021 patient seen in follow-up on selective care unit, patient is on room air, he sitting up in a chair, in no acute distress, room air pulse ox is 98%, no fever or chills, blood pressure is been stable, today's chest x-ray shows COPD and tiny bilateral pleural effusions and diffuse interstitial p attern. Patient is not on any running IVs at this point. Requiring supplemental oxygen, doing well, he was started on Eliquis, he continues on oral amiodarone per episode of A. fib RVR that he had in the intensive care unit, his chest tubes have been discontinued, and tolerating ambulation, he has had no acute events overnight, she remains on breathing treatments, no rhonchi or wheezing. Objective - Vital Signs Vital signs: Vital Signs Temp 97.2 F L 02/07/21 12:00 Pulse 92 02/07/21 12:40 Resp 20 02/07/21 12:00 BP 109/59 02/07/21 12:00 Pulse Ox 98 02/07/21 12:00 Intake & Output 02/06/21 02/07/21 02/07/21 18:59 06:59 18:59 Intake Total 100 240 240 Output Total 350 600 Balance -250 -360 240 Weight 90 kg Intake: IV 0 Sodium Chloride 0.9% 1, 0 000 ml @ 20 mls/hr IV . Q24H [facility] Rx#:[id number] Oral 100 240 240 Output: Urine 350 600 Other: Voiding Method Urinal Urinal # Voids 1 1 ABP, PAP, CO, CI - Last Documented Arterial Blood Pressure 100/52 Pulmonary Artery Pressure 29/8 Cardiac Output 7.5 Cardiac Index 3.6 - Exam GENERAL EXAM: Awake and alert, very pleasant 70-year-old white male, room air pulse ox is 98%, comfortable in no apparent distress. HEAD: Normocephalic/atraumatic. EYES: Normal reaction of pupils, equal size. Conjunctiva pink, sclera white. NOSE: Clear with pink turbinates. THROAT: No erythema or exudates. NECK: No masses, no JVD, no thyroid enlargement, no adenopathy. CHEST: No chest wall deformity. Symmetrical expansion. Midsternal incision clean dry and intact, 2 mediastinal and left pleural chest tubes have been removed LUNGS: Equal air entry with diffuse rhonchi CVS: Regular rate and rhythm, normal S1 and S2, no gallops, no murmurs, no rubs ABDOMEN: Soft, nontender. No hepatosplenomegaly, normal bowel sounds, no guarding or rigidity. EXTREMITIES: No clubbing, no edema, no cyanosis, 2+ pulses and upper and lower extremities. Left radial graft site is Sanjeev wrap, left lower extremity is Sanjeev wrapped, SCDs on both lower extremities MUSCULOSKELETAL: Muscle strength and tone normal. SPINE: No scoliosis or deformity SKIN: No rashes CENTRAL NERVOUS SYSTEM: Awake and alert, 70-year-old white male with no focal deficits, tone is normal in all 4 extremities. - Labs CBC & Chem 7: 02/07/21 06:44 02/07/21 06:44 Labs: Abnormal Lab Results - Last 24 Hours (Table) 02/06/21 02/06/21 02/07/21 Range/Units 16:53 20:29 06:44 RBC 3.73 L (4.30-5.90) m/uL Hgb 11.3 L (13.0-17.5) gm/dL Hct 34.4 L (39.0-53.0) % Sodium (137-145) mmol/L Chloride (98-107) mmol/L Carbon Dioxide (22-30) mmol/L POC Glucose (mg/dL) 107 H 109 H (75-99) mg/dL Calcium (8.4-10.2) mg/dL 02/07/21 Range/Units 06:44 RBC (4.30-5.90) m/uL Hgb (13.0-17.5) gm/dL Hct (39.0-53.0) % Sodium 136 L (137-145) mmol/L Chloride 108 H (98-107) mmol/L Carbon Dioxide 20 L (22-30) mmol/L POC Glucose (mg/dL) (75-99) mg/dL Calcium 8.2 L (8.4-10.2) mg/dL Microbiology - Last 24 Hours (Table) 02/05/21 11:15 Gram Stain - Final Sputum Sputum Culture - Final Assessment and Plan Plan: Assessment: #1. Coronary artery disease, symptomatic, status post three-vessel coronary artery bypass grafting with CHANEL to the LAD, SVG to the circumflex, and left radial artery graft to the PDA, and left atrial appendage exclusion, postoperative day #5 #2. Postoperative ventilator management, patient extubated on postop day #0 on 02/02/2021 #3. Right-sided pneumothorax estimated to be approaching 50% on today's chest x-ray, status post Thoravent placement, and subsequently Thoravent was removed #4. Postoperative atrial flutter, status post amiodarone loading, currently back in sinus rhythm #5. History of ischemic cardiomyopathy #6. Paroxysmal atrial fibrillation on Eliquis which is currently on hold for surgery, patient is currently in sinus rhythm and Eliquis will be restarted tomorrow on 02/07/2021 #7. History of coronary artery disease #8. Family history of coronary artery disease #9. Former smoker Plan: Continue encouraging deep breathing and coughing Patient is on room air, doing well No arrhythmias overnight currently in sinus mechanism Eliquis was started per CT surgery, patient continues on oral Cardizem and oral Cordarone No acute events overnight, Possible discharge home tomorrow in the next 24 hours if remains stable and improve I performed a history & physical examination of the patient and discussed their management with my nurse practitioner, Kim Stern. I reviewed the nurse practitioner's note and agree with the documented findings and plan of care. Lung sounds are positive for diminished breath sounds. The findings and the impression was discussed with the patient. I attest to the documentation by the nurse practitioner. Time with Patient: Less than 30
--- NOTE | 2021-02-07 19:44 | P.PN ---
Subjective Progress Note Date: 02/07/21 This is a 70-year-old gentleman status post bypass surgery with CHANEL to the LAD, vein graft. Circumflex and is free radial graft to PDA. Today's x-ray showed evidence of pneumothorax on the right side which increased in size compared to yesterday. Patient had chest tube placed with full expansion of the lung. Patient seemed to be feeling okay. And, denies any significant chest pain. Patient has been nothing by mouth because of the procedure. Still maintaining sinus rhythm. No arrhythmias noted. Patient still has chest tubes. We'll continue current management. We'll follow. 02/05/2021: This is the third postoperative day. Patient is status post right coronary bypass surgery. Patient is still in intensive care unit, alert and oriented. Patient went back into atrial flutter fibrillation and was initiated on IV amiodarone. He is already on anticoagulation. Recent is on by mouth ami odarone now. Left-sided chest tube is still present. Mediastinal chest tube is also present. Right-sided thoravent is still present. Blood pressure about 110/70. Heart rate is in the 70s and 80s. It appears to be regular. Lungs show diminished air exchange. We'll continue his current medical therapy including by mouth amiodarone. We'll follow 02/06/2021: This patient appears to be much more stable. His back in sinus rhythm. All the chest tubes are removed. Is not having any pain. Apparently has low-grade fever. Otherwise hemodynamically stable. Chest x-ray showed small to moderate right-sided pneumothorax. His hemoglobin is 9.7. So overall patient critical status is much more stable. He is being transferred to telemetry unit. Patient continue current medical therapy including incentive spirometry. 02/07/2021.: This patient is on the telemetry unit. Seems to be doing well. Doesn't appear to be in acute distress. His room pulse ox is 98%. No complaints of chest pain or shortness of breath. His chest. Echo showed bilateral pleural effusion with a diffuse interstitial pattern. Patient has history of atrial fibrillation which seemed to be intermittent. Patient is on anti-cognition therapy. He is on amiodarone. Doesn't appear to be in acute distress. Patient is is also on aspirin, , atorvastatin and by mouth Cardizem. Patient is also metoprolol 50 mg by mouth twice a day he and his blood pressure 117/61. Pulse is in the 90s. He is tolerating activity Objective - Vital Signs Vital signs: Vital Signs Temp 98.1 F 02/07/21 16:35 Pulse 92 02/07/21 16:35 Resp 20 02/07/21 16:35 BP 117/61 02/07/21 16:35 Pulse Ox 97 02/07/21 16:35 Intake & Output 02/07/21 02/07/21 02/08/21 06:59 18:59 06:59 Intake Total 240 578 Output Total 600 Balance -360 578 Weight 90 kg Intake: IV 0 Sodium Chloride 0.9% 1, 0 000 ml @ 20 mls/hr IV . Q24H [facility] Rx#:[id number] Oral 240 578 Output: Urine 600 Other: Voiding Method Urinal # Voids 1 ABP, PAP, CO, CI - Last Documented Arterial Blood Pressure 100/52 Pulmonary Artery Pressure 29/8 Cardiac Output 7.5 Cardiac Index 3.6 - Exam GENERAL EXAM: Patient is alert and oriented and doesn't appear to be in any acute distress HEENT: Normocephalic. Normal reaction of pupils, equal size, normal range of extraocular motion. No erythema or exudates in the throat. NECK: No masses, no nuchal rigidity. CHEST: No chest wall deformity. LUNGS: Mild diffuse rhonchi and wheezing HEART: S1 and S2 normal ABDOMEN: No hepatosplenomegaly, normal bowel sounds, no guarding or rigidity. SKIN: No rashes CENTRAL NERVOUS SYSTEM: No focal deficits. EXTREMITIES: No cyanosis, clubbing or edema. - Labs CBC & Chem 7: 02/07/21 06:44 02/07/21 06:44 Labs: Abnormal Lab Results - Last 24 Hours (Table) 02/06/21 02/07/21 02/07/21 Range/Units 20:29 06:44 06:44 RBC 3.73 L (4.30-5.90) m/uL Hgb 11.3 L (13.0-17.5) gm/dL Hct 34.4 L (39.0-53.0) % Sodium 136 L (137-145) mmol/L Chloride 108 H (98-107) mmol/L Carbon Dioxide 20 L (22-30) mmol/L POC Glucose (mg/dL) 109 H (75-99) mg/dL Calcium 8.2 L (8.4-10.2) mg/dL Microbiology - Last 24 Hours (Table) 02/05/21 11:15 Gram Stain - Final Sputum Sputum Culture - Final Assessment and Plan (1) CAD (coronary artery disease) Current Visit: Yes Status: Acute Code(s): I25.10 - ATHSCL HEART DISEASE OF [place] CORONARY ARTERY W/O ANG PCTRS SNOMED Code(s): 06894541 (2) CAD (coronary artery disease) of artery bypass graft Current Visit: Yes Status: Acute Code(s): I25.810 - ATHEROSCLEROSIS OF CABG W/O ANGINA PECTORIS SNOMED Code(s): 083106241 (3) Cardiomyopathy Current Visit: Yes Status: Acute Code(s): I42.9 - CARDIOMYOPATHY, UNSPECIFIED SNOMED Code(s): 68069007 (4) Pneumothorax Current Visit: Yes Status: Acute Code(s): J93.9 - PNEUMOTHORAX, UNSPECIFIED SNOMED Code(s): 98037683 Plan: Patient is doing well. Continue current measures and increase activity as tolerated. Possible discharge within next 24-48 hours
[2021-02-07] MEDS: SENNOSIDES-DOCUSATE SODIUM 1 EACH TAB PO SCH (20:30)
[2021-02-08] MEDS: PANTOPRAZOLE 40 MG TABLET PO SCH (06:06)
[2021-02-08] MEDS: DILTIAZEM ORAL 30 MG TAB PO SCH (06:06)
[2021-02-08] MEDS: ACETYLCYSTEINE 800 MG/4 ML VIAL INHALATION SCH ×2 (07:07→12:50)
[2021-02-08] MEDS: IPRATROPIUM-ALBUTEROL 3 ML NEB INHALATION SCH ×3 (07:07→15:39)
[2021-02-08] MEDS: BUDESONIDE 1 MG/2 ML NEBU INHALATION SCH (07:07)
[2021-02-08 07:11] VITALS: RESP 16
--- NOTE | 2021-02-08 07:47 | XR ---
EXAMINATION TYPE: XR chest 1V portable DATE OF EXAM: 02/08/2021 CLINICAL HISTORY: Difficulty breathing progress study. Post operative CABG. TECHNIQUE: Single AP portable upright view of the chest is obtained. COMPARISON: Chest x-ray from one day earlier and older studies. FINDINGS: Overlying sternal wires and mediastinal clips along with left atrial appendage clip redemo nstrated. Stable cardiomegaly and chronic parenchymal changes with persistent left basilar opacity. N o pneumothorax seen bilaterally. Underlying dextroconvex scoliosis centered lower thoracic spine. IMPRESSION: Chronic parenchymal changes and cardiomegaly with patchy left basilar atelectasis and/or infiltrate and tiny left pleural effusion. Resolved central vascular congestion from one day earlier.
[2021-02-08 08:01] VITALS: TEMP 98.1
[2021-02-08] MEDS: AMIODARONE 200 MG TAB PO SCH (08:08)
[2021-02-08] MEDS: APIXABAN 5 MG TAB PO SCH (08:09)
[2021-02-08] MEDS: ASPIRIN 81 MG PO SCH (08:09)
[2021-02-08] MEDS: METOPROLOL TARTRATE 50 MG TAB PO SCH (08:09)
[2021-02-08] MEDS: ATORVASTATIN 40 MG TAB PO SCH (08:09)
[2021-02-08 08:26] LABS: HCT 34.8 % (39.0-53.0); HGB 11.6 gm/dL (13.0-17.5); MCH 30.4 pg (25.0-35.0); MCHC 33.2 g/dL (31.0-37.0); MCV 91.6 fL (80.0-100.0); Mean Platelet Volume 7.8; Platelet Count 195 k/uL (150-450); RBC 3.79 m/uL (4.30-5.90); RDW 13.1 % (11.5-15.5); WBC 8.7 k/uL (3.8-10.6)
[2021-02-08 08:51] LABS: African American GFR (CKD) >90 (>60 ml/min/1.73 sqM); Anion Gap 8 mmol/L; Blood Urea Nitrogen 19 mg/dL (9-20); Calcium 8.6 mg/dL (8.4-10.2); Carbon Dioxide 22 mmol/L (22-30); Chloride 107 mmol/L (98-107); Glucose 101 mg/dL (74-99); Non-African American GFR(CKD) >90 (>60 ml/min/1.73 sqM); Sodium 137 mmol/L (137-145)
[2021-02-08] MEDS ORDERED: DILTIAZEM CD 120 MG CAP.ER.24H PO SCH (09:30)
[2021-02-08] MEDS ORDERED: FUROSEMIDE 40 MG TAB PO SCH (09:30)
[2021-02-08] MEDS ORDERED: POTASSIUM CHLORIDE ER 20 MEQ TAB.ER PO SCH (09:30)
--- NOTE | 2021-02-08 11:30 | P.DS ---
Providers Date of admission: 02/02/21 05:28 Expected date of discharge: 02/08/21 Attending physician: Jay Allen Consults: 02/02/21 14:06 Consult Physician Routine Consulting Provider: Matthew Loja Consult Reason/Comments: Semi Conductor Assembler Consult: post cardiac surgery Do you want consulting provider notified?: Yes Consult Physician Routine Consulting Provider: Enrique Gaitan Consult Reason/Comments: med mgmt; MEDICAL ONCOLOGIST Linda/Wagner patient Do you want consulting provider notified?: Yes Consult Physician Routine Consulting Provider: Gerard Allen Consult Reason/Comments: Manager Business Planning Consult: post cardiac surgery Do you want consulting provider notified?: Yes Primary care physician: Aiyana Mckeon Hospital Course: FINAL DIAGNOSIS: 1. Triple-vessel coronary artery disease, status post three-vessel CABG 2. Moderate left ventricular dysfunction with EF 45% and history of ischemic cardiomyopathy 3. Hypertension 4. Hyperlipidemia, cholesterol 198, LDL 143 5. Paroxysmal atrial fibrillation on Eliquis for anticoagulationon an outpatient, currently sinus rhythm, status post pulmonary vein isolation and exclusion of the left atrial appendage 6. Former chronic tobacco dependence with preoperative FEV1 88% of predicted 7. Remote history of alcohol abuse 8. Family history of coronary artery disease 9. Postoperative acute blood loss anemia and thrombocytopenia, expected 10. Right sided pneumothorax, status post placement of right Thoravent, resolved PRINCIPAL PROCEDURE: 1. Triple vessel coronary artery bypass grafting using the left internal mammary artery to the left anterior descending coronary artery, left radial artery from the aorta to the posterior descending coronary artery coming from the circumflex artery, a reverse greater saphenous vein graft from the aorta to the obtuse marginal coronary artery. 2. Bilateral pulmonary vein isolation using bipolar radiofrequency clamp from [employer]. 3. Exclusion of the left atrial appendage using a 35 mm AtriClip. 4. Endoscopic harvesting of the left radial artery. 5. Endoscopic harvesting of the left greater saphenous vein. 6. Intraoperative graft flow measurement using the [employer] system. 7. Intraoperative transesophageal echocardiogram. 8. Intraoperative epi-aortic scanning. HISTORY OF PRESENT ILLNESS: This is a 70-year-old gentleman who follows on an outpatient basis with nurse practitioner Aiyana Mckeon. His past medical history significant for hypertension, hyperlipidemia, paroxysmal atrial fibrillation on Ellik was for anticoagulation on an outpatient basis, cardiomyopathy with moderate left ventricular dysfunction and an ejection fraction of 45%, chronic ongoing tobacco dependence, alcohol dependence and family history of coronary artery disease. Recently, he had been experiencing some exertional dyspnea and chest pain for about a 2 week period. The chest pain and shortness of breath or relieved with rest. Subsequently he underwent a Lexiscan stress test in May 2020 demonstrating an ejection fraction of 45%, dilatation of the left ventricle with evidence of fixed apical and distal anterior wall defect of moderate size. Due to the above-mentioned symptoms he was evaluated by Dr. Allen from cardiology associates and he was recommended to undergo a heart catheterization which was completed on 01/28/2021. The heart catheterization results demonstrated triple-vessel coronary artery disease with left main disease. Subsequently due to the findings on the cardiac catheterization, and his above-mentioned symptoms a consult was placed to Dr. Jay Allen from cardiothoracic surgery for further evaluation and treatment recommendations including myocardial revascularization surgery. The findings of the heart catheterization were reviewed with the patient by Dr. Allen and Dr. Allen. Treatment options were discussed with the patient including myocardial revascularization surgery with risks and benefits discussed including the STS risk score. Knowing and understanding the risks of myocardial revascularization surgery the patient wished to proceed with the surgical option. HOSPITAL COURSE: On 02/02/2021 the patient was brought into the preoperative area, prepared in the usual fashion and subsequently taken to the operating room where Dr. Jay Allen performed a triple-vessel coronary artery bypass grafting using the left internal mammary artery to left anterior descending coronary artery, the left radial artery from the aorta to the posterior descending coronary artery coming from the circumflex coronary artery, and a reverse greater saphenous vein graft from the aorta to the obtuse marginal coronary artery. He also underwent bilateral pulmonary vein isolation using the bipolar radiofrequency clamp from [employer], exclusion of the left atrial appendage using a 35 mm Atriclip, endoscopic harvesting of the left radial artery, endoscopic harvesting of the left greater saphenous vein, intraoperative graft flow measurement using the [employer] system, transesophageal echocardiogram and epi- aortic scanning. Upon completion of the surgery, the patient was transferred to the cardiovascular intensive care unit where he was recovered, and monitored hemodynamically. He was extubated, all lines, tubes and supportive drips were discontinued when appropriate and he was transferred to the third floor cardiac stepdown unit for further monitoring and rehabilitation. His oxygen was titrated down, he continued to work with physical/occupational therapy and cardiac rehab, he was tolerating an oral diet, his pain was well controlled and he was ready to be discharged home with [facility] care on postoperative day #6. He has received written and verbal instructions regarding his medications, activity restrictions, signs and symptoms requiring physician notification and his follow-up appointments. COMPLICATIONS: The patient developed a right-sided pneumothorax with a right Thoravent tube placed. Plan - Discharge Summary Discharge Rx Participant: No New Discharge Prescriptions: New Potassium Chloride ER [K-Dur 20] 20 meq PO DAILY #30 tab.er.prt Acetaminophen Tab [Tylenol] 1,000 mg PO Q6HR PRN tab PRN Reason: Fever And/ Or Pain Aspirin 81 mg PO DAILY #30 chew Diltiazem Cd [Cardizem CD] 120 mg PO DAILY #30 cap.er.24h Amiodarone [Cordarone] 400 mg PO BID #31 tab Furosemide [Lasix] 40 mg PO DAILY #30 tab Metoprolol Tartrate [Lopressor] 50 mg PO BID #60 tab Pantoprazole [Protonix] 40 mg PO AC-BRKFST #30 tablet. Continue Apixaban [Eliquis] 5 mg PO BID #60 tab Atorvastatin [Lipitor] 40 mg PO DAILY #90 tab Discontinued Isosorbide Mononitrate ER [Imdur] 30 mg PO DAILY Metoprolol Tartrate [Lopressor] 25 mg PO TID Mupirocin 2% Oint [Bactroban 2% Oint] 1 applic NASAL BID Aspirin [Children's Aspirin] 4 tab PO DIRECTED Discharge Medication List Acetaminophen Tab [Tylenol] 1,000 mg PO Q6HR PRN tab 02/08/21 [Rx] Amiodarone [Cordarone] 400 mg PO BID #31 tab 02/08/21 [Rx] Apixaban [Eliquis] 5 mg PO BID #60 tab 02/08/21 [Rx] Aspirin 81 mg PO DAILY #30 chew 02/08/21 [Rx] Atorvastatin [Lipitor] 40 mg PO DAILY #90 tab 02/08/21 [Rx] Diltiazem Cd [Cardizem CD] 120 mg PO DAILY #30 cap.er.24h 02/08/21 [Rx] Furosemide [Lasix] 40 mg PO DAILY #30 tab 02/08/21 [Rx] Metoprolol Tartrate [Lopressor] 50 mg PO BID #60 tab 02/08/21 [Rx] Pantoprazole [Protonix] 40 mg PO MADAI-NOÉKFST #30 tablet. 02/08/21 [Rx] Potassium Chloride ER [K-Dur 20] 20 meq PO DAILY #30 tab.er.prt 02/08/21 [Rx] Follow up Appointment(s)/Referral(s): Gerard Allen MD [STAFF PHYSICIAN] - 02/22/21 9:00 am [facility], [NON-STAFF] - 1-2 Days Aiyana Mckeon NPC [Primary Care Provider] - 02/16/21 10:00 am Maryellen Harris NPC [Nurse Practitioner] - 02/17/21 3:30 pm Jay Allen MD [STAFF PHYSICIAN] - 02/26/21 10:00 am Tete Erickson NPC [Nurse Practitioner] - 02/16/21 11:00 am Ambulatory/Diagnostic Orders: Complete Blood Count w/diff [LAB.AMB] Time Frame: 02/11/21, Facility: [facility], Location: [facility] Comprehensive Metabolic Panel [LAB.AMB] Time Frame: 02/11/21, Facility: [facility], Location: [facility] Activity/Diet/Wound Care/Special Instructions: DISCHARGE INSTRUCTIONS: 1. No driving for 4 weeks, or until physician gives their ok. 2. The patient should sleep in their own bed, no medical bed needed. 3. Stairs are not an issue. If the bedroom is upstairs, it is advised that the patient go up at night and down in the morning for the first week. Go slowly, using handrail and take 1 step at a time. 4. ROSA ELENA hose are to be worn for 30 days or until physician discontinues. 5. Heart hugger is to be worn 100% of the time until physician discontinues.(except when showering) 6. No lifting, pushing, or pulling more than 10 pounds for 12 weeks. The physician will advise of any restriction changes. 7. The patient is expected to continue the prescribed walking program. 8. Continue pain control per as needed orders. 9. Continue with incentive spirometry and splinting/heart hugger until otherwise directed by the physician. 10. Must shower daily using liquid antibacterial soap and a separate white washcloth for each individual incision. 11. Routine sternal incision care. No powders, lotions, ointments on incisions. No dressings are necessary on incisions unless they are draining. Dermabond tape is to remain on sternal incision until surgeon follow-up. 12. Please call surgeon/MEDICAL ONCOLOGIST for temp greater than 101 F or purulent drainage from incisions. 13. Narcotic medications were discussed with the patient, including the potential for misuse, addiction, and abuse. Opiod Start Talking form was reviewed with the patient. 14. All prescriptions given by surgeon for 30 days. Refills need to be filled through width stripper/primary care physician. 15. A Red armband has been placed on the patient. It should be worn for 30 days post surgery and will be removed by the cardiac surgeons. If an ER visit is n ecessary, please make sure the number on the Red armband is called. 16. You have been referred to and are expected to begin Cardiac Rehab in approximately 4-6 weeks. 17. Risk modification discussed with the patient including smoking cessation. HOME HEALTH SERVICES TO PROVIDE: RN SKILLED HOME CARE SERVICES FOR POST-OP SURGICAL PATIENTS WITH THE FOLLOWING: Coronary Artery Bypass Surgery (CABG), Mitral Valve Replacement/Repair ( MVR), Aortic Valve Replacement/Repair (AVR) RN TO CONTINUE EDUCATION FROM ``ROAD TO A HEALTH HEART PATIENT EDUCATION MANUAL (GIVEN TO PATIENT IN THE HOSPITAL) MEDICATION RECONCILIATION WITH EDUCATION NEEDED ON FIRST HOME VISIT EMPHASIZE IMPORTANCE OF WEARING BREAST SUPPORT/HEART HUGGER ENCOURAGE USE OF INCENTIVE SPIROMETER 10 X EVERY HOUR WHILE AWAKE ENCOURAGE UTILIZATION OF LOWER EXTREMITY COMPRESSION STOCKINGS/ROSA ELENA HOSE and ELEVATE LEGS ABOVE LEVEL OF HEART WHILE AT REST. ENCOURAGE AMBULATION 3-5x/day INCREASING TOLERATES, WHILE AVOIDING EXTREMES IN TEMPERATURE FREQUENCY: RN TO OPEN THE PATIENT WITHIN 24 HOURS OF DISCHARGE FROM THE HOSPITAL WITH TELEHEALTH INSTALLED AT [facility] [place], RN TO VISIT 2-3 X A WEEK FOR 4 WEEKS ESTABLISHED BY PATIENT NEEDS. LABORATORY: CBC, CMP TO BE DRAWN ON THE THIRD DAY HOME, (RAN STAT) FAX RESULTS TO [phone]. TELEHEALTH PARAMETERS: WEIGHT: NOTIFY MD OF WEIGHT GAIN OF 2 LBS IN 24 HOURS OR 5 LBS IN ONE WEEK HR: NOTIFY MD OF HR <55 BPM OR HR>100 BPM BP: NOTIFY MD IF BP <90/55 OR BP>140/100 O2 SAT: NOTIFY MD IF PO2<93% ON ROOM AIR SEND TELEHEALTH REPORT TO PUBLIC TRANSIT TROLLEY DRIVER AND CARDIOVASCULAR SURGEON THE FIRST WEEK OF CARE AND THEN BI-WEEKLY. PLEASE ADDITIONALLY COMMUNICATE ANY ABNORMALS AND NEW FINDINGS TO THE SURGEONS OFFICE. For any questions or concerns please call regional education coordinator Tete @ or [place] @ Discharge Disposition: HOME WITH HOME HEALTH SERVICES
--- NOTE | 2021-02-08 13:52 | P.PN ---
Subjective Progress Note Date: 02/08/21 02/08/2021, the patient is being seen for a follow-up in the patient is on room air oxygen. No respiratory difficulties. The patient underwent three-vessel bypass surgery. The patient has a moderate LV dysfunction with an ejection fraction of 45% preoperatively. He is known to have also hypertension and hyperlipidemia. He is currently in normal sinus rhythm. He does have paroxysmal atrial fibrillation and the patient has been maintained on long-term anticoagulation. He is using incentive spirometer. Chest x-ray showing adequate expansion of both lungs. No evidence of any pneumothorax. No evidence of any pleural effusion. The patient using incentive spirometer. Currently is on room air oxygen. Pain is under good control. No cough. No sputum production. No chest tightness. No wheezing. The patient had a right-sided pneumothorax and the patient required a fluoroscopy vent insertion was ultimately removed. Blood work is all stable. The plan is to discharge this patient home today. Objective - Vital Signs Vital signs: Vital Signs Temp 98.1 F 02/08/21 07:59 Pulse 83 02/08/21 11:46 Resp 16 02/08/21 11:46 BP 112/57 02/08/21 11:46 Pulse Ox 99 02/08/21 11:46 Intake & Output 02/07/21 02/08/21 02/08/21 18:59 06:59 18:59 Intake Total 578 240 Output Total 300 Balance 578 -300 240 Weight 89.7 kg Intake: IV 0 Sodium Chloride 0.9% 1, 0 000 ml @ 20 mls/hr IV . Q24H [facility] Rx#:[id number] Oral 578 240 Output: Urine 300 Other: Voiding Method Urinal Urinal # Voids 1 ABP, PAP, CO, CI - Last Documented Arterial Blood Pressure 100/52 Pulmonary Artery Pressure 29/8 Cardiac Output 7.5 Cardiac Index 3.6 - Exam GENERAL EXAM: Awake and alert, very pleasant 70-year-old white male, room air pulse ox is 98%, comfortable in no apparent distress. HEAD: Normocephalic/atraumatic. EYES: Normal reaction of pupils, equal size. Conjunctiva pink, sclera white. NOSE: Clear with pink turbinates. THROAT: No erythema or exudates. NECK: No masses, no JVD, no thyroid enlargement, no adenopathy. CHEST: No chest wall deformity. Symmetrical expansion. Chest tubes have been all removed LUNGS: Equal air entry with diffuse rhonchi CVS: Regular rate and rhythm, normal S1 and S2, no gallops, no murmurs, no rubs ABDOMEN: Soft, nontender. No hepatosplenomegaly, normal bowel sounds, no guarding or rigidity. EXTREMITIES: No clubbing, no edema, no cyanosis, 2+ pulses and upper and lower extremities. Left radial graft site is Sanjeev wrap, left lower extremity is Sanjeev wrapped, SCDs on both lower extremities MUSCULOSKELETAL: Muscle strength and tone normal. SPINE: No scoliosis or deformity SKIN: No rashes CENTRAL NERVOUS SYSTEM: Awake and alert, 70-year-old white male with no focal deficits, tone is normal in all 4 extremities. - Labs CBC & Chem 7: 02/08/21 07:42 02/08/21 07:42 Labs: Abnormal Lab Results - Last 24 Hours (Table) 02/08/21 02/08/21 Range/Units 07:42 07:42 RBC 3.79 L (4.30-5.90) m/uL Hgb 11.6 L (13.0-17.5) gm/dL Hct 34.8 L (39.0-53.0) % Glucose 101 H (74-99) mg/dL Assessment and Plan Plan: #1. Coronary artery disease, symptomatic, status post three-vessel coronary artery bypass grafting with CHANEL to the LAD, SVG to the circumflex, and left radial artery graft to the PDA, and left atrial appendage exclusion, postoperative day #6, currently on room air oxygen and the patient has all of the chest tubes removed. Chest x-ray within normal limits. #2. Postoperative ventilator management, patient extubated on postop day #0 on 02/02/2021 #3. Right-sided pneumothorax estimated to be approaching 50% on today's chest x-ray, status post Thoravent placement, and subsequently Thoravent was removed #4. Postoperative atrial flutter, status post amiodarone loading, currently back in sinus rhythm #5. History of ischemic cardiomyopathy, ejection fraction of around 45% #6. Paroxysmal atrial fibrillation on Eliquis which is currently on hold for surgery, patient is currently in sinus rhythm and Eliquis will be restarted tomorrow on 02/07/2021 #7. History of coronary artery disease #8. Family history of coronary artery disease #9. Former smoker Plan: Continue using incentive spirometer Chest x-ray from today was noted Blood work from today was noted. Increased mobility Continue long-term anticoagulation with Eliquis 5 mg by mouth twice a day Continue aspirin Continue metoprolol Discharge home today Follow up on outpatient basis
--- NOTE | 2021-02-08 15:02 | P.PN ---
Subjective This is a 70-year-old gentleman with past medical history significant for hypertension, hyperlipidemia, paroxysmal atrial fibrillation on Ellik was for anticoagulation on an outpatient basis, cardiomyopathy with moderate left ventricular dysfunction and an ejection fraction of 45%, chronic ongoing tobacco dependence, alcohol dependence and family history of coronary artery disease. He is status post bypass surgery with CHANEL to the LAD, vein graft. Circumflex and is free radial graft to PDA. 02/08/21: Patient alert and oriented x 3. Sitting up in bedside chair, no acute distress. Plan to be discharged today. No complaints of chest pain or shortness of breath. Echo showed bilateral pleural effusion with a diffuse interstitial pattern. Masoud carvajal has history of atrial fibrillation which seemed to be intermittent. Patient is on anti-cognition therapy. He is on amiodarone. Doesn't appear to be in acute distress. Patient is is also on aspirin, , atorvastatin and by mouth Cardizem. Patient is also metoprolol 50 mg by mouth twice a day he and his blood pressure 112/57. Pulse is in the 80-90s. He is tolerating activity GENERAL: Well-appearing, well-nourished and in no acute distress. NECK: Supple without JVD or thyromegaly. LUNGS: Breath sounds clear to auscultation bilaterally. Respiration equal and unlabored. No wheezes, rales or rhonchi. HEART: Regular rate and rhythm without murmurs, rubs or gallops. S1 and S2 heard. EXTREMITIES: Normal range of motion, no edema. No clubbing or cyanosis. Peripheral pulses intact. ASSESSMENT: Triple vessel coronary disease status post three-vessel CABG Hypertension Hyperlipidemia Moderate left ventricular dysfunction with EF 45% and history of ischemic cardiomyopathy Paroxysmal atrial fibrillation on Eliquis for anticoagulationon an outpatient, currently sinus rhythm, status post pulmonary vein isolation and exclusion of the left atrial appendage Former chronic tobacco dependence Right sided pneumothorax, status post placement of right Thoravent, resolved PLAN: Patient being discharged today Follow up with Dr. Allen at scheduled appointment Continue current medical therapy Objective - Vital Signs Vital signs: Vital Signs Temp 98.1 F 02/08/21 07:59 Pulse 83 02/08/21 11:46 Resp 16 02/08/21 11:46 BP 112/57 02/08/21 11:46 Pulse Ox 99 02/08/21 11:46 Intake & Output 0502/08/21 02/08/21 18:59 06:59 18:59 Intake Total 578 480 Output Total 300 Balance 578 -300 480 Weight 89.7 kg Intake: IV 0 Sodium Chloride 0.9% 1, 0 000 ml @ 20 mls/hr IV . Q24H [facility] Rx#:[id number] Oral 578 480 Output: Urine 300 Other: Voiding Method Urinal Urinal # Voids 1 ABP, PAP, CO, CI - Last Documented Arterial Blood Pressure 100/52 Pulmonary Artery Pressure 29/8 Cardiac Output 7.5 Cardiac Index 3.6 - Labs CBC & Chem 7: 02/08/21 07:42 02/08/21 07:42 Labs: Abnormal Lab Results - Last 24 Hours (Table) 02/08/21 02/08/21 Range/Units 07:42 07:42 RBC 3.79 L (4.30-5.90) m/uL Hgb 11.6 L (13.0-17.5) gm/dL Hct 34.8 L (39.0-53.0) % Glucose 101 H (74-99) mg/dL
--- NOTE | 2021-02-08 17:06 | P.PN ---
Progress Note - Text Progress Note Date: 02/08/21 - Chief Complaint CABG Consultation: This is a 70-year-old patient, who had been complaining of shortness of breath with exertion and chest pain and underwent cardiac catheterization on 01/28/2021. Patient is found to have left main disease 50% distal critical stenosis in the ostium of the LAD and mid left circumflex. 2-D echocardiogram showed EF of 45-50%. Patient's eliquis for a prior history of atrial fibrillation. Patient underwent coronary bypass on January [address] Mcdonald. Also developed a pneumothorax. Had paroxysmal atrial fibrillation. Back in sinus rhythm. Today: Sitting up in a chair. Eating okay. Up to the bathroom. Ambulated. Decreased wheezing. Review of systems: Was done for constitutional, cardiovascular, GI, pulmonary. relevant finding as above Active Medications Acetaminophen (Acetaminophen Tab 500 Mg Tab) 1,000 mg PO Q6HR PRN PRN Reason: Fever and/ or Pain Last Admin: 02/06/21 16:24 Dose: 1,000 mg Documented by: Acetylcysteine (Acetylcysteine 800 Mg/4 Ml Vial) 200 mg INHALATION RT-TID [facility] Last Admin: 02/08/21 12:50 Dose: Not Given Documented by: Albuterol/Ipratropium (Ipratropium-Albuterol 3 Ml Neb) 3 ml INHALATION RT-Q2H PRN PRN Reason: Shortness Of Breath Or Wheezing Last Admin: 02/03/21 23:05 Dose: 3 ml Documented by: Albuterol/Ipratropium (Ipratropium-Albuterol 3 Ml Neb) 3 ml INHALATION RT-QID [facility] Last Admin: 02/08/21 15:39 Dose: 3 ml Documented by: Amiodarone HCl (Amiodarone 200 Mg Tab) 400 mg PO BID [facility] Last Admin: 02/08/21 08:08 Dose: 400 mg Documented by: Apixaban (Apixaban 5 Mg Tab) 5 mg PO BID [facility] Last Admin: 02/08/21 08:09 Dose: 5 mg Documented by: Aspirin (Aspirin 81 Mg) 81 mg PO DAILY [facility] Last Admin: 02/08/21 08:09 Dose: 81 mg Documented by: Atorvastatin Calcium (Atorvastatin 40 Mg Tab) 40 mg PO DAILY [facility] Last Admin: 02/08/21 08:09 Dose: 40 mg Documented by: Bisacodyl (Bisacodyl 10 Mg Supp) 10 mg RECTAL DAILY PRN PRN Reason: Constipation Last Admin: 02/05/21 12:50 Dose: 10 mg Documented by: Budesonide (Budesonide 1 Mg/2 Ml Nebu) 1 mg INHALATION RT-BID [facility] Last Admin: 02/08/21 07:07 Dose: 1 mg Documented by: Diltiazem HCl (Diltiazem Cd 120 Mg Cap.Er.24h) 120 mg PO DAILY [facility] Last Admin: 02/08/21 09:57 Dose: 120 mg Documented by: Furosemide (Furosemide 40 Mg Tab) 40 mg PO DAILY [facility] Last Admin: 02/08/21 09:57 Dose: 40 mg Documented by: Magnesium Hydroxide (Magnesium Hydroxide 2,400 Mg/10 Ml Cup) 2,400 mg PO BID PRN PRN Reason: Constipation Metoclopramide HCl (Metoclopramide 5 Mg/Ml 2 Ml Vial) 10 mg IVP Q4H PRN PRN Reason: Nausea And Vomiting Last Admin: 02/04/21 10:17 Dose: 10 mg Documented by: Metoprolol Tartrate (Metoprolol Tartrate 50 Mg Tab) 50 mg PO BID [facility] Last Admin: 02/08/21 08:09 Dose: 50 mg Documented by: Miscellaneous Information (Magnesium Replacement Protocol 1 Each Misc) 1 each MISCELLANE DAILY PRN; Protocol PRN Reason: Per Protocol Miscellaneous Information (Phosphorus Replacement Protoco 1 Each Misc) 1 each MISCELLANE DAILY PRN; Protocol PRN Reason: Per Protocol Miscellaneous Information (Potassium Replacement Protocol 1 Each Misc) 1 each MISCELLANE DAILY PRN; Protocol PRN Reason: Per Protocol Ondansetron HCl (Ondansetron 4 Mg/2 Ml Vial) 4 mg IVP Q6HR PRN PRN Reason: Nausea And Vomiting Pantoprazole Sodium (Pantoprazole 40 Mg Tablet) 40 mg PO AC-BRKFST [facility] Last Admin: 02/08/21 06:06 Dose: 40 mg Documented by: Potassium Chloride (Potassium Chloride Er 20 Meq Tab.Er) 20 meq PO DAILY [facility] Last Admin: 02/08/21 09:57 Dose: 20 meq Documented by: Senna/Docusate Sodium (Sennosides-Docusate Sodium 1 Each Tab) 2 each PO HS [facility] Last Admin: 02/07/21 20:30 Dose: 2 each Documented by: Sodium Chloride (Sodium Chloride 0.9% Flush 10 Ml Syringe) 10 ml IV BID [facility] Last Admin: 02/08/21 08:09 Dose: 10 ml Documented by: Past medical history to include: Atrial fibrillation, coronary artery disease, osteoarthritis, Social history: Patient smoked on and off for close to 45 years no alcohol since August 2020. Physical examination: VITAL SIGNS: 98.1, 96, 16, 102/58, 98% room air GENERAL: Sitting up in a chair awake EYES: Pupils equal. Conjunctiva normal. NECK: JVD not raised; masses not palpable. HEART: First and second heart sounds are normal; no edema. LUNGS: Respiratory rate normal; decreased breath sounds , mild wheezing. ABDOMEN: Soft, nontender, liver spleen not palpable, no masses palpable. PSYCH: Alert and oriented x3; mood and affect normal. MUSCULAR skeletal: Evidence of OA INVESTIGATIONS, reviewed in the clinical context: February 08: Hemoglobin 11.6 potassium 4 creatinine 0.8 February 07: Hemoglobin 11.3 platelets 162 potassium 3.8 creatinine 0.75 February 06: WBC 8.1 hemoglobin 10.8 potassium 4 creatinine 0.84 February 05: WBC 10.1 hemoglobin 10.6 platelets 107 potassium 3.7 creatinine 0.95 WBC 9.7 hemoglobin 11.6 platelets 115 potassium 4.2 creatinine 0.75 albumin 2.8 Chest x-ray film personally reviewed by [id number] pneumothorax about 30% reported. Emphysema changes. Previous testing: Labs from: 01/29/2021 Hemoglobin 14.6 platelets 169 TSH 1.5 LDL 143 Assessment and plan: -Coronary bypass, 3 vessel done on February 02 -Coronary artery disease. on aspirin, Lipitor, Plavix, Lopressor -Essential hypertension. Continue Lopressor -Acute postprocedure blood loss anemia as expected from surgery. Follow H&H -Acute COPD exacerbation, in a previous smoker. DuoNeb. inhaled steroids-DC. Add Symbicort -Hyperlipidemia. On Lipitor -Primary osteoarthritis. Use Tylenol when necessary -Hypoalbuminemia. Acute phase reactant -Paroxysmal atrial fibrillation. Received amiodarone. IV followed by by mouth. On eliquis. Cardizem. Lopressor -Right-sided pneumothorax/. Chest tube per cardiothoracic surgery-removed. Improved -Thrombocytopenia, acute. Dilutional.-Improving Discussed with the patient. Add Symbicort. DC nebulized steroids Thank you Dr. Allen
[2021-02-08 18:14] VITALS: BP 108/62; PULSE 76
[2021-02-08] MEDS ORDERED: SYMBICORT 160-4.5 MCG INHALER INHALATION SCH (20:00)
== END 2021-02-08 18:44 | disposition home health service (06) | DRG 236 ==
LOC: 2ORMAIN 05:28 → 2SICU 14:31 → 3SCARD 02-06 12:29
PROVIDERS: ADMIT Surgery; ATTEND Surgery
PROC: 025T0ZZ Destruction of Left Pulmonary Vein, Open Approach (ICD-10-PCS; principal; 2021-02-02 08:00)
PROC: 02100Z9 Bypass Coronary Artery, One Artery from Left Internal Mammary, Open Approach (ICD-10-PCS; principal; 2021-02-02 08:00)
PROC: 4A0305C Measurement of Arterial Flow, Coronary, Open Approach (ICD-10-PCS; principal; 2021-02-02 08:00)
PROC: 025 Heart and Great Vessels, Destruction (ICD-10-PCS; principal; 2021-02-02 08:00)
PROC: 021009W Bypass Coronary Artery, One Artery from Aorta with Autologous Venous Tissue, Open Approach (ICD-10-PCS; principal; 2021-02-02 08:00)
PROC: 5A1221Z Performance of Cardiac Output, Continuous (ICD-10-PCS; principal; 2021-02-02 08:00)
PROC: 02L70CK Occlusion of Left Atrial Appendage with Extraluminal Device, Open Approach (ICD-10-PCS; principal; 2021-02-02 08:00)
PROC: 03BC4ZZ Excision of Left Radial Artery, Percutaneous Endoscopic Approach (ICD-10-PCS; principal; 2021-02-02 08:00)
PROC: 02100AW Bypass Coronary Artery, One Artery from Aorta with Autologous Arterial Tissue, Open Approach (ICD-10-PCS; principal; 2021-02-02 08:00)
PROC: 06BQ4ZZ Excision of Left Saphenous Vein, Percutaneous Endoscopic Approach (ICD-10-PCS; principal; 2021-02-02 08:00)
PROC: 4A133J1 Monitoring of Arterial Pulse, Peripheral, Percutaneous Approach (ICD-10-PCS; 2021-02-02 08:00)
PROC: 03HY32Z Insertion of Monitoring Device into Upper Artery, Percutaneous Approach (ICD-10-PCS; 2021-02-02 08:00)
PROC: B24BZZ4 Ultrasonography of Heart with Aorta, Transesophageal (ICD-10-PCS; 2021-02-02 08:00)
PROC: 4A133B1 Monitoring of Arterial Pressure, Peripheral, Percutaneous Approach (ICD-10-PCS; 2021-02-02 08:00)
PROC: 05HM33Z Insertion of Infusion Device into Right Internal Jugular Vein, Percutaneous Approach (ICD-10-PCS; 2021-02-02 08:00)
PROC: 0W9930Z Drainage of Right Pleural Cavity with Drainage Device, Percutaneous Approach (ICD-10-PCS; 2021-02-04)
DX: I25.10 Atherosclerotic heart disease of native coronary artery without angina pectoris (principal); J93.9 Pneumothorax, unspecified; I48.92 Unspecified atrial flutter; D62 Acute posthemorrhagic anemia; J98.11 Atelectasis; D69.6 Thrombocytopenia, unspecified; E88.09 Other disorders of plasma-protein metabolism, not elsewhere classified; I11.9 Hypertensive heart disease without heart failure; J43.9 Emphysema, unspecified; I48.0 Paroxysmal atrial fibrillation; F10.21 Alcohol dependence, in remission; I25.5 Ischemic cardiomyopathy; I44.0 Atrioventricular block, first degree; E78.5 Hyperlipidemia, unspecified; M19.91 Primary osteoarthritis, unspecified site; M54.9 Dorsalgia, unspecified; I25.2 Old myocardial infarction; Z79.01 Long term (current) use of anticoagulants; Z79.82 Long term (current) use of aspirin; Z79.899 Other long term (current) drug therapy; Z87.891 Personal history of nicotine dependence; Z90.89 Acquired absence of other organs; Z71.6 Tobacco abuse counseling; Z98.890 Other specified postprocedural states; Z82.49 Family history of ischemic heart disease and other diseases of the circulatory system; Z82.61 Family history of arthritis; Z82.3 Family history of stroke
CPT/HCPCS: 71045; 71046; 80048; 80053; 82330; 82805; 83735; 84132; 85025; 85027; 85520; 85610; 85730; 86850; 86891; 86900; 86901; 86920; 87070; 87205; 94002; 94640; 94760

== ENCOUNTER → 2021-06-09 | Outpatient (CLI) | payer MEDICARE | END | disposition home or self-care (01) | LOC: RADMRIMAIN 08:59 | PROVIDERS: ATTEND Family Medicine | DX: Z53.9 Procedure and treatment not carried out, unspecified reason (principal) ==

== ENCOUNTER → 2021-06-25 | Outpatient (CLI) | payer MEDICARE ==
--- NOTE | 2021-06-29 09:02 | PE ---
EXAMINATION TYPE: PET CT fusion skull to thigh DATE OF EXAM: 06/25/2021 COMPARISON: Outside low-dose lung screening CT June 01, 2021 HISTORY: Solitary pulmonary nodule, abnormal CT. TECHNIQUE: Following the intravenous administration of 14.8 mCi of F-18 FDG, whole body images are p erformed from the skull base to the midthigh. Images are reviewed on the computer in the coronal, ax ial, and sagittal planes. Reconstructed rotating images are created on independent workstation and r eviewed on the computer. A localization and attenuation correction CT is performed in conjunction w ith the PET scan. Blood glucose level equals 93 SCAN: Initial Scan FINDINGS: SKULL BASE AND NECK: No areas of suspicious hypermetabolic uptake. . CHEST, MEDIASTINUM, AND HILAR REGION: Midline sternotomy with nonunion redemonstrated, mild vertical abnormal hypermetabolic uptake could reflect infectious and/or inflammatory process, correlate clinic ally. Mediastinal clips redemonstrated. Persistent thin-walled fluid collection anterior mediastinum is ametabolic suggesting seroma or hematoma. No suspicious nodules or additional areas of abnormal hypermetabolic uptake. ABDOMEN AND PELVIS: No adrenal masses. Normal excretion. No suspicious hypermetabolic uptake. OSSEOUS STRUCTURES: No suspicious hypermetabolic uptake. OTHER CT: Prominent pulmonary arteries, CT findings suggestive of underlying pulmonary artery hyperte nsion. Cardiomegaly redemonstrated. Occasional scattered pelvic phlebolith. IMPRESSION: No suspicious hypermetabolic nodules. No suspicious hypermetabolic uptake in the anterior mediastinal thin-walled fluid collection to suggest solid mass or neoplasm.
== END | disposition home or self-care (01) ==
LOC: RADPETMAIN 16:51
PROVIDERS: ATTEND Nurse Practitioner Family
DX: R91.8 Other nonspecific abnormal finding of lung field (principal); R18.8 Other ascites; Z95.1 Presence of aortocoronary bypass graft
CPT/HCPCS: 78815; A9552

== ENCOUNTER 2023-02-23 06:24 | Day surgery (SDC) | payer MEDICARE ==
[2023-02-23] MEDS ORDERED: ASPIRIN 325 MG TAB PO STA (06:30)
[2023-02-23] MEDS ORDERED: ALPRAZolam 0.25 MG TAB PO PRN (06:30)
[2023-02-23] MEDS ORDERED: ALPRAZolam 0.5 MG TAB PO PRN (06:30)
[2023-02-23] MEDS ORDERED: ATORVASTATIN 80 MG TAB PO STA (06:30)
[2023-02-23] MEDS ORDERED: NITROGLYCERIN SL TABS 0.4 MG TAB SUBLINGUAL PRN ×2 (06:30→08:57)
[2023-02-23] MEDS ORDERED: SODIUM CHLORIDE 0.9% 1,000 ML IV ONE (06:40)
[2023-02-23] MEDS ORDERED: HEPARIN SODIUM,PORCINE 10,000 UNIT in SODIUM CHLORIDE 0.9% 1,000 ML IRRIGATION PRN (07:00)
[2023-02-23] MEDS ORDERED: HEPARIN SODIUM,PORCINE 2,500 UNIT in SODIUM CHLORIDE 0.9% 250 ML IRRIGATION PRN (07:00)
[2023-02-23] MEDS ORDERED: LIDOCAINE 1% INJ 10MG/ML (20 ML MDV) ONE (07:20)
[2023-02-23] MEDS ORDERED: fentaNYL (PF) 50 MCG/ML 2 ML AMP ONE (07:31)
[2023-02-23] MEDS ORDERED: fentaNYL (PF) 50 MCG/ML 2 ML AMP IV ONE (07:56)
[2023-02-23] MEDS ORDERED: LIDOCAINE 1% INJ 10MG/ML (30 ML VIAL-PF) SQ ONE (08:00)
[2023-02-23] MEDS ORDERED: IOPAMIDOL-370 100ML BTL INJ ONE ×3 (08:19→08:43)
[2023-02-23] MEDS ORDERED: CLOPIDOGREL 75 MG TAB ONE (08:20)
[2023-02-23] MEDS ORDERED: HEPARIN SODIUM 1,000 UN/ML (10ML VL) ONE (08:20)
[2023-02-23] MEDS: HEPARIN SODIUM 1,000 UN/ML (10ML VL) IVP ONE ×2 (08:22→08:33)
[2023-02-23] MEDS ORDERED: CLOPIDOGREL 75 MG TAB PO ONE (08:23)
[2023-02-23] MEDS ORDERED: MIDAZOLAM 2 MG/2 ML VIAL IVP ONE (08:24)
[2023-02-23] MEDS ORDERED: ATROPINE SULFATE 0.1 MG/ML 10ML SYRINGE IV PRN (08:57)
[2023-02-23] MEDS ORDERED: ZOLPIDEM 5 MG TAB PO PRN (08:57)
[2023-02-23] MEDS ORDERED: MAG HYDROX/AL HYDROX/SIMETH 30 ML CUP PO PRN (08:57)
[2023-02-23] MEDS ORDERED: RX INFO: IV CONTRAST WAS GIVEN 1 EACH MISC MISCELLANE PRN (08:57)
[2023-02-23] MEDS ORDERED: SODIUM CHLORIDE 0.9% 1,000 ML in EMPTY BAG 1 BAG IV SCH (09:00)
--- NOTE | 2023-02-23 09:08 | P.CARDCATH ---
Date of Procedure: 02/23/23 Description of Procedure: Cardiac Catheterization: The patient is a 72-year-old male with a known history of CAD, status post CABG who presented with symptoms of new onset exertional chest discomfort. Recommendations were made regarding cardiac catheterization, the risks and the complications were discussed with the patient who is in full understanding and agreement. Procedure Description: Patient was brought to research laboratory specialist in fasting semi-sedated state after receiving Fentanyl and Benadryl achieiving moderate conscious sedated state. Using Xylocaine Anesthesia and Seldinger technique, a micropuncture catheter was introduced then exchanged to a 6-[place]jiboutian sheath was introduced in the left femoral artery . Subsequently, selective coronary angiography was performed using a 6-[place]ib[place]ian 4 bend Aleena catheter. Multiple views of the coronary artery including hemiaxial views were obtained. The right Aleena catheter was used to cannulate the SVG and the CHANEL. The 6-D[place]iboutian pigtail catheter was used to cross the aortic valve and LVEDP was calculated. Subsequently an SINHALA view of the ascending aorta was performed. PCI: After removing the catheters a 6-D[place]ib[place]ian EBU 3.75 guiding catheter was introduced and after cannulating the left main, a 0.014 BMW J-wire was positioned in the distal left circumflex. Subsequently a 3.0 x 12 mm Treck was advanced and one inflation at 8 mathew was done. After removing the balloon a 4.0 x 23 mm Xience Dinah point stent was deployed at 14 mathew. After removing the balloon images were obtained and revealed stable successful stenting. Following that, catheter and sheath were removed. Hemostasis was obtained with deployment of an Angio-Seal . There was no immediate complication. Patient was returned to room in stable condition. Of note, the patient received a total of 9000 units of intravenous heparin as well as loading dose of clopidogrel. His ACT was monitored. He had no chest discomfort or significant EKG changes. Findings: Left main: This is a large size vessel, bifurcating into LAD and left circumflex, the distal left main has 30-40% stenosis. LAD: This is a large size vessel, reaching to the apex the ostium of the LAD has a 95% stenosis, the rest of the vessel has no high-grade stenosis Left circumflex: This is a large dominant vessel giving rise to a first obtuse marginal branch that is subtotally occluded. Distally it bifurcates into PDA and PLV. The mid left circumflex has a 95% stenosis, the rest of the vessel has no high-grade stenosis RCA: This Is a small nondominant vessel that has no evidence of high-grade stenosis CHANEL to the LAD: The distal anastomotic site is patent the flow in the LAD is brisk there is competitive flow from the pilot point LAD SVG to the OM: The proximal and distal anastomotic sites are patent, the flow into the OM is brisk with no high-grade stenosis Aortogram: Aortogram was performed in the SINHALA and revealed a tricuspid aortic valve. One graft was visualized. Left Ventriculogram: Not performed Hemodynamics: There was no gradient across the aortic valve , LVEDP was 12-16 mmHg Conclusion: 1. Moderate distal left main disease 2. And severe stenosis in the ostium of the LAD 3. Severe disease in the mid dominant left circumflex 4. Patent CHANEL to the LAD and patent SVG to the OM 5. Successful stenting of the mid left circumflex with reduction of the stenosis from 95% to 0% Recommendations: The patient will continue on aspirin and Plavix for 1 week then he will stop aspirin and continue on Plavix and anticoagulation in addition to aggressive coronary risks modifications. The findings and the recommendations were discussed with the patient and the family and they were in full understanding and agreement. Duration of sedation is 46 minutes.
[2023-02-23] MEDS: ASPIRIN 81 MG PO SCH (09:50)
[2023-02-23] MEDS: SODIUM CHLORIDE 0.9% 1,000 ML in EMPTY BAG 1 BAG IV SCH ×3 (12:20→20:34)
[2023-02-23 14:40] VITALS: BMI 28.9
[2023-02-23] MEDS: METOPROLOL TARTRATE 50 MG TAB PO SCH (20:34)
[2023-02-24 02:58] VITALS: TEMP 98.1
--- NOTE | 2023-02-24 07:45 | P.PN ---
Subjective Progress Note Date: 02/24/23 PROGRESS NOTE The patient is a 72-year-old male with a known history of CAD who presented with symptoms of new onset angina, underwent cardiac catheterization and was found to have an occluded radial bypass to the left PDA with significant disease in the left circumflex. Underwent stenting of that vessel. He is doing well overnight. Continues to be in sinus mechanism. He denies any chest discomfort, dizziness or palpitations. He denies any nausea or vomiting. Medications: Aspirin 81 mg daily, metoprolol tartrate 50 mg twice a day, Lipitor 40 mg daily, Zestril 5 mg daily, Cardizem CD 120 mg daily, Plavix 75 mg daily. PHYSICAL EXAMINATION: Blood pressure 125/70 heart rate 7 LUNGS: Clear to auscultation HEART: Regular rate and rhythm, S1, S2. No S3. No systolic murmur ABDOMEN: Soft, nontender, no organomegaly EXTREMETIES: No edema, left groin no hematoma LAB: EKG: Sinus mechanism with no acute ST segment changes IMPRESSION: 1. Status post stenting of the left circumflex 2. Status post CABG with patent CHANEL to the LAD and SVG to OM 3. History of hypertension 4. History of hyperlipidemia PLAN: 1. Increase physical activity 2. Resume anticoagulation 3. Continue aspirin for one week then stop aspirin and continue Plavix and anticoagulation 4. Discharged home today and follow-up in one week Objective - Vital Signs Vital signs: Vital Signs Temp 98.1 F 02/24/23 02:00 Pulse 76 02/24/23 02:00 Resp 16 02/24/23 02:00 BP 153/85 02/24/23 02:00 Pulse Ox 96 02/24/23 02:00 FiO2 Intake & Output 02/23/23 02/24/23 02/24/23 18:59 06:59 18:59 Intake Total 300 Balance 300 Weight 94 kg Intake: IV 300 Other: # Voids 1 3
[2023-02-24 07:47] LABS: African American GFR (CKD) >90 (>60 ml/min/1.73 sqM); Anion Gap 6 mmol/L; Blood Urea Nitrogen 12 mg/dL (9-20); Calcium 8.6 mg/dL (8.4-10.2); Carbon Dioxide 22 mmol/L (22-30); Chloride 110 mmol/L (98-107); Glucose 99 mg/dL (74-99); Non-African American GFR(CKD) >90 (>60 ml/min/1.73 sqM); Potassium 3.9 mmol/L (3.5-5.1); Sodium 138 mmol/L (137-145)
[2023-02-24 08:08] VITALS: BP 156/80; PULSE 84; RESP 18
[2023-02-24] MEDS: ASPIRIN 81 MG PO SCH (08:33)
[2023-02-24] MEDS: METOPROLOL TARTRATE 50 MG TAB PO SCH (08:33)
[2023-02-24] MEDS ORDERED: ATORVASTATIN 40 MG TAB PO SCH (09:00)
[2023-02-24] MEDS ORDERED: DILTIAZEM CD 120 MG CAP.ER.24H PO SCH (09:00)
[2023-02-24] MEDS ORDERED: APIXABAN 5 MG TAB PO SCH (09:00)
[2023-02-24] MEDS ORDERED: CLOPIDOGREL 75 MG TAB PO SCH (09:00)
[2023-02-24] MEDS ORDERED: lisinopriL 5 MG TAB PO SCH (09:00)
== END 2023-02-24 11:50 | disposition home or self-care (01) ==
LOC: CATHCVL 06:24 → 6NMEDSUR 09:01 → CATHCVL 02-24 11:50
PROVIDERS: ATTEND Internal Medicine Interventional Cardiology
DX: I25.10 Atherosclerotic heart disease of native coronary artery without angina pectoris (principal); Z79.02 Long term (current) use of antithrombotics/antiplatelets
CPT/HCPCS: 93459; 80048; C9600; C1769 ×3; C1760; C1887; C1725; C1894; C1874; J2250; J2001; J3010; J1644; Q9967